=== PATIENT | male | born 1965 | race Caucasian/White ===

== ENCOUNTER 2017-12-23 12:04 | Emergency (ER) | payer MEDICAID, SELFPAY ==
[2017-12-23 12:06] VITALS: BP 135/77; PULSE 87; RESP 22; TEMP 37; O2SAT 94
--- NOTE | 2017-12-23 12:10 | DI.CT_ITS ---
SYMPTOM/DIAGNOSIS: UPPER ABD PAIN, NO BOWEL MOVEMENT FOR [address]: Routine examination was performed. Dependent atelectatic changes are seen in the lung bases. The liver, spleen, pancreas, gallbladder, bile ducts and adrenal glands are unremarkable. There is focal thinning of the renal cortex seen in the mid pole of the left kidney. This may represent focal scarring. The possibility of a small angiomyolipoma could not be excluded. The fat area measures approximately 1 by 1 cm. No nephrolithiasis or hydronephrosis. The urinary bladder is intact. The reproductive organs are unremarkable. The bowel shows no evidence of obstruction or inflammation. No evidence to suggest an acute appendicitis are present. There is a normal amount of stool throughout the colon. The abdominal aorta is of normal caliber. No significant abdominal or pelvic adenopathy, ascites or pneumoperitoneum is seen. Degenerative changes are seen in the spine. IMPRESSION: No evidence of bowel obstruction or significant fecal load. Renal cortical scarring of the left kidney versus small angiomyolipoma.
--- NOTE | 2017-12-23 12:17 | W.ED.GENAD ---
Discharge Plan Disposition Patient Disposition: HOME Discharge Details Chief Complaint: Abd Prob Clinical Impression: Constipation, Abdominal pain Primary Care Provider: Katharina Hernandez V ED Provider: Prosper Ventura Home Meds and New Rx's Prescriptions: Continue citalopram 20 MG tablet 40 mg PO HS RF: 0 losartan 25 MG tablet 50 mg PO DAILY RF: 0 lovastatin 20 MG tablet 1 tab PO DAILY RF: 0 bupropion HCl 150 MG tablet extended release 24 hr 1 tab PO BID RF: 0 aspirin [Aspir-81] 81 MG tablet,delayed release (DR/EC) 81 mg PO DAILY RF: 0 multivitamin 1 EACH capsule 1 tab PO DAILY RF: 0 Discontinued hydrocodone-acetaminophen [Vicodin] 5-300 mg Tablet 1 tab PO PRN PRNRF: 0 Discharge Instructions Instructions: Constipation (ED), Abdominal Pain (ED) Additional Instructions: Please stop taking Vicodin. This medicine is likely causing her constipation Take a stool softener --does according to label. Please contact your primary care physician to arrange follow-up. Be sure to discuss with your doctor the official result from CT imaging. Preliminary CT imaging notes cortical renal scarring in your left kidney versus possible small angiomyolipoma. It is important that you follow up on the official CT interpretation and discuss findings with your doctor as additional outpatient diagnostic testing may be needed. Return to the ER for any worsening or new concerning symptoms. Referrals: Katharina Hernandez MD [Primary Care Provider] - Medical Decision Making 12:20 --58-year-old male with history of recently diagnosed spinal stenosis, started on Vicodin and taking over the past 1 week, here with upper abdominal abdominal pain worsening over the past few days and constipation. I suspect abdominal pain is related to constipation. Consider other etiologies for pain including acute bowel obstruction. Plan to CT abd and pelv. Patient appears clinically dehydrated. Will give IV fluid bolus . 14:30 --labs reviewed and nondiagnostic. Patient does have leukocytosis. 15:30 --CT of the abdomen pelvis was interpreted by radiology: IMPRESSION: 1. No significant fecal loading. No bowel obstruction. 2. Cortical renal scarring midpole left kidney versus small angiomyolipoma. Measures 1 x 1 cm. Patient reassessed and notes he continues to have some upper abdominal discomfort. I will give Pepcid IV as well as some Toradol IV. Patient is still not had a bowel movement. I will give fleets enema. 16:24 --patient reassessed and notes that he had a significant bowel movement after enema and feels much better. Pain can completely resolved. Patient was instructed to stop taking Vicodin and to use stool softener as prescribed. Usual and customary discharge instructions were provided to the patient. Medical Records Medical records reviewed: Yes I reviewed the patient's medical records. I obtained and reviewed discharge summary documentation from [facility]: MRI lumbar spine showed significant spinal stenosis and degenerative disc disease lumbar spine. His pain improved with IV opioids and steroids. Lab Data Lab results reviewed: Yes I reviewed the patient's lab results. Laboratory Tests Range/Units 12/23/17 12/23/17 12:21 12:21 WBC (4.4-10.8) k/cumm 14.66 H RBC (4.50-6.00) m/cumm 4.57 Hgb (13.5-17.5) g/dL 14.0 Hct (40.0-50.0) % 41.9 MCV (80-95) fL 91.7 MCH (27.0-33.0) pg 30.6 MCHC (32.0-36.0) g/dL 33.4 RDW (11.8-14.1) % 13.1 Plt Count (130-400) x1000/uL 206 MPV (8.0-11.0) fL 10.4 Immature Gran % 0.4 Neutrophils % 81.0 Lymphocytes % 5.4 Monocytes % 13.1 Eosinophils % 0.0 Basophils % 0.1 Absolute Neutrophils (1.2-6.7) k/cumm 11.87 H Absolute Lymphocytes (1.2-3.4) k/cumm 0.79 L Absolute Monocytes (0.11-0.7) k/cumm 1.92 H Absolute Eosinophils (0.0-0.7) k/cumm 0.00 Absolute Basophils (0.0-0.2) k/cumm 0.01 Sodium (136-145) mmol/L 133 L Potassium (3.5-5.1) mmol/L 4.2 Chloride (98-107) mmol/L 95 L Carbon Dioxide (21.0-32.0) mmol/L 28.3 Anion Gap (3-11) mmol/L 9.7 BUN (7-18) mg/dL 25 H Creatinine (0.70-1.30) mg/dL 1.06 Estimated GFR/1.73 m2 (mL/min/1.73m2) >= 60.00 Glucose (70-100) mg/dL 111 H Calcium (8.5-10.1) mg/dL 8.5 Total Bilirubin (0.2-1.0) mg/dL 0.7 AST (15-37) U/L 24 ALT (12-78) U/L 37 Alkaline Phosphatase (46-116) U/L 87 Total Protein (6.4-8.2) g/dL 7.1 Albumin (3.4-5.0) g/dL 2.8 L Lipase (73-393) U/L 66 L HPI General Date/Time Provider Initiated Documentation: 12/23/17 12:05. Limitations to Documentation: no limitations. Information obtained by: patient. HPI Narrative: 52-year-old with history of hypertension, back pain and recently diagnosed with spinal stenosis, recently prescribed been taking Vicodin, here with chief complaint of abdominal pain. Patient notes abdominal pain over the past few days has been worsening. Pain is localized to his upper abdomen. Pain feels like constant discomfort. Some associated nausea. No vomiting. He has had no bowel movement in the past 6 days. He typically has a bowel movement every 1-2 days. He has no associated chest pain. No fever. Related Data Home Medications Medication Instructions Recorded Confirmed citalopram 40 mg PO HS 05/15/13 12/23/17 losartan 50 mg PO DAILY 05/15/13 12/23/17 lovastatin 1 tab PO DAILY 05/15/13 12/23/17 aspirin [Aspir-81] 81 mg PO DAILY 01/15/16 12/23/17 bupropion HCl 1 tab PO BID 01/15/16 12/23/17 multivitamin 1 tab PO DAILY 01/15/16 12/23/17 Allergies Allergy/AdvReac Type Severity Reaction Status Date / Time No Known Allergies Allergy Unverified 12/23/17 12:09 General Stated Complaint: Abd Prob ELFEGO: 3 Review of Systems Review of Systems All systems reviewed & are unremarkable except as noted in HPI and below Gastrointestinal Reports abdominal pain and Denies vomiting Genitourinary Denies dysuria Musculoskeletal Reports back pain (mild, improving) PFSH Family History Other Cerebrovascular accident Diabetes Heart disease Myocardial infarction Neoplasm Medical History Depression Essential hypertension GERD (gastroesophageal reflux disease) Hyperlipidemia Obesity (BMI 30-39.9) Social History Smoking/Tobacco Use Status: Current every day Surgical History Colonoscopy - MAC (12/06/16) EGD - MAC (12/06/16) Repair of umbilical hernia (12/20/16) Exam Const General: well developed and not in acute distress HENMT Mouth: moist mucous membranes Eyes Conjunctivae: conjunctivae normal Sclera: sclerae normal Neck Neck: normal visual inspection Resp Effort & Inspection: normal respiratory effort and no respiratory distress Auscultation: no rales, no rhonchi and no wheezes Cardio Jugular venous pressure: no JVD Rate: regular rate Rhythm: regular rhythm Heart Sounds: no gallops, no murmurs and no rubs GI Inspection: distended Palpation: soft and tender in the LUQ and in the RUQ Percussion: tympanic to percussion Auscultation: hypoactive bowel sounds Skin General skin exam: no rashes or lesions noted and other (warm) Neuro General: alert, awake and moves all extremities Extrem General: no edema Psych Appearance: grossly normal Mental Status: mental status grossly normal Speech and Movement: speech and movement normal Course Vital Signs Temperature 37.0 C 12/23/17 12:06 Pulse 87 12/23/17 12:06 Respiratory Rate 22 12/23/17 12:06 Blood Pressure 135/77 12/23/17 12:06 Pulse Oximetry 94 L 12/23/17 12:06 Temperature 37.0 C 12/23/17 12:06 Temperature Source Temporal Artery Scan 12/23/17 12:06 Pulse 87 12/23/17 12:06 Respiratory Rate 22 12/23/17 12:06 Blood Pressure 135/77 12/23/17 12:06 Blood Pressure Position Supine 12/23/17 12:06 Pulse Oximetry 94 L 12/23/17 12:06 Oxygen Delivery Method Room Air 12/23/17 12:06 Oxygen Flow Rate 0 12/23/17 12:06 Pain Level 15 12/23/17 12:06
[2017-12-23] MEDS: Lactated Ringers 1,000 ML 1000 ML IV (12:24)
[2017-12-23 12:28] LABS: Abs Immature Grans 0.06 k/cumm (0.0-0.09); Absolute Basophil Count 0.01 k/cumm (0.0-0.2); Absolute Lymphocyte Count 0.79 k/cumm (1.2-3.4); Absolute Monocyte Count 1.92 k/cumm (0.11-0.7); Basophils % 0.1; HCT 41.9 % (40.0-50.0); Immature Grans % 0.4; Lymphocytes % 5.4; Mean Corp. HGB Concentration 33.4 g/dL (32.0-36.0); Mean Corpuscular Hemoglobin 30.6 pg (27.0-33.0); Mean Corpuscular Volume 91.7 fL (80-95); Mean Platelet Volume 10.4 fL (8.0-11.0); Monocytes % 13.1; Platelet Count 206 x1000/uL (130-400); RBC 4.57 m/cumm (4.50-6.00); RBC Distribution Width 13.1 % (11.8-14.1); White Blood Cell Count 14.66 k/cumm (4.4-10.8)
[2017-12-23 12:29] LABS: Absolute Neutrophil Count 11.87 k/cumm (1.2-6.7)
[2017-12-23 12:40] LABS: ALT 37 U/L (12-78); AST 24 U/L (15-37); Albumin 2.8 g/dL (3.4-5.0); Alkaline Phosphatase 87 U/L (46-116); Anion Gap 9.7 mmol/L (3-11); BUN 25 mg/dL (7-18); Bilirubin, Total 0.7 mg/dL (0.2-1.0); CO2 28.3 mmol/L (21.0-32.0); CREATININE 1.06 mg/dL (0.70-1.30); Calcium 8.5 mg/dL (8.5-10.1); Chloride 95 mmol/L (98-107); Glucose 111 mg/dL (70-100); Lipase 66 U/L (73-393); Potassium 4.2 mmol/L (3.5-5.1); Sodium 133 mmol/L (136-145); Total Protein 7.1 g/dL (6.4-8.2)
[2017-12-23] MEDS: Omnipaque 350 MG/ML 100 ML BTL IV (13:51)
[2017-12-23 13:57] VITALS: BP 144/74; PULSE 88; RESP 16; O2SAT 90
--- NOTE | 2017-12-23 14:39 | DI.VRAD_ITS ---
EXAM: CT Abdomen and Pelvis With Intravenous Contrast EXAM DATE/TIME: 12/23/2017 12:12 PM CLINICAL HISTORY: 52 years old, male; Pain; Abdominal pain; Epigastric; Patient HX: Upper abdominal pain, no bm 6 days TECHNIQUE: Axial computed tomography images of the abdomen and pelvis with intravenous contrast. Coronal and sagittal reformatted images were created and reviewed. COMPARISON: No relevant prior studies available. FINDINGS: Lower thorax: No acute findings. ABDOMEN: Liver: Normal. No mass. Gallbladder and bile ducts: Normal. No calcified stones. No ductal dilation. Pancreas: Normal. No ductal dilation. Spleen: Normal. No splenomegaly. Adrenals: Normal. No mass. Kidneys and ureters: Cortical renal scarring midpole left kidney versus small angiomyolipoma. Measures 1 x 1 cm. Stomach and bowel: No significant fecal loading. No bowel obstruction. Appendix: No evidence of appendicitis. PELVIS: Bladder: Unremarkable as visualized. Reproductive: Unremarkable as visualized. ABDOMEN and PELVIS: Intraperitoneal space: Normal. No free air. No significant fluid collection. Bones/joints: No acute fracture. No dislocation. Soft tissues: Unremarkable. Vasculature: Normal. No abdominal aortic aneurysm. Lymph nodes: Normal. No enlarged lymph nodes. IMPRESSION: 1. No significant fecal loading. No bowel obstruction. 2. Cortical renal scarring midpole left kidney versus small angiomyolipoma. Measures 1 x 1 cm. Dictated and Authenticated by: Maria L Saldaña MD. Ordering:JAVI GUTIERREZ MD
[2017-12-23] MEDS: Ketorolac 15 MG/ML VIAL IVP (15:20)
[2017-12-23] MEDS: FAMOTIDINE 20 MG/50 ML BAG 100 MG IVPB (15:21)
[2017-12-23 16:43] VITALS: BP 145/74; PULSE 79; RESP 16; O2SAT 95
== END 2017-12-23 16:50 | disposition home or self-care (01) ==
PROVIDERS: Emergency Provider Student in an Organized Health Care Education/Training Program; PCP Family Medicine
DX: R10.10 Upper abdominal pain, unspecified (principal); K59.00 Constipation, unspecified; R93.422 Abnormal radiologic findings on diagnostic imaging of left kidney; I10 Essential (primary) hypertension
CPT/HCPCS: 36415; 80053; 83690; 96361; 96365; 96375; 99285; 74177; 85025; 99284; J1885; J3490

== ENCOUNTER 2017-12-24 14:07 | Emergency (ER) | payer MEDICAID, SELFPAY ==
[2017-12-24 14:36] VITALS: BP 144/71; PULSE 73; RESP 18; TEMP 36.6; O2SAT 94
[2017-12-24 14:55] LABS: Bilirubin Negative (Negative); Blood Small (Negative); Clarity Clear; Glucose Negative (Negative); Ketones Trace mg/dL (Negative); Leukocyte Esterase Negative (Negative); Nitrite Negative (Negative); Specific Gravity 1.015 (1.005-1.025)
--- NOTE | 2017-12-24 15:00 | DI.US_ITS ---
SYMPTOM/DIAGNOSIS: RUQ PAIN, ? CHOLECYSTITIS ABDOMEN ULTRASOUND: Routine examination. Comparison CT scan is 12/23/17. The aorta and IVC are unremarkable. The liver is mildly enlarged measuring 18 cm. There is diffuse increased echogenicity of the liver consistent with fatty infiltration. No hepatic mass is seen. The gallbladder is unremarkable. No stones or sludge is seen. No pericholecystic fluid is present. The gallbladder wall is within normal limits at .2 cm. The common duct is within normal limits at .3 cm. There is a negative sonographic Zavala's sign. The visualized portions of the pancreas were unremarkable. The spleen and kidneys have a normal appearance. No free fluid is seen in the abdomen. Note is made of antegrade flow in the portal vein. IMPRESSION: Hepatomegaly and hepatic steatosis.
[2017-12-24 15:02] LABS: Bacteria Rare HPF (Negative); Crystals Negative HPF (Negative); Epithelial Cells Few HPF (Negative); Mucus Moderate (Negative); WBC 0-2 HPF (0-5)
[2017-12-24 15:03] LABS: C & S Indicated? No; Casts 0-2 Coarse Granular LPF (Negative)
[2017-12-24 15:15] LABS: Lactate-non-spesis 1.2 mmol/L (0.6-1.4)
[2017-12-24] MEDS: Dicyclomine 20 MG TAB PO (15:18)
[2017-12-24 15:19] LABS: Abs Immature Grans 0.11 k/cumm (0.0-0.09); Absolute Basophil Count 0.02 k/cumm (0.0-0.2); Absolute Neutrophil Count 16.06 k/cumm (1.2-6.7); Basophils % 0.1; HCT 41.7 % (40.0-50.0); HGB 14.1 g/dL (13.5-17.5); Immature Grans % 0.6; Lymphocytes % 3.9; Mean Corp. HGB Concentration 33.8 g/dL (32.0-36.0); Mean Corpuscular Hemoglobin 30.4 pg (27.0-33.0); Mean Corpuscular Volume 89.9 fL (80-95); Mean Platelet Volume 10.9 fL (8.0-11.0); Monocytes % 9.9; Neutrophils % 85.5; Platelet Count 181 x1000/uL (130-400); RBC 4.64 m/cumm (4.50-6.00); RBC Distribution Width 12.9 % (11.8-14.1); White Blood Cell Count 18.78 k/cumm (4.4-10.8)
[2017-12-24] MEDS: Ondansetron 4 MG/2 ML VIAL IVP (15:19)
[2017-12-24] MEDS: Normal Saline 1,000 ML 1000 ML IV (15:19)
[2017-12-24] MEDS: Pantoprazole 40 MG VIAL IVP (15:21)
--- NOTE | 2017-12-24 15:29 | ED.GENADUL_ITS ---
Discharge Plan Disposition Patient Disposition: HOME Condition: Good Discharge Details Chief Complaint: Abd Prob Clinical Impression: Constipation, Abdominal pain Primary Care Provider: Katharina Hernandez V ED Provider: Vikram Munoz Home Meds and New Rx's Prescriptions: New docusate sodium [Colace] 100 mg capsule 100 mg PO DAILY Qty: 90 RF: 0 pantoprazole [Protonix] 40 mg tablet,delayed release (DR/EC) 40 mg PO BID Qty: 60 RF: 0 ranitidine HCl 150 mg capsule 150 mg PO DAILY Qty: 30 RF: 0 cyclobenzaprine 10 mg tablet 10 mg PO TID Qty: 14 RF: 0 No Action citalopram 20 MG tablet 40 mg PO HS RF: 0 losartan 25 MG tablet 50 mg PO DAILY RF: 0 lovastatin 20 MG tablet 1 tab PO DAILY RF: 0 bupropion HCl 150 MG tablet extended release 24 hr 1 tab PO BID RF: 0 aspirin [Aspir-81] 81 MG tablet,delayed release (DR/EC) 81 mg PO DAILY RF: 0 multivitamin 1 EACH capsule 1 tab PO DAILY RF: 0 Discharge Instructions Instructions: Constipation (ED) Additional Instructions: Please take the mag citrate as directed. Please drink 8-10 cups of water with this. Please drink 10-12 cups of water per day on a regular basis to maintain good hydration. Please take the Colace as directed. If you notice any worsening of your symptoms whatsoever, a return of your symptoms, or any worsening pain in your abdomen please return immediately to the ER. Please follow-up with your primary care provider in the next 24-48 hours. If you notice any worsening of your symptoms, or any new symptoms such as vomiting, diarrhea, fever, chills, shortness of breath, chest pain, numbness, weakness, or fainting , please return immediately to the emergency department for reevaluation. Please follow up with your primary care provider as soon as possible for reassessment and reevaluation. As always, it was a pleasure participating in your medical care today. Referrals: Katharina Hernandez MD [Primary Care Provider] - Discharge Data Discharge Date/Time-TO BE ENTERED AT DEPARTURE: 12/24/17 19:49 Medical Decision Making This is a pleasant 52-year-old male who presents for evaluation of epigastric pain. He was here yesterday was seen and assessed and demonstrated relatively benign laboratory workup, and a negative CT scan for any acute process. He did have an enema, and had complete resolution of his epigastric pain after this. Patient states that after going home he had one more bowel movement and then had a return of his symptoms. It is sharp and achy in nature in the epigastric region. Physical exam demonstrates tenderness in the right upper quadrant more so in the mid and left upper quadrants. He still does have his gallbladder, I am concerned for acute cholecystitis. Differential does include gastric ulcer, gastritis, or other acute abdominal pathology. I feel that perforation is unlikely. We will get an abdominal flat plate series for evaluation of potential perforation and gas evaluation however I feel this unlikely. We will hold off on repeat CT after current imaging and laboratory workup. EKG 15: 30 Rate 75, intervals normal, sinus rhythm, RSR in V1, no significant ST elevations or depressions, no T-wave inversions, no Q waves. Results per virtual radiology constipation in the right colon. No free air under the diaphragm. Ultrasound of the abdomen demonstrated acute there is a diffuse increase in hepatic parenchymal echogenicity, consistent with fatty infiltration. Hepatomegaly of 17.6 cm. Gallbladder wall 2.4 mm. Common bile duct 2.9 mm no other acute process. Patient has had notable improvement of his pain and shows no signs of an acute abdomen whatsoever.. With the evidence of the constipation in the right colon I do not feel that he would benefit from another enema, but rather I feel he would benefit from magnesium citrate and colon cleansing. Laboratory workup is relatively benign, however he does have an elevated white count. He has no bandemia though, no tachycardia, no fever. I feel that this elevated white count is most likely secondary to reactivity from his constipation, pain, and mild dehydration. At a long discussion with the patient regarding potential inpatient admission/observation, versus discharge. Patient is requesting to be discharged as he states that he feels much better. He is asking for a muscle relaxant as he ran out of this prescription at home for his chronic back pain. I do feel that this is reasonable for the time being as a temporary measure. With the patient's notable improvement of his symptoms, a benign ultrasound, and an x-ray showing some mild continued constipation of the right colon with no evidence of perforation, as well as the patient's normal vital signs, I feel that it is reasonable for him to be discharged home per his request. I do long discussion with him regarding red flags for which to return, the importance of notable oral fluid intake, as well as the importance of magnesium citrate. Diagnosis constipation. I have extensively reviewed the treatment plan and discharge instructions with the patient and their family. I have addressed all patient concerns at this time. The patient and family was made aware of what symptoms to monitor for that would warrant a return to the emergency department. Discussed the plan with the patient and family, they demonstrate verbal understanding and agreement with our assessment and plan at this time. HPI General Date/Time Provider Initiated Documentation: 12/24/17 14:50 . HPI Narrative: This is a 52-year-old male with a past medical history of hypertension, and inguinal hernia repair on the right, high cholesterol, who presents today for evaluation of upper epigastric abdominal pain. 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 At that time CT scan was performed and demonstrated no significant acute process, laboratory workup demonstrated mild leukocytosis but no other significant etiologies. The patient was given an enema and had complete resolution of his symptoms after this. He was then discharged home. The patient states that since then his pain has returned and was worse than it was before. The pain is located in the left upper mid upper and right upper abdominal quadrants. Slightly worse in the right upper abdominal quadrant which is a transition from where it was yesterday. It is described as stabbing and achy in nature. It is worsened with movement. It is improved by nothing. Patient had an EGD that was performed last December which per patient demonstrated no acute etiologies. He denies any history of gastric ulcer. Patient denies any vomiting but does admit to nausea. He has had one small bowel movement since yesterday, there was no melena, hematochezia, or acholic stool. He denies any hematemesis, hemoptysis, or coffee-ground emesis. The patient does state that he takes occasional antiacid medications, however this is not on his medication list and he does not know the names of these. I imagine they are [id number]. Patient denies any blood thinner use but does take a daily aspirin. The patient denies any other associated symptoms at this time. Patient denies any pertinent family history. He denies any IV or illicit drug use. Related Data Home Medications Medication Instructions Recorded Confirmed citalopram 40 mg PO HS 05/15/13 12/24/17 losartan 50 mg PO DAILY 05/15/13 12/24/17 lovastatin 1 tab PO DAILY 05/15/13 12/24/17 aspirin [Aspir-81] 81 mg PO DAILY 01/15/16 12/24/17 bupropion HCl 1 tab PO BID 01/15/16 12/24/17 multivitamin 1 tab PO DAILY 01/15/16 12/24/17 cyclobenzaprine 10 mg PO TID #14 tab 12/24/17 docusate sodium [Colace] 100 mg PO DAILY #90 cap 12/24/17 pantoprazole [Protonix] 40 mg PO BID #60 tab 12/24/17 ranitidine HCl 150 mg PO DAILY #30 cap 12/24/17 Previous Rx's Medication Instructions Recorded cyclobenzaprine 10 mg PO TID #14 tab 12/24/17 docusate sodium [Colace] 100 mg PO DAILY #90 cap 12/24/17 pantoprazole [Protonix] 40 mg PO BID #60 tab 12/24/17 ranitidine HCl 150 mg PO DAILY #30 cap 12/24/17 Allergies Allergy/AdvReac Type Severity Reaction Status Date / Time No Known Allergies Allergy Unverified 12/24/17 14:37 General Stated Complaint: Abd Prob ELFEGO: 3 Review of Systems Review of Systems 10 point review of systems was performed, pertinent positives and negatives are noted in the history of present illness. Exam Narrative Exam Narrative: 1.Const: Well-nourished, Well-developed, appearing stated age 2.Eyes: PERRL, no conjunctival injection, and symmetrical lids. 3.ENT: Atraumatic external nose and ears. Moist MM. Neck: Symmetric, trachea midline, No thyromegaly. 4.CVS: +S1/S2, No murmurs or gallops. Peripheral pulses 2+ and equal in all extremities. Brisk capillary refill in all extremities. 5.RESP: Unlabored respiratory effort. Clear to auscultation bilaterally. No wheezes rales or rhonchi 6.GI: Soft, Nondistended, No hepatosplenomegaly. No guarding or rebound.Patient does demonstrate notable tenderness in the left upper right upper and midepigastric regions. Worse with palpation. No guarding. No rebound. Negative obturator and psoas sign. No significant pain in his right lower quadrant. Patient does demonstrate positive Zavala sign. No periumbilical ecchymosis. Negative Rovsing sign. No significant acute flank tenderness. 7.MSK: Normocephalic/Atraumatic, Extremities w/o deformity or ttp No cyanosis or clubbing, Normal movement of all extremities, of her lower extremity movement is slightly limited secondary to chronic back pain. No signs of saddle anesthesia. Normal rectal tone. 8.Skin: Warm, Dry. No rashes or lesions. 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 Sensation grossly intact, no focal neurologic deficits. 10.Psych: (AAO) x3. Appropriate mood and affect Course Vital Signs Temperature 36.6 C 12/24/17 14:36 Pulse 73 12/24/17 14:36 Respiratory Rate 18 12/24/17 14:36 Blood Pressure 144/71 H 12/24/17 14:36 Pulse Oximetry 94 L 12/24/17 14:36 Temperature 36.6 C 12/24/17 14:36 Temperature Source Temporal Artery Scan 12/24/17 14:36 Pulse 73 12/24/17 14:36 Respiratory Rate 18 12/24/17 14:36 Blood Pressure 144/71 H 12/24/17 14:36 Pulse Oximetry 94 L 12/24/17 14:36 Pain Level 10 12/24/17 14:36 Lab/Test Results Lab/Test Results: Laboratory Tests Range/Units 12/24/17 12/24/17 14:50 15:10 Lactate (0.6-1.4) mmol/L 1.2 Urine Color (Yellow) Yellow Urine Clarity Clear Urine pH (5-8) 6.0 Ur Specific Cornell (1.005-1.025) 1.015 Urine Protein (Negative) mg/dL 30 H Urine Ketones (Negative) mg/dL Trace H Urine Blood (Negative) Small H Urine Nitrite (Negative) Negative Urine Bilirubin (Negative) Negative Urine Urobilinogen (Up TO 0.2) EU/dL 2.0 H Ur Leukocyte Esterase (Negative) Negative Urine RBC (0-2) 5-10 H Urine WBC (0-5) HPF 0-2 Ur Epithelial Cells (Negative) HPF Few Urine Crystals (Negative) HPF Negative Urine Bacteria (Negative) HPF Rare Urine Casts (Negative) LPF 0-2 coarse granular Urine Mucus (Negative) Moderate Ur Culture Indicated? No Urine Glucose (Negative) mg/dL Negative
[2017-12-24 15:32] LABS: Absolute Lymphocyte Count 0.73 k/cumm (1.2-3.4); Absolute Monocyte Count 1.86 k/cumm (0.11-0.7)
[2017-12-24 15:35] LABS: ALT 37 U/L (12-78); AST 25 U/L (15-37); Albumin 2.5 g/dL (3.4-5.0); Alkaline Phosphatase 114 U/L (46-116); Anion Gap 9.8 mmol/L (3-11); BUN 19 mg/dL (7-18); Bilirubin, Total 0.8 mg/dL (0.2-1.0); CO2 28.2 mmol/L (21.0-32.0); CREATININE 0.87 mg/dL (0.70-1.30); Calcium 8.3 mg/dL (8.5-10.1); Chloride 96 mmol/L (98-107); Glucose 118 mg/dL (70-100); Lipase 100 U/L (73-393); Potassium 3.9 mmol/L (3.5-5.1); Sodium 134 mmol/L (136-145); Total Protein 6.8 g/dL (6.4-8.2)
[2017-12-24 15:37] LABS: Troponin I < 0.02 ng/mL (0.00-0.06)
[2017-12-24 16:02] LABS: Diff Comment Diff Reviewed
--- NOTE | 2017-12-24 16:04 | DI.RAD_ITS ---
SYMPTOM/DIAGNOSIS: EPIGASTRIC ABD PAIN FLAT AND UPRIGHT ABDOMEN: The visualized lung bases are clear. No organomegaly is identified. There is a moderate amount of retained stool predominantly in the right colon. No bowel obstruction is seen. Degenerative changes are seen in the spine. IMPRESSION: Moderate amount of retained stool, predominantly in the right colon.
--- NOTE | 2017-12-24 17:22 | DI.VRAD_ITS ---
EXAM: US Abdomen Complete EXAM DATE/TIME: 12/24/2017 4:28 PM CLINICAL HISTORY: 52 years old, male; Pain; Other: Ruq pain, R/O cholecystitis; Prior surgery; Surgery date: 6+ months; Surgery type: Umbilical hernia repair TECHNIQUE: Real-time ultrasound of the abdomen with image documentation. COMPARISON: CT ABDOMEN PELVIS W 12/23/2017 1:33 PM FINDINGS: Liver: There is a diffuse increase in hepatic parenchymal echogenicity, consistent with fatty infiltration.. Hepatomegaly 17.6 cm. Gallbladder: Gallbladder wall 2.4 mm Common bile duct: Common bile duct 2.9 mm Pancreas: Normal. No ductal dilation. Right kidney: Right kidney 12.5 cm Left kidney: Left kidney 13.3 cm Spleen: The spleen 11.7 cm Aorta: Proximal aorta 2.4 cm Inferior vena cava: Normal. Portal venous: Antegrade flow in the portal vein IMPRESSION: There is a diffuse increase in hepatic parenchymal echogenicity, consistent with fatty infiltration.. Hepatomegaly 17.6 cm. Dictated and Authenticated by: Carly De Leon MD. Ordering:PARAMJIT JORGE MD
--- NOTE | 2017-12-24 18:23 | DI.VRAD_ITS ---
EXAM: XR Abdomen, 2 Views EXAM DATE/TIME: 12/24/2017 3:05 PM CLINICAL HISTORY: 52 years old, male; Pain; Abdominal pain; Epigastric; Patient HX: Epigastric abdominal pain TECHNIQUE: Frontal view of the abdomen/pelvis with upright view of the abdomen. COMPARISON: CT ABDOMEN PELVIS W 12/23/2017 1:33 PM FINDINGS: Gastrointestinal tract: Air in the colon and stomach No dilated loops of air . Constipation in the right colon Intraperitoneal space: No free air under the diaphragm Bones/joints: Unremarkable for age. IMPRESSION: Constipation in the right colon Dictated and Authenticated by: Carly De Leon MD. Ordering:PARAMJIT JORGE MD
[2017-12-24 19:26] VITALS: BP 147/78; PULSE 79; RESP 20; TEMP 36.6; O2SAT 93
== END 2017-12-24 19:49 | disposition home or self-care (01) ==
PROVIDERS: Emergency Provider Student in an Organized Health Care Education/Training Program; PCP Family Medicine
DX: K59.00 Constipation, unspecified (principal); R10.13 Epigastric pain; I10 Essential (primary) hypertension
CPT/HCPCS: 36415; 80053; 83690; 93005; 96361; 96374; 96375; 99285; 74019; 76700; 81003; 81015; 83605; 84484; 85025; 93010; 99284; J2405

== ENCOUNTER 2017-12-29 09:30 | Observation (INO) | payer MEDICAID, SELFPAY ==
[2017-12-29 09:34] VITALS: BP 165/86; PULSE 89; RESP 20; TEMP 36.4; O2SAT 94
--- NOTE | 2017-12-29 10:23 | ED.GENADUL_ITS ---
Discharge Plan Disposition Patient Disposition: [facility] Condition: Fair Discharge Details Chief Complaint: Abd Prob Clinical Impression: Acute hyponatremia, Acute renal insufficiency Reason For Visit: HYPONATREMIA,ACUTE RENAL INSUFFICIENCY,CHOLECYSTIT Admit Date/Time: 12/29/17 16:12 Admit Provider: Dar Truong Attending Provider: Dar Truong Primary Care Provider: Katharina Hernandez V ED Provider: Kush Chung Discharge Data Discharge Date/Time-TO BE ENTERED AT DEPARTURE: 12/29/17 17:34 Medical Decision Making Patient presenting to the emergency department chief complaint of constipation. Patient states that he has been able to go to the bathroom but that it is been hard and difficulty to have full bowel movement. He also states that he has been having some difficulty with urination as well. When questioning patient about the last bowel movement or urination he had he states that he urinated a little bit this morning and had a small bowel movement this morning as well. Patient states that the problems have been arising from the medication he is taking from his back pain. Patient does have pinpoint pupils and seems slightly somnolent/lethargic and when questioning patient which medication he took he stated he took Vicodin approximately 2 hours before coming. 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 Physical exam is unremarkable beyond some diffuse mild tenderness noted with palpation of the abdomen but bowel sounds are active in all 4 quadrants, soft abdomen, and no other worrisome physical exam findings. I feel that patient is suffering from opiate-induced constipation and upon review of previous medical records patient has been informed that he should stop taking any opiates as this is more likely cause of his constipation. Plan to do flat and up right abdominal films, bladder scan for urinary retention and give Colace to see if this helps with any bowel movement. At this time I doubt perforation or any other abdominal pathology given patient's recent and persistent opiate use which I feel is causing his symptoms. We will continue to reassess Review of x-ray imaging shows some findings that may be consistent with obstruction versus ileus, constipation left colon, mild opacities lower lobes which is stated as atelectasis versus pneumonia(feel more likely is atelectasis ) and minimal blunting right costophrenic angle with radiologist stating minimal pleural effusion possible. Given these findings rectal exam was done with RN printing shop supervisor in the room and no significant findings or impaction was noted and no blood was noted in the stool Spoke with general surgeon on-call Dr. Curiel whom after review of imaging feels that this is more than likely just constipation and not any severe obstruction. She recommended oral bowel prep with mag citrate along with enema. These were ordered along with some labs to evaluate for any significant white count are other concerning findings but I do feel that it is appropriate to proceed with enema and relieving patient's constipation. After review of labs that show acute renal insufficiency, hyponatremia, elevated white count I did pursue CT imaging to rule out any intra-abdominal source. IV fluids were ordered. Pending results of tests pt did have a BM and stated improvement of symptoms. After review of CT imaging which shows resolution of possible obstruction versus ileus but does show some mild opacities in lower lobes that may be consistent with pneumonia versus atelectasis, patient does have some dilation of his gallbladder. I did consult with hospitalist for admission of the patient for renal insufficiency hyponatremia and possible pneumonia. Spoke with Dr. Brown who accepted the patient for admission of renal insufficiency and hyponatremia but did not feel that pursuing antibiotics for pneumonia was necessary at this time. Patient was agreeable to this plan of care and remained stable throughout emergency department stay. Medical Records Medical records reviewed: Yes I reviewed the patient's medical records. Lab Data Lab results reviewed: Yes I reviewed the patient's lab results. HPI General Mode of arrival: ambulatory . Date/Time Provider Initiated Documentation: 12/29/17 09:59 . Limitations to Documentation: no limitations . Information obtained by: patient, RN notes reviewed and old records reviewed . History of Present Illness 52 year old M presents to the emergency department with the chief complaint of Constipation, described as severe, with intensity rated at 10. Quality is described as aching, and is localized to the abdomen. Patient started experiencing this day(s) (1) and it has been constant. No relieving factors improve symptom(s), No exacerbating factors reported . Patient did receive the following treatments prior to arrival, other (Mag citrate) Related Data Home Medications Medication Instructions Recorded Confirmed citalopram 40 mg PO HS 05/15/13 12/29/17 losartan 50 mg PO DAILY 05/15/13 12/29/17 lovastatin 1 tab PO DAILY 05/15/13 12/29/17 aspirin [Aspir-81] 81 mg PO DAILY 01/15/16 12/29/17 bupropion HCl 1 tab PO BID 01/15/16 12/29/17 multivitamin 1 tab PO DAILY 01/15/16 12/29/17 cyclobenzaprine 10 mg PO TID #14 tab 12/24/17 12/29/17 docusate sodium [Colace] 100 mg PO DAILY #90 cap 12/24/17 12/29/17 pantoprazole [Protonix] 40 mg PO BID #60 tab 12/24/17 12/29/17 ranitidine HCl 150 mg PO DAILY #30 cap 12/24/17 12/29/17 Previous Rx's Medication Instructions Recorded cyclobenzaprine 10 mg PO TID #14 tab 12/24/17 docusate sodium [Colace] 100 mg PO DAILY #90 cap 12/24/17 pantoprazole [Protonix] 40 mg PO BID #60 tab 12/24/17 ranitidine HCl 150 mg PO DAILY #30 cap 12/24/17 Allergies Allergy/AdvReac Type Severity Reaction Status Date / Time No Known Allergies Allergy Unverified 12/24/17 14:37 General Stated Complaint: Abd Prob ELFEGO: 3 Review of Systems Constitutional Denies body ache(s), Denies chills and Denies fever(s) Cardiovascular Denies chest pain and Denies dyspnea Respiratory Denies dyspnea Gastrointestinal Reports as per HPI, Reports abdominal pain, Reports constipation, Denies diarrhea, Denies nausea and Denies vomiting Genitourinary Denies hematuria, Reports difficulty urinating and Denies flank pain Musculoskeletal Reports back pain (chronic) Integumentary/Breasts Denies rash Neurologic Denies confusion and Denies sensory deficit Psychiatric Denies confusion PFSH Family History Other Cerebrovascular accident Diabetes Heart disease Myocardial infarction Neoplasm Medical History Umbilical hernia (Acute) Acute kidney injury (Acute) Hyponatremia (Acute) GERD (gastroesophageal reflux disease) (Chronic) Depression (Chronic) HLD (hyperlipidemia) (Chronic) HTN (hypertension) (Chronic) Depression Essential hypertension GERD (gastroesophageal reflux disease) Hyperlipidemia Obesity (BMI 30-39.9) Social History Smoking/Tobacco Use Status: Never alcohol intake: former additional social history: 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 He quit alcohol at age 19. Surgical History Colonoscopy - MAC (12/06/16) EGD - MAC (12/06/16) Repair of umbilical hernia (12/20/16) Exam Const General: cooperative, no acute distress, not ill appearing and lethargic Nutritional Appearance: obese Orientation: alert, awake and oriented x3 HENMT Mouth: moist mucous membranes Eyes Conjunctivae: conjunctivae normal Sclera: sclerae normal Pupils: pinpoint bilaterally EOM: EOM intact bilaterally Resp Effort & Inspection: normal respiratory effort, able to speak in complete sentences and no respiratory distress Auscultation: clear to auscultation bilaterally Cardio Rate: regular rate Rhythm: regular rhythm Heart Sounds: S1 normal and S2 normal GI Inspection: obesity Palpation: soft, no hepatosplenomegaly, not firm, no guarding, no hernias, no masses, not rigid and tender (Mild nonfocal) Auscultation: normoactive bowel sounds Rectal Exam: visual inspection normal, normal sphincter tone, No fecal impaction , No hemorrhoids and prostate abnormal enlarged (mild); no nodules and nontender Back/Spine/Pelvis Back: no CVA tenderness Skin General skin exam: no rashes or lesions noted Neuro General: alert, awake, oriented x3, moves all extremities and no focal motor deficits Sensory Exam: no sensory deficits noted Course 52-year-old male presented with acute abdominal pain, renal failure, acute cholecystitis. He has been sick for greater than a week. He initially presented via 911 call to hospital in [place]. He was diagnosed with spinal stenosis and constipation after a 5-day stay. He was back in our emergency room on 12/23 and 12/24/2017. CT of the abdomen showed a 10 cm enlarged gallbladder. His creatinine bumped to 4.53 his sodium was low at 123 improved to 125. He has had some mental status changes, tachypnea, and paroxysmal colicky spasms. His labs show elevated transaminases and a bilirubin of 4.0. He is transferred to [facility] for tertiary care management. The feeling is he may have to have a cholecystectomy or ERCP done semi-emergently. Vital Signs Temperature 36.4 C L 12/29/17 09:34 Pulse 89 12/29/17 09:34 Respiratory Rate 20 12/29/17 09:34 Blood Pressure 165/86 H 12/29/17 09:34 Pulse Oximetry 94 L 12/29/17 09:34 Temperature 36.4 C L 12/29/17 09:34 Temperature Source Temporal Artery Scan 12/29/17 09:34 Pulse 89 12/29/17 09:34 Respiratory Rate 20 12/29/17 09:34 Respiratory Effort 12/29/17 09:37 Blood Pressure 165/86 H 12/29/17 09:34 Blood Pressure Position Supine 12/29/17 09:34 Pulse Oximetry 94 L 12/29/17 09:34 Oxygen Delivery Method Room Air 12/29/17 09:34 Oxygen Flow Rate 0 12/29/17 09:34
[2017-12-29] MEDS: Bisacodyl 5 MG TABEC PO (10:27)
--- NOTE | 2017-12-29 11:05 | DI.RAD_ITS ---
SYMPTOM/DIAGNOSIS: CONSTIPATION ABDOMEN: 12/29 Three views were obtained. No gross free intraperitoneal air is seen. Bowel gas pattern is grossly unremarkable except for question slight focal dilatation of left mid-abdomen small bowel loops. This is a nonspecific finding. CONCLUSION: No definite abnormality seen. Please see accompanying CT study. PA CHEST: 12/29 PA view of the chest shows streaky and patchy bibasilar intrapulmonary radiodensities. These correlate with small bilateral pleural effusions and areas of patchy opacity identified in the lung bases on abdominal and pelvic CT. CONCLUSION: Findings raising the possibility of basilar pneumonia.
--- NOTE | 2017-12-29 11:24 | DI.VRAD_ITS ---
EXAM: XR Abdomen 2 Views with XR Chest 1 View EXAM DATE/TIME: 12/29/2017 10:23 AM CLINICAL HISTORY: 52 years old, male; Pain; Abdominal pain; Generalized; Patient HX: Abdominal pain x4 days, constipation. TECHNIQUE: XR of the abdomen (2 views) with XR chest (1 view). COMPARISON: CR CHEST 2 VIEWS PA,LAT 01/19/2016 7:10 AM FINDINGS: Lungs: Mild opacities in the lower lobes may represent mild atelectasis or pneumonia. Pleural space: Minimal blunting in the right costophrenic angle may represent minimal pleural effusion. Heart/Mediastinum: Normal. No cardiomegaly. Gastrointestinal tract: A few loops of dilated bowel may represent obstruction or ileus. Findings consistent with constipation in the left colon. Intraperitoneal space: Normal. No free air. Bones/joints: Normal. No acute fracture. Soft tissues: Normal. IMPRESSION: 1. Mild opacities in the lower lobes may represent mild atelectasis or pneumonia. 2. Minimal blunting in the right costophrenic angle may represent minimal pleural effusion. 3. A few loops of dilated bowel may represent obstruction or ileus. 4. Findings consistent with constipation in the left colon. Dictated and Authenticated by: Carly De Leon MD. Ordering:MT DHILLON MD
[2017-12-29] MEDS: Magnesium Citrate 300 ML BTL PO (12:05)
[2017-12-29 12:20] LABS: Lactate-non-spesis 0.7 mmol/L (0.6-1.4)
[2017-12-29 12:21] LABS: Abs Immature Grans 0.49 k/cumm (0.0-0.09); Absolute Basophil Count 0.02 k/cumm (0.0-0.2); Absolute Eosinophil Count 0.05 k/cumm (0.0-0.7); Basophils % 0.1; Eosinophils % 0.2; HCT 35.8 % (40.0-50.0); HGB 12.7 g/dL (13.5-17.5); Immature Grans % 2.1; Mean Corp. HGB Concentration 35.5 g/dL (32.0-36.0); Mean Corpuscular Hemoglobin 30.8 pg (27.0-33.0); Mean Corpuscular Volume 86.7 fL (80-95); Mean Platelet Volume 10.7 fL (8.0-11.0); Neutrophils % 88.6; Platelet Count 175 x1000/uL (130-400); RBC 4.13 m/cumm (4.50-6.00); White Blood Cell Count 23.01 k/cumm (4.4-10.8)
[2017-12-29 12:35] LABS: Absolute Lymphocyte Count 0.92 k/cumm (1.2-3.4); Absolute Monocyte Count 1.15 k/cumm (0.11-0.7); Absolute Neutrophil Count 20.39 k/cumm (1.2-6.7)
[2017-12-29 12:36] LABS: ALT 169 U/L (12-78); AST 170 U/L (15-37); Albumin 1.5 g/dL (3.4-5.0); Alkaline Phosphatase 376 U/L (46-116); Anion Gap 9.1 mmol/L (3-11); BUN 53 mg/dL (7-18); Bilirubin, Total 3.1 mg/dL (0.2-1.0); CO2 24.9 mmol/L (21.0-32.0); CREATININE 3.22 mg/dL (0.70-1.30); Calcium 7.4 mg/dL (8.5-10.1); Chloride 89 mmol/L (98-107); Estimated GFR 20.35 (mL/min/1.73m2); Glucose 96 mg/dL (70-100); Potassium 3.8 mmol/L (3.5-5.1); Total Protein 5.7 g/dL (6.4-8.2)
[2017-12-29 12:40] LABS: Sodium 123 mmol/L (136-145)
[2017-12-29 13:01] LABS: Diff Comment Agrees w/ Instrument; RBC Morphology Normal
[2017-12-29] MEDS: Normal Saline 1,000 ML 1000 ML IV (13:04)
--- NOTE | 2017-12-29 14:11 | DI.CT_ITS ---
SYMPTOM/DIAGNOSIS: ABD PAIN ABDOMINAL AND PELVIC CT: 12/29/17 CT examination of the abdomen and pelvis was performed without contrast administration. There are small bilateral pleural effusions, right greater than left and there are some air space opacities at the lung bases, right greater than left as well. The possibility of pneumonia is raised but CHF or other etiologies are not excluded. Appropriate follow up chest radiographs requested. Liver and spleen are grossly unremarkable by noncontrast criteria. Pancreas appears normal. Gallbladder and bile ducts are CT normal. Abdominal aorta is of normal diameter. No significant abdominal wall hernia is seen. No abdominal or pelvic adenopathy identified. Adrenals and kidneys are unremarkable. No evidence of urinary tract obstruction or calcification. Appendix appears normal. No evidence of diverticulitis or bowel obstruction. CONCLUSION: Findings raising the possibility of pneumonitis. No other focal abnormality identified.
--- NOTE | 2017-12-29 14:20 | DI.VRAD_ITS ---
EXAM: CT Abdomen and Pelvis Without Intravenous Contrast EXAM DATE/TIME: 12/29/2017 1:39 PM CLINICAL HISTORY: 52 years old, male; Pain; Abdominal pain; Localized; Upper; Prior surgery TECHNIQUE: Axial computed tomography images of the abdomen and pelvis without intravenous contrast. Coronal and sagittal reformatted images were created and reviewed. COMPARISON: CT ABDOMEN PELVIS W 12/23/2017 1:33 PM FINDINGS: Lower thorax: Increasing bilateral pleural effusions. Opacities in the right middle lobe and both lower lobes may represent atelectasis or pneumonia. Coronary artery calcifications may indicate coronary artery disease ABDOMEN: Liver: Hepatic steatosis Gallbladder and bile ducts: The gallbladder is distended over 10 cm. Pancreas: Mild inflammatory changes around the head of the pancreas may represent mild diverticulitis in the appropriate clinical setting.. Spleen: Normal. No splenomegaly. Adrenals: Adrenal glands are stable Kidneys and ureters: Stable Contour abnormality in the posterior left kidney. Differential angiomyolipoma . Punctate nonobstructing right renal calculus Stomach and bowel: Normal. No obstruction. No mucosal thickening. Appendix: No evidence of appendicitis. PELVIS: Bladder: Unremarkable as visualized. Reproductive: Unremarkable as visualized. ABDOMEN and PELVIS: Intraperitoneal space: Normal. No free air. No significant fluid collection. Bones/joints: No acute fracture. No dislocation. Soft tissues: Unremarkable. Vasculature: Normal. No abdominal aortic aneurysm. Lymph nodes: Normal. No enlarged lymph nodes. IMPRESSION: 1. Opacities in the right middle lobe and both lower lobes may represent atelectasis or pneumonia. 2. Increasing bilateral pleural effusions. 3. The gallbladder is distended over 10 cm. recommend further evaluation if acute cholecystitis is suspected 4. Mild inflammatory changes around the head of the pancreas may represent mild diverticulitis in the appropriate clinical setting.. Dictated and Authenticated by: Carly De Leon MD. Ordering:MT DHILLON MD
[2017-12-29 16:20] VITALS: BP 148/87; PULSE 85; O2SAT 94
[2017-12-29 16:41] VITALS: BP 148/87; PULSE 86; RESP 20; TEMP 37; O2SAT 94
--- NOTE | 2017-12-29 17:19 | W.PM.HP.N ---
Date of service: 12/29/17 Time of Service: 17:19 Assessment and Plan (1) Acute kidney injury: Current visit: Yes Status: Acute Patient presents with a getting of 3.22. He describes excessive thirst and fluid intake. His urine output does not seem to match this. He feels bloated. We will check a bladder scan and consider catheterization if needed. We will check a renal ultrasound as soon as that is available. At this point will hydrate with the assumption that there is some evidence of dehydration. Some concern about nephrotoxic drugs with a recent hospitalization in which he received muscle relaxants and opiate analgesics. (2) Hyponatremia: Current visit: Yes Status: Acute He describes consuming a large amount of free water. I assume the hyponatremia is dilutional. Will place on a fluid restriction and begin normal saline IV. (3) Constipation due to opioid therapy: Current visit: Yes Status: Acute He received an enema in the emergency room with good results. (4) Pancreatitis due to biliary obstruction: Current visit: Yes Status: Acute The CT scan shows an enlarged gallbladder and inflamed pancreas. Will check a lipase level. History of Present Illness Chief Complaint: Acute kidney injury/hyponatremia Narrative: This is a 52-year-old male that comes in because of mental status change, extreme thirst, constipation, lethargy. 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 He was hospitalized for the next 5 days and treated for back pain with opiates, muscle relaxants. His sons came and got him and drove him back to [place]. He was then seen in the emergency room on 12/23 and 12/24/2017. He was presumed to have opiate-induced constipation. He presented today because of continued lethargy, mental status changes, weakness. He is found to have a sodium of 123 and an increase in his creatinine to 3.22. He is admitted for acute renal failure, hyponatremia. Review of Systems Constitutional Reports as per HPI, Reports fatigue and Reports lethargy ENT Reports disequilibrium Cardiovascular Denies chest pain at rest and Denies dyspnea Respiratory Denies chest congestion and Denies dyspnea Gastrointestinal Reports bloating and Reports constipation Genitourinary Reports urinary frequency Musculoskeletal Reports back pain Integumentary/Breasts Denies changing lesions Neurologic Reports behavioral changes, Reports focal weakness, Reports memory loss and Reports disequilibrium Psychiatric Reports behavioral changes and Reports memory loss Endocrine Reports fatigue PFSH Family History Other Cerebrovascular accident Diabetes Heart disease Myocardial infarction Neoplasm Medical History Depression Essential hypertension GERD (gastroesophageal reflux disease) Hyperlipidemia Obesity (BMI 30-39.9) Social History Smoking/Tobacco Use Status: Current every day Surgical History Colonoscopy - MAC (12/06/16) EGD - MAC (12/06/16) Repair of umbilical hernia (12/20/16) Meds Home Medications Medication Instructions Recorded Confirmed Type citalopram 40 mg PO HS 05/15/13 12/29/17 History losartan 50 mg PO DAILY 05/15/13 12/29/17 History lovastatin 1 tab PO DAILY 05/15/13 12/29/17 History aspirin [Aspir-81] 81 mg PO DAILY 01/15/16 12/29/17 History bupropion HCl 1 tab PO BID 01/15/16 12/29/17 History multivitamin 1 tab PO DAILY 01/15/16 12/29/17 History cyclobenzaprine 10 mg PO TID #14 tab 12/24/17 12/29/17 Rx docusate sodium [Colace] 100 mg PO DAILY #90 cap 12/24/17 12/29/17 Rx pantoprazole [Protonix] 40 mg PO BID #60 tab 12/24/17 12/29/17 Rx ranitidine HCl 150 mg PO DAILY #30 cap 12/24/17 12/29/17 Rx Allergies Allergy/AdvReac Type Severity Reaction Status Date / Time No Known Allergies Allergy Unverified 12/24/17 14:37 Exam Narrative Exam Narrative: He is lying on the stretcher, appears somnolent and requires constant reminders to remain aroused. Const General: cooperative, lethargic and other (He is breathing fairly heavily, oral mucosa is somewhat dry. He is able to drink water without any difficulty, no choking) Neck Neck: normal visual inspection and No JVD Chest Chest: normal inspection of the chest Resp Effort & Inspection: abnormal respiratory pattern (Somewhat rapid shallow breathing) Auscultation: clear to auscultation bilaterally Cardio Rate: regular rate Rhythm: regular rhythm Heart Sounds: S1 normal, S2 normal and no murmurs GI Inspection: distended (Huge abdomen, generally soft and nontender) Palpation: soft and nontender Percussion: normal to percussion General: bladder normal to palpation Skin General skin exam: no rashes or lesions noted Neuro General: alert Extrem General: no clubbing, cyanosis or edema Results Imaging Abdomen CT scan report/results: report reviewed (Question right middle lobe and bilateral lower lobe atelectasis versus infiltrate, bilateral pleural effusions. Gallbladder 10 cm in size pancreas mildly inflamed) Abdominal x-ray: report reviewed (Abnormal gas pattern, FOS) Labs : 12/29/17 12:14 12/29/17 12:14 Laboratory Results - last 24 hr 12/29/17 12/29/17 12/29/17 12:14 12:14 12:14 WBC 23.01 H RBC 4.13 L Hgb 12.7 L Hct 35.8 L MCV 86.7 MCH 30.8 MCHC 35.5 RDW 13.0 Plt Count 175 MPV 10.7 Immature Gran % 2.1 Neutrophils % 88.6 Lymphocytes % 4.0 Monocytes % 5.0 Eosinophils % 0.2 Basophils % 0.1 Absolute Neutrophils 20.39 H Absolute Lymphocytes 0.92 L Absolute Monocytes 1.15 H Absolute Eosinophils 0.05 Absolute Basophils 0.02 Differential Comment Agrees w/ instrument RBC Morphology Normal Sodium 123 L* Potassium 3.8 Chloride 89 L Carbon Dioxide 24.9 Anion Gap 9.1 BUN 53 H Creatinine 3.22 H Estimated GFR/1.73 m2 20.35 Glucose 96 Lactate 0.7 Calcium 7.4 L Total Bilirubin 3.1 H AST 170 H ALT 169 H Alkaline Phosphatase 376 H Total Protein 5.7 L Albumin 1.5 L
[2017-12-29 17:31] VITALS: BP 148/87; PULSE 86; RESP 20; TEMP 37; O2SAT 94
[2017-12-29 17:41] VITALS: BP 138/84; PULSE 85; RESP 40; TEMP 36.9; O2SAT 94
[2017-12-29 18:46] LABS: Lipase 315 U/L (73-393)
[2017-12-29] MEDS: Normal Saline 1,000 ML 150 ML IV (19:07)
[2017-12-29] MEDS: Heparin 5,000 UNITS/ML VIAL 5000 UNITS SC (19:28)
[2017-12-29] MEDS: buPROPion-XL 150 MG TABCR PO (21:31)
[2017-12-29] MEDS: Citalopram 20 MG TAB 40 MG PO (21:31)
[2017-12-29] MEDS: Pantoprazole 40 MG TABCR PO (21:31)
[2017-12-29] MEDS: Acetaminophen 325 MG TAB PO (21:35)
[2017-12-29] MEDS: Normal Saline Flush 10 ML SYR (22:22)
[2017-12-29 23:50] VITALS: BP 150/98; PULSE 92; RESP 18; TEMP 36.8; O2SAT 94
[2017-12-30] VITALS (14 sets, daily range): BP systolic 144–179; BP diastolic 82–100; PULSE 94–106; RESP 24–42; TEMP 36.3–36.7; O2SAT 94–95
[2017-12-30] MEDS: Heparin 5,000 UNITS/ML VIAL 5000 UNITS SC ×2 (01:22→10:38)
[2017-12-30] MEDS: Acetaminophen 325 MG TAB PO ×2 (01:25→08:57)
[2017-12-30] MEDS: Normal Saline 1,000 ML 150 ML IV ×2 (01:26→07:54)
[2017-12-30] MEDS: MORPHine 10 MG/ML VIAL IVP ×2 (04:55→08:56)
--- NOTE | 2017-12-30 05:24 | NUR.NOTE ---
Patient reporting 8/10 pain early this AM despite tylenol and heat pack, moaning in bed, guarding abdomen. Reports sharp pain in RUQ of abdomen that radiates across to left side, states it takes my breath away. Pain increases with mobility and repositioning in bed. acid bath mixer made aware and MD Flores notified. PRN IV morphine ordered and 2mg administered, see eMAR for details. Patient currently asleep in bed. Will continue to closely monitor.
[2017-12-30 06:37] LABS: Abs Immature Grans 0.38 k/cumm (0.0-0.09); HCT 35.7 % (40.0-50.0); HGB 12.4 g/dL (13.5-17.5); Mean Corp. HGB Concentration 34.7 g/dL (32.0-36.0); Mean Corpuscular Hemoglobin 30.2 pg (27.0-33.0); Mean Corpuscular Volume 86.9 fL (80-95); Mean Platelet Volume 10.9 fL (8.0-11.0); Platelet Count 163 x1000/uL (130-400); RBC 4.11 m/cumm (4.50-6.00); RBC Distribution Width 13.3 % (11.8-14.1); White Blood Cell Count 22.39 k/cumm (4.4-10.8)
--- NOTE | 2017-12-30 07:03 | PDOC.CMIN ---
- If Service Date Differs Date of service: 12/30/17 Time of Service: 07:03 Care Management Initial Assess REASON FOR HOSPITALIZATION:: Hyponatremia, acute renal insufficiency. PAST MEDICAL HISTORY/PAST SURGICAL HISTORY:: STARR, depression, hypertension, GERD, hyperlipidemia, hyponatremia, obesity, umbilical hernia. Surgical hx: colonoscopy-MAC, EGD-MAC, umbilical hernia repair. PREVIOUS FUNCTIONAL STATUS/SOCIAL/FAMILY SUPPORTS:: Brendan resides at the [facility] in [facility] with his , Kerry, and their 12 year old granddaughter. 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 On his first day he became ill, called an ambulance and was admitted to a hospital. After a few days he reportedly left [place] and his family picked him up and brought him back to [place]. Up until his recent illness and subsequent hospitalization in the [place], Brendan was independent with his ADLs and transportation. Iliana, Brendan's daughter in law, reports that when she picked him up at the hospital and up until the present, he has been unable to ambulate. CURRENT FUNCTIONAL STATUS:: Brendan was initially on the MS floor when CM visited with him; he has now been transfered to the ICU. When CM visited, Brendan was lying in bed following administration of IV pain medications, and was having a blood draw. His speech was slurred and somewhat delayed. According to family, his mentation has been altered for awhile. Brendan was able to acknowledge this gag writer and said hello. He was agreeable to his family providing history. Brendan's , Kerry, daughter in law, Iliana, and son Gurwinder, along with two small children, are in the room and provide a good history of events leading to this admission. Brendan has a surgical consult this afternoon. His family reports that he has had considerable pain, AMS, and has not been sleeping. ADVANCE DIRECTIVES:: None on file at [facility]. Has patient been provided with information about the portal?: Yes Did the patient sign up for the portal?: No CODE STATUS:: Full Code INSURANCE COVERAGE / FINANCIAL ISSUES:: Medicaid. CURRENT HOME/COMMUNITY SERVICES/EQUIPMENT:: No current home or community services. PRIMARY CARE PHYSICIAN:: Katharina Hernandez. POTENTIAL DISCHARGE NEEDS:: Follow up appointment with PCP. PATIENT/FAMILY EDUCATION NEEDS:: Discharge education, any limitations, and follow up plan of care. Ask Me Three discussion. ANTICIPATED BARRIERS TO DISCHARGE:: No anticipated barriers to discharge. TRANSPORTATION:: Brendan will transport via private vehicle with family. PLAN:: Brendan will discharge when medically ready per MD. Anticipate patient will discharge with no services and follow up with his PCP. CM will continue to offer support regarding ongoing discharge planning and disposition.
[2017-12-30 07:07] LABS: ALT 141 U/L (12-78); AST 122 U/L (15-37); Albumin 1.5 g/dL (3.4-5.0); Alkaline Phosphatase 371 U/L (46-116); Anion Gap 14.3 mmol/L (3-11); BUN 70 mg/dL (7-18); CO2 20.7 mmol/L (21.0-32.0); Calcium 7.1 mg/dL (8.5-10.1); Chloride 90 mmol/L (98-107); Estimated GFR 13.73 (mL/min/1.73m2); Glucose 72 mg/dL (70-100); Lipase 233 U/L (73-393); Sodium 125 mmol/L (136-145); Total Protein 5.8 g/dL (6.4-8.2)
--- NOTE | 2017-12-30 07:07 | INITIAL_ITS ---
- If Service Date Differs Date of service: 12/30/17 Time of Service: 07:03 Care Management Initial Assess REASON FOR HOSPITALIZATION:: Hyponatremia, acute renal insufficiency. PAST MEDICAL HISTORY/PAST SURGICAL HISTORY:: STARR, depression, hypertension, GERD , hyperlipidemia, hyponatremia, obesity, umbilical hernia. Surgical hx: colonoscopy-MAC, EGD-MAC, umbilical hernia repair. PREVIOUS FUNCTIONAL STATUS/SOCIAL/FAMILY SUPPORTS:: Brendan resides at the [facility] in [facility] with his , Kerry, and their 12 year old granddaughter. 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 On his first day he became ill, called an ambulance and was admitted to a hospital. After a few days he reportedly left [place] and his family picked him up and brought him back to [place]. Up until his recent illness and subsequent hospitalization in [place], Brendan was independent with his ADLs and transportation. Iliana, Brendan's daughter in law, reports that when she picked him up at the hospital and up until the present, he has been unable to ambulate. CURRENT FUNCTIONAL STATUS:: Brendan was initially on the MS floor when CM visited with him; he has now been transfered to the ICU. When CM visited, Brendan was lying in bed following administration of IV pain medications, and was having a blood draw. His speech was slurred and somewhat delayed. According to family, his mentation has been altered for awhile. Brendan was able to acknowledge this promotion writer and said hello. He was agreeable to his family providing history. Brendan's , Kerry, daughter in law, Iliana, and son Gurwinder , along with two small children, are in the room and provide a good history of events leading to this admission. Brendan has a surgical consult this afternoon. His family reports that he has had considerable pain, AMS, and has not been sleeping. ADVANCE DIRECTIVES:: None on file at [facility]. Has patient been provided with information about the portal?: Yes Did the patient sign up for the portal?: No CODE STATUS:: Full Code INSURANCE COVERAGE / FINANCIAL ISSUES:: Medicaid. CURRENT HOME/COMMUNITY SERVICES/EQUIPMENT:: No current home or community services. PRIMARY CARE PHYSICIAN:: Katharina Hernandez. POTENTIAL DISCHARGE NEEDS:: Follow up appointment with PCP. PATIENT/FAMILY EDUCATION NEEDS:: Discharge education, any limitations, and follow up plan of care. Ask Me Three discussion. ANTICIPATED BARRIERS TO DISCHARGE:: No anticipated barriers to discharge. TRANSPORTATION:: Brendan will transport via private vehicle with family. PLAN:: Brendan will discharge when medically ready per MD. Anticipate patient will discharge with no services and follow up with his PCP. CM will continue to offer support regarding ongoing discharge planning and disposition.
[2017-12-30 07:15] LABS: Atypical Lymphocytes % 2; Diff Comment Manual Differential; RBC Morphology Normal
[2017-12-30 07:18] LABS: CREATININE 4.53 mg/dL (0.70-1.30)
[2017-12-30] MEDS: Pantoprazole 40 MG TABCR PO (08:56)
[2017-12-30] MEDS: Docusate Sodium 100 MG CAP PO (08:56)
[2017-12-30] MEDS: buPROPion-XL 150 MG TABCR PO (08:56)
[2017-12-30] MEDS: Aspirin E.C. 81 MG TABEC PO (08:57)
[2017-12-30] MEDS: PIPERACILLIN/TAZO 3.375 GM in Normal Saline 50 ML IVPB (10:38)
--- NOTE | 2017-12-30 12:57 | SCONE_ITS ---
Date of service: 12/30/17 Time of Service: 12:52 Assessment and Plan (1) Abnormal gall bladder diagnostic imaging: Current visit: Yes Status: Acute Distended gallbladder on CT with mild peripancreatic inflammation at the head of the pancreas suggestive of pancreatitis. ? biliary obstruction vs. stasis. No gallstones or bile duct dilation seen on imaging this week. Patient is ill-appearing with diaphoresis, rapid shallow breathing, and oliguria. WBC and LFTs are elevated. However, he is afebrile and his BP is stable. Lactate WNL on admission. Consider percutaneous cholecystostomy tube placement to decompress distended gallbladder. Patient is a poor candidate for general anesthesia/ surgical intervention with severe electrolyte abnormalities / acute renal failure. Agree with Zosyn. Recommend transfer to tertiary center. Discussed with patient and at bedside. Discussed with Dr. Truong. (2) Elevated LFTs: Current visit: Yes Status: Acute As above. (3) Pancreatitis due to biliary obstruction: Current visit: Yes Status: Acute As above. (4) Constipation due to opioid therapy: Current visit: Yes Status: Resolved Patient has had bowel movements. No signs of significant constipation or obstruction on CT 12/29/17. (5) GERD (gastroesophageal reflux disease): Current visit: Yes Status: Chronic History of antral gastritis on EGD in 12/2016. Patient is on Protonix and ranitidine at home. Continue PPI. No evidence of free air or fluid on CT to suggest perforation. Lactate WNL. History of Present Illness Chief Complaint: Mental status change, sepsis Narrative: 52 y/o male seen with at the bedside. Patient discussed with Dr. Truong. 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 He was hospitalized and diagnosed with spinal stenosis. He was started on steroids and pain medication. His sons went to get him and brought him home to [place]. He has been seen in the ED several times this week for abdominal pain/constipation. He had a CT abd/pelvis on 12/23/17 which was unremarkable except for a questionable left adrenal angiolipoma vs. renal scarring. Gallbladder was unremarkable on CT as well as on gallbladder ultrasound 12/23/17. No gallstones, wall thickening, pericholecystic fluid, or bile duct dilation noted. AXR 12/29/17 suggested possible SBO vs. constipation. AXR were reviewed and discussed with PA in the ED on 12/29/17. Patient was given Mg citrate and enemas in the ED 12/29/17. He reports having a brown BM. No melena or hematochezia. Labs were not back at that time. Subsequently, he was found to have hyponatremia, acute renal failure, and leukocyotsis. LFTs including transaminases, total bilirubin, and alkaline phosphatase are elevated. Lipase was mildly elevated up to 315. Lactate WNL. Repeat CT abd/pelvis 12/29/17 demonstrated mild inflammation around the head of the pancreas and a distended gallbladder measuring >10cm. No stones or bile duct dilation noted on CT. He was admitted to the medical service. He was noted to become diaphoretic this am with minimal urine output and worsening labs. Patient denies nausea or vomiting. He notes bloating and upper abdominal pain. He has some intermittent lethargy/ poor recall. Per , his mental status has been like this since he came home from [place]. He was not on narcotic pain meds prior. He does have a history of antral gastritis/ ulceration on EGD in 12/2016. Colonoscopy at that time was unremarkable. He also had an umbilical hernia repair with mesh in 12/2016. Labs, imaging studies , and reports reviewed. Consults Consult date: 12/30/17 Requesting physician: Dar Truong Review of Systems Review of Systems Unobtainable due to mental status (intermittently lethargic/ poor recall) PFSH Family History Other Cerebrovascular accident Diabetes Heart disease Myocardial infarction Neoplasm Medical History Umbilical hernia (Acute) Acute kidney injury (Acute) Hyponatremia (Acute) GERD (gastroesophageal reflux disease) (Chronic) Depression (Chronic) HLD (hyperlipidemia) (Chronic) HTN (hypertension) (Chronic) Depression Essential hypertension GERD (gastroesophageal reflux disease) Hyperlipidemia Obesity (BMI 30-39.9) Social History Smoking/Tobacco Use Status: Never alcohol intake: former additional social history: 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 He quit alcohol at age 19. Surgical History Colonoscopy - MAC (12/06/16) EGD - MAC (12/06/16) Repair of umbilical hernia (12/20/16) Exam Const General: cooperative and ill appearing Nutritional Appearance: obese Limitations: altered mental status (intermittently lethargic and arousable) HENMT Head: normocephalic and atraumatic Eyes Sclera: sclerae normal Neck Neck: no JVD Resp Effort & Inspection: abnormal respiratory pattern (rapid, shallow) Cardio Jugular venous pressure: no JVD Rhythm: regular rhythm GI Inspection: distended, obesity and scar (small infraumbilical scar from previous umbilical hernia repair) Palpation: soft, not firm, no guarding and tender (equivocal tenderness in RUQ; sometimes tender and sometimes not on palpation) Auscultation: hypoactive bowel sounds Skin General skin exam: ecchymosis (mild bruising abdominal wall from anticoagulation injections) and no jaundice Results Labs : 12/30/17 05:30 12/30/17 05:30 Laboratory Results - last 24 hr 12/29/17 12/29/17 12/30/17 12:14 12:14 05:30 WBC 23.01 H RBC 4.13 L Hgb 12.7 L Hct 35.8 L MCV 86.7 MCH 30.8 MCHC 35.5 RDW 13.0 Plt Count 175 MPV 10.7 Immature Gran % 2.1 Neutrophils % 88.6 Lymphocytes % 4.0 Monocytes % 5.0 Eosinophils % 0.2 Basophils % 0.1 Absolute Neutrophils 20.39 H Band Neutrophils Absolute Lymphocytes 0.92 L Absolute Monocytes 1.15 H Absolute Eosinophils 0.05 Absolute Basophils 0.02 Differential Comment Agrees w/ instrument Atypical Lymphocytes RBC Morphology Normal Sodium 123 L* 125 L Potassium 3.8 4.0 Chloride 89 L 90 L Carbon Dioxide 24.9 20.7 L Anion Gap 9.1 14.3 H BUN 53 H 70 H D Creatinine 3.22 H 4.53 H* D Estimated GFR/1.73 m2 20.35 13.73 Glucose 96 72 Calcium 7.4 L 7.1 L Total Bilirubin 3.1 H 4.0 H AST 170 H 122 H ALT 169 H 141 H Alkaline Phosphatase 376 H 371 H Total Protein 5.7 L 5.8 L Albumin 1.5 L 1.5 L Lipase 315 233 12/30/17 05:30 WBC 22.39 H RBC 4.11 L Hgb 12.4 L Hct 35.7 L MCV 86.9 MCH 30.2 MCHC 34.7 RDW 13.3 Plt Count 163 MPV 10.9 Immature Gran % 0.0 Neutrophils % 79.0 Lymphocytes % 2.0 Monocytes % 4.0 Eosinophils % 0.0 Basophils % 0.0 Absolute Neutrophils 20.60 H Band Neutrophils 13.0 Absolute Lymphocytes 0.90 L Absolute Monocytes 0.90 H Absolute Eosinophils 0.00 Absolute Basophils 0.00 Differential Comment Manual differential Atypical Lymphocytes 2 RBC Morphology Normal Sodium Potassium Chloride Carbon Dioxide Anion Gap BUN Creatinine Estimated GFR/1.73 m2 Glucose Calcium Total Bilirubin AST ALT Alkaline Phosphatase Total Protein Albumin Lipase Imaging Abdominal x-ray: report reviewed and image reviewed Abdomen CT scan report/results: report reviewed and image reviewed CT scan - pelvis: report reviewed and image reviewed Abdominal ultrasound report/results: report reviewed
--- NOTE | 2017-12-30 14:37 | W.PM.DS.N ---
Date of service: 12/30/17 Time of Service: 14:37 DS: Diagnosis Discharge Diagnosis (1) Abnormal gall bladder diagnostic imaging: Start date: 12/29/17 Status: Acute Asessment and Plan: CT of abdomen and pelvis on 12/23/2017 and 12/29/2017 demonstrated a markedly enlarged gallbladder, no wall thickening, no dilation of the common bile duct. There is no pericolic fluid. His LFTs are elevated consistent with cholestasis. Bilirubin of 4.0. Upon evaluation of the whole picture with the acute renal failure, tachypnea, abnormal LFTs, and severe distortion of the gallbladder it seems like acute cholecystitis. He was empirically started on Zosyn 3.375 g IV every 6 hours, blood cultures are pending. He has been accepted at [facility] for transfer to the [facility], medicine service with nephrology and general surgery consultation. (2) Elevated LFTs: Status: Acute Asessment and Plan: Most likely on the basis of cholestasis and gallbladder disease. He is not a consumer of large amounts of alcohol. No prior history of gallbladder disease. (3) Constipation due to opioid therapy: Status: Resolved Asessment and Plan: Recent 5-day hospitalization for acute lower back pain, spinal stenosis. He was apparently treated with parenteral and p.o. opioids. He has had trouble with constipation since that admission. He did receive a soapsuds enema yesterday with good results. Despite this he has had significant abdominal distention over the last 24 hours. (4) Acute kidney injury: Status: Acute Asessment and Plan: Baseline creatinine is around 1.0. Creatinine bumped to 3.77 on admission and further elevated to 4.53 at the time of transfer. His urine output has been decreased. (750 cc over 24 hours, 350 cc overnight) Discharge Plan Disposition Patient Disposition: [facility] Condition: Fair Discharge Details Reason For Visit: HYPONATREMIA,ACUTE RENAL INSUFFICIENCY,CHOLECYSTIT Admit Date/Time: 12/29/17 16:12 Admit Provider: Dar Truong Attending Provider: Dar Truong Primary Care Provider: Katharina Hernandez V Hospital Course Hospital Course: 52-year-old male presented with acute abdominal pain, renal failure, acute cholecystitis. He has been sick for greater than a week. He initially presented via 911 call to hospital in [place]. He was diagnosed with spinal stenosis and constipation after a 5-day stay. He was back in our emergency room on 12/23 and 12/24/2017. CT of the abdomen showed a 10 cm enlarged gallbladder. His creatinine bumped to 4.53 his sodium was low at 123 improved to 125. He has had some mental status changes, tachypnea, and paroxysmal colicky spasms. His labs show elevated transaminases and a bilirubin of 4.0. He is transferred to [facility] for tertiary care management. The feeling is he may have to have a cholecystectomy or ERCP done semi-emergently. Home Meds and New Rx's Prescriptions: Continue citalopram 20 MG tablet 40 mg PO HS RF: 0 losartan 25 MG tablet 50 mg PO DAILY RF: 0 lovastatin 20 MG tablet 1 tab PO DAILY RF: 0 bupropion HCl 150 MG tablet extended release 24 hr 1 tab PO BID RF: 0 aspirin [Aspir-81] 81 MG tablet,delayed release (DR/EC) 81 mg PO DAILY RF: 0 multivitamin 1 EACH capsule 1 tab PO DAILY RF: 0 docusate sodium [Colace] 100 mg capsule 100 mg PO DAILY Qty: 90 RF: 0 pantoprazole [Protonix] 40 mg tablet,delayed release (DR/EC) 40 mg PO BID Qty: 60 RF: 0 ranitidine HCl 150 mg capsule 150 mg PO DAILY Qty: 30 RF: 0 cyclobenzaprine 10 mg tablet 10 mg PO TID Qty: 14 RF: 0 Discharge Instructions Instructions: Cholecystitis (DC) Activity:: bedrest Equipment/Supplies:: No Equipment Needed Diet:: NPO Discharge Orders Discharge Orders: Discharge Order (Routine); Ordered 12/30/17 Ordered By: Dar Truong Exam Const General: in distress and lethargic Nutritional Appearance: obese Orientation: obtunded Limitations: altered mental status Chest Chest: normal inspection of the chest Resp Effort & Inspection: tachypneic Auscultation: clear to auscultation bilaterally Cardio Rate: tachycardic Rhythm: regular rhythm Heart Sounds: S1 normal, S2 normal and no murmurs GI Inspection: obesity Palpation: soft and tender (Right upper quadrant) Percussion: normal to percussion Auscultation: absent bowel sounds Male General Exam: Yes normal external exam (Cervantes catheter draining concentrated urine) Back/Spine/Pelvis Back: no CVA tenderness Thoracic/Lumbar Spine: thoracic and lumbar spine normal to inspection Skin General skin exam: no rashes or lesions noted Neuro General: moves all extremities, no focal motor deficits and obtunded (Arousable with minimal stimulation but otherwise keeps his head back and eyes closed, grunts and cries out periodically with spasms of pain.) Extrem General: no clubbing, cyanosis or edema DS: Data Vitals/I&O Vitals and I&O: Vital Signs Temperature 36.7 C 12/30/17 13:00 Temperature Source Temporal Artery Scan 12/30/17 13:00 Pulse 100 H 12/30/17 13:46 Pulse Rhythm Regular 12/30/17 09:00 Pulse 101 H 12/30/17 13:46 Respiratory Rate 35 H 12/30/17 13:46 Respiratory Effort 12/30/17 13:00 Respiratory Depth Normal 12/30/17 13:00 Respiratory Pattern Tachypnea 12/30/17 13:00 Blood Pressure 152/87 H 12/30/17 13:46 Blood Pressure Mean 103 12/30/17 13:46 Blood Pressure Position Supine 12/30/17 13:00 Pulse Oximetry 95 12/30/17 13:00 Oxygen Delivery Method Nasal Cannula 12/30/17 13:00 Oxygen Flow Rate 1 12/30/17 13:00 Pain Level 10 12/30/17 08:57 Comment 12/30/17 10:51 Intake & Output 12/29/17 12/30/17 12/30/17 23:59 11:59 23:59 Intake Total 1240 / 1240 2207.5 / 2207.5 Output Total 450 / 450 350 / 350 Balance 790 / 790 1857.5 / 1857.5 Weight 116.12 kg 120.1 kg Intake: IV 1000 / 1000 1967.5 / 1967.5 Oral 240 / 240 240 / 240 Output: Urine 450 / 450 350 / 350 Other: Urine Color Dark Kim Light Kim Urine Appearance Clear Clear Sediment Comment bladder scanned at 2100 for 350cc Cervantes catheter balloon was deflated, the Cervantes catheter was advanced slightly, and the Cervantes catheter balloon was reinflated. Cervantes catheter was then hand irrigated with 180 mL of sterile water with no resistance. Cervantes catheter was then emptied for 250 mL of light kim urine. Pt.'s primary RN notified. Stool Size Moderate Small Stool Characteristics Soft Soft Voiding Methods Indwelling Catheter Indwelling Catheter Pending studies at discharge: Cardiovascular stress test using treadmill (04/06/08) DIGITAL RECTAL EXAM (10/31/96) ELECTROCARDIOGRAM (10/06/96) REMOVAL SUPERFIC FB EYE (05/11/97) WBC 22.39 k/cumm (4.4-10.8) H 12/30/17 05:30 RBC 4.11 m/cumm (4.50-6.00) L 12/30/17 05:30 Hgb 12.4 g/dL (13.5-17.5) L 12/30/17 05:30 Hct 35.7 % (40.0-50.0) L 12/30/17 05:30 MCV 86.9 fL (80-95) 12/30/17 05:30 MCH 30.2 pg (27.0-33.0) 12/30/17 05:30 MCHC 34.7 g/dL (32.0-36.0) 12/30/17 05:30 RDW 13.3 % (11.8-14.1) 12/30/17 05:30 Plt Count 163 x1000/uL (130-400) 12/30/17 05:30 MPV 10.9 fL (8.0-11.0) 12/30/17 05:30 Immature Gran % 0.0 12/30/17 05:30 Neutrophils % 79.0 12/30/17 05:30 Lymphocytes % 2.0 12/30/17 05:30 Monocytes % 4.0 12/30/17 05:30 Eosinophils % 0.0 12/30/17 05:30 Basophils % 0.0 12/30/17 05:30 Absolute Neutrophils 20.60 k/cumm (1.2-6.7) H 12/30/17 05:30 Band Neutrophils 13.0 % 12/30/17 05:30 Absolute Lymphocytes 0.90 k/cumm (1.2-3.4) L 12/30/17 05:30 Absolute Monocytes 0.90 k/cumm (0.11-0.7) H 12/30/17 05:30 Absolute Eosinophils 0.00 k/cumm (0.0-0.7) 12/30/17 05:30 Absolute Basophils 0.00 k/cumm (0.0-0.2) 12/30/17 05:30 Differential Comment Manual differential 12/30/17 05:30 Atypical Lymphocytes 2 12/30/17 05:30 RBC Morphology Normal 12/30/17 05:30 Sodium 125 mmol/L (136-145) L 12/30/17 05:30 Potassium 4.0 mmol/L (3.5-5.1) 12/30/17 05:30 Chloride 90 mmol/L (98-107) L 12/30/17 05:30 Carbon Dioxide 20.7 mmol/L (21.0-32.0) L 12/30/17 05:30 Anion Gap 14.3 mmol/L (3-11) H 12/30/17 05:30 BUN 70 mg/dL (7-18) H D 12/30/17 05:30 Creatinine 4.53 mg/dL (0.70-1.30) H* D 12/30/17 05:30 Estimated GFR/1.73 m2 13.73 (mL/min/1.73m2) 12/30/17 05:30 Glucose 72 mg/dL (70-100) 12/30/17 05:30 Lactate 0.7 mmol/L (0.6-1.4) 12/29/17 12:14 Calcium 7.1 mg/dL (8.5-10.1) L 12/30/17 05:30 Total Bilirubin 4.0 mg/dL (0.2-1.0) H 12/30/17 05:30 AST 122 U/L (15-37) H 12/30/17 05:30 ALT 141 U/L (12-78) H 12/30/17 05:30 Alkaline Phosphatase 371 U/L (46-116) H 12/30/17 05:30 Total Protein 5.8 g/dL (6.4-8.2) L 12/30/17 05:30 Albumin 1.5 g/dL (3.4-5.0) L 12/30/17 05:30 Lipase 233 U/L (73-393) 12/30/17 05:30 12/30/17 09:43 Blood Blood Culture - Pending 12/30/17 09:28 Blood Blood Culture - Pending Labs on day of discharge: Labs from last 24 hours 12/30/17 12/30/17 12/29/17 05:30 05:30 12:14 WBC 22.39 H RBC 4.11 L Hgb 12.4 L Hct 35.7 L MCV 86.9 MCH 30.2 MCHC 34.7 RDW 13.3 Plt Count 163 MPV 10.9 Immature Gran % 0.0 Neutrophils % 79.0 Lymphocytes % 2.0 Monocytes % 4.0 Eosinophils % 0.0 Basophils % 0.0 Absolute Neutrophils 20.60 H Band Neutrophils 13.0 Absolute Lymphocytes 0.90 L Absolute Monocytes 0.90 H Absolute Eosinophils 0.00 Absolute Basophils 0.00 Differential Comment Manual differential Atypical Lymphocytes 2 RBC Morphology Normal Sodium 125 L 123 L* Potassium 4.0 3.8 Chloride 90 L 89 L Carbon Dioxide 20.7 L 24.9 Anion Gap 14.3 H 9.1 BUN 70 H D 53 H Creatinine 4.53 H* D 3.22 H Estimated GFR/1.73 m2 13.73 20.35 Glucose 72 96 Calcium 7.1 L 7.4 L Total Bilirubin 4.0 H 3.1 H AST 122 H 170 H ALT 141 H 169 H Alkaline Phosphatase 371 H 376 H Total Protein 5.8 L 5.7 L Albumin 1.5 L 1.5 L Lipase 233 315 Preliminary micro results at discharge 12/30/17 09:43 Blood Culture - Pending Blood 12/30/17 09:28 Blood Culture - Pending Blood Imaging CT scan - abdomen: Attestation: I personally reviewed and interpreted this imaging study as follows: (Patient Name: BETHANIE MALONE #: [id number]: ER Ordering Provider: : REG ER Primary Care Provider: Katharina Hernandez M.D.Date of Exam: 12/29/17ex: M : 1965Age: 52 Exam(s) EXAM: CT Abdomen and Pelvis Without Int)
--- NOTE | 2017-12-30 14:39 | PDOC.CMDIS ---
- If Service Date Differs Date of service: 12/30/17 Time of Service: 14:39 LACE Index Scoring Tool - Questions: Length of Stay (in days): 2 (2) Acuity (Admit via E.D.?): Yes E.D. Visits: 3 - Answers: Total Score: 8 Risk of Readmission: Low Risk Care Management Discharge Reason for Hospitalization: Hyponatremia, acute renal insufficiency. Discharge Plan: Brendan will transfer to [facility] per MD. Patient/Family Education Needs: Discharge education, any limitations and follow up plan of care. Ask Me Three discussion.
--- NOTE | 2017-12-30 14:47 | DSE_ITS ---
Date of service: 12/30/17 Time of Service: 14:37 DS: Diagnosis Discharge Diagnosis (1) Abnormal gall bladder diagnostic imaging: Start date: 12/29/17 Status: Acute Asessment and Plan: CT of abdomen and pelvis on 12/23/2017 and 12/29/2017 demonstrated a markedly enlarged gallbladder, no wall thickening, no dilation of the common bile duct. There is no pericolic fluid. His LFTs are elevated consistent with cholestasis. Bilirubin of 4.0. Upon evaluation of the whole picture with the acute renal failure, tachypnea, abnormal LFTs, and severe distortion of the gallbladder it seems like acute cholecystitis. He was empirically started on Zosyn 3.375 g IV every 6 hours, blood cultures are pending. He has been accepted at [facility] for [facility] to the [facility], medicine service with nephrology and general surgery consultation. (2) Elevated LFTs: Status: Acute Asessment and Plan: Most likely on the basis of cholestasis and gallbladder disease. He is not a consumer of large amounts of alcohol. No prior history of gallbladder disease. (3) Constipation due to opioid therapy: Status: Resolved Asessment and Plan: Recent 5-day hospitalization for acute lower back pain , spinal stenosis. He was apparently treated with parenteral and p.o. opioids. He has had trouble with constipation since that admission. He did receive a soapsuds enema yesterday with good results. Despite this he has had significant abdominal distention over the last 24 hours. (4) Acute kidney injury: Status: Acute Asessment and Plan: Baseline creatinine is around 1.0. Creatinine bumped to 3.77 on admission and further elevated to 4.53 at the time of transfer. His urine output has been decreased. (750 cc over 24 hours, 350 cc overnight) Discharge Plan Disposition Patient Disposition: [facility] Condition: Fair Discharge Details Reason For Visit: HYPONATREMIA,ACUTE RENAL INSUFFICIENCY,CHOLECYSTIT Admit Date/Time: 12/29/17 16:12 Admit Provider: Dar Truong Attending Provider: Dar Truong Primary Care Provider: Katharina Hernandez V Hospital Course Hospital Course: 52-year-old male presented with acute abdominal pain, renal failure, acute cholecystitis. He has been sick for greater than a week. He initially presented via 911 call to hospital in [place]. He was diagnosed with spinal stenosis and constipation after a 5-day stay. He was back in our emergency room on 12/23 and 12/24/2017. CT of the abdomen showed a 10 cm enlarged gallbladder. His creatinine bumped to 4.53 his sodium was low at 123 improved to 125. He has had some mental status changes, tachypnea, and paroxysmal colicky spasms. His labs show elevated transaminases and a bilirubin of 4.0. He is transferred to [facility] for tertiary care management. The feeling is he may have to have a cholecystectomy or ERCP done semi-emergently. Home Meds and New Rx's Prescriptions: Continue citalopram 20 MG tablet 40 mg PO HS RF: 0 losartan 25 MG tablet 50 mg PO DAILY RF: 0 lovastatin 20 MG tablet 1 tab PO DAILY RF: 0 bupropion HCl 150 MG tablet extended release 24 hr 1 tab PO BID RF: 0 aspirin [Aspir-81] 81 MG tablet,delayed release (DR/EC) 81 mg PO DAILY RF: 0 multivitamin 1 EACH capsule 1 tab PO DAILY RF: 0 docusate sodium [Colace] 100 mg capsule 100 mg PO DAILY Qty: 90 RF: 0 pantoprazole [Protonix] 40 mg tablet,delayed release (DR/EC) 40 mg PO BID Qty: 60 RF: 0 ranitidine HCl 150 mg capsule 150 mg PO DAILY Qty: 30 RF: 0 cyclobenzaprine 10 mg tablet 10 mg PO TID Qty: 14 RF: 0 Discharge Instructions Instructions: Cholecystitis (DC) Activity:: bedrest Equipment/Supplies:: No Equipment Needed Diet:: NPO Discharge Orders Discharge Orders: Discharge Order (Routine); Ordered 12/30/17 Ordered By: Dar Truong Exam Const General: in distress and lethargic Nutritional Appearance: obese Orientation: obtunded Limitations: altered mental status Chest Chest: normal inspection of the chest Resp Effort & Inspection: tachypneic Auscultation: clear to auscultation bilaterally Cardio Rate: tachycardic Rhythm: regular rhythm Heart Sounds: S1 normal, S2 normal and no murmurs GI Inspection: obesity Palpation: soft and tender (Right upper quadrant) Percussion: normal to percussion Auscultation: absent bowel sounds Male General Exam: Yes normal external exam (Cervantes catheter draining concentrated urine) Back/Spine/Pelvis Back: no CVA tenderness Thoracic/Lumbar Spine: thoracic and lumbar spine normal to inspection Skin General skin exam: no rashes or lesions noted Neuro General: moves all extremities, no focal motor deficits and obtunded (Arousable with minimal stimulation but otherwise keeps his head back and eyes closed, grunts and cries out periodically with spasms of pain.) Extrem General: no clubbing, cyanosis or edema DS: Data Vitals/I&O Vitals and I&O: Vital Signs Temperature 36.7 C 12/30/17 13:00 Temperature Source Temporal Artery Scan 12/30/17 13:00 Pulse 100 H 12/30/17 13:46 Pulse Rhythm Regular 12/30/17 09:00 Pulse 101 H 12/30/17 13:46 Respiratory Rate 35 H 12/30/17 13:46 Respiratory Effort 12/30/17 13:00 Respiratory Depth Normal 12/30/17 13:00 Respiratory Pattern Tachypnea 12/30/17 13:00 Blood Pressure 152/87 H 12/30/17 13:46 Blood Pressure Mean 103 12/30/17 13:46 Blood Pressure Position Supine 12/30/17 13:00 Pulse Oximetry 95 12/30/17 13:00 Oxygen Delivery Method Nasal Cannula 12/30/17 13:00 Oxygen Flow Rate 1 12/30/17 13:00 Pain Level 10 12/30/17 08:57 Comment 12/30/17 10:51 Intake & Output 12/29/17 12/30/17 12/30/17 23:59 11:59 23:59 Intake Total 1240 / 1240 2207.5 / 2207.5 Output Total 450 / 450 350 / 350 Balance 790 / 790 1857.5 / 1857.5 Weight 116.12 kg 120.1 kg Intake: IV 1000 / 1000 1967.5 / 1967.5 Oral 240 / 240 240 / 240 Output: Urine 450 / 450 350 / 350 Other: Urine Color Dark Kim Light Kim Urine Appearance Clear Clear Sediment Comment bladder scanned at 2100 for 350cc Cervantes catheter balloon was deflated , the Cervantes catheter was advanced slightly, and the Cervantes catheter balloon was reinflated. Cervantes catheter was then hand irrigated with 180 mL of sterile water with no resistance. Cervantes catheter was then emptied for 250 mL of light kim urine. Pt.'s primary RN notified. Stool Size Moderate Small Stool Characteristics Soft Soft Voiding Methods Indwelling Catheter Indwelling Catheter Pending studies at discharge: Cardiovascular stress test using treadmill (04/06/08) DIGITAL RECTAL EXAM (10/31/96) ELECTROCARDIOGRAM (10/06/96) REMOVAL SUPERFIC FB EYE (05/11/97) WBC 22.39 k/cumm (4.4-10.8) H 12/30/17 05:30 RBC 4.11 m/cumm (4.50-6.00) L 12/30/17 05:30 Hgb 12.4 g/dL (13.5-17.5) L 12/30/17 05:30 Hct 35.7 % (40.0-50.0) L 12/30/17 05:30 MCV 86.9 fL (80-95) 12/30/17 05:30 MCH 30.2 pg (27.0-33.0) 12/30/17 05:30 MCHC 34.7 g/dL (32.0-36.0) 12/30/17 05:30 RDW 13.3 % (11.8-14.1) 12/30/17 05:30 Plt Count 163 x1000/uL (130-400) 12/30/17 05:30 MPV 10.9 fL (8.0-11.0) 12/30/17 05:30 Immature Gran % 0.0 12/30/17 05:30 Neutrophils % 79.0 12/30/17 05:30 Lymphocytes % 2.0 12/30/17 05:30 Monocytes % 4.0 12/30/17 05:30 Eosinophils % 0.0 12/30/17 05:30 Basophils % 0.0 12/30/17 05:30 Absolute Neutrophils 20.60 k/cumm (1.2-6.7) H 12/30/17 05:30 Band Neutrophils 13.0 % 12/30/17 05:30 Absolute Lymphocytes 0.90 k/cumm (1.2-3.4) L 12/30/17 05:30 Absolute Monocytes 0.90 k/cumm (0.11-0.7) H 12/30/17 05:30 Absolute Eosinophils 0.00 k/cumm (0.0-0.7) 12/30/17 05:30 Absolute Basophils 0.00 k/cumm (0.0-0.2) 12/30/17 05:30 Differential Comment Manual differential 12/30/17 05:30 Atypical Lymphocytes 2 12/30/17 05:30 RBC Morphology Normal 12/30/17 05:30 Sodium 125 mmol/L (136-145) L 12/30/17 05:30 Potassium 4.0 mmol/L (3.5-5.1) 12/30/17 05:30 Chloride 90 mmol/L (98-107) L 12/30/17 05:30 Carbon Dioxide 20.7 mmol/L (21.0-32.0) L 12/30/17 05:30 Anion Gap 14.3 mmol/L (3-11) H 12/30/17 05:30 BUN 70 mg/dL (7-18) H D 12/30/17 05:30 Creatinine 4.53 mg/dL (0.70-1.30) H* D 12/30/17 05:30 Estimated GFR/1.73 m2 13.73 (mL/min/1.73m2) 12/30/17 05:30 Glucose 72 mg/dL (70-100) 12/30/17 05:30 Lactate 0.7 mmol/L (0.6-1.4) 12/29/17 12:14 Calcium 7.1 mg/dL (8.5-10.1) L 12/30/17 05:30 Total Bilirubin 4.0 mg/dL (0.2-1.0) H 12/30/17 05:30 AST 122 U/L (15-37) H 12/30/17 05:30 ALT 141 U/L (12-78) H 12/30/17 05:30 Alkaline Phosphatase 371 U/L (46-116) H 12/30/17 05:30 Total Protein 5.8 g/dL (6.4-8.2) L 12/30/17 05:30 Albumin 1.5 g/dL (3.4-5.0) L 12/30/17 05:30 Lipase 233 U/L (73-393) 12/30/17 05:30 12/30/17 09:43 Blood Blood Culture - Pending 12/30/17 09:28 Blood Blood Culture - Pending Labs on day of discharge: Labs from last 24 hours 12/30/17 12/30/17 12/29/17 05:30 05:30 12:14 WBC 22.39 H RBC 4.11 L Hgb 12.4 L Hct 35.7 L MCV 86.9 MCH 30.2 MCHC 34.7 RDW 13.3 Plt Count 163 MPV 10.9 Immature Gran % 0.0 Neutrophils % 79.0 Lymphocytes % 2.0 Monocytes % 4.0 Eosinophils % 0.0 Basophils % 0.0 Absolute Neutrophils 20.60 H Band Neutrophils 13.0 Absolute Lymphocytes 0.90 L Absolute Monocytes 0.90 H Absolute Eosinophils 0.00 Absolute Basophils 0.00 Differential Comment Manual differential Atypical Lymphocytes 2 RBC Morphology Normal Sodium 125 L 123 L* Potassium 4.0 3.8 Chloride 90 L 89 L Carbon Dioxide 20.7 L 24.9 Anion Gap 14.3 H 9.1 BUN 70 H D 53 H Creatinine 4.53 H* D 3.22 H Estimated GFR/1.73 m2 13.73 20.35 Glucose 72 96 Calcium 7.1 L 7.4 L Total Bilirubin 4.0 H 3.1 H AST 122 H 170 H ALT 141 H 169 H Alkaline Phosphatase 371 H 376 H Total Protein 5.8 L 5.7 L Albumin 1.5 L 1.5 L Lipase 233 315 Preliminary micro results at discharge 12/30/17 09:43 Blood Culture - Pending Blood 12/30/17 09:28 Blood Culture - Pending Blood Imaging CT scan - abdomen: Attestation: I personally reviewed and interpreted this imaging study as follows: (Patient Name: BETHANIE MALONE #: [id number]: ER Ordering Provider: : REG ER Primary Care Provider: Katharina Hernandez M.D.Date of Exam: 12/29/17ex: M : [birth year]Age: 52 Exam(s) EXAM: CT Abdomen and Pelvis Without Int)
== END 2017-12-30 15:55 | disposition short-term general hospital (02) ==
LOC: ER 15:42 → MS 17:33 → ICU 12-30 12:48
PROVIDERS: Admitting Provider Family Medicine; Emergency Provider Nurse Practitioner Family; PCP Family Medicine; Visit Provider Family Medicine
DX: K59.03 Drug induced constipation; T40.2X5A Adverse effect of other opioids, initial encounter; N17.9 Acute kidney failure, unspecified; E87.1 Hypo-osmolality and hyponatremia; R06.82 Tachypnea, not elsewhere classified; E86.0 Dehydration; F17.210 Nicotine dependence, cigarettes, uncomplicated; R93.3 Abnormal findings on diagnostic imaging of other parts of digestive tract; R94.5 Abnormal results of liver function studies; K21.9 Gastro-esophageal reflux disease without esophagitis
CPT/HCPCS: 36415; 80053; 83690; 87040; 87077; 96360; 96361; 99223; 99239; 99253; 99285; 74022; 74176; 83605; 85025; 87186; 99217; 99220; 99284; G0378; J1644; J2270; J2543

== ENCOUNTER 2018-01-17 17:05 | Emergency (ER) | payer MEDICAID, SELFPAY ==
[2018-01-17 17:07] VITALS: BP 158/101; PULSE 90; RESP 18; TEMP 38; O2SAT 93
--- NOTE | 2018-01-17 17:25 | W.ED.GENAD ---
Discharge Plan Disposition Patient Disposition: HOME Discharge Details Chief Complaint: Nk/Back Pain Clinical Impression: Muscle spasm Reason For Visit: PAULO Primary Care Provider: Katharina Hernandez V ED Provider: Prosper Ventura Home Meds and New Rx's Prescriptions: New lidocaine [Lidoderm] 5 % adhesive patch,medicated 1 patch TP DAILY Qty: 15 RF: 0 No Action citalopram 20 MG tablet 40 mg PO HS RF: 0 losartan 25 MG tablet 50 mg PO DAILY RF: 0 lovastatin 20 MG tablet 1 tab PO DAILY RF: 0 bupropion HCl 150 MG tablet extended release 24 hr 1 tab PO BID RF: 0 aspirin [Aspir-81] 81 MG tablet,delayed release (DR/EC) 81 mg PO DAILY RF: 0 multivitamin 1 EACH capsule 1 tab PO DAILY RF: 0 docusate sodium [Colace] 100 mg capsule 100 mg PO DAILY Qty: 90 RF: 0 pantoprazole [Protonix] 40 mg tablet,delayed release (DR/EC) 40 mg PO BID Qty: 60 RF: 0 ranitidine HCl 150 mg capsule 150 mg PO DAILY Qty: 30 RF: 0 cyclobenzaprine 10 mg tablet 10 mg PO TID Qty: 14 RF: 0 Discharge Instructions Additional Instructions: Please drink plenty of fluid to stay hydrated. Take tylenol 650mg every 6 hours as needed for pain. Use lidoderm patch as precribed. Please follow-up with your primary care doctor tomorrow. Pulmonary opacities with seen on chest xray and should be followed up in the next few days. Call your doctor tomorrow. Return to the ER for any worsening or new concerning symptoms. Referrals: Katharina Hernnadez MD [Primary Care Provider] - Medical Decision Making 17:35 --52-year-old male with past medical history significant for hypertension, hyperlipidemia, GERD, obesity, depression, discharged from [facility] today after prolonged hospitalization and treat for MRSA bacteremia, T8/T9 and L4-L5 discitis osteomyelitis with epidural abscess, acute renal failure, and hemoptysis with right-sided pleural effusion requiring thoracentesis, here now 3 hours after discharge from [facility] with intermittent anterior bandlike chest spasms that have been present for the past 3-4 weeks. Will check cxr to assess for pneumothorax. Pain may be secondary to nerve root irritation at T8. I obtained and reviewed discharge summary from [facility] 01/17/2018: There is no notation of this anterior chest pain in the discharge summary. Will contact [facility] discharge team to discuss pain. I oftered tylenol to patient and he refused. -- I spoke with hospitalist Dr. Tolentino who was part of patient's treatment team at [facility], she knows the pateint well. I reviewed ED presentation with her. She recommended checking electrolytes that would predispose to muscle spasms. She noted that significant workup regarding pain revealed duodenitis. She also recommended administering prescribed ceftaroline. -- Patient administered ceftaroline as prescribed. Labs reviewed and CKD noted. No abnormalities as noted. cxr advised by radiology as bilateral pulmonary opacities, most consistent with pneumonia. Of note, opacities were seen on prior CT imaging here 12/29. At [facility] he had hemoptysis and underwent bronchoscopy that revealed clot. He has pleural effusions that required thoracentesis. Further testing was not recommended. He does not have cough at this time. Suspect residual process from prior. 21:00 -- Patient reassessed and feeling better. Much more comfortable. Will prescribe lidoderm patch. Continue home health and PICC antibitiotic as prescribed. Patient to follow-up with pcp tomorrow - timely follow-up in the next few days is certainly warranted. HPI General Mode of arrival: ambulatory. Date/Time Provider Initiated Documentation: 01/17/18 17:10. Limitations to Documentation: no limitations. Information obtained by: patient. HPI Narrative: 52-year-old male with multiple medical problems including anxiety, depression, GERD, hypertension, hypercholesterolemia, obesity, recently discharged (3 hours ago) from [facility] after prolonged hospitalization treatment for staph infection lumbar back, with chief complaint of chest pain. Patient notes pain that is sharp, spasms localized to anterior bilateral lower chest, intermittent since onset 3-4 weeks ago, and comes in waves that last seconds to minutes. Patient notes that he has been experiencing the exact same pain at [facility] and compained to treatment team about the pain. Patient is unsure as to etiology of pain. Related Data Home Medications Medication Instructions Recorded Confirmed lovastatin 1 tab PO DAILY 05/15/13 12/29/17 aspirin [Aspir-81] 81 mg PO DAILY 01/15/16 12/29/17 bupropion HCl 1 tab PO BID 01/15/16 12/29/17 multivitamin 1 tab PO DAILY 01/15/16 12/29/17 docusate sodium [Colace] 100 mg PO DAILY #90 cap 12/24/17 12/29/17 pantoprazole [Protonix] 40 mg PO BID #60 tab 12/24/17 12/29/17 amlodipine 10 mg PO DAILY 01/17/18 01/17/18 carvedilol 12.5 mg PO BID 01/17/18 01/17/18 ceftaroline fosamil 600 mg IV Q12H 01/17/18 01/17/18 lidocaine [Lidoderm] 1 patch TP DAILY #15 each 01/17/18 Previous Rx's Medication Instructions Recorded docusate sodium [Colace] 100 mg PO DAILY #90 cap 12/24/17 pantoprazole [Protonix] 40 mg PO BID #60 tab 12/24/17 lidocaine [Lidoderm] 1 patch TP DAILY #15 each 01/17/18 Allergies Allergy/AdvReac Type Severity Reaction Status Date / Time No Known Allergies Allergy Unverified 12/24/17 14:37 General Stated Complaint: Nk/Back Pain ELFEGO: 3 Review of Systems Cardiovascular Denies dyspnea Respiratory Denies dyspnea Musculoskeletal Reports as per HPI Exam Const General: cooperative and no acute distress HENUT Head: normocephalic Mouth: moist mucous membranes Eyes Conjunctivae: normal conjunctivae Sclera: normal sclerae Neck Neck: trachea midline Other: wound from iv catheter dressed with no erythema Resp Auscultation: clear to auscultation bilaterally, no rales, no rhonchi and no wheezes Cardio Jugular venous pressure: no JVD Rate: regular rate and not tachycardic Rhythm: regular rhythm GI Palpation: soft, not firm, no guarding, no masses, not rigid and nontender Skin General skin exam: no rashes or lesions noted Neuro General: alert, awake, oriented x3 and tone normal Motor: strength 5/5 throughout Sensory Exam: no sensory deficits noted Extrem General: no edema Psych Appearance: grossly normal Mental Status: mental status grossly normal Speech and Movement: speech and movement normal Course Vital Signs Temperature 38.0 C H 01/17/18 17:07 Pulse 90 01/17/18 17:07 Respiratory Rate 18 01/17/18 17:07 Blood Pressure 158/101 H 01/17/18 17:07 Pulse Oximetry 93 L 01/17/18 17:07 Temperature 38.0 C H 10/18/18 17:07 Temperature Source Skin 01/17/18 17:07 Pulse 90 01/17/18 17:07 Respiratory Rate 18 01/17/18 17:07 Blood Pressure 158/101 H 01/17/18 17:07 Blood Pressure Position Supine 01/17/18 17:07 Pulse Oximetry 93 L 01/17/18 17:07 Oxygen Delivery Method Room Air 01/17/18 17:07 Oxygen Flow Rate 0 01/17/18 17:07 Pain Level 10 01/17/18 17:07
--- NOTE | 2018-01-17 17:41 | ED.GENADUL_ITS ---
Discharge Plan Disposition Patient Disposition: HOME Discharge Details Chief Complaint: Nk/Back Pain Clinical Impression: Muscle spasm Reason For Visit: PAULO Primary Care Provider: Katharina Hernandez V ED Provider: Prosper Ventura Home Meds and New Rx's Prescriptions: New lidocaine [Lidoderm] 5 % adhesive patch,medicated 1 patch TP DAILY Qty: 15 RF: 0 No Action citalopram 20 MG tablet 40 mg PO HS RF: 0 losartan 25 MG tablet 50 mg PO DAILY RF: 0 lovastatin 20 MG tablet 1 tab PO DAILY RF: 0 bupropion HCl 150 MG tablet extended release 24 hr 1 tab PO BID RF: 0 aspirin [Aspir-81] 81 MG tablet,delayed release (DR/EC) 81 mg PO DAILY RF: 0 multivitamin 1 EACH capsule 1 tab PO DAILY RF: 0 docusate sodium [Colace] 100 mg capsule 100 mg PO DAILY Qty: 90 RF: 0 pantoprazole [Protonix] 40 mg tablet,delayed release (DR/EC) 40 mg PO BID Qty: 60 RF: 0 ranitidine HCl 150 mg capsule 150 mg PO DAILY Qty: 30 RF: 0 cyclobenzaprine 10 mg tablet 10 mg PO TID Qty: 14 RF: 0 Discharge Instructions Additional Instructions: Please drink plenty of fluid to stay hydrated. Take tylenol 650mg every 6 hours as needed for pain. Use lidoderm patch as precribed. Please follow-up with your primary care doctor tomorrow. Pulmonary opacities with seen on chest xray and should be followed up in the next few days. Call your doctor tomorrow. Return to the ER for any worsening or new concerning symptoms. Referrals: Katharina Hernandez MD [Primary Care Provider] - Medical Decision Making 17:35 --52-year-old male with past medical history significant for hypertension , hyperlipidemia, GERD, obesity, depression, discharged from [facility] today after prolonged hospitalization and treat for MRSA bacteremia, T8/T9 and L4-L5 discitis osteomyelitis with epidural abscess, acute renal failure, and hemoptysis with right-sided pleural effusion requiring thoracentesis, here now 3 hours after discharge [place] [facility] with intermittent anterior bandlike chest spasms that have been present for the past 3-4 weeks. Will check cxr to assess for pneumothorax. Pain may be secondary to nerve root irritation at T8. I obtained and reviewed discharge summary from [facility] 01/[place]/2018: There is no notation of this anterior chest pain in the discharge summary. Will contact [facility] [place] team to discuss pain. I oftered tylenol to patient and he refused. -- I spoke with hospitalist Dr. Tolentino who was part of patient's treatment team at [facility], she knows the pateint well. I reviewed ED presentation with her. She recommended checking electrolytes that would predispose to muscle spasms. She noted that significant workup regarding pain revealed duodenitis. She also recommended administering prescribed ceftaroline. -- Patient administered ceftaroline as prescribed. Labs reviewed and CKD noted. No abnormalities as noted. cxr advised by radiology as bilateral pulmonary opacities, most consistent with pneumonia. Of note, opacities were seen on prior CT imaging here 12/29. [place] [facility] he had hemoptysis and underwent bronchoscopy that revealed clot. He has pleural effusions that required thoracentesis. Further testing was not recommended. He does not have cough at this time. Suspect residual process from prior. 21:00 -- Patient reassessed and feeling better. Much more comfortable. Will prescribe lidoderm patch. Continue home health and PICC antibitiotic as prescribed. Patient to follow-up with pcp tomorrow - timely follow-up in the next few days is certainly warranted. HPI General Mode of arrival: ambulatory . Date/Time Provider Initiated Documentation: 01/17/18 17:10 . Limitations to Documentation: no limitations . Information obtained by: patient . HPI Narrative: 52-year-old male with multiple medical problems including anxiety , depression, GERD, hypertension, hypercholesterolemia, obesity, recently discharged (3 hours ago) [place] [facility] [place] prolonged hospitalization treatment for staph infection lumbar back, with chief complaint of chest pain. Patient notes pain that is sharp, spasms localized to anterior bilateral lower chest, intermittent since onset 3-4 weeks ago, and comes in waves that last seconds to minutes. Patient notes that he has been experiencing the exact same pain at [facility] and compained to treatment team about the pain. Patient is unsure as to etiology of pain. Related Data Home Medications Medication Instructions Recorded Confirmed lovastatin 1 tab PO DAILY 05/15/13 12/29/17 aspirin [Aspir-81] 81 mg PO DAILY 01/15/16 12/29/17 bupropion HCl 1 tab PO BID 01/15/16 12/29/17 multivitamin 1 tab PO DAILY 01/15/16 12/29/17 docusate sodium [Colace] 100 mg PO DAILY #90 cap 12/24/17 12/29/17 pantoprazole [Protonix] 40 mg PO BID #60 tab 12/24/17 12/29/17 amlodipine 10 mg PO DAILY 01/17/18 01/17/18 carvedilol 12.5 mg PO BID 01/17/18 01/17/18 ceftaroline fosamil 600 mg IV Q12H 01/17/18 01/17/18 lidocaine [Lidoderm] 1 patch TP DAILY #15 each 01/17/18 Previous Rx's Medication Instructions Recorded docusate sodium [Colace] 100 mg PO DAILY #90 cap 12/24/17 pantoprazole [Protonix] 40 mg PO BID #60 tab 12/24/17 lidocaine [Lidoderm] 1 patch TP DAILY #15 each 01/17/18 Allergies Allergy/AdvReac Type Severity Reaction Status Date / Time No Known Allergies Allergy Unverified 12/24/17 14:37 General Stated Complaint: Nk/Back Pain ELFEGO: 3 Review of Systems Cardiovascular Denies dyspnea Respiratory Denies dyspnea Musculoskeletal Reports as per HPI Exam Const General: cooperative and no acute distress HENKY Head: normocephalic Mouth: moist mucous membranes Eyes Conjunctivae: normal conjunctivae Sclera: normal sclerae Neck Neck: trachea midline Other: wound from iv catheter dressed with no erythema Resp Auscultation: clear to auscultation bilaterally, no rales, no rhonchi and no wheezes Cardio Jugular venous pressure: no JVD Rate: regular rate and not tachycardic Rhythm: regular rhythm GI Palpation: soft, not firm, no guarding, no masses, not rigid and nontender Skin General skin exam: no rashes or lesions noted Neuro General: alert, awake, oriented x3 and tone normal Motor: strength 5/5 throughout Sensory Exam: no sensory deficits noted Extrem General: no edema Psych Appearance: grossly normal Mental Status: mental status grossly normal Speech and Movement: speech and movement normal Course Vital Signs Temperature 38.0 C H 01/17/18 17:07 Pulse 90 01/17/18 17:07 Respiratory Rate 18 01/17/18 17:07 Blood Pressure 158/101 H 01/17/18 17:07 Pulse Oximetry 93 L 01/17/18 17:07 Temperature 38.0 C H 10/18/18 17:07 Temperature Source Skin 01/17/18 17:07 Pulse 90 01/17/18 17:07 Respiratory Rate 18 01/17/18 17:07 Blood Pressure 158/101 H 01/17/18 17:07 Blood Pressure Position Supine 01/17/18 17:07 Pulse Oximetry 93 L 01/17/18 17:07 Oxygen Delivery Method Room Air 01/17/18 17:07 Oxygen Flow Rate 0 01/17/18 17:07 Pain Level 10 01/17/18 17:07
[2018-01-17] MEDS: Lidocaine 5% Patch 1 PATCH TP (18:13)
--- NOTE | 2018-01-17 18:36 | DI.RAD_ITS ---
SYMPTOM/DIAGNOSIS: CHEST PAIN AP AND LATERAL CHEST: Abdominal CT of 12/29/17 showed bilateral pleural effusions and areas of apparent consolidation at the right lung base. Today's chest film again shows probable bilateral pleural effusion and right basilar consolidation. Patchy areas of increased radiodensity may be present in the upper lung cary as well. CONCLUSION: Findings suggestive of persistent or recurrent pneumonia but CHF or underlying neoplastic disease is not excluded. Chest CT requested for further evaluation. There is a right subclavian catheter, probably a PICC line, which appears to terminate at the junction of superior vena cava and right atrium.
--- NOTE | 2018-01-17 19:06 | DI.VRAD_ITS ---
EXAM: XR Chest, 2 Views EXAM DATE/TIME: 01/17/2018 5:43 PM CLINICAL HISTORY: 52 years old, male; Pain; Chest pain; Type not specified; Patient HX: PT sts severe back and chest pain, after recent infection. ; Additional info: Best images obtained due to patient condition, patient unable to sit upright or move, x table images obtained to best due to patient. Also patient took as big of inspiration as possible. TECHNIQUE: XR of the chest, 2 views. COMPARISON: CR XR ABD FLAT UPRIGHT PA CHEST 12/29/2017 10:50 AM FINDINGS: Lungs: Mild amount of bilateral pulmonary opacities most consistent with pneumonia. Pleural space: Unremarkable. No pleural effusion. No pneumothorax. Heart/Mediastinum: Unremarkable. No cardiomegaly. Bones/joints: Unremarkable for patient's age. Other findings: There is right discoid atelectasis and/or scarring. IMPRESSION: Mild amount of bilateral pulmonary opacities most consistent with pneumonia. Dictated and Authenticated by: Dar Antonio MD. Ordering:JAVI GUTIERREZ MD
[2018-01-17 19:10] LABS: Anion Gap 10.2 mmol/L (3-11); BUN 32 mg/dL (7-18); CO2 25.8 mmol/L (21.0-32.0); CREATININE 2.46 mg/dL (0.70-1.30); Calcium 8.3 mg/dL (8.5-10.1); Chloride 107 mmol/L (98-107); Estimated GFR 27.77 (mL/min/1.73m2); Glucose 104 mg/dL (70-100); Potassium 3.7 mmol/L (3.5-5.1); Sodium 143 mmol/L (136-145)
[2018-01-17] MEDS: Acetaminophen 325 MG TAB 650 MG PO (19:57)
[2018-01-17 21:30] VITALS: BP 142/86; PULSE 94; RESP 16; TEMP 37.5; O2SAT 96
== END 2018-01-17 21:34 | disposition home or self-care (01) ==
PROVIDERS: Emergency Provider Student in an Organized Health Care Education/Training Program; PCP Family Medicine
DX: M62.838 Other muscle spasm (principal); I10 Essential (primary) hypertension
CPT/HCPCS: 36415; 80048; 99284; 71046

== ENCOUNTER 2018-01-20 10:23 | Outpatient (REF) | payer MEDICAID, SELFPAY ==
[2018-01-20 11:04] LABS: Abs Immature Grans 0.09 k/cumm (0.0-0.09); Absolute Basophil Count 0.05 k/cumm (0.0-0.2); Absolute Lymphocyte Count 1.44 k/cumm (1.2-3.4); Absolute Neutrophil Count 9.57 k/cumm (1.2-6.7); Basophils % 0.4; HCT 23.5 % (40.0-50.0); HGB 7.6 g/dL (13.5-17.5); Immature Grans % 0.7; Lymphocytes % 11.7; Mean Corp. HGB Concentration 32.3 g/dL (32.0-36.0); Mean Corpuscular Hemoglobin 29.6 pg (27.0-33.0); Mean Corpuscular Volume 91.4 fL (80-95); Mean Platelet Volume 9.8 fL (8.0-11.0); Monocytes % 7.3; Neutrophils % 77.9; RBC 2.57 m/cumm (4.50-6.00); RBC Distribution Width 14.2 % (11.8-14.1); White Blood Cell Count 12.29 k/cumm (4.4-10.8)
[2018-01-20 11:14] LABS: Absolute Eosinophil Count 0.25 k/cumm (0.0-0.7)
[2018-01-20 11:23] LABS: ALT 90 U/L (12-78); AST 58 U/L (15-37); Albumin 1.9 g/dL (3.4-5.0); Alkaline Phosphatase 154 U/L (46-116); Anion Gap 9.5 mmol/L (3-11); BUN 21 mg/dL (7-18); Bilirubin, Total 0.4 mg/dL (0.2-1.0); C-Reactive Protein 5.35 mg/dL (0.0-0.3); CO2 25.5 mmol/L (21.0-32.0); CREATININE 1.78 mg/dL (0.70-1.30); Calcium 7.7 mg/dL (8.5-10.1); Chloride 104 mmol/L (98-107); Estimated GFR 40.34 (mL/min/1.73m2); Glucose 95 mg/dL (70-100); Potassium 3.3 mmol/L (3.5-5.1); Sodium 139 mmol/L (136-145); Total Protein 6.4 g/dL (6.4-8.2)
[2018-01-20 11:24] LABS: Diff Comment RBC Morph Reviewed; RBC Morphology Normal
[2018-01-20 11:25] LABS: Platelet Count 312 x1000/uL (130-400)
== END 2018-01-20 10:43 ==
LOC: LBN 10:23
PROVIDERS: PCP Family Medicine; Visit Provider Student in an Organized Health Care Education/Training Program
DX: R78.81 Bacteremia (principal); Z79.2 Long term (current) use of antibiotics
CPT/HCPCS: 80053; 85025; 86140

== ENCOUNTER 2018-01-28 11:29 | Outpatient (REF) | payer MEDICAID, SELFPAY ==
[2018-01-28 12:36] LABS: Abs Immature Grans 0.04 k/cumm (0.0-0.09); Absolute Basophil Count 0.03 k/cumm (0.0-0.2); Absolute Eosinophil Count 0.24 k/cumm (0.0-0.7); Absolute Lymphocyte Count 1.27 k/cumm (1.2-3.4); Absolute Monocyte Count 0.77 k/cumm (0.11-0.7); Absolute Neutrophil Count 8.42 k/cumm (1.2-6.7); Basophils % 0.3; Eosinophils % 2.2; Immature Grans % 0.4; Lymphocytes % 11.8; Mean Corp. HGB Concentration 30.9 g/dL (32.0-36.0); Mean Corpuscular Hemoglobin 28.6 pg (27.0-33.0); Mean Corpuscular Volume 92.4 fL (80-95); Mean Platelet Volume 10.7 fL (8.0-11.0); Monocytes % 7.1; Neutrophils % 78.2; Platelet Count 345 x1000/uL (130-400); RBC 2.38 m/cumm (4.50-6.00); RBC Distribution Width 14.1 % (11.8-14.1); White Blood Cell Count 10.77 k/cumm (4.4-10.8)
[2018-01-28 12:53] LABS: ALT 92 U/L (12-78); AST 44 U/L (15-37); Alkaline Phosphatase 196 U/L (46-116); Anion Gap 9.1 mmol/L (3-11); BUN 16 mg/dL (7-18); Bilirubin, Total 0.3 mg/dL (0.2-1.0); C-Reactive Protein 5.46 mg/dL (0.0-0.3); CO2 25.9 mmol/L (21.0-32.0); CREATININE 1.17 mg/dL (0.70-1.30); Calcium 8.2 mg/dL (8.5-10.1); Chloride 99 mmol/L (98-107); Glucose 96 mg/dL (70-100); Potassium 3.4 mmol/L (3.5-5.1); Sodium 134 mmol/L (136-145); Total Protein 6.6 g/dL (6.4-8.2)
[2018-01-28 13:53] LABS: HGB 6.8 g/dL (13.5-17.5)
[2018-01-28 13:54] LABS: Diff Comment RBC Morph Reviewed; Hypochromasia 1+; Polychromasia Present
== END 2018-01-28 11:49 ==
LOC: LBN 11:29
PROVIDERS: PCP Family Medicine; Visit Provider Internal Medicine
DX: R78.81 Bacteremia (principal)
CPT/HCPCS: 80053; 85025; 86140

== ENCOUNTER 2018-01-28 15:04 | Inpatient (IN) | payer MEDICAID, SELFPAY ==
[2018-01-28] VITALS (34 sets, daily range): BP systolic 121–141; BP diastolic 73–87; PULSE 85–97; RESP 17–38; TEMP 37.2–38.4; O2SAT 91–95
--- NOTE | 2018-01-28 15:14 | DI.RAD_ITS ---
SYMPTOMS/DIAGNOSIS: ANEMIA, ? ACUTE DISEASE CHEST X-RAY, SINGLE AP VIEW: Comparison is 01/17/18. The heart size and pulmonary vasculature are stable and within normal limits. The patient has a PICC line, the tip is seen in good position in the superior vena cava. The left lung is clear. There is blunting of the right costophrenic angle, suggesting a small right pleural effusion. There is a right basilar infiltrate, which may represent atelectasis or pneumonia. IMPRESSION: Right basilar infiltrate, which may represent atelectasis or pneumonia. Small right pleural effusion.
[2018-01-28 16:02] LABS: Abs Immature Grans 0.04 k/cumm (0.0-0.09); Absolute Basophil Count 0.02 k/cumm (0.0-0.2); Absolute Eosinophil Count 0.24 k/cumm (0.0-0.7); Absolute Lymphocyte Count 1.24 k/cumm (1.2-3.4); Absolute Monocyte Count 0.78 k/cumm (0.11-0.7); Absolute Neutrophil Count 8.23 k/cumm (1.2-6.7); Basophils % 0.2; Eosinophils % 2.3; Immature Grans % 0.4; Lymphocytes % 11.8; Mean Corp. HGB Concentration 32.2 g/dL (32.0-36.0); Mean Corpuscular Hemoglobin 29.5 pg (27.0-33.0); Mean Corpuscular Volume 91.6 fL (80-95); Mean Platelet Volume 9.2 fL (8.0-11.0); Monocytes % 7.4; Neutrophils % 77.9; Platelet Count 332 x1000/uL (130-400); RBC 2.27 m/cumm (4.50-6.00); RBC Distribution Width 14.1 % (11.8-14.1); White Blood Cell Count 10.55 k/cumm (4.4-10.8)
[2018-01-28 16:05] LABS: HCT 20.8 % (40.0-50.0); HGB 6.7 g/dL (13.5-17.5)
[2018-01-28 16:14] LABS: ALT 91 U/L (12-78); AST 49 U/L (15-37); Alkaline Phosphatase 196 U/L (46-116); Anion Gap 7.3 mmol/L (3-11); BUN 15 mg/dL (7-18); Bilirubin, Direct 0.18 mg/dL (0.00-0.20); Bilirubin, Total 0.4 mg/dL (0.2-1.0); CO2 27.7 mmol/L (21.0-32.0); CREATININE 1.21 mg/dL (0.70-1.30); Calcium 8.3 mg/dL (8.5-10.1); Chloride 100 mmol/L (98-107); Glucose 86 mg/dL (70-100); Magnesium 1.6 mg/dL (1.8-2.4); Potassium 3.2 mmol/L (3.5-5.1); Sodium 135 mmol/L (136-145); Troponin I 0.02 ng/mL (0.00-0.06)
--- NOTE | 2018-01-28 16:45 | W.ED.GENAD ---
Discharge Plan Disposition Patient Disposition: [facility] INPATIENT Condition: Stable Discharge Details Chief Complaint: GenMedical Clinical Impression: Anemia, Fever, MRSA bacteremia, Receiving intravenous antibiotic treatment as outpatient, Fatigue, Weakness Reason For Visit: MAYURIEX Primary Care Provider: Katharina Hernandez V ED Provider: Lorelei Omer Home Meds and New Rx's Prescriptions: No Action lovastatin 20 MG tablet 1 tab PO DAILY RF: 0 bupropion HCl 150 MG tablet extended release 24 hr 1 tab PO BID RF: 0 aspirin [Aspir-81] 81 MG tablet,delayed release (DR/EC) 81 mg PO DAILY RF: 0 multivitamin 1 EACH capsule 1 tab PO DAILY RF: 0 docusate sodium [Colace] 100 mg capsule 100 mg PO DAILY Qty: 90 RF: 0 pantoprazole [Protonix] 40 mg tablet,delayed release (DR/EC) 40 mg PO BID Qty: 60 RF: 0 lidocaine [Lidoderm] 5 % adhesive patch,medicated 1 patch TP DAILY Qty: 15 RF: 0 carvedilol 12.5 mg Tablet 12.5 mg PO BID RF: 0 amlodipine 10 mg Tablet 10 mg PO DAILY RF: 0 ceftaroline fosamil 400 mg Recon Soln 600 mg IV Q12H RF: 0 Medical Decision Making 52-year-old male with a history of recent prolonged hospitalization at [facility] for 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 Sent by [facility] to ED for further evaluation. Patient admits to increasing weakness and feeling tired. Intermittent fevers, last of 100.2 at home 2 days ago. He denies any complaints of epistaxis, hemoptysis, hematuria, rectal bleeding Vitals within normal limits on arrival. Patient appears pale, fatigued but otherwise nontoxic. Hemoccult negative. Lungs clear to auscultation. Abdomen soft nontender. Will place an IV, labs, EKG, chest x-ray, urinalysis. 1650 -- Labs reviewed and note a hemoglobin of 6.7, hematocrit 20.8. White blood cell count 10.55. Platelet count 332. Potassium 3.2. Magnesium 1.6. Chest x-ray read as negative. EKG notes a rate of 86, sinus, no acute ST elevation or depression. QRS 96. QTc 433. Will order 1 unit PRBCs. Will admit for increasing weakness, anemia, for recheck of hemoglobin in the a.m., PT and OT eval, and to assess for any possible source. [facility] records from his recent hospitalization note that there was a recommended EGD for duodenitis noted on the CT. [facility] notes stated that patient did have a drop in his hemoglobin to 6.8. Patient states he did receive a blood transfusion last month while there. Patient had undergone a diagnostic thoracentesis and had a bronchoscopy which noted a right-sided clot. Further workup of his hemoptysis including ANCA, anti-GBM antibody, myoglobins which were negative. 1715 -- patient now febrile 38.4. Will give a dose of Tylenol, order lactate and blood cultures. Patient has been having intermittent fevers at home since discharge from [facility] on 01/17. His fever today likely due to his current infection for which he is receiving IV antibiotics. Unsure of his source of anemia at this time, but may be due to his current underlying illness, recent kidney injury. 1730 -- D/w hospitalist - accepts pt for admission. Would like to add vancomycin. UA not yet obtained. will bring in Ceftaroline from home. HPI General Mode of arrival: EMS. Date/Time Provider Initiated Documentation: 01/28/18 15:11. Limitations to Documentation: no limitations. Information obtained by: patient. HPI Narrative: Patient is a 52-year-old male who had a recent prolonged hospitalization at [facility] 1 month ago for T8-T9 and L4-L5 discitis and osteomyelitis with epidural abscess, complicated by MRSA bacteremia, right pleural effusion and hemoptysis with thoracentesis, and acute renal failure, with PICC line receiving IV antibiotics Ceftaroline who presents today for anemia noted upon home health routine CBC check. Hemoglobin today was 6.8. [facility] called patient at home and advised him to come to ER. Patient states he has been feeling weak and tired but otherwise has been eating and drinking normally, denies vomiting or diarrhea, hemoptysis, epistaxis, rectal bleeding, hematuria, chest pain, shortness of breath, abdominal pain, urinary symptoms. He does admit to intermittent fever, last of 100.22 days ago but none today. Past medical history: Hypertension, hyperlipidemia, GERD, obesity, depression Surgical history: Tonsillectomy, ganglion cyst Social history: She is tobacco, rare beer and rare marijuana use Medications: See list Allergies: None PCP: Dr. Katharina Hernandez Related Data Home Medications Medication Instructions Recorded Confirmed lovastatin 1 tab PO DAILY 05/15/13 01/28/18 aspirin [Aspir-81] 81 mg PO DAILY 01/15/16 01/28/18 bupropion HCl 1 tab PO BID 01/15/16 01/28/18 multivitamin 1 tab PO DAILY 01/15/16 01/28/18 docusate sodium [Colace] 100 mg PO DAILY #90 cap 12/24/17 01/28/18 pantoprazole [Protonix] 40 mg PO BID #60 tab 12/24/17 01/28/18 amlodipine 10 mg PO DAILY 01/17/18 01/28/18 carvedilol 12.5 mg PO BID 01/17/18 01/28/18 ceftaroline fosamil 600 mg IV Q12H 01/17/18 01/28/18 lidocaine [Lidoderm] 1 patch TP DAILY #15 each 01/17/18 01/28/18 Previous Rx's Medication Instructions Recorded docusate sodium [Colace] 100 mg PO DAILY #90 cap 12/24/17 pantoprazole [Protonix] 40 mg PO BID #60 tab 12/24/17 lidocaine [Lidoderm] 1 patch TP DAILY #15 each 01/17/18 Allergies Allergy/AdvReac Type Severity Reaction Status Date / Time No Known Allergies Allergy Unverified 01/28/18 15:16 General Stated Complaint: GenMedical ELFEGO: 3 Review of Systems Review of Systems All systems reviewed & are unremarkable except as noted in HPI and below Constitutional Denies chills, Denies excessive sweating, Reports fatigue, Denies fever(s), Reports weakness and Denies weight loss Eyes Reports system reviewed and no additional complaints, except as docu and Denies blurry vision ENT Denies vertigo, Denies dizziness, Denies otalgia, Denies nasal congestion, Denies sore throat and Denies throat swelling Cardiovascular Denies chest pain, Denies syncope, Denies rapid heart rate and Denies dyspnea Respiratory Denies dyspnea Gastrointestinal Denies abdominal pain, Denies diarrhea and Denies vomiting Genitourinary Denies hematuria, Denies dysuria and Denies flank pain Musculoskeletal Denies back pain and Denies joint swelling Integumentary/Breasts Denies lesions and Denies rash Neurologic Denies behavioral changes, Denies confusion, Denies vertigo, Denies dizziness, Denies syncope and Reports weakness Psychiatric Denies behavioral changes, Denies confusion and Denies depression Endocrine Denies excessive sweating and Reports fatigue Hematologic/Lymphatic Denies easy bruising and Denies lymphadenopathy Allergic/Immunologic Denies throat swelling PFSH Family History Other Cerebrovascular accident Diabetes Heart disease Myocardial infarction Neoplasm Medical History Umbilical hernia (Acute) Acute kidney injury (Acute) Hyponatremia (Acute) GERD (gastroesophageal reflux disease) (Chronic) Depression (Chronic) HLD (hyperlipidemia) (Chronic) HTN (hypertension) (Chronic) Depression Essential hypertension GERD (gastroesophageal reflux disease) Hyperlipidemia Obesity (BMI 30-39.9) Social History Smoking/Tobacco Use Status: Never alcohol intake: former additional social history: 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 He quit alcohol at age 19. Surgical History Colonoscopy - MAC (12/06/16) EGD - MAC (12/06/16) Repair of umbilical hernia (12/20/16) Exam Const General: cooperative and no acute distress Orientation: alert, awake and oriented x3 HENMT Head: normal to inspection Ears: hearing grossly normal bilaterally, external ears normal and TM's normal bilaterally General nose exam: external nose normal Face and sinus: normal facial exam Mouth: oral mucosae normal Teeth and gingiva: dentition normal Throat: posterior oropharynx normal Eyes General: appearance normal, both eyes and all related structures Eyelids: eyelids normal Conjunctivae: other (pale) Pupils: PERRL EOM: EOM intact bilaterally Neck Neck: normal visual inspection Lymphatic: no lymphadenopathy noted Chest Chest: normal inspection of the chest Resp Effort & Inspection: normal respiratory effort and able to speak in complete sentences Auscultation: clear to auscultation bilaterally Cardio Rate: regular rate Rhythm: regular rhythm GI Inspection: normal to inspection Palpation: soft, not firm, no guarding, no hepatosplenomegaly, no masses and nontender Auscultation: normal bowel sounds Rectal Exam: visual inspection normal, normal sphincter tone and heme negative stool (brown colored stool ) Back/Spine/Pelvis Back: no CVA tenderness Skin General skin exam: no rashes or lesions noted and pallor Neuro General: alert and awake Cognition: normal cognition Speech: speech normal Gait: normal gait Motor: muscle tone normal throughout and strength 5/5 throughout Sensory Exam: no sensory deficits noted Extrem General: normal to inspection, full ROM, normal capillary refill and no edema Right upper extremity: shoulder/upper arm (PICC line noted to right upper medial arm, in place, no signs of infection, bleeding or drainage) Psych Appearance: grossly normal Mental Status: mental status grossly normal Speech and Movement: speech and movement normal Affect: normal affect Thought Process: normal Course Vital Signs Temperature 99.0 F 01/28/18 15:13 Pulse 87 01/28/18 15:13 Respiratory Rate 25 H 01/28/18 15:13 Blood Pressure 131/76 01/28/18 15:13 Pulse Oximetry 95 01/28/18 15:13 Temperature 99.0 F 01/28/18 15:13 Temperature Source Skin 01/28/18 15:13 Pulse 87 01/28/18 15:13 Respiratory Rate 25 H 01/28/18 15:13 Respiratory Effort Non-Labored 01/28/18 15:13 Blood Pressure 131/76 01/28/18 15:13 Blood Pressure Position Supine 01/28/18 15:13 Pulse Oximetry 95 01/28/18 15:13 Oxygen Delivery Method Room Air 01/28/18 15:13 Oxygen Flow Rate 0 01/28/18 15:13 Pain Level 4 01/28/18 15:13 Lab/Test Results Lab/Test Results: Laboratory Tests Range/Units 01/28/18 01/28/18 15:50 15:50 WBC (4.4-10.8) k/cumm 10.55 RBC (4.50-6.00) m/cumm 2.27 L Hgb (13.5-17.5) g/dL 6.7 L* Hct (40.0-50.0) % 20.8 L* MCV (80-95) fL 91.6 MCH (27.0-33.0) pg 29.5 MCHC (32.0-36.0) g/dL 32.2 RDW (11.8-14.1) % 14.1 Plt Count (130-400) x1000/uL 332 MPV (8.0-11.0) fL 9.2 Immature Gran % 0.4 Neutrophils % 77.9 Lymphocytes % 11.8 Monocytes % 7.4 Eosinophils % 2.3 Basophils % 0.2 Absolute Neutrophils (1.2-6.7) k/cumm 8.23 H Absolute Lymphocytes (1.2-3.4) k/cumm 1.24 Absolute Monocytes (0.11-0.7) k/cumm 0.78 H Absolute Eosinophils (0.0-0.7) k/cumm 0.24 Absolute Basophils (0.0-0.2) k/cumm 0.02 Sodium (136-145) mmol/L 135 L Potassium (3.5-5.1) mmol/L 3.2 L Chloride (98-107) mmol/L 100 Carbon Dioxide (21.0-32.0) mmol/L 27.7 Anion Gap (3-11) mmol/L 7.3 BUN (7-18) mg/dL 15 Creatinine (0.70-1.30) mg/dL 1.21 Estimated GFR/1.73 m2 (mL/min/1.73m2) >= 60.00 Glucose (70-100) mg/dL 86 Calcium (8.5-10.1) mg/dL 8.3 L Magnesium (1.8-2.4) mg/dL 1.6 L Total Bilirubin (0.2-1.0) mg/dL 0.4 Conjugated Bilirubin (0.00-0.20) mg/dL 0.18 AST (15-37) U/L 49 H ALT (12-78) U/L 91 H Alkaline Phosphatase (46-116) U/L 196 H Troponin I (0.00-0.06) ng/mL 0.02 Total Protein (6.4-8.2) g/dL 7.0 Albumin (3.4-5.0) g/dL 2.0 L
--- NOTE | 2018-01-28 17:06 | ED.GENADUL_ITS ---
Discharge Plan Disposition Patient Disposition: [facility] INPATIENT Condition: Stable Discharge Details Chief Complaint: GenMedical Clinical Impression: Anemia, Fever, MRSA bacteremia, Receiving intravenous antibiotic treatment as outpatient, Fatigue, Weakness Reason For Visit: MAYURIEX Primary Care Provider: Katharina Hernandez V ED Provider: Loreeli Omer Home Meds and New Rx's Prescriptions: No Action lovastatin 20 MG tablet 1 tab PO DAILY RF: 0 bupropion HCl 150 MG tablet extended release 24 hr 1 tab PO BID RF: 0 aspirin [Aspir-81] 81 MG tablet,delayed release (DR/EC) 81 mg PO DAILY RF: 0 multivitamin 1 EACH capsule 1 tab PO DAILY RF: 0 docusate sodium [Colace] 100 mg capsule 100 mg PO DAILY Qty: 90 RF: 0 pantoprazole [Protonix] 40 mg tablet,delayed release (DR/EC) 40 mg PO BID Qty: 60 RF: 0 lidocaine [Lidoderm] 5 % adhesive patch,medicated 1 patch TP DAILY Qty: 15 RF: 0 carvedilol 12.5 mg Tablet 12.5 mg PO BID RF: 0 amlodipine 10 mg Tablet 10 mg PO DAILY RF: 0 ceftaroline fosamil 400 mg Recon Soln 600 mg IV Q12H RF: 0 Medical Decision Making 52-year-old male with a history of recent prolonged hospitalization at [facility] for 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 Sent by [facility] to ED for further evaluation. Patient admits to increasing weakness and feeling tired. Intermittent fevers, last of 100.2 at home 2 days ago. He denies any complaints of epistaxis, hemoptysis, hematuria, rectal bleeding Vitals within normal limits on arrival. Patient appears pale, fatigued but otherwise nontoxic. Hemoccult negative. Lungs clear to auscultation. Abdomen soft nontender. Will place an IV, labs, EKG, chest x-ray, urinalysis. 1650 -- Labs reviewed and note a hemoglobin of 6.7, hematocrit 20.8. White blood cell count 10.55. Platelet count 332. Potassium 3.2. Magnesium 1.6. Chest x-ray read as negative. EKG notes a rate of 86, sinus, no acute ST elevation or depression. QRS 96. QTc 433. Will order 1 unit PRBCs. Will admit for increasing weakness, anemia, for recheck of hemoglobin in the a.m., PT and OT eval, and to assess for any possible source. [facility] records from his recent hospitalization note that there was a recommended EGD for duodenitis noted on the CT. [facility] notes stated that patient did have a drop in his hemoglobin to 6.8. Patient states he did receive a blood transfusion last month while there. Patient had undergone a diagnostic thoracentesis and had a bronchoscopy which noted a right- sided clot. Further workup of his hemoptysis including ANCA, anti-GBM antibody , myoglobins which were negative. 1715 -- patient now febrile 38.4. Will give a dose of Tylenol, order lactate and blood cultures. Patient has been having intermittent fevers at home since discharge from [facility] on 01/17. His fever today likely due to his current infection for which he is receiving IV antibiotics. Unsure of his source of anemia at this time, but may be due to his current underlying illness, recent kidney injury. 1730 -- D/w hospitalist - accepts pt for admission. Would like to add vancomycin. UA not yet obtained. will bring in Ceftaroline from home. HPI General Mode of arrival: EMS . Date/Time Provider Initiated Documentation: 01/28/18 15:11 . Limitations to Documentation: no limitations . Information obtained by: patient . HPI Narrative: Patient is a 52-year-old male who had a recent prolonged hospitalization at [facility] 1 month ago for T8-T9 and L4-L5 discitis and osteomyelitis with epidural abscess, complicated by MRSA bacteremia, right pleural effusion and hemoptysis with thoracentesis, and acute renal failure, with PICC line receiving IV antibiotics Ceftaroline who presents today for anemia noted upon home health routine CBC check. Hemoglobin today was 6.8. [employer] called patient at home and advised him to come to ER. Patient states he has been feeling weak and tired but otherwise has been eating and drinking normally, denies vomiting or diarrhea, hemoptysis, epistaxis, rectal bleeding, hematuria, chest pain, shortness of breath, abdominal pain, urinary symptoms. He does admit to intermittent fever, last of 100.22 days ago but none today. Past medical history: Hypertension, hyperlipidemia, GERD, obesity, depression Surgical history: Tonsillectomy, ganglion cyst Social history: She is tobacco, rare beer and rare marijuana use Medications: See list Allergies: None PCP: Dr. Katharina Hernandez Related Data Home Medications Medication Instructions Recorded Confirmed lovastatin 1 tab PO DAILY 05/15/13 01/28/18 aspirin [Aspir-81] 81 mg PO DAILY 01/15/16 01/28/18 bupropion HCl 1 tab PO BID 01/15/16 01/28/18 multivitamin 1 tab PO DAILY 01/15/16 01/28/18 docusate sodium [Colace] 100 mg PO DAILY #90 cap 12/24/17 01/28/18 pantoprazole [Protonix] 40 mg PO BID #60 tab 12/24/17 01/28/18 amlodipine 10 mg PO DAILY 01/17/18 01/28/18 carvedilol 12.5 mg PO BID 01/17/18 01/28/18 ceftaroline fosamil 600 mg IV Q12H 01/17/18 01/28/18 lidocaine [Lidoderm] 1 patch TP DAILY #15 each 01/17/18 01/28/18 Previous Rx's Medication Instructions Recorded docusate sodium [Colace] 100 mg PO DAILY #90 cap 12/24/17 pantoprazole [Protonix] 40 mg PO BID #60 tab 12/24/17 lidocaine [Lidoderm] 1 patch TP DAILY #15 each 01/17/18 Allergies Allergy/AdvReac Type Severity Reaction Status Date / Time No Known Allergies Allergy Unverified 01/28/18 15:16 General Stated Complaint: GenMedical ELFEGO: 3 Review of Systems Review of Systems All systems reviewed & are unremarkable except as noted in HPI and below Constitutional Denies chills, Denies excessive sweating, Reports fatigue, Denies fever(s), Reports weakness and Denies weight loss Eyes Reports system reviewed and no additional complaints, except as docu and Denies blurry vision ENT Denies vertigo, Denies dizziness, Denies otalgia, Denies nasal congestion, Denies sore throat and Denies throat swelling Cardiovascular Denies chest pain, Denies syncope, Denies rapid heart rate and Denies dyspnea Respiratory Denies dyspnea Gastrointestinal Denies abdominal pain, Denies diarrhea and Denies vomiting Genitourinary Denies hematuria, Denies dysuria and Denies flank pain Musculoskeletal Denies back pain and Denies joint swelling Integumentary/Breasts Denies lesions and Denies rash Neurologic Denies behavioral changes, Denies confusion, Denies vertigo, Denies dizziness, Denies syncope and Reports weakness Psychiatric Denies behavioral changes, Denies confusion and Denies depression Endocrine Denies excessive sweating and Reports fatigue Hematologic/Lymphatic Denies easy bruising and Denies lymphadenopathy Allergic/Immunologic Denies throat swelling PFSH Family History Other Cerebrovascular accident Diabetes Heart disease Myocardial infarction Neoplasm Medical History Umbilical hernia (Acute) Acute kidney injury (Acute) Hyponatremia (Acute) GERD (gastroesophageal reflux disease) (Chronic) Depression (Chronic) HLD (hyperlipidemia) (Chronic) HTN (hypertension) (Chronic) Depression Essential hypertension GERD (gastroesophageal reflux disease) Hyperlipidemia Obesity (BMI 30-39.9) Social History Smoking/Tobacco Use Status: Never alcohol intake: former additional social history: 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 He quit alcohol at age 19. Surgical History Colonoscopy - MAC (12/06/16) EGD - MAC (12/06/16) Repair of umbilical hernia (12/20/16) Exam Const General: cooperative and no acute distress Orientation: alert, awake and oriented x3 HENMT Head: normal to inspection Ears: hearing grossly normal bilaterally, external ears normal and TM's normal bilaterally General nose exam: external nose normal Face and sinus: normal facial exam Mouth: oral mucosae normal Teeth and gingiva: dentition normal Throat: posterior oropharynx normal Eyes General: appearance normal, both eyes and all related structures Eyelids: eyelids normal Conjunctivae: other (pale) Pupils: PERRL EOM: EOM intact bilaterally Neck Neck: normal visual inspection Lymphatic: no lymphadenopathy noted Chest Chest: normal inspection of the chest Resp Effort & Inspection: normal respiratory effort and able to speak in complete sentences Auscultation: clear to auscultation bilaterally Cardio Rate: regular rate Rhythm: regular rhythm GI Inspection: normal to inspection Palpation: soft, not firm, no guarding, no hepatosplenomegaly, no masses and nontender Auscultation: normal bowel sounds Rectal Exam: visual inspection normal, normal sphincter tone and heme negative stool (brown colored stool ) Back/Spine/Pelvis Back: no CVA tenderness Skin General skin exam: no rashes or lesions noted and pallor Neuro General: alert and awake Cognition: normal cognition Speech: speech normal Gait: normal gait Motor: muscle tone normal throughout and strength 5/5 throughout Sensory Exam: no sensory deficits noted Extrem General: normal to inspection, full ROM, normal capillary refill and no edema Right upper extremity: shoulder/upper arm (PICC line noted to right upper medial arm, in place, no signs of infection, bleeding or drainage) Psych Appearance: grossly normal Mental Status: mental status grossly normal Speech and Movement: speech and movement normal Affect: normal affect Thought Process: normal Course Vital Signs Temperature 99.0 F 01/28/18 15:13 Pulse 87 01/28/18 15:13 Respiratory Rate 25 H 01/28/18 15:13 Blood Pressure 131/76 01/28/18 15:13 Pulse Oximetry 95 01/28/18 15:13 Temperature 99.0 F 01/28/18 15:13 Temperature Source Skin 01/28/18 15:13 Pulse 87 01/28/18 15:13 Respiratory Rate 25 H 01/28/18 15:13 Respiratory Effort Non-Labored 01/28/18 15:13 Blood Pressure 131/76 01/28/18 15:13 Blood Pressure Position Supine 01/28/18 15:13 Pulse Oximetry 95 01/28/18 15:13 Oxygen Delivery Method Room Air 01/28/18 15:13 Oxygen Flow Rate 0 01/28/18 15:13 Pain Level 4 01/28/18 15:13 Lab/Test Results Lab/Test Results: Laboratory Tests Range/Units 01/28/18 01/28/18 15:50 15:50 WBC (4.4-10.8) k/cumm 10.55 RBC (4.50-6.00) m/cumm 2.27 L Hgb (13.5-17.5) g/dL 6.7 L* Hct (40.0-50.0) % 20.8 L* MCV (80-95) fL 91.6 MCH (27.0-33.0) pg 29.5 MCHC (32.0-36.0) g/dL 32.2 RDW (11.8-14.1) % 14.1 Plt Count (130-400) x1000/uL 332 MPV (8.0-11.0) fL 9.2 Immature Gran % 0.4 Neutrophils % 77.9 Lymphocytes % 11.8 Monocytes % 7.4 Eosinophils % 2.3 Basophils % 0.2 Absolute Neutrophils (1.2-6.7) k/cumm 8.23 H Absolute Lymphocytes (1.2-3.4) k/cumm 1.24 Absolute Monocytes (0.11-0.7) k/cumm 0.78 H Absolute Eosinophils (0.0-0.7) k/cumm 0.24 Absolute Basophils (0.0-0.2) k/cumm 0.02 Sodium (136-145) mmol/L 135 L Potassium (3.5-5.1) mmol/L 3.2 L Chloride (98-107) mmol/L 100 Carbon Dioxide (21.0-32.0) mmol/L 27.7 Anion Gap (3-11) mmol/L 7.3 BUN (7-18) mg/dL 15 Creatinine (0.70-1.30) mg/dL 1.21 Estimated GFR/1.73 m2 (mL/min/1.73m2) >= 60.00 Glucose (70-100) mg/dL 86 Calcium (8.5-10.1) mg/dL 8.3 L Magnesium (1.8-2.4) mg/dL 1.6 L Total Bilirubin (0.2-1.0) mg/dL 0.4 Conjugated Bilirubin (0.00-0.20) mg/dL 0.18 AST (15-37) U/L 49 H ALT (12-78) U/L 91 H Alkaline Phosphatase (46-116) U/L 196 H Troponin I (0.00-0.06) ng/mL 0.02 Total Protein (6.4-8.2) g/dL 7.0 Albumin (3.4-5.0) g/dL 2.0 L
[2018-01-28] MEDS: Acetaminophen 325 MG TAB 650 MG PO (17:20)
[2018-01-28 17:37] LABS: Lactate-non-spesis 0.4 mmol/L (0.6-1.4)
[2018-01-28 19:26] LABS: Bilirubin Negative (Negative); Blood Large (Negative); Clarity Clear; Glucose Negative (Negative); Ketones Negative (Negative); Leukocyte Esterase Negative (Negative); Nitrite Negative (Negative); Specific Gravity <= 1.005 (1.005-1.025); Urobilinogen 0.2 EU/dL (Up TO 0.2); pH 6.5 (5-8)
[2018-01-28 19:49] LABS: WBC 0-2 HPF (0-5)
[2018-01-28 19:50] LABS: Bacteria Rare HPF (Negative); C & S Indicated? No; Casts Negative LPF (Negative); Crystals Negative HPF (Negative); Epithelial Cells Negative HPF (Negative); Mucus Negative (Negative); Other Cells Negative (Negative); RBC 20-50 (0-2)
--- NOTE | 2018-01-28 21:10 | HPE_ITS ---
Date of service: 01/28/18 Time of Service: 21:10 Assessment and Plan (1) Anemia: Current visit: Yes Status: Acute Patient has a known history of antral gastritis diagnosed by EGD in December [address] of his abdomen suggest duodenal ulcer and complains of epigastric abdominal pain. He denies any hematemesis or melena or hematochezia. He has been on twice a day PPI since discharge from [facility]. At the time of his discharge from [facility] on January 16, 2018 his hemoglobin 7.9 g and his hematocrit was 24%. It appears that he was anemic on admission to [facility] on December 29, 2017 when his hemoglobin was 12.7 g. That was an acute change from a previous CBC performed on December 24, 2017 when he was not anemic with a hemoglobin of 14.1 g. Patient was transfused 1 unit of packed red cells in the emergency room. He will get another unit of packed red cells overnight. I will consult with general surgery to evaluate him in the morning for possible EGD. I will keep the patient n.p.o. overnight. I will put him on IV Protonix. (2) Discitis of multiple sites of spine: Current visit: Yes Status: Acute [facility] recommended a follow-up MRI of his thoracolumbar spine in 4 weeks or sooner if he has worsening back pain or new neurologic symptoms. Patient's had no new neurologic symptoms however he has had daily fevers since discharge from the hospital. He did not undergo any neurosurgical intervention of his discitis or epidural abscess. I think it would be worth reimaging his thoracolumbar spine. (3) Hypokalemia: Current visit: Yes Status: Acute The etiology of his hypokalemia and hypomagnesemia is unclear as he is not on any diuretics.I will give him parenteral replacement of his potassium and magnesium and recheck his levels in the morning. (4) Hypomagnesemia: Current visit: Yes Status: Acute As above (5) Febrile illness, acute: Current visit: Yes Status: Acute It is unclear as to whether his daily fevers are part of his ongoing discitis/osteomyelitis or whether he has some other nidus of infection. He has no symptoms of sputum production and no dysuria although his urinalysis shows microscopic hematuria. His chest x-ray appears to be abnormal and that he has right lower lobe infiltrates and/or atelectasis along with effusion. This was evaluated with thoracentesis and bronchoscopy during his hospitalization recently at [facility]. I have expanded his antibiotic coverage to include vancomycin in addition to his ceftaroline because of his MRSA bacteremia. We will obtain urine culture and check the results of his repeat blood cultures. I will obtain a CT scan of his chest in the morning. (6) HTN (hypertension): Current visit: No Status: Chronic Continue his current dose of carvedilol and Norvasc. He previously been on losartan but that was discontinued during his acute kidney injury. It was recommended by [facility] that his losartan be resumed upon return of his renal function. I will defer this until he is more stable from an anemia standpoint and we can see where his BUN and creatinine settle out. (7) HLD (hyperlipidemia): Current visit: No Status: Chronic In light of his ongoing mild transaminase elevation I will withhold his lovastatin. (8) Depression: Current visit: No Status: Chronic Continue his current antidepressant regimen of bupropion History of Present Illness Chief Complaint: fatigue, anemia Narrative: 52-year-old male sent to the emergency room upon the advice of his primary care provider after routine surveillance labs were obtained by visiting nurse demonstrated severe anemia with hemoglobin of 6.8 g. This was performed as part of his postoperative monitoring while receiving ceftaroline IV antibiotics for treatment of MRSA bacteremia and thoracolumbar discitis/osteomyelitis. Patient has had a recent complicated hospitalization course in which she was initially admitted to [facility] from December 29, 2017 until his transfer to [facility] on December 30, 2017 and then hospitalized at [facility] until January 16, 2018. His hospitalization was complicated by MRSA bacteremia and was found to have T8/T9 and L4/L5 discitis/osteomyelitis with epidural abscess. His hospital stay was complicated by acute kidney injury from acute tubular necrosis necessitating temporary hemodialysis and he also suffered from hemoptysis that resulted in bronchoscopy as well as bloody pleural effusions that necessitated thoracentesis. 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 He was temporarily hospitalized while he was in [place] and required steroids and narcotic analgesics and muscle relaxers and his family had to come to [place] to bring him home. It is not clear as to whether or not he had any epidural injections while hospitalized in [place]. During his hospitalization at [facility] he was found to have acute renal failure with a rise of his creatinine up to 4.53 at the time of discharge associated with oliguria. He was found to have an enlarged gallbladder with no evidence of cholecystitis as demonstrated by CT scan of his abdomen and pelvis and ultrasound of his abdomen. He had no dilatation of his common bile duct and no gallbladder wall thickening and no pericholecystic fluid. Nevertheless because of his encephalopathy and acute renal failure associated with tachycardia tachypnea and leukocytosis it was assumed that he was septic and blood cultures were obtained and he was treated with IV Zosyn and transferred to [facility]. Ultimately his blood cultures came back positive for methicillin-resistant staph aureus. He was transferred to [facility] on December 30, 2017 and was hospitalized through January 16, 2018. See his discharge summary from [facility] for details. Ultimately workup demonstrated T8-T9 and L4-L5 discitis/osteomyelitis with an epidural abscess found on MRI scan of his spine. Vancomycin was added to his regimen along with Zosyn but after the blood cultures grew MRSA the Zosyn was discontinued. His renal failure progressed to the point that he required hemodialysis which was finally discontinued after his sixth session on January 12, 2018. His creatinine stabilized to a level of 2.39 upon discharge with a BUN of 33 as of January 16, 2018. He had MRSA bacteremia was worked up including a repeat ultrasound was abdomen which showed no signs of organ ischemia and although he had a dilated gallbladder he had no evidence for acute cholecystitis. Transthoracic echocardiogram on December 31, 2017 showed no valvular disease and no vegetations. Because of the ongoing bacteremia a AVI was performed which again showed no vegetations. Follow up blood cultures January 04, 2018 showed clearance of his bacteremia. Because of his renal failure his vancomycin was switched to ceftaroline 40 mg IV every 12 hours. It was recommended that he continue ceftaroline from January 04, 2018 through February 14, 2018 to complete a 6-week course. Post discharge his sertraline was increased to 600 mg IV every 12 hours as of January 21, 2018 because of improvement in his renal function. Further complications during his hospitalization he developed acute hemoptysis associated with hypoxemia and a drop in his hemoglobin from 10 g to 8.5 g he was treated with nebulized tranexamic acid and CT of his chest demonstrated free-flowing right-sided pleural effusion for which he underwent a diagnostic thoracentesis with removal of 1.5 L of bloody fluid. Thoracic surgical consultation was obtained however because of his stable respiratory status pigtail catheter was not placed. Later bronchoscopy was performed January 07, 2018 and demonstrated right side clot with possible spillover into his left-sided bronchus. Hemoglobin remained stable with no further episodes of hemoptysis. Further workup for his hemoptysis and acute renal failure include antineutrophilic cytoplasmic antibody level, anti-GBM antibody, and cryoglobulins all of which were negative. During his hospitalization he had acute abdominal pain with nausea and vomiting and abdominal distention on his KUB which required NG placement for decompression. He had mild elevation of his lipase and in light of the new fevers he had a CT scan of his abdomen which showed signs of duodenitis with some gastric outlet obstruction. He was placed on PPI twice a day and eventually his abdominal complaints improved and he was started on clear diet that was advanced after a few days. An EGD was not performed during this hospitalization but was recommended as an outpatient procedure. Of note the patient's had a history of antral gastritis/ulceration diagnosed on EGD in December 2016 and he had a colonoscopy performed same time that was unremarkable. Patient now presents emergency room with complaints of generalized fatigue and weakness and decreased mobility. Although it was recommended he go to rehab upon discharge from [facility] he insisted upon returning home. He has not started any outpatient PT or OT therapy. He continues to have daily fevers ever since she was discharged from the hospital. Upon evaluation in the emergency room this evening was found to have a temperature 38.4 and blood cultures were obtained and vancomycin was initiated. Patient was typed and screened and 1 unit of packed red cells was transfused while he was in the emergency room. Patient is now admitted for blood transfusions as well as workup of his anemia and possible peptic ulcer disease. Furthermore repeat blood cultures are obtained to ensure clearance of his MRSA bacteremia. Review of Systems Constitutional Reports chills, Reports fatigue, Reports fever(s), Denies headache(s), Reports lethargy and Reports weakness Eyes Reports system reviewed and no additional complaints, except as docu ENT Reports system reviewed and no additional complaints, except as docu and Denies headache(s) Cardiovascular Reports system reviewed and no additional complaints, except as docu Respiratory Denies chest congestion, Denies cough, Denies hemoptysis, Denies excessive phlegm production and Denies pain on inspiration Gastrointestinal Reports abdominal pain (epigastric and under left and right costal margins), Denies melena, Denies hematochezia, Denies coffee ground emesis, Denies diarrhea , Denies nausea and Denies vomiting Genitourinary Reports system reviewed and no additional complaints, except as docu, Denies hematuria, Denies dysuria and Denies flank pain Musculoskeletal Reports back pain, Denies muscle weakness and Denies numbness Integumentary/Breasts Reports system reviewed and no additional complaints, except as docu Neurologic Denies headache(s), Denies numbness and Reports weakness Psychiatric Reports system reviewed and no additional complaints, except as docu Endocrine Reports system reviewed and no additional complaints, except as docu and Reports fatigue Hematologic/Lymphatic Reports system reviewed and no additional complaints, except as docu Allergic/Immunologic Reports system reviewed and no additional complaints, except as docu PFSH Family History Other Cerebrovascular accident Diabetes Heart disease Myocardial infarction Neoplasm Medical History Antral gastritis (Chronic ~12/2016) Discitis of multiple sites of spine (Acute ~12/31/17) Umbilical hernia (Chronic) GERD (gastroesophageal reflux disease) (Chronic) Depression (Chronic) HLD (hyperlipidemia) (Chronic) HTN (hypertension) (Chronic) Bacteremia due to methicillin resistant Staphylococcus aureus (Acute ~12/29/17) Spinal stenosis of lumbar region with radiculopathy (Chronic ~12/2017) Acute kidney injury (Resolved ~12/29/17) Hyponatremia (Resolved) Depression Essential hypertension GERD (gastroesophageal reflux disease) Hyperlipidemia Obesity (BMI 30-39.9) Social History Smoking/Tobacco Use Status: Never alcohol intake: former additional social history: 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 He quit alcohol at age 19. Surgical History Colonoscopy - MAC (12/06/16) EGD - MAC (12/06/16) Repair of umbilical hernia (12/20/16) Meds Home Medications Medication Instructions Recorded Confirmed Type lovastatin 1 tab PO DAILY 05/15/13 01/28/18 History aspirin [Aspir-81] 81 mg PO DAILY 01/15/16 01/28/18 History bupropion HCl 1 tab PO BID 01/15/16 01/28/18 History multivitamin 1 tab PO DAILY 01/15/16 01/28/18 History docusate sodium [Colace] 100 mg PO DAILY #90 cap 12/24/17 01/28/18 Rx pantoprazole [Protonix] 40 mg PO BID #60 tab 12/24/17 01/28/18 Rx amlodipine 10 mg PO DAILY 01/17/18 01/28/18 History carvedilol 12.5 mg PO BID 01/17/18 01/28/18 History ceftaroline fosamil 600 mg IV Q12H 01/17/18 01/28/18 History lidocaine [Lidoderm] 1 patch TP DAILY #15 each 01/17/18 01/28/18 Rx Allergies Allergy/AdvReac Type Severity Reaction Status Date / Time No Known Allergies Allergy Unverified 01/28/18 15:16 Exam Const General: cooperative, no acute distress and well developed Nutritional Appearance: overweight Orientation: alert, awake and oriented x3 HENMT Head: normal to inspection, normocephalic and atraumatic Ears: hearing grossly normal bilaterally and external ears normal General nose exam: external nose normal Face and sinus: normal facial exam Mouth: oral mucosae normal Teeth and gingiva: edentulous Throat: posterior oropharynx normal Eyes General: appearance normal, both eyes and all related structures Alignment and Position: alignment normal Periorbital: periorbital findings normal Eyelids: eyelids normal Conjunctivae: conjunctival abnormality bilaterally pallor Sclera: sclerae normal Cornea: corneas normal Pupils: PERRL EOM: EOM intact bilaterally Neck Neck: normal visual inspection, full ROM and no lymphadenopathy Thyroid: thyroid normal Carotids: normal carotid upstroke Lymphatic: no lymphadenopathy noted Chest Chest: normal inspection of the chest Resp Effort & Inspection: normal respiratory effort and able to speak in complete sentences Auscultation: rales bilaterally at the base and other (bibasilar) Cardio Jugular venous pressure: no JVD Palpation: normal PMI Rate: regular rate Rhythm: regular rhythm Heart Sounds: S1 normal, S2 normal, normal, physiologic split S2 and murmur systolic early, II/ and at the right sternal border Bruits: no abdominal aortic bruits, no carotid bruits and no renal bruits Pulses: brachial pulses present, radial pulses present and normal peripheral pulses GI Inspection: normal to inspection Palpation: soft, no hepatosplenomegaly and nontender Percussion: normal to percussion Auscultation: normal bowel sounds Back/Spine/Pelvis Back: no CVA tenderness Thoracic/Lumbar Spine: thoracic and lumbar spine normal to inspection Skin General skin exam: no rashes or lesions noted Lesions: no lesions Trauma: no lacerations or abrasions Neuro General: alert, awake, oriented x3, moves all extremities and no focal motor deficits Motor: muscle tone normal throughout, strength 5/5 throughout and no movement abnormalities noted Sensory Exam: no sensory deficits noted Extrem General: normal to inspection, full ROM, normal capillary refill, no joint enlargement, no clubbing, cyanosis or edema, no pedal edema and no calf tenderness Psych Appearance: grossly normal Mental Status: mental status grossly normal Speech and Movement: speech and movement normal Mood: congruent mood Affect: normal affect Attitude: cooperative Thought Process: normal Thought Content: normal Insight: insight good Judgment: judgment good Other: poor historian as to details of his hospitalizations Results Imaging Chest x-ray: image reviewed (right sided pleural effusion and atelectasis and/ or RLL infiltrates) Labs : 01/28/18 22:30 01/28/18 15:50 Laboratory Results - last 24 hr 01/28/18 01/28/18 01/28/18 15:50 15:50 15:50 WBC 10.55 RBC 2.27 L Hgb 6.7 L* Hct 20.8 L* MCV 91.6 MCH 29.5 MCHC 32.2 RDW 14.1 Plt Count 332 MPV 9.2 Immature Gran % 0.4 Neutrophils % 77.9 Lymphocytes % 11.8 Monocytes % 7.4 Eosinophils % 2.3 Basophils % 0.2 Absolute Neutrophils 8.23 H Absolute Lymphocytes 1.24 Absolute Monocytes 0.78 H Absolute Eosinophils 0.24 Absolute Basophils 0.02 Sodium 135 L Potassium 3.2 L Chloride 100 Carbon Dioxide 27.7 Anion Gap 7.3 BUN 15 Creatinine 1.21 Estimated GFR/1.73 m2 >= 60.00 Glucose 86 Lactate Calcium 8.3 L Magnesium 1.6 L Total Bilirubin 0.4 Conjugated Bilirubin 0.18 AST 49 H ALT 91 H Alkaline Phosphatase 196 H Troponin I 0.02 Total Protein 7.0 Albumin 2.0 L Urine Color Urine Clarity Urine pH Ur Specific Fork Urine Protein Urine Ketones Urine Blood Urine Nitrite Urine Bilirubin Urine Urobilinogen Ur Leukocyte Esterase Urine RBC Urine WBC Ur Epithelial Cells Urine Crystals Urine Bacteria Urine Casts Urine Mucus Urine Other Ur Culture Indicated? Urine Glucose Patient ABO/Rh B Positive Antibody Screen Negative Crossmatch See Detail 01/28/18 01/28/18 17:18 18:55 WBC RBC Hgb Hct MCV MCH MCHC RDW Plt Count MPV Immature Gran % Neutrophils % Lymphocytes % Monocytes % Eosinophils % Basophils % Absolute Neutrophils Absolute Lymphocytes Absolute Monocytes Absolute Eosinophils Absolute Basophils Sodium Potassium Chloride Carbon Dioxide Anion Gap BUN Creatinine Estimated GFR/1.73 m2 Glucose Lactate 0.4 L Calcium Magnesium Total Bilirubin Conjugated Bilirubin AST ALT Alkaline Phosphatase Troponin I Total Protein Albumin Urine Color Yellow Urine Clarity Clear Urine pH 6.5 Ur Specific Fork <= 1.005 Urine Protein Negative Urine Ketones Negative Urine Blood Large H Urine Nitrite Negative Urine Bilirubin Negative Urine Urobilinogen 0.2 Ur Leukocyte Esterase Negative Urine RBC 20-50 H Urine WBC 0-2 Ur Epithelial Cells Negative Urine Crystals Negative Urine Bacteria Rare Urine Casts Negative Urine Mucus Negative Urine Other Negative Ur Culture Indicated? No Urine Glucose Negative Patient ABO/Rh Antibody Screen Crossmatch Last Vital Signs Temp 37.5 C 01/28/18 19:48 Pulse 91 H 01/28/18 19:48 Resp 18 01/28/18 19:48 BP 138/86 01/28/18 19:48 Pulse Ox 95 01/28/18 19:48
[2018-01-28] MEDS: Normal Saline 1,000 ML 30 ML IV (21:18)
[2018-01-28] MEDS: buPROPion-XL 150 MG TABCR PO (21:18)
[2018-01-28] MEDS: Sucralfate 1 GM TAB PO (21:18)
[2018-01-28] MEDS: Pantoprazole 40 MG TABCR PO (21:18)
[2018-01-28] MEDS: Carvedilol 6.25 MG TAB 12.5 MG PO (21:19)
[2018-01-28 22:37] LABS: HCT 23.1 % (40.0-50.0); HGB 7.3 g/dL (13.5-17.5)
[2018-01-28] MEDS: VANCOMYCIN 1,250 MG in Normal Saline 250 ML 250 MG IV (22:48)
[2018-01-29] VITALS (23 sets, daily range): BP systolic 114–152; BP diastolic 62–90; PULSE 80–97; RESP 16–26; TEMP 37.1–37.8; O2SAT 91–96
[2018-01-29] MEDS: Acetaminophen 325 MG TAB 650 MG PO (00:20)
[2018-01-29] MEDS: diphenhydrAMINE 25 MG CAP 50 MG PO (00:21)
[2018-01-29] MEDS: MAGNESIUM SULFATE 1 GM/100 ML BAG IVPB ×2 (02:18→05:36)
[2018-01-29] MEDS: POTASSIUM CHLORIDE 10 MEQ/100 ML BAG 100 MEQ IVPB ×2 (04:28→15:02)
[2018-01-29 07:41] LABS: Abs Immature Grans 0.04 k/cumm (0.0-0.09); Absolute Basophil Count 0.03 k/cumm (0.0-0.2); Absolute Eosinophil Count 0.26 k/cumm (0.0-0.7); Absolute Lymphocyte Count 0.98 k/cumm (1.2-3.4); Absolute Monocyte Count 0.65 k/cumm (0.11-0.7); Absolute Neutrophil Count 6.67 k/cumm (1.2-6.7); Basophils % 0.3; HCT 26.5 % (40.0-50.0); HGB 8.3 g/dL (13.5-17.5); Immature Grans % 0.5; Lymphocytes % 11.4; Mean Corp. HGB Concentration 31.3 g/dL (32.0-36.0); Mean Corpuscular Hemoglobin 28.5 pg (27.0-33.0); Mean Corpuscular Volume 91.1 fL (80-95); Mean Platelet Volume 9.9 fL (8.0-11.0); Monocytes % 7.5; Neutrophils % 77.3; Platelet Count 329 x1000/uL (130-400); RBC 2.91 m/cumm (4.50-6.00); White Blood Cell Count 8.63 k/cumm (4.4-10.8)
[2018-01-29 07:52] LABS: Anion Gap 8.3 mmol/L (3-11); BUN 14 mg/dL (7-18); CO2 26.7 mmol/L (21.0-32.0); CREATININE 1.19 mg/dL (0.70-1.30); Calcium 8.8 mg/dL (8.5-10.1); Chloride 105 mmol/L (98-107); Glucose 100 mg/dL (70-100); Lipase 255 U/L (73-393); Magnesium 2.1 mg/dL (1.8-2.4); Potassium 3.3 mmol/L (3.5-5.1); Sodium 140 mmol/L (136-145)
[2018-01-29 07:56] LABS: ALT 82 U/L (12-78); AST 41 U/L (15-37); Alkaline Phosphatase 189 U/L (46-116); Bilirubin, Total 0.4 mg/dL (0.2-1.0); Total Protein 6.9 g/dL (6.4-8.2)
--- NOTE | 2018-01-29 08:00 | DI.CT_ITS ---
SYMPTOM/DIAGNOSIS: RT PLEURAL EFFUSION, ATELECTASIS VS PNEUMONIA, H/O HEMOPTYSIS CHEST CT: A noncontrast CT scan of the chest was performed. Comparison examination is . Lack of contrast does limit evaluation. Findings: There is mild atherosclerosis of the thoracic aorta. The thoracic aorta is normal in caliber. Heart size is within normal limits. No significant pericardial effusion is seen. Coronary artery calcifications are present. There are mildly enlarged lymph nodes seen in the subcarinal region and right hilum. The largest measures 1.4 cm. No significant axillary adenopathy is present. In the left hemithorax, there are linear opacities seen in the left upper lobe and dependent infiltrate seen in the left lower lobe. No left pleural effusion is seen. No pneumothorax is identified on the left. On the right, areas of consolidation are seen in the right upper lobe, right middle and right lower lobe. There is a small to moderate sized right pleural effusion present. No pneumothorax is identified. Upper abdominal images show no acute abnormality. Degenerative changes are seen in the spine. The sternoclavicular joints appear somewhat irregular with a question of erosive changes of the cortices seen particularly at left sternoclavicular joint. Dystrophic calcifications and soft tissue thickening is seen adjacent to the left sternoclavicular joint. IMPRESSION: 1. Small to moderate sized right pleural effusion. 2. Bilateral pulmonary infiltrates, right greater than left. Pneumonia is suspected. 3. Abnormal appearance to the sternoclavicular joints, left greater than right. While this may represent degenerative change, infection or inflammation cannot be excluded. Please correlate clinically.
[2018-01-29 08:43] LABS: Iron 29 ug/dL (50-175); Total Iron Binding Capacity 185 ug/dL (250-450); Transferrin Sat 16 % (20-55)
[2018-01-29] MEDS: VANCOMYCIN 1,250 MG in Normal Saline 250 ML 250 MG IV (09:08)
[2018-01-29 09:09] LABS: Ferritin 608 ng/mL (8-388); Vitamin B12 673 pg/mL (193-986)
[2018-01-29] MEDS: Normal Saline Flush 10 ML SYR IVP ×4 (09:10→20:14)
[2018-01-29] MEDS: Carvedilol 6.25 MG TAB 12.5 MG PO ×2 (10:20→20:13)
[2018-01-29] MEDS: buPROPion-XL 150 MG TABCR PO ×2 (10:20→20:13)
[2018-01-29] MEDS: Sucralfate 1 GM TAB PO ×3 (10:21→17:21)
[2018-01-29] MEDS: Docusate Sodium 100 MG CAP PO (10:21)
[2018-01-29] MEDS: amLODIPine 10 MG TAB PO (10:21)
[2018-01-29] MEDS: Multivitamin TAB 1 TAB PO (10:21)
[2018-01-29] MEDS: Pantoprazole 40 MG VIAL IVP ×2 (10:22→20:11)
--- NOTE | 2018-01-29 10:27 | PDOC.CMIN ---
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 Surgical hx: colonoscopy-MAC, EGD-MAC, umbilical hernia repair. PREVIOUS FUNCTIONAL STATUS/SOCIAL/FAMILY SUPPORTS:: Brendan resides at the [facility] in [facility] with his , Kerry, and their 12 year old granddaughter. 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 Brendan was independent with his ADLs and transportation prior to most recent admissions at [facility] and [facility]. CURRENT FUNCTIONAL STATUS:: Brendan was down to the OR for EGD today, and CT. CM will follow up with patient in the morning to review discharge planning and disposition. ADVANCE DIRECTIVES:: None on file at [facility] Has patient been provided with information about the portal?: Yes Did the patient sign up for the portal?: No CODE STATUS:: Full Code INSURANCE COVERAGE / FINANCIAL ISSUES:: Medicaid CURRENT HOME/COMMUNITY SERVICES/EQUIPMENT:: [facility] home IV antibiotics, [facility], nursing. PRIMARY CARE PHYSICIAN:: Dr. Hernandez POTENTIAL DISCHARGE NEEDS:: New orders faxed to [facility] resumption of home IV antibiotics if needed, resume services through home health for nursing, follow-up appointment with primary care provider. PATIENT/FAMILY EDUCATION NEEDS:: Discharge education, limitations, follow-up plan of care, ask me 3 discussion and self-management. ANTICIPATED BARRIERS TO DISCHARGE:: No barriers identified at this time TRANSPORTATION:: Pending discharge disposition PLAN:: Brendan is being treated for healthcare acquired pneumonia, and discitis and osteomyelitis, with IV antibiotics. Brendan is receiving IV hydration. Anticipate he will be discharged home when medically ready, resumption of home health services nursing and IV antibiotics vs SNF placement. CM to continue to provide support to patient, family, care team ongoing discharge planning and disposition.
--- NOTE | 2018-01-29 10:46 | INITIAL_ITS ---
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 Surgical hx: colonoscopy-MAC, EGD-MAC, umbilical hernia repair. PREVIOUS FUNCTIONAL STATUS/SOCIAL/FAMILY SUPPORTS:: Brendan resides at the [facility] in [facility] with his , Kerry, and their 12 year old granddaughter. 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 Brendan was independent with his ADLs and transportation prior to most recent admissions at [facility] and [facility] CURRENT FUNCTIONAL STATUS:: Brendan was down to the OR for EGD today, and CT. CM will follow up with patient in the morning to review discharge planning and disposition. ADVANCE DIRECTIVES:: None on file at [facility] Has patient been provided with information about the portal?: Yes Did the patient sign up for the portal?: No CODE STATUS:: Full Code INSURANCE COVERAGE / FINANCIAL ISSUES:: Medicaid CURRENT HOME/COMMUNITY SERVICES/EQUIPMENT:: [facility] home IV antibiotics, [place] [facility], nursing. PRIMARY CARE PHYSICIAN:: Dr. Hernandez POTENTIAL DISCHARGE NEEDS:: New orders faxed to [facility] resumption of home IV antibiotics if needed, resume services through home health for nursing, follow-up appointment with primary care provider. PATIENT/FAMILY EDUCATION NEEDS:: Discharge education, limitations, follow-up plan of care, ask me 3 discussion and self-management. ANTICIPATED BARRIERS TO DISCHARGE:: No barriers identified at this time TRANSPORTATION:: Pending discharge disposition PLAN:: Brendan is being treated for healthcare acquired pneumonia, and discitis and osteomyelitis, with IV antibiotics. Brendan is receiving IV hydration. Anticipate he will be discharged home when medically ready, resumption of home health services nursing and IV antibiotics vs SNF placement. CM to continue to provide support to patient, family, care team ongoing discharge planning and disposition.
--- NOTE | 2018-01-29 11:02 | W.SURGCON ---
Documented by User: JOSE Valles 01/29/18 11:20 Date of service: 01/29/18 Time of Service: 11:03 Assessment and Plan (1) Anemia: Current visit: Yes Status: Acute A// Patient presents with severe anemia, with no identifiable cause at this time. He denies melena, hematochezia, hematemesis. He has a history of gastritis and GERD. CT scan at [facility] in 2 weeks ago suggested possible duodenitis. Patient has been NPO overnight. -Discussed with patient, the procedure of having an Upper endoscopy for further evaluation for possible site of bleeding.Discussed possible risks associated with the procedure to include sedation/medications, bleeding, esophageal perforation. All question's were answered to patient satisfaction. No guarantees were made or implied. -Informed consent was obtained. P// Upper Endoscopy for further evaluation for possible upper GI bleed. Patient consent was obtained. Continue NPO while awaiting procedure. History of Present Illness Chief Complaint: Anemia Narrative: 52 y/o male presents for further evaluation of severe anemia with Hgb of 6.7g/dL. He reports complaints of fatigue and decreased activity tolerance. Denies symptoms of bleeding to include easy bruising, melena, hematochezia, or hematemesis. He reports a history of gastritis which was evident on EGD performed in 12/2016. He reports abdominal pain located in his LUQ which is intermittent and he relates this to his gastritis. He is not able to confirm if these symptoms are altered with consuming food. He was recently at [facility] for treatment of discitis of multiple sites of the spine, at which time he was also found to be anemic. At that time he was given a unit of blood and was recommended to follow up for EGD with question of duodenitis found on CT scan. Review of Systems Constitutional Denies chills, Denies excessive sweating, Reports fatigue and Reports fever(s) Cardiovascular Denies chest pain, Denies chest pain at rest, Denies chest pain with activity and Denies diaphoresis Respiratory Denies cough, Denies hemoptysis and Denies wheezing Gastrointestinal Reports abdominal pain (LUQ), Denies melena, Denies hematochezia, Reports dyspepsia and Denies diarrhea Endocrine Denies excessive sweating and Reports fatigue Hematologic/Lymphatic Denies easy bleeding and Denies easy bruising Allergic/Immunologic Denies wheezing [facility] Family History Other Cerebrovascular accident Diabetes Heart disease Myocardial infarction Neoplasm Medical History Antral gastritis (Chronic ~12/2016) Discitis of multiple sites of spine (Acute ~12/31/17) Umbilical hernia (Chronic) GERD (gastroesophageal reflux disease) (Chronic) Depression (Chronic) HLD (hyperlipidemia) (Chronic) HTN (hypertension) (Chronic) Bacteremia due to methicillin resistant Staphylococcus aureus (Acute ~12/29/17) Spinal stenosis of lumbar region with radiculopathy (Chronic ~12/2017) Acute kidney injury (Resolved ~12/29/17) Hyponatremia (Resolved) Depression Essential hypertension GERD (gastroesophageal reflux disease) Hyperlipidemia Obesity (BMI 30-39.9) Social History Smoking/Tobacco Use Status: Never alcohol intake: former additional social history: 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 He quit alcohol at age 19. Surgical History Colonoscopy - MAC (12/06/16) EGD - MAC (12/06/16) Repair of umbilical hernia (12/20/16) Exam Const General: cooperative and comfortable Orientation: alert and oriented x3 Resp Effort & Inspection: normal respiratory effort, no audible wheezes and no cough Cardio Jugular venous pressure: no JVD GI Palpation: soft, no guarding and tender in the LUQ; with no rebound tenderness Auscultation: normal bowel sounds Results Last Vital Signs Temp 37.2 C 01/29/18 07:20 Pulse 83 01/29/18 07:20 Resp 18 01/29/18 07:20 BP 143/87 H 01/29/18 07:20 Pulse Ox 95 01/29/18 07:20 Labs : 01/29/18 06:53 01/29/18 06:53 Laboratory Results - last 24 hr 01/28/18 01/28/18 01/28/18 15:50 15:50 15:50 WBC 10.55 RBC 2.27 L Hgb 6.7 L* Hct 20.8 L* MCV 91.6 MCH 29.5 MCHC 32.2 RDW 14.1 Plt Count 332 MPV 9.2 Immature Gran % 0.4 Neutrophils % 77.9 Lymphocytes % 11.8 Monocytes % 7.4 Eosinophils % 2.3 Basophils % 0.2 Absolute Neutrophils 8.23 H Absolute Lymphocytes 1.24 Absolute Monocytes 0.78 H Absolute Eosinophils 0.24 Absolute Basophils 0.02 Sodium 135 L Potassium 3.2 L Chloride 100 Carbon Dioxide 27.7 Anion Gap 7.3 BUN 15 Creatinine 1.21 Estimated GFR/1.73 m2 >= 60.00 Glucose 86 Lactate Calcium 8.3 L Magnesium 1.6 L Iron TIBC Transferrin % Sat Ferritin Total Bilirubin 0.4 Conjugated Bilirubin 0.18 AST 49 H ALT 91 H Alkaline Phosphatase 196 H Troponin I 0.02 Total Protein 7.0 Albumin 2.0 L Lipase Vitamin B12 Folate Urine Color Urine Clarity Urine pH Ur Specific [place] Urine Protein Urine Ketones Urine Blood Urine Nitrite Urine Bilirubin Urine Urobilinogen Ur Leukocyte Esterase Urine RBC Urine WBC Ur Epithelial Cells Urine Crystals Urine Bacteria Urine Casts Urine Mucus Urine Other Ur Culture Indicated? Urine Glucose Patient ABO/Rh B Positive Antibody Screen Negative Crossmatch See Detail 01/28/18 01/28/18 01/28/18 17:18 18:55 22:30 WBC RBC Hgb 7.3 L Hct 23.1 L MCV MCH MCHC RDW Plt Count MPV Immature Gran % Neutrophils % Lymphocytes % Monocytes % Eosinophils % Basophils % Absolute Neutrophils Absolute Lymphocytes Absolute Monocytes Absolute Eosinophils Absolute Basophils Sodium Potassium Chloride Carbon Dioxide Anion Gap BUN Creatinine Estimated GFR/1.73 m2 Glucose Lactate 0.4 L Calcium Magnesium Iron TIBC Transferrin % Sat Ferritin Total Bilirubin Conjugated Bilirubin AST ALT Alkaline Phosphatase Troponin I Total Protein Albumin Lipase Vitamin B12 Folate Urine Color Yellow Urine Clarity Clear Urine pH 6.5 Ur Specific [place] <= 1.005 Urine Protein Negative Urine Ketones Negative Urine Blood Large H Urine Nitrite Negative Urine Bilirubin Negative Urine Urobilinogen 0.2 Ur Leukocyte Esterase Negative Urine RBC 20-50 H Urine WBC 0-2 Ur Epithelial Cells Negative Urine Crystals Negative Urine Bacteria Rare Urine Casts Negative Urine Mucus Negative Urine Other Negative Ur Culture Indicated? No Urine Glucose Negative Patient ABO/Rh Antibody Screen Crossmatch 01/29/18 01/29/18 01/29/18 06:53 06:53 06:53 WBC 8.63 RBC 2.91 L Hgb 8.3 L Hct 26.5 L MCV 91.1 MCH 28.5 MCHC 31.3 L RDW 14.0 Plt Count 329 MPV 9.9 Immature Gran % 0.5 Neutrophils % 77.3 Lymphocytes % 11.4 Monocytes % 7.5 Eosinophils % 3.0 Basophils % 0.3 Absolute Neutrophils 6.67 Absolute Lymphocytes 0.98 L Absolute Monocytes 0.65 Absolute Eosinophils 0.26 Absolute Basophils 0.03 Sodium 140 Potassium 3.3 L Chloride 105 Carbon Dioxide 26.7 Anion Gap 8.3 BUN 14 Creatinine 1.19 Estimated GFR/1.73 m2 >= 60.00 Glucose 100 Lactate Calcium 8.8 Magnesium 2.1 Iron TIBC Transferrin % Sat Ferritin Total Bilirubin 0.4 Conjugated Bilirubin 0.20 AST 41 H ALT 82 H Alkaline Phosphatase 189 H Troponin I Total Protein 6.9 Albumin 2.0 L Lipase 255 Vitamin B12 Folate Urine Color Urine Clarity Urine pH Ur Specific [place] Urine Protein Urine Ketones Urine Blood Urine Nitrite Urine Bilirubin Urine Urobilinogen Ur Leukocyte Esterase Urine RBC Urine WBC Ur Epithelial Cells Urine Crystals Urine Bacteria Urine Casts Urine Mucus Urine Other Ur Culture Indicated? Urine Glucose Patient ABO/Rh Antibody Screen Crossmatch 01/29/18 01/29/18 06:53 06:53 WBC RBC Hgb Hct MCV MCH MCHC RDW Plt Count MPV Immature Gran % Neutrophils % Lymphocytes % Monocytes % Eosinophils % Basophils % Absolute Neutrophils Absolute Lymphocytes Absolute Monocytes Absolute Eosinophils Absolute Basophils Sodium Potassium Chloride Carbon Dioxide Anion Gap BUN Creatinine Estimated GFR/1.73 m2 Glucose Lactate Calcium Magnesium Iron 29 L TIBC 185 L Transferrin % Sat 16 L Ferritin 608 H Total Bilirubin Conjugated Bilirubin AST ALT Alkaline Phosphatase Troponin I Total Protein Albumin Lipase Vitamin B12 673 Folate 17.0 Urine Color Urine Clarity Urine pH Ur Specific [place] Urine Protein Urine Ketones Urine Blood Urine Nitrite Urine Bilirubin Urine Urobilinogen Ur Leukocyte Esterase Urine RBC Urine WBC Ur Epithelial Cells Urine Crystals Urine Bacteria Urine Casts Urine Mucus Urine Other Ur Culture Indicated? Urine Glucose Patient ABO/Rh Antibody Screen Crossmatch
[2018-01-29] MEDS: Lidocaine 5% Patch 1 PATCH TP (11:13)
[2018-01-29] MEDS: Lactated Ringers 1,000 ML 80 ML IV (12:03)
--- NOTE | 2018-01-29 12:46 | PHARADMIT ---
Addendum entered by Harshil Ann III 01/31/18 16:34: Pharmacy Note Subjective Patient has been actively treated at home for Thoracolumbar Osteomyelitis & Discitis by [facility] ( which continues) and treated here for HCAP Objective VS-OK K+4.1, SCr-1.25 H&H-8.6/27.1 Plts-361 WBC-8.87 Wgt- 98.7 kg lAST bm 01/29 Assessment Continues PatOwn Ceftaroline for MRSA coverage, Cefepime changed to IV Levaquin. Continue Hepari SC for DVT proph. Plan MD considering discharge home once H&H has improved. (Anemia) Original Note: Addendum entered by Kasia Dugan 01/30/18 17:09: Pharmacy Note Subjective Objective VS ok, Temp 37.6 (Tmax 38 ~ 1am), K+ 4.0, H/H 8.2/26.1 Assessment K+ recovered w/replacement Pt's own Ceftaroline brought in 2 more doses (01/30 pm dose and 01/31 am dose) Levaquin and Cefepime were to treat HCAP, Cefepime dc'd this evening, Levaquin IV continues for bilateral infiltrates seen on CT MRI today for Osteo of lumbar/spine Lovastatin/Protonix oral on hold, getting IV Protonix Anemia is chronic, Endoscopy 01/29 showed no signs of bleeding Heparin SC for DVT prophylaxis Plan Pt would like to go home Original Note: Admission Pharmacy Clinical Review ANEMIA, FEVER,MRSA BACTEREMIA (Osteomyelitis) Code Status Full Code Current Weight Wgt-98.9 kg Renally Cleared and Narrow Therapeutic Index Meds CrCl~72 mL/min Meds-OK QTc Value / Action Taken QTc-433 (Benadryl, Protonix, BP Control, Fever BP- 120/63 Tmax- 37.5C Electrolytes reviewed Na-140 K+3.3 Mag-2.1 DVT Prophylaxis none Opiate Usage / Scheduled Bowel Regimen Ordered No Yes Plt/SCr for Heparin / Enoxaparin Plts-329 SCr-1.19 INR for Warfarin na H/H stable, WBC/Bands H&H- 8.3/26.5 WBC- 8.63 Antibiotic appropriateness Vancomycin & Ceftaroline (PatOwn) Cultures and Sensitivities Blood-pending Surgical ABX d/c within 24 hr na DM control / Insulin Dosing BG-100 Heart Failure (Check EF%) (OLENA's, B-Block, Diuretics) Norvasc,Coreg, IV to PO Switch No Home Meds Reviewed Yes Home Meds Not Ordered ASA, Comments Has PatOwn Ceftaroline 600mg from home infusion BID)
[2018-01-29] MEDS: Potassium Chloride 20 MEQ TABCR 40 MEQ PO (14:07)
--- NOTE | 2018-01-29 14:14 | W.PM.OP ---
Date of service: 01/29/18 Time of Service: 12:00 Operative Note DATE OF PROCEDURE: 01/29/18 PRE-OP DIAGNOSIS: Anemia POST-OP DIAGNOSIS: same PROCEDURE: Esophagogastroduodenoscopy SURGEON: Claude Peguero ANESTHESIA: KUMARA (Brian Mann CRNA; ASA 3 Mallampati class III) ESTIMATED BLOOD LOSS: 0 PATHOLOGY: none sent COMPLICATIONS: None Patient was transported to: PACU Patient's condition: stable Indications: 52 y/o male presents for further evaluation of severe anemia with Hgb of 6.7g/dL. He reports complaints of fatigue and decreased activity tolerance. Denies symptoms of bleeding to include easy bruising, melena, hematochezia, or hematemesis. He reports a history of gastritis which was evident on EGD performed in 12/2016. He reports abdominal pain located in his LUQ which is intermittent and he relates this to his gastritis. He is not able to confirm if these symptoms are altered with consuming food. An esophagogastroduodenoscopy (EGD). was recommended to rule out upper GI source of blood loss given his history and recent symptoms. The procedure was reviewed with him, and the risks of the procedure were discussed with him. All his questions were answered to his satisfaction. Consent was obtained to proceed with EGD. Findings: In examining the upper gastrointestinal tract from the oropharynx to the third portion of the duodenum, no abnormalities were found I would suggest an upper gastrointestinal bleeding source. Procedure Description: The patient was brought to the procedure room. Monitoring for telemetry, end-tidal CO2, O2 saturation, blood pressure were applied. An appropriate timeout was taken reviewing the patient's identification, allergies, medications,and procedure. Sedation was titrated for effect by the [employer] SUPERVISOR. An Olympus variable stiffness endoscope was advanced from the oropharynx to the third portion of the duodenum without difficulty. The scope was then withdrawn in circumferential manner from the duodenum back to the oropharynx. In performing withdrawal of the scope, the duodenum appeared grossly normal. The scope was withdrawn into the gastric antrum and retroflexed to examine the entire stomach, and no abnormalities of the gastric antrum, anterior, posterior surfaces of the stomach, lesser curvature, greater curvature, and fundus were noted. The scope was then withdrawn to the GE junction which appeared normal and the Z line was regular. I withdrew the scope through the remainder of the esophagus all which appear grossly normal. Scope was then withdrawn terminating the upper endoscopy. Plan: No evidence of upper gastrointestinal hemorrhaging was identified in examining the upper GI tract from the oropharynx to the third portion of the duodenum.
[2018-01-29] MEDS: Acetaminophen 325 MG TAB PO (15:53)
--- NOTE | 2018-01-29 18:01 | W.PM.PROGNOT ---
Assessment and Plan (1) Anemia: Current visit: Yes Status: Acute Admission Hgb very close to discharge values from outside institution approximately 2 weeks ago, going from 7.9 to 6.8. Iron studies notable for low iron but also with a low TIBC and markedly elevated Ferritin, likely represents Anemia of Chronic Disease in patient with current Osteo. B12 and FA also checked and normal. Patient underwent EGD without any source of bleeding. S/p transfusion with appropriate response. Will monitor. (2) Pneumonia: Current visit: Yes Status: Acute Fever in patient being actively treated with antibiotic therapy for MRSA bacteremia and evidence of discitis/osteomyelitis. CT imaging was obtained and showed evidence of likely infiltrate, R>L, along with a small to moderate sized pleural effusion on the right (previously noted to be large at outside hospital). Given recent hospitalization and instrumentation recommend coverage for HCAP. Continue Ceftaroline for MRSA coverage and treatment of Osteo, and initiate Cefepime and Levofloxacin. Monitor blood cultures. (3) Osteomyelitis: Current visit: Yes Status: Acute Thoracolumbar Osteomyelitis and Discitis, with questionable abscess formation close to infection site. Patient remains on IV Ceftaroline for coverage of MRSA bacteremia that prompted work-up. Also, please note appearance of abnormal sternoclavicular joints bilaterally (L>R) as per CT read, which may also represent infection or inflammation. This will need to be followed up on. (4) HTN (hypertension): Current visit: No Status: Chronic Continue BB and CCB with hold parameters. (5) HLD (hyperlipidemia): Current visit: No Status: Chronic Currently on statin therapy. (6) DVT prophylaxis: Current visit: Yes Status: Acute Initiate SC Heparin as GI Bleed at this time appears unlikely. Continue SCDs. On PPI for GI Prophylaxis as well. Subjective Interval history since last seen: 52-year-old man admitted on 01/29/2018 from [facility] Emergency Department with evidence of anemia and fever. Mr. Boss has a somewhat complicated recent medical history. He was initially admitted to [facility] from December 29 of this year until his transfer to [facility] the next day, at which time he had an extended and complicated hospital course until January 16. He was eventually found to have evidence of T8/T9 & L4/L5 discitis/osteomyelitis with potential abscesses and phlegmon at T6-7 & L3-L4. He was bacteremic with MRSA, but cleared his infection by repeat blood cultures on 01/04 while being treated with IV Ceftaroline. He also underwent a TTE and a subsequent AVI, both negative for signs of endocarditis. His hospital stay was further complicated by STARR secondary to ATN, requiring temporary hemodialysis. He also suffered from hemoptysis that resulted in bronchoscopy without a clear source of bleeding, as well as bloody pleural effusions that necessitated a thoracentesis. He was also noted to have duodenitis by CT imaging obtained in the setting of an elevated lipase. Of note the patient had a history of antral gastritis/ulceration diagnosed by EGD in December 2016 and he had a colonoscopy performed at that same time that was unremarkable. The patient declined SNF placement and was subsequently discharged home from [facility], where he is receiving home IV antibiotic therapy infusions. The patient was sent to the emergency room on the day of admission upon the advice of his primary care provider after routine surveillance labs were obtained by visiting nurse demonstrated severe anemia with hemoglobin of 6.8 g. This was performed as part of his monitoring while receiving ceftaroline IV antibiotics for treatment of MRSA bacteremia and thoracolumbar discitis/osteomyelitis. Of note, review of his prior discharge summary notes that his hemoglobin was 7.9 at time of discharge. He was noted to be heme negative in the emergency department. He was admitted for further evaluation and consideration for EGD. However, he was also noted to be febrile despite ongoing antibiotic therapy, and repeat blood cultures were taken. Exam Narrative Exam Narrative: General: Patient appears comfortable, AAOX3, NAD Neck: Supple CV: Regular, nontachycardic, S1S2, No rubs, murmurs, or gallops. Pulmonary: Clear to auscultation bilaterally, no crackles, wheezing, or rhonchi Abdomen: + Bowel Sounds, soft, nontender, nondistended Vascular: No lower extremity edema Neurologic: CN II-XII grossly intact. No focal deficits. Psych: Normal mood and affect. Objective Objective Clinical Data: Abnormal lab results 01/28/18 01/28/18 01/28/18 Range/Units 15:50 18:55 22:30 RBC (4.50-6.00) m/cumm Hgb 7.3 L (13.5-17.5) g/dL Hct 23.1 L (40.0-50.0) % MCHC (32.0-36.0) g/dL Absolute Lymphocytes (1.2-3.4) k/cumm Potassium (3.5-5.1) mmol/L Iron (50-175) ug/dL TIBC (250-450) ug/dL Transferrin % Sat (20-55) % Ferritin (8-388) ng/mL AST (15-37) U/L ALT (12-78) U/L Alkaline Phosphatase (46-116) U/L Albumin (3.4-5.0) g/dL Urine Blood Large H (Negative) Urine RBC 20-50 H (0-2) Crossmatch See Detail 01/29/18 01/29/18 01/29/18 Range/Units 06:53 06:53 06:53 RBC 2.91 L (4.50-6.00) m/cumm Hgb 8.3 L (13.5-17.5) g/dL Hct 26.5 L (40.0-50.0) % MCHC 31.3 L (32.0-36.0) g/dL Absolute Lymphocytes 0.98 L (1.2-3.4) k/cumm Potassium 3.3 L (3.5-5.1) mmol/L Iron (50-175) ug/dL TIBC (250-450) ug/dL Transferrin % Sat (20-55) % Ferritin (8-388) ng/mL AST 41 H (15-37) U/L ALT 82 H (12-78) U/L Alkaline Phosphatase 189 H (46-116) U/L Albumin 2.0 L (3.4-5.0) g/dL Urine Blood (Negative) Urine RBC (0-2) Crossmatch 01/29/18 01/29/18 Range/Units 06:53 06:53 RBC (4.50-6.00) m/cumm Hgb (13.5-17.5) g/dL Hct (40.0-50.0) % MCHC (32.0-36.0) g/dL Absolute Lymphocytes (1.2-3.4) k/cumm Potassium (3.5-5.1) mmol/L Iron 29 L (50-175) ug/dL TIBC 185 L (250-450) ug/dL Transferrin % Sat 16 L (20-55) % Ferritin 608 H (8-388) ng/mL AST (15-37) U/L ALT (12-78) U/L Alkaline Phosphatase (46-116) U/L Albumin (3.4-5.0) g/dL Urine Blood (Negative) Urine RBC (0-2) Crossmatch Vital Signs Temperature 37.5 C 01/29/18 15:55 Temperature Source Tympanic 01/29/18 15:55 Pulse 83 01/29/18 15:55 Pulse Rhythm Regular 01/29/18 07:45 Pulse 94 H 01/28/18 19:20 Respiratory Rate 20 01/29/18 14:49 Respiratory Effort Non-Labored 01/29/18 07:45 Respiratory Depth Normal 01/29/18 07:45 Respiratory Pattern Normal 01/29/18 07:45 Blood Pressure 134/83 01/29/18 15:55 Blood Pressure Mean 89 01/28/18 19:16 Blood Pressure Position Supine 01/28/18 15:13 Pulse Oximetry 93 L 01/29/18 15:55 Respiratory End-tidal CO2 35 01/29/18 13:00 Oxygen Delivery Method Room Air 01/29/18 15:55 Oxygen Flow Rate 0 01/29/18 15:55 Pain Level 6 01/29/18 15:53 Intake & Output 01/28/18 01/29/18 01/29/18 23:59 11:59 23:59 Intake Total 303.5 / 303.5 1248 / 1248 490 / 490 Output Total 1750 / 1750 1350 / 1350 550 / 550 Balance -1446.5 / -1446.5 -102 / -102 -60 / -60 Weight 99.1 kg 98.9 kg Intake: IV 3.5 / 3.5 700 / 700 250 / 250 Oral 240 / 240 Blood Product 300 / 300 548 / 548 Rbc Leuko Reduced Unit 300 / 300 [id number] Rbc Leuko Reduced Unit 548 / 548 [id number] Output: Urine 1750 / 1750 1350 / 1350 550 / 550 Other: Urine Color Yellow Yellow Yellow Urine Appearance Clear Clear Clear Urine Odor None Stool Occult Blood Negative Negative Stool Size Moderate Small Stool Characteristics Soft Soft Formed Brown Emesis Description None Voiding Methods Urinal Urinal Urinal Laboratory Results WBC 8.63 k/cumm (4.4-10.8) 01/29/18 06:53 RBC 2.91 m/cumm (4.50-6.00) L 01/29/18 06:53 Hgb 8.3 g/dL (13.5-17.5) L 01/29/18 06:53 Hct 26.5 % (40.0-50.0) L 01/29/18 06:53 MCV 91.1 fL (80-95) 01/29/18 06:53 MCH 28.5 pg (27.0-33.0) 01/29/18 06:53 MCHC 31.3 g/dL (32.0-36.0) L 01/29/18 06:53 RDW 14.0 % (11.8-14.1) 01/29/18 06:53 Plt Count 329 x1000/uL (130-400) 01/29/18 06:53 MPV 9.9 fL (8.0-11.0) 01/29/18 06:53 Immature Gran % 0.5 01/29/18 06:53 Neutrophils % 77.3 01/29/18 06:53 Lymphocytes % 11.4 01/29/18 06:53 Monocytes % 7.5 01/29/18 06:53 Eosinophils % 3.0 01/29/18 06:53 Basophils % 0.3 01/29/18 06:53 Absolute Neutrophils 6.67 k/cumm (1.2-6.7) 01/29/18 06:53 Absolute Lymphocytes 0.98 k/cumm (1.2-3.4) L 01/29/18 06:53 Absolute Monocytes 0.65 k/cumm (0.11-0.7) 01/29/18 06:53 Absolute Eosinophils 0.26 k/cumm (0.0-0.7) 01/29/18 06:53 Absolute Basophils 0.03 k/cumm (0.0-0.2) 01/29/18 06:53 Sodium 140 mmol/L (136-145) 01/29/18 06:53 Potassium 3.3 mmol/L (3.5-5.1) L 01/29/18 06:53 Chloride 105 mmol/L (98-107) 01/29/18 06:53 Carbon Dioxide 26.7 mmol/L (21.0-32.0) 01/29/18 06:53 Anion Gap 8.3 mmol/L (3-11) 01/29/18 06:53 BUN 14 mg/dL (7-18) 01/29/18 06:53 Creatinine 1.19 mg/dL (0.70-1.30) 01/29/18 06:53 Estimated GFR/1.73 m2 >= 60.00 (mL/min/1.73m2) 01/29/18 06:53 Glucose 100 mg/dL (70-100) 01/29/18 06:53 Lactate 0.4 mmol/L (0.6-1.4) L 01/28/18 17:18 Calcium 8.8 mg/dL (8.5-10.1) 01/29/18 06:53 Magnesium 2.1 mg/dL (1.8-2.4) 01/29/18 06:53 Iron 29 ug/dL (50-175) L 01/29/18 06:53 TIBC 185 ug/dL (250-450) L 01/29/18 06:53 Transferrin % Sat 16 % (20-55) L 01/29/18 06:53 Ferritin 608 ng/mL (8-388) H 01/29/18 06:53 Total Bilirubin 0.4 mg/dL (0.2-1.0) 01/29/18 06:53 Conjugated Bilirubin 0.20 mg/dL (0.00-0.20) 01/29/18 06:53 AST 41 U/L (15-37) H 01/29/18 06:53 ALT 82 U/L (12-78) H 01/29/18 06:53 Alkaline Phosphatase 189 U/L (46-116) H 01/29/18 06:53 Troponin I 0.02 ng/mL (0.00-0.06) 01/28/18 15:50 Total Protein 6.9 g/dL (6.4-8.2) 01/29/18 06:53 Albumin 2.0 g/dL (3.4-5.0) L 01/29/18 06:53 Lipase 255 U/L (73-393) 01/29/18 06:53 Vitamin B12 673 pg/mL (193-986) 01/29/18 06:53 Folate 17.0 ng/mL (8.6-20.0) 01/29/18 06:53 Urine Color Yellow (Yellow) 01/28/18 18:55 Urine Clarity Clear 01/28/18 18:55 Urine pH 6.5 (5-8) 01/28/18 18:55 Ur Specific Singer <= 1.005 (1.005-1.025) 01/28/18 18:55 Urine Protein Negative mg/dL (Negative) 01/28/18 18:55 Urine Ketones Negative mg/dL (Negative) 01/28/18 18:55 Urine Blood Large (Negative) H 01/28/18 18:55 Urine Nitrite Negative (Negative) 01/28/18 18:55 Urine Bilirubin Negative (Negative) 01/28/18 18: Urine Urobilinogen 0.2 EU/dL (Up TO 0.2) 01/28/18 18:55 Ur Leukocyte Esterase Negative (Negative) 01/28/18 18:55 Urine RBC 20-50 (0-2) H 01/28/18 18:55 Urine WBC 0-2 HPF (0-5) 01/28/18 18:55 Ur Epithelial Cells Negative HPF (Negative) 01/28/18 18:55 Urine Crystals Negative HPF (Negative) 01/28/18 18:55 Urine Bacteria Rare HPF (Negative) 01/28/18 18:55 Urine Casts Negative LPF (Negative) 01/28/18 18:55 Urine Mucus Negative (Negative) 01/28/18 18:55 Urine Other Negative (Negative) 01/28/18 18:55 Ur Culture Indicated? No 01/28/18 18:55 Urine Glucose Negative mg/dL (Negative) 01/28/18 18:55 Patient ABO/Rh B Positive 01/28/18 15:50 Antibody Screen Negative 01/28/18 15:50 Crossmatch See Detail 01/28/18 15:50 Objective Narrative Objective Narrative: Additional studies: PROCEDURE: Esophagogastroduodenoscopy SURGEON: Claude Peguero Plan: No evidence of upper gastrointestinal hemorrhaging was identified in examining the upper GI tract from the oropharynx to the third portion of the duodenum. Exam(s) a CT:CT chest wo SYMPTOM/DIAGNOSIS: RT PLEURAL EFFUSION, ATELECTASIS VS PNEUMONIA, H/O HEMOPTYSIS CHEST CT: A noncontrast CT scan of the chest was performed. Comparison examination is 12/23/17. Lack of contrast does limit evaluation. Findings: There is mild atherosclerosis of the thoracic aorta. The thoracic aorta is normal in caliber. Heart size is within normal limits. No significant pericardial effusion is seen. Coronary artery calcifications are present. There are mildly enlarged lymph nodes seen in the subcarinal region and right hilum. The largest measures 1.4 cm. No significant axillary adenopathy is present. In the left hemithorax, there are linear opacities seen in the left upper lobe and dependent infiltrate seen in the left lower lobe. No left pleural effusion is seen. No pneumothorax is identified on the left. On the right, areas of consolidation are seen in the right upper lobe, right middle and right lower lobe. There is a small to moderate sized right pleural effusion present. No pneumothorax is identified. Upper abdominal images show no acute abnormality. Degenerative changes are seen in the spine. The sternoclavicular joints appear somewhat irregular with a question of erosive changes of the cortices seen particularly at left sternoclavicular joint. Dystrophic calcifications and soft tissue thickening is seen adjacent to the left sternoclavicular joint. IMPRESSION: 1. Small to moderate sized right pleural effusion. 2. Bilateral pulmonary infiltrates, right greater than left. Pneumonia is suspected. 3. Abnormal appearance to the sternoclavicular joints, left greater than right. While this may represent degenerative change, infection or inflammation cannot be excluded. Please correlate clinically.
--- NOTE | 2018-01-29 18:12 | PGE_ITS ---
Assessment and Plan (1) Anemia: Current visit: Yes Status: Acute Admission Hgb very close to discharge values from outside institution approximately 2 weeks ago, going from 7.9 to 6.8. Iron studies notable for low iron but also with a low TIBC and markedly elevated Ferritin, likely represents Anemia of Chronic Disease in patient with current Osteo. B12 and FA also checked and normal. Patient underwent EGD without any source of bleeding. S/p transfusion with appropriate response. Will monitor. (2) Pneumonia: Current visit: Yes Status: Acute Fever in patient being actively treated with antibiotic therapy for MRSA bacteremia and evidence of discitis/osteomyelitis. CT imaging was obtained and showed evidence of likely infiltrate, R>L, along with a small to moderate sized pleural effusion on the right (previously noted to be large at outside hospital) . Given recent hospitalization and instrumentation recommend coverage for HCAP. Continue Ceftaroline for MRSA coverage and treatment of Osteo, and initiate Cefepime and Levofloxacin. Monitor blood cultures. (3) Osteomyelitis: Current visit: Yes Status: Acute Thoracolumbar Osteomyelitis and Discitis, with questionable abscess formation close to infection site. Patient remains on IV Ceftaroline for coverage of MRSA bacteremia that prompted work-up. Also, please note appearance of abnormal sternoclavicular joints bilaterally (L>R) as per CT read, which may also represent infection or inflammation. This will need to be followed up on. (4) HTN (hypertension): Current visit: No Status: Chronic Continue BB and CCB with hold parameters. (5) HLD (hyperlipidemia): Current visit: No Status: Chronic Currently on statin therapy. (6) DVT prophylaxis: Current visit: Yes Status: Acute Initiate SC Heparin as GI Bleed at this time appears unlikely. Continue SCDs. On PPI for GI Prophylaxis as well. Subjective Interval history since last seen: 52-year-old man admitted on 01/29/2018 from [facility] Emergency Department with evidence of anemia and fever. Mr. Boss has a somewhat complicated recent medical history. He was initially admitted to [facility] from December 29 of this year until his transfer to [facility] the next day, at which time he had an extended and complicated hospital course until January 16. He was eventually found to have evidence of T8/T9 & L4/L5 discitis/osteomyelitis with potential abscesses and phlegmon at T6-7 & L3-L4. He was bacteremic with MRSA, but cleared his infection by repeat blood cultures on 01/04 while being treated with IV Ceftaroline. He also underwent a TTE and a subsequent AVI, both negative for signs of endocarditis. His hospital stay was further complicated by STARR secondary to ATN, requiring temporary hemodialysis. He also suffered from hemoptysis that resulted in bronchoscopy without a clear source of bleeding, as well as bloody pleural effusions that necessitated a thoracentesis. He was also noted to have duodenitis by CT imaging obtained in the setting of an elevated lipase. Of note the patient had a history of antral gastritis/ulceration diagnosed by EGD in December 2016 and he had a colonoscopy performed at that same time that was unremarkable. The patient declined SNF placement and was subsequently discharged home from [facility], where he is receiving home IV antibiotic therapy infusions. The patient was sent to the emergency room on the day of admission upon the advice of his primary care provider after routine surveillance labs were obtained by visiting nurse demonstrated severe anemia with hemoglobin of 6.8 g. This was performed as part of his monitoring while receiving ceftaroline IV antibiotics for treatment of MRSA bacteremia and thoracolumbar discitis/ osteomyelitis. Of note, review of his prior discharge summary notes that his hemoglobin was 7.9 at time of discharge. He was noted to be heme negative in the emergency department. He was admitted for further evaluation and consideration for EGD. However, he was also noted to be febrile despite ongoing antibiotic therapy, and repeat blood cultures were taken. Exam Narrative Exam Narrative: General: Patient appears comfortable, AAOX3, NAD Neck: Supple CV: Regular, nontachycardic, S1S2, No rubs, murmurs, or gallops. Pulmonary: Clear to auscultation bilaterally, no crackles, wheezing, or rhonchi Abdomen: + Bowel Sounds, soft, nontender, nondistended Vascular: No lower extremity edema Neurologic: CN II-XII grossly intact. No focal deficits. Psych: Normal mood and affect. Objective Objective Clinical Data: Abnormal lab results 01/28/18 01/28/18 01/28/18 Range/Units 15:50 18:55 22:30 RBC (4.50-6.00) m/cumm Hgb 7.3 L (13.5-17.5) g/dL Hct 23.1 L (40.0-50.0) % MCHC (32.0-36.0) g/dL Absolute Lymphocytes (1.2-3.4) k/cumm Potassium (3.5-5.1) mmol/L Iron (50-175) ug/dL TIBC (250-450) ug/dL Transferrin % Sat (20-55) % Ferritin (8-388) ng/mL AST (15-37) U/L ALT (12-78) U/L Alkaline Phosphatase (46-116) U/L Albumin (3.4-5.0) g/dL Urine Blood Large H (Negative) Urine RBC 20-50 H (0-2) Crossmatch See Detail 01/29/18 01/29/18 01/29/18 Range/Units 06:53 06:53 06:53 RBC 2.91 L (4.50-6.00) m/cumm Hgb 8.3 L (13.5-17.5) g/dL Hct 26.5 L (40.0-50.0) % MCHC 31.3 L (32.0-36.0) g/dL Absolute Lymphocytes 0.98 L (1.2-3.4) k/cumm Potassium 3.3 L (3.5-5.1) mmol/L Iron (50-175) ug/dL TIBC (250-450) ug/dL Transferrin % Sat (20-55) % Ferritin (8-388) ng/mL AST 41 H (15-37) U/L ALT 82 H (12-78) U/L Alkaline Phosphatase 189 H (46-116) U/L Albumin 2.0 L (3.4-5.0) g/dL Urine Blood (Negative) Urine RBC (0-2) Crossmatch 01/29/18 01/29/18 Range/Units 06:53 06:53 RBC (4.50-6.00) m/cumm Hgb (13.5-17.5) g/dL Hct (40.0-50.0) % MCHC (32.0-36.0) g/dL Absolute Lymphocytes (1.2-3.4) k/cumm Potassium (3.5-5.1) mmol/L Iron 29 L (50-175) ug/dL TIBC 185 L (250-450) ug/dL Transferrin % Sat 16 L (20-55) % Ferritin 608 H (8-388) ng/mL AST (15-37) U/L ALT (12-78) U/L Alkaline Phosphatase (46-116) U/L Albumin (3.4-5.0) g/dL Urine Blood (Negative) Urine RBC (0-2) Crossmatch Vital Signs Temperature 37.5 C 01/29/18 15:55 Temperature Source Tympanic 01/29/18 15:55 Pulse 83 01/29/18 15:55 Pulse Rhythm Regular 01/29/18 07:45 Pulse 94 H 01/28/18 19:20 Respiratory Rate 20 01/29/18 14:49 Respiratory Effort Non-Labored 01/29/18 07:45 Respiratory Depth Normal 01/29/18 07:45 Respiratory Pattern Normal 01/29/18 07:45 Blood Pressure 134/83 01/29/18 15:55 Blood Pressure Mean 89 01/28/18 19:16 Blood Pressure Position Supine 01/28/18 15:13 Pulse Oximetry 93 L 01/29/18 15:55 Respiratory End-tidal CO2 35 01/29/18 13:00 Oxygen Delivery Method Room Air 01/29/18 15:55 Oxygen Flow Rate 0 01/29/18 15:55 Pain Level 6 01/29/18 15:53 Intake & Output 01/28/18 01/29/18 01/29/18 23:59 11:59 23:59 Intake Total 303.5 / 303.5 1248 / 1248 490 / 490 Output Total 1750 / 1750 1350 / 1350 550 / 550 Balance -1446.5 / -1446.5 -102 / -102 -60 / -60 Weight 99.1 kg 98.9 kg Intake: IV 3.5 / 3.5 700 / 700 250 / 250 Oral 240 / 240 Blood Product 300 / 300 548 / 548 Rbc Leuko Reduced Unit 300 / 300 [id number] Rbc Leuko Reduced Unit 548 / 548 [id number] Output: Urine 1750 / 1750 1350 / 1350 550 / 550 Other: Urine Color Yellow Yellow Yellow Urine Appearance Clear Clear Clear Urine Odor None Stool Occult Blood Negative Negative Stool Size Moderate Small Stool Characteristics Soft Soft Formed Brown Emesis Description None Voiding Methods Urinal Urinal Urinal Laboratory Results WBC 8.63 k/cumm (4.4-10.8) 01/29/18 06:53 RBC 2.91 m/cumm (4.50-6.00) L 01/29/18 06:53 Hgb 8.3 g/dL (13.5-17.5) L 01/29/18 06:53 Hct 26.5 % (40.0-50.0) L 01/29/18 06:53 MCV 91.1 fL (80-95) 01/29/18 06:53 MCH 28.5 pg (27.0-33.0) 01/29/18 06:53 MCHC 31.3 g/dL (32.0-36.0) L 01/29/18 06:53 RDW 14.0 % (11.8-14.1) 01/29/18 06:53 Plt Count 329 x1000/uL (130-400) 01/29/18 06:53 MPV 9.9 fL (8.0-11.0) 01/29/18 06:53 Immature Gran % 0.5 01/29/18 06:53 Neutrophils % 77.3 01/29/18 06:53 Lymphocytes % 11.4 01/29/18 06:53 Monocytes % 7.5 01/29/18 06:53 Eosinophils % 3.0 01/29/18 06:53 Basophils % 0.3 01/29/18 06:53 Absolute Neutrophils 6.67 k/cumm (1.2-6.7) 01/29/18 06:53 Absolute Lymphocytes 0.98 k/cumm (1.2-3.4) L 01/29/18 06:53 Absolute Monocytes 0.65 k/cumm (0.11-0.7) 01/29/18 06:53 Absolute Eosinophils 0.26 k/cumm (0.0-0.7) 01/29/18 06:53 Absolute Basophils 0.03 k/cumm (0.0-0.2) 01/29/18 06:53 Sodium 140 mmol/L (136-145) 01/29/18 06:53 Potassium 3.3 mmol/L (3.5-5.1) L 01/29/18 06:53 Chloride 105 mmol/L (98-107) 01/29/18 06:53 Carbon Dioxide 26.7 mmol/L (21.0-32.0) 01/29/18 06:53 Anion Gap 8.3 mmol/L (3-11) 01/29/18 06:53 BUN 14 mg/dL (7-18) 01/29/18 06:53 Creatinine 1.19 mg/dL (0.70-1.30) 01/29/18 06:53 Estimated GFR/1.73 m2 >= 60.00 (mL/min/1.73m2) 01/29/18 06:53 Glucose 100 mg/dL (70-100) 01/29/18 06:53 Lactate 0.4 mmol/L (0.6-1.4) L 01/28/18 17:18 Calcium 8.8 mg/dL (8.5-10.1) 01/29/18 06:53 Magnesium 2.1 mg/dL (1.8-2.4) 01/29/18 06:53 Iron 29 ug/dL (50-175) L 01/29/18 06:53 TIBC 185 ug/dL (250-450) L 01/29/18 06:53 Transferrin % Sat 16 % (20-55) L 01/29/18 06:53 Ferritin 608 ng/mL (8-388) H 01/29/18 06:53 Total Bilirubin 0.4 mg/dL (0.2-1.0) 01/29/18 06:53 Conjugated Bilirubin 0.20 mg/dL (0.00-0.20) 01/29/18 06:53 AST 41 U/L (15-37) H 01/29/18 06:53 ALT 82 U/L (12-78) H 01/29/18 06:53 Alkaline Phosphatase 189 U/L (46-116) H 01/29/18 06:53 Troponin I 0.02 ng/mL (0.00-0.06) 01/28/18 15:50 Total Protein 6.9 g/dL (6.4-8.2) 01/29/18 06:53 Albumin 2.0 g/dL (3.4-5.0) L 01/29/18 06:53 Lipase 255 U/L (73-393) 01/29/18 06:53 Vitamin B12 673 pg/mL (193-986) 01/29/18 06:53 Folate 17.0 ng/mL (8.6-20.0) 01/29/18 06:53 Urine Color Yellow (Yellow) 01/28/18 18:55 Urine Clarity Clear 01/28/18 18:55 Urine pH 6.5 (5-8) 01/28/18 18:55 Ur Specific [place] <= 1.005 (1.005-1.025) 01/28/18 18:55 Urine Protein Negative mg/dL (Negative) 01/28/18 18:55 Urine Ketones Negative mg/dL (Negative) 01/28/18 18:55 Urine Blood Large (Negative) H 01/28/18 18:55 Urine Nitrite Negative (Negative) 01/28/18 18:55 Urine Bilirubin Negative (Negative) 01/28/18 18: Urine Urobilinogen 0.2 EU/dL (Up TO 0.2) 01/28/18 18:55 Ur Leukocyte Esterase Negative (Negative) 01/28/18 18:55 Urine RBC 20-50 (0-2) H 01/28/18 18:55 Urine WBC 0-2 HPF (0-5) 01/28/18 18:55 Ur Epithelial Cells Negative HPF (Negative) 01/28/18 18:55 Urine Crystals Negative HPF (Negative) 01/28/18 18:55 Urine Bacteria Rare HPF (Negative) 01/28/18 18:55 Urine Casts Negative LPF (Negative) 01/28/18 18:55 Urine Mucus Negative (Negative) 01/28/18 18:55 Urine Other Negative (Negative) 01/28/18 18:55 Ur Culture Indicated? No 01/28/18 18:55 Urine Glucose Negative mg/dL (Negative) 01/28/18 18:55 Patient ABO/Rh B Positive 01/28/18 15:50 Antibody Screen Negative 01/28/18 15:50 Crossmatch See Detail 01/28/18 15:50 Objective Narrative Objective Narrative: Additional studies: PROCEDURE: Esophagogastroduodenoscopy SURGEON: Claude Peguero Plan: No evidence of upper gastrointestinal hemorrhaging was identified in examining the upper GI tract from the oropharynx to the third portion of the duodenum. Exam(s) a CT:CT chest wo SYMPTOM/DIAGNOSIS: RT PLEURAL EFFUSION, ATELECTASIS VS PNEUMONIA, H/O HEMOPTYSIS CHEST CT: A noncontrast CT scan of the chest was performed. Comparison examination is . Lack of contrast does limit evaluation. Findings: There is mild atherosclerosis of the thoracic aorta. The thoracic aorta is normal in caliber. Heart size is within normal limits. No significant pericardial effusion is seen. Coronary artery calcifications are present. There are mildly enlarged lymph nodes seen in the subcarinal region and right hilum. The largest measures 1.4 cm. No significant axillary adenopathy is present. In the left hemithorax, there are linear opacities seen in the left upper lobe and dependent infiltrate seen in the left lower lobe. No left pleural effusion is seen. No pneumothorax is identified on the left. On the right, areas of consolidation are seen in the right upper lobe, right middle and right lower lobe. There is a small to moderate sized right pleural effusion present. No pneumothorax is identified. Upper abdominal images show no acute abnormality. Degenerative changes are seen in the spine. The sternoclavicular joints appear somewhat irregular with a question of erosive changes of the cortices seen particularly at left sternoclavicular joint. Dystrophic calcifications and soft tissue thickening is seen adjacent to the left sternoclavicular joint. IMPRESSION: 1. Small to moderate sized right pleural effusion. 2. Bilateral pulmonary infiltrates, right greater than left. Pneumonia is suspected. 3. Abnormal appearance to the sternoclavicular joints, left greater than right. While this may represent degenerative change, infection or inflammation cannot be excluded. Please correlate clinically.
[2018-01-29] MEDS: LEVOFLOXACIN 750 MG/150 ML BAG 150 MG IVPB (18:19)
[2018-01-29] MEDS: Heparin 5,000 UNITS/ML VIAL 5000 UNITS SC (20:11)
[2018-01-29] MEDS: POTASSIUM CHLORIDE 20 MEQ, POTASSIUM CHLORIDE 10 MEQ 30 MEQ PO (20:12)
[2018-01-29] MEDS: CEFEPIME 2 GM in Normal Saline 100 ML IVPB (20:13)
[2018-01-29] MEDS: Patch Removal 1 EACH TP (22:04)
[2018-01-30] MEDS: Mylanta Suspension 30 ML CUP PO (00:49)
[2018-01-30 01:26] VITALS: BP 128/81; PULSE 85; RESP 20; TEMP 38; O2SAT 92
[2018-01-30] MEDS: CEFEPIME 2 GM in Normal Saline 100 ML IVPB ×2 (04:18→13:22)
[2018-01-30] MEDS: Normal Saline Flush 10 ML SYR IVP ×9 (04:19→22:08)
[2018-01-30] MEDS: Heparin 5,000 UNITS/ML VIAL 5000 UNITS SC ×3 (04:19→20:12)
[2018-01-30 07:18] VITALS: PULSE 91
[2018-01-30 07:23] LABS: Abs Immature Grans 0.03 k/cumm (0.0-0.09); Absolute Basophil Count 0.01 k/cumm (0.0-0.2); Absolute Eosinophil Count 0.23 k/cumm (0.0-0.7); Absolute Lymphocyte Count 1.14 k/cumm (1.2-3.4); Absolute Monocyte Count 0.63 k/cumm (0.11-0.7); Absolute Neutrophil Count 7.07 k/cumm (1.2-6.7); Basophils % 0.1; Eosinophils % 2.5; HCT 26.1 % (40.0-50.0); HGB 8.2 g/dL (13.5-17.5); Immature Grans % 0.3; Lymphocytes % 12.5; Mean Corp. HGB Concentration 31.4 g/dL (32.0-36.0); Mean Corpuscular Hemoglobin 28.9 pg (27.0-33.0); Mean Corpuscular Volume 91.9 fL (80-95); Mean Platelet Volume 9.8 fL (8.0-11.0); Monocytes % 6.9; Neutrophils % 77.7; Platelet Count 337 x1000/uL (130-400); RBC 2.84 m/cumm (4.50-6.00); RBC Distribution Width 14.2 % (11.8-14.1); White Blood Cell Count 9.11 k/cumm (4.4-10.8)
[2018-01-30 07:25] VITALS: BP 141/90; PULSE 90; RESP 17; TEMP 37.8; O2SAT 93
[2018-01-30] MEDS: buPROPion-XL 150 MG TABCR PO ×2 (08:24→20:13)
[2018-01-30] MEDS: Multivitamin TAB 1 TAB PO (08:24)
[2018-01-30] MEDS: Carvedilol 6.25 MG TAB 12.5 MG PO ×2 (08:24→20:13)
[2018-01-30] MEDS: amLODIPine 10 MG TAB PO (08:24)
[2018-01-30] MEDS: Docusate Sodium 100 MG CAP PO (08:25)
[2018-01-30] MEDS: Pantoprazole 40 MG VIAL IVP ×2 (08:25→20:14)
[2018-01-30] MEDS: Lidocaine 5% Patch 1 PATCH TP (08:25)
[2018-01-30 08:27] LABS: ALT 69 U/L (12-78); AST 29 U/L (15-37); Albumin 1.9 g/dL (3.4-5.0); Alkaline Phosphatase 178 U/L (46-116); Anion Gap 9.1 mmol/L (3-11); BUN 15 mg/dL (7-18); Bilirubin, Total 0.4 mg/dL (0.2-1.0); CO2 25.9 mmol/L (21.0-32.0); CREATININE 1.17 mg/dL (0.70-1.30); Calcium 8.7 mg/dL (8.5-10.1); Chloride 104 mmol/L (98-107); Glucose 99 mg/dL (70-100); Sodium 139 mmol/L (136-145)
[2018-01-30] MEDS: LORazepam 2 MG/ML VIAL 1 MG IVP (11:07)
--- NOTE | 2018-01-30 12:15 | DI.MRI_ITS ---
SYMPTOM/DIAGNOSIS: ? OSTEOMYELITIS OF STERNOCLAVICULAR JOINTS CHEST MRI: MRI of the chest was attempted. The patient elected to discontinue the examination. The MRI of the chest is incomplete. Three noncontrast series were obtained. Note is made of increased signal on the T 2 weighted images in the bone marrow of the proximal sternum and the medial aspects of both the right and left clavicles. There is increased signal in the soft tissues adjacent to the sternoclavicular joints bilaterally, left greater than right. There are small fluid collections adjacent to the sternoclavicular joints anteriorly. The largest is on the left and measures 2.7 by 0.9 cm. Note is made of a right pleural effusion and what appears to be a loculated effusion in the right hemithorax posteriorly. It measures 4.8 by 3.5 by 3.4 cm. It is incompletely imaged. IMPRESSION: 1. Incomplete examination. The patient elected to discontinue the exam. 2. Abnormal appearance to the sternoclavicular joints bilaterally. The findings are nonspecific. The findings may reflect arthritis , infection or inflammation. 3. Right pleural effusion. 4. Loculated right effusion incompletely imaged on this examination.
[2018-01-30 12:40] VITALS: BP 139/89; PULSE 87; RESP 18; TEMP 37.6; O2SAT 93
[2018-01-30] MEDS: Acetaminophen 325 MG TAB PO (13:22)
--- NOTE | 2018-01-30 14:16 | W.PM.PROGNOT ---
Assessment and Plan (1) Anemia: Current visit: Yes Status: Acute Admission Hgb very close to discharge values from outside institution approximately 2 weeks ago, going from 7.9 to 6.8. Iron studies notable for low iron but also with a low TIBC and markedly elevated Ferritin, likely represents Anemia of Chronic Disease in patient with current Osteo. B12 and FA also checked and normal. Patient underwent EGD without any source of bleeding. S/p transfusion with appropriate response. Will monitor. (2) Pneumonia: Current visit: Yes Status: Acute Fever in patient being actively treated with antibiotic therapy for MRSA bacteremia and evidence of discitis/osteomyelitis. CT imaging was obtained and showed evidence of likely infiltrate, R>L, along with a small to moderate sized pleural effusion on the right (previously noted to be large at outside hospital). Given recent hospitalization and instrumentation recommend coverage for HCAP. Continue Ceftaroline for MRSA coverage and treatment of Osteo, and initiate Cefepime and Levofloxacin, now day #2. Monitor blood cultures - currently with no growth. (3) Osteomyelitis: Current visit: Yes Status: Acute Thoracolumbar Osteomyelitis and Discitis, with questionable abscess formation close to infection site. Patient remains on IV Ceftaroline for coverage of MRSA bacteremia that prompted work-up. Also, please note appearance of abnormal sternoclavicular joints bilaterally (L>R) as per CT read, which may represent DJD, infection, or inflammation. MRI ordered, but not tolerated by patient - will check results. (4) HTN (hypertension): Current visit: No Status: Chronic Continue BB and CCB with hold parameters. (5) HLD (hyperlipidemia): Current visit: No Status: Chronic Currently on statin therapy. (6) DVT prophylaxis: Current visit: Yes Status: Acute Initiated SC Heparin as GI Bleed at this time appears unlikely. Continue SCDs. On PPI for GI Prophylaxis as well. Subjective Interval history since last seen: 52-year-old man admitted on 01/29/2018 from [facility] Emergency Department with evidence of anemia and fever. Mr. Boss has a somewhat complicated recent medical history. He was initially admitted to [facility] from December 29 of this year until his transfer to [facility] the next day, at which time he had an extended and complicated hospital course until January 16. He was eventually found to have evidence of T8/T9 & L4/L5 discitis/osteomyelitis with potential abscesses and phlegmon at T6-7 & L3-L4. He was bacteremic with MRSA, but cleared his infection by repeat blood cultures on 01/04 while being treated with IV Ceftaroline. He also underwent a TTE and a subsequent AVI, both negative for signs of endocarditis. His hospital stay was further complicated by STARR secondary to ATN, requiring temporary hemodialysis. He also suffered from hemoptysis that resulted in bronchoscopy without a clear source of bleeding, as well as pleural effusions that necessitated a thoracentesis. He was also noted to have duodenitis by CT imaging obtained in the setting of an elevated lipase and abdominal pain. Of note the patient had a history of antral gastritis/ulceration diagnosed by EGD in December 2016 and he had a colonoscopy performed at that same time that was unremarkable. The patient declined SNF placement and was subsequently discharged home from [facility], where he is receiving home IV antibiotic therapy infusions. The patient was sent to the emergency room on the day of admission based on advice of his primary care provider after routine surveillance labs were obtained by visiting nurse demonstrated severe anemia with hemoglobin of 6.8 g. This was performed as part of his monitoring while receiving ceftaroline IV antibiotics for treatment of MRSA bacteremia and thoracolumbar discitis/osteomyelitis. Of note, review of his prior discharge summary notes that his hemoglobin was 7.9 at time of discharge. He was noted to be heme negative in the emergency department. He was admitted for further evaluation and consideration for EGD. However, he was also noted to be febrile despite ongoing antibiotic therapy, and repeat blood cultures were taken. The patient underwent an EGD on 01/29/2018 without any significant abnormality seen, and no signs of bleeding. Iron studies indicated a likely Anemia of Chronic Disease in the setting of Osteomyelitis currently under treatment. He also underwent a CT of the chest that showed bilateral pulmonary infiltrates consistent with pneumonia. Note was also made of abnormal appearance of the sternoclavicular joints, on the basis of either degenerative changes, inflammation or infection. No other events reported. He had a fever of 38 overnight. Exam Narrative Exam Narrative: General: Patient appears comfortable, AAOX3, NAD Neck: Supple CV: Regular, nontachycardic, S1S2, No rubs, murmurs, or gallops. Pulmonary: Clear to auscultation bilaterally, no crackles, wheezing, or rhonchi Abdomen: + Bowel Sounds, soft, nontender, nondistended Vascular: No lower extremity edema. Psych: Normal mood and affect. Objective Objective Clinical Data: Abnormal lab results 01/30/18 01/30/18 Range/Units 06:33 06:33 RBC 2.84 L (4.50-6.00) m/cumm Hgb 8.2 L (13.5-17.5) g/dL Hct 26.1 L (40.0-50.0) % MCHC 31.4 L (32.0-36.0) g/dL RDW 14.2 H (11.8-14.1) % Absolute Neutrophils 7.07 H (1.2-6.7) k/cumm Absolute Lymphocytes 1.14 L (1.2-3.4) k/cumm Alkaline Phosphatase 178 H (46-116) U/L Albumin 1.9 L (3.4-5.0) g/dL Vital Signs Temperature 37.6 C H 01/30/18 12:40 Temperature Source Tympanic 01/30/18 12:40 Pulse 87 01/30/18 12:40 Pulse Rhythm Regular 01/30/18 01:05 Pulse 94 H 01/28/18 19:20 Respiratory Rate 18 01/30/18 12:40 Respiratory Effort Non-Labored 01/30/18 01:05 Respiratory Depth Normal 01/30/18 01:05 Respiratory Pattern Normal 01/30/18 01:05 Blood Pressure 139/89 01/30/18 12:40 Blood Pressure Mean 89 01/28/18 19:16 Blood Pressure Position Supine 01/28/18 15:13 Pulse Oximetry 93 L 01/30/18 12:40 Respiratory End-tidal CO2 35 01/29/18 13:00 Oxygen Delivery Method Room Air 01/30/18 12:40 Oxygen Flow Rate 0 01/30/18 12:40 Pain Level 4 01/30/18 13:22 Intake & Output 01/29/18 01/30/18 01/30/18 23:59 11:59 23:59 Intake Total 1396.750 / 1396.750 660 / 660 Output Total 1000 / 1000 2300 / 2300 Balance 396.750 / 396.750 -1640 / -1640 Weight 99.8 kg Intake: IV 1156.750 / 1156.750 180 / 180 Oral 240 / 240 480 / 480 Output: Urine 1000 / 1000 2300 / 2300 Other: Urine Color Light [place] Yellow Urine Appearance Clear Clear Urine Odor None None Comment Void x1 in the urinal. Stool Occult Blood Negative Stool Size Small Stool Characteristics Soft Emesis Description None Voiding Methods Urinal Urinal Laboratory Results WBC 9.11 k/cumm (4.4-10.8) 01/30/18 06:33 RBC 2.84 m/cumm (4.50-6.00) L 01/30/18 06:33 Hgb 8.2 g/dL (13.5-17.5) L 01/30/18 06:33 Hct 26.1 % (40.0-50.0) L 01/30/18 06:33 MCV 91.9 fL (80-95) 01/30/18 06:33 MCH 28.9 pg (27.0-33.0) 01/30/18 06:33 MCHC 31.4 g/dL (32.0-36.0) L 01/30/18 06:33 RDW 14.2 % (11.8-14.1) H 01/30/18 06:33 Plt Count 337 x1000/uL (130-400) 01/30/18 06:33 MPV 9.8 fL (8.0-11.0) 01/30/18 06:33 Immature Gran % 0.3 01/30/18 06:33 Neutrophils % 77.7 01/30/18 06:33 Lymphocytes % 12.5 01/30/18 06:33 Monocytes % 6.9 01/30/18 06:33 Eosinophils % 2.5 01/30/18 06:33 Basophils % 0.1 01/30/18 06:33 Absolute Neutrophils 7.07 k/cumm (1.2-6.7) H 01/30/18 06:33 Absolute Lymphocytes 1.14 k/cumm (1.2-3.4) L 01/30/18 06:33 Absolute Monocytes 0.63 k/cumm (0.11-0.7) 01/30/18 06:33 Absolute Eosinophils 0.23 k/cumm (0.0-0.7) 01/30/18 06:33 Absolute Basophils 0.01 k/cumm (0.0-0.2) 01/30/18 06:33 Sodium 139 mmol/L (136-145) 01/30/18 06:33 Potassium 4.0 mmol/L (3.5-5.1) D 01/30/18 06:33 Chloride 104 mmol/L (98-107) 01/30/18 06:33 Carbon Dioxide 25.9 mmol/L (21.0-32.0) 01/30/18 06:33 Anion Gap 9.1 mmol/L (3-11) 01/30/18 06:33 BUN 15 mg/dL (7-18) 01/30/18 06:33 Creatinine 1.17 mg/dL (0.70-1.30) 01/30/18 06:33 Estimated GFR/1.73 m2 >= 60.00 (mL/min/1.73m2) 01/30/18 06:33 Glucose 99 mg/dL (70-100) 01/30/18 06:33 Lactate 0.4 mmol/L (0.6-1.4) L 01/28/18 17:18 Calcium 8.7 mg/dL (8.5-10.1) 01/30/18 06:33 Magnesium 2.1 mg/dL (1.8-2.4) 01/29/18 06:53 Iron 29 ug/dL (50-175) L 01/29/18 06:53 TIBC 185 ug/dL (250-450) L 01/29/18 06:53 Transferrin % Sat 16 % (20-55) L 01/29/18 06:53 Ferritin 608 ng/mL (8-388) H 01/29/18 06:53 Total Bilirubin 0.4 mg/dL (0.2-1.0) 01/30/18 06:33 Conjugated Bilirubin 0.20 mg/dL (0.00-0.20) 01/29/18 06:53 AST 29 U/L (15-37) 01/30/18 06:33 ALT 69 U/L (12-78) 01/30/18 06:33 Alkaline Phosphatase 178 U/L (46-116) H 01/30/18 06:33 Troponin I 0.02 ng/mL (0.00-0.06) 01/28/18 15:50 Total Protein 7.0 g/dL (6.4-8.2) 01/30/18 06:33 Albumin 1.9 g/dL (3.4-5.0) L 01/30/18 06:33 Lipase 255 U/L (73-393) 01/29/18 06:53 Vitamin B12 673 pg/mL (193-986) 01/29/18 06:53 Folate 17.0 ng/mL (8.6-20.0) 01/29/18 06:53 Urine Color Yellow (Yellow) 01/28/18 18:55 Urine Clarity Clear 01/28/18 18:55 Urine pH 6.5 (5-8) 01/28/18 18:55 Ur Specific [place] <= 1.005 (1.005-1.025) 01/28/18 18:55 Urine Protein Negative mg/dL (Negative) 01/28/18 18:55 Urine Ketones Negative mg/dL (Negative) 01/28/18 18:55 Urine Blood Large (Negative) H 01/28/18 18:55 Urine Nitrite Negative (Negative) 01/28/18 18:55 Urine Bilirubin Negative (Negative) 01/28/18 18:55 Urine Urobilinogen 0.2 EU/dL (Up TO 0.2) 01/28/18 18:55 Ur Leukocyte Esterase Negative (Negative) 01/28/18 18:55 Urine RBC 20-50 (0-2) H 01/28/18 18:55 Urine WBC 0-2 HPF (0-5) 01/28/18 18:55 Ur Epithelial Cells Negative HPF (Negative) 01/28/18 18:55 Urine Crystals Negative HPF (Negative) 01/28/18 18:55 Urine Bacteria Rare HPF (Negative) 01/28/18 18:55 Urine Casts Negative LPF (Negative) 01/28/18 18:55 Urine Mucus Negative (Negative) 01/28/18 18:55 Urine Other Negative (Negative) 01/28/18 18:55 Ur Culture Indicated? No 01/28/18 18:55 Urine Glucose Negative mg/dL (Negative) 01/28/18 18:55 Patient ABO/Rh B Positive 01/28/18 15:50 Antibody Screen Negative 01/28/18 15:50 Crossmatch See Detail 01/28/18 15:50
--- NOTE | 2018-01-30 14:20 | PGE_ITS ---
Assessment and Plan (1) Anemia: Current visit: Yes Status: Acute Admission Hgb very close to discharge values from outside institution approximately 2 weeks ago, going from 7.9 to 6.8. Iron studies notable for low iron but also with a low TIBC and markedly elevated Ferritin, likely represents Anemia of Chronic Disease in patient with current Osteo. B12 and FA also checked and normal. Patient underwent EGD without any source of bleeding. S/p transfusion with appropriate response. Will monitor. (2) Pneumonia: Current visit: Yes Status: Acute Fever in patient being actively treated with antibiotic therapy for MRSA bacteremia and evidence of discitis/osteomyelitis. CT imaging was obtained and showed evidence of likely infiltrate, R>L, along with a small to moderate sized pleural effusion on the right (previously noted to be large at outside hospital) . Given recent hospitalization and instrumentation recommend coverage for HCAP. Continue Ceftaroline for MRSA coverage and treatment of Osteo, and initiate Cefepime and Levofloxacin, now day #2. Monitor blood cultures - currently with no growth. (3) Osteomyelitis: Current visit: Yes Status: Acute Thoracolumbar Osteomyelitis and Discitis, with questionable abscess formation close to infection site. Patient remains on IV Ceftaroline for coverage of MRSA bacteremia that prompted work-up. Also, please note appearance of abnormal sternoclavicular joints bilaterally (L>R) as per CT read, which may represent DJD, infection, or inflammation. MRI ordered, but not tolerated by patient - will check results. (4) HTN (hypertension): Current visit: No Status: Chronic Continue BB and CCB with hold parameters. (5) HLD (hyperlipidemia): Current visit: No Status: Chronic Currently on statin therapy. (6) DVT prophylaxis: Current visit: Yes Status: Acute Initiated SC Heparin as GI Bleed at this time appears unlikely. Continue SCDs. On PPI for GI Prophylaxis as well. Subjective Interval history since last seen: 52-year-old man admitted on 01/29/2018 from [facility] Emergency Department with evidence of anemia and fever. Mr. Boss has a somewhat complicated recent medical history. He was initially admitted to [facility] from December 29 of this year until his transfer to [facility] the next day, at which time he had an extended and complicated hospital course until January 16. He was eventually found to have evidence of T8/T9 & L4/L5 discitis/osteomyelitis with potential abscesses and phlegmon at T6-7 & L3-L4. He was bacteremic with MRSA, but cleared his infection by repeat blood cultures on 01/04 while being treated with IV Ceftaroline. He also underwent a TTE and a subsequent AVI, both negative for signs of endocarditis. His hospital stay was further complicated by STARR secondary to ATN, requiring temporary hemodialysis. He also suffered from hemoptysis that resulted in bronchoscopy without a clear source of bleeding, as well as pleural effusions that necessitated a thoracentesis. He was also noted to have duodenitis by CT imaging obtained in the setting of an elevated lipase and abdominal pain. Of note the patient had a history of antral gastritis/ulceration diagnosed by EGD in December 2016 and he had a colonoscopy performed at that same time that was unremarkable. The patient declined SNF placement and was subsequently discharged home from [facility], where he is receiving home IV antibiotic therapy infusions. The patient was sent to the emergency room on the day of admission based on advice of his primary care provider after routine surveillance labs were obtained by visiting nurse demonstrated severe anemia with hemoglobin of 6.8 g. This was performed as part of his monitoring while receiving ceftaroline IV antibiotics for treatment of MRSA bacteremia and thoracolumbar discitis/ osteomyelitis. Of note, review of his prior discharge summary notes that his hemoglobin was 7.9 at time of discharge. He was noted to be heme negative in the emergency department. He was admitted for further evaluation and consideration for EGD. However, he was also noted to be febrile despite ongoing antibiotic therapy, and repeat blood cultures were taken. The patient underwent an EGD on 01/29/2018 without any significant abnormality seen, and no signs of bleeding. Iron studies indicated a likely Anemia of Chronic Disease in the setting of Osteomyelitis currently under treatment. He also underwent a CT of the chest that showed bilateral pulmonary infiltrates consistent with pneumonia. Note was also made of abnormal appearance of the sternoclavicular joints, on the basis of either degenerative changes, inflammation or infection. No other events reported. He had a fever of 38 overnight. Exam Narrative Exam Narrative: General: Patient appears comfortable, AAOX3, NAD Neck: Supple CV: Regular, nontachycardic, S1S2, No rubs, murmurs, or gallops. Pulmonary: Clear to auscultation bilaterally, no crackles, wheezing, or rhonchi Abdomen: + Bowel Sounds, soft, nontender, nondistended Vascular: No lower extremity edema. Psych: Normal mood and affect. Objective Objective Clinical Data: Abnormal lab results 01/30/18 01/30/18 Range/Units 06:33 06:33 RBC 2.84 L (4.50-6.00) m/cumm Hgb 8.2 L (13.5-17.5) g/dL Hct 26.1 L (40.0-50.0) % MCHC 31.4 L (32.0-36.0) g/dL RDW 14.2 H (11.8-14.1) % Absolute Neutrophils 7.07 H (1.2-6.7) k/cumm Absolute Lymphocytes 1.14 L (1.2-3.4) k/cumm Alkaline Phosphatase 178 H (46-116) U/L Albumin 1.9 L (3.4-5.0) g/dL Vital Signs Temperature 37.6 C H 01/30/18 12:40 Temperature Source Tympanic 01/30/18 12:40 Pulse 87 01/30/18 12:40 Pulse Rhythm Regular 01/30/18 01:05 Pulse 94 H 01/28/18 19:20 Respiratory Rate 18 01/30/18 12:40 Respiratory Effort Non-Labored 01/30/18 01:05 Respiratory Depth Normal 01/30/18 01:05 Respiratory Pattern Normal 01/30/18 01:05 Blood Pressure 139/89 01/30/18 12:40 Blood Pressure Mean 89 01/28/18 19:16 Blood Pressure Position Supine 01/28/18 15:13 Pulse Oximetry 93 L 01/30/18 12:40 Respiratory End-tidal CO2 35 01/29/18 13:00 Oxygen Delivery Method Room Air 01/30/18 12:40 Oxygen Flow Rate 0 01/30/18 12:40 Pain Level 4 01/30/18 13:22 Intake & Output 01/29/18 01/30/18 01/30/18 23:59 11:59 23:59 Intake Total 1396.750 / 1396.750 660 / 660 Output Total 1000 / 1000 2300 / 2300 Balance 396.750 / 396.750 -1640 / -1640 Weight 99.8 kg Intake: IV 1156.750 / 1156.750 180 / 180 Oral 240 / 240 480 / 480 Output: Urine 1000 / 1000 2300 / 2300 Other: Urine Color Light [place]ushka Yellow Urine Appearance Clear Clear Urine Odor None None Comment Void x1 in the urinal. Stool Occult Blood Negative Stool Size Small Stool Characteristics Soft Emesis Description None Voiding Methods Urinal Urinal Laboratory Results WBC 9.11 k/cumm (4.4-10.8) 01/30/18 06:33 RBC 2.84 m/cumm (4.50-6.00) L 01/30/18 06:33 Hgb 8.2 g/dL (13.5-17.5) L 01/30/18 06:33 Hct 26.1 % (40.0-50.0) L 01/30/18 06:33 MCV 91.9 fL (80-95) 01/30/18 06:33 MCH 28.9 pg (27.0-33.0) 01/30/18 06:33 MCHC 31.4 g/dL (32.0-36.0) L 01/30/18 06:33 RDW 14.2 % (11.8-14.1) H 01/30/18 06:33 Plt Count 337 x1000/uL (130-400) 01/30/18 06:33 MPV 9.8 fL (8.0-11.0) 01/30/18 06:33 Immature Gran % 0.3 01/30/18 06:33 Neutrophils % 77.7 01/30/18 06:33 Lymphocytes % 12.5 01/30/18 06:33 Monocytes % 6.9 01/30/18 06:33 Eosinophils % 2.5 01/30/18 06:33 Basophils % 0.1 01/30/18 06:33 Absolute Neutrophils 7.07 k/cumm (1.2-6.7) H 01/30/18 06:33 Absolute Lymphocytes 1.14 k/cumm (1.2-3.4) L 01/30/18 06:33 Absolute Monocytes 0.63 k/cumm (0.11-0.7) 01/30/18 06:33 Absolute Eosinophils 0.23 k/cumm (0.0-0.7) 01/30/18 06:33 Absolute Basophils 0.01 k/cumm (0.0-0.2) 01/30/18 06:33 Sodium 139 mmol/L (136-145) 01/30/18 06:33 Potassium 4.0 mmol/L (3.5-5.1) D 01/30/18 06:33 Chloride 104 mmol/L (98-107) 01/30/18 06:33 Carbon Dioxide 25.9 mmol/L (21.0-32.0) 01/30/18 06:33 Anion Gap 9.1 mmol/L (3-11) 01/30/18 06:33 BUN 15 mg/dL (7-18) 01/30/18 06:33 Creatinine 1.17 mg/dL (0.70-1.30) 01/30/18 06:33 Estimated GFR/1.73 m2 >= 60.00 (mL/min/1.73m2) 01/30/18 06:33 Glucose 99 mg/dL (70-100) 01/30/18 06:33 Lactate 0.4 mmol/L (0.6-1.4) L 01/28/18 17:18 Calcium 8.7 mg/dL (8.5-10.1) 01/30/18 06:33 Magnesium 2.1 mg/dL (1.8-2.4) 01/29/18 06:53 Iron 29 ug/dL (50-175) L 01/29/18 06:53 TIBC 185 ug/dL (250-450) L 01/29/18 06:53 Transferrin % Sat 16 % (20-55) L 01/29/18 06:53 Ferritin 608 ng/mL (8-388) H 01/29/18 06:53 Total Bilirubin 0.4 mg/dL (0.2-1.0) 01/30/18 06:33 Conjugated Bilirubin 0.20 mg/dL (0.00-0.20) 01/29/18 06:53 AST 29 U/L (15-37) 01/30/18 06:33 ALT 69 U/L (12-78) 01/30/18 06:33 Alkaline Phosphatase 178 U/L (46-116) H 01/30/18 06:33 Troponin I 0.02 ng/mL (0.00-0.06) 01/28/18 15:50 Total Protein 7.0 g/dL (6.4-8.2) 01/30/18 06:33 Albumin 1.9 g/dL (3.4-5.0) L 01/30/18 06:33 Lipase 255 U/L (73-393) 01/29/18 06:53 Vitamin B12 673 pg/mL (193-986) 01/29/18 06:53 Folate 17.0 ng/mL (8.6-20.0) 01/29/18 06:53 Urine Color Yellow (Yellow) 01/28/18 18:55 Urine Clarity Clear 01/28/18 18:55 Urine pH 6.5 (5-8) 01/28/18 18:55 Ur Specific [place] <= 1.005 (1.005-1.025) 01/28/18 18:55 Urine Protein Negative mg/dL (Negative) 01/28/18 18:55 Urine Ketones Negative mg/dL (Negative) 01/28/18 18:55 Urine Blood Large (Negative) H 01/28/18 18:55 Urine Nitrite Negative (Negative) 01/28/18 18:55 Urine Bilirubin Negative (Negative) 01/28/18 18:55 Urine Urobilinogen 0.2 EU/dL (Up TO 0.2) 01/28/18 18:55 Ur Leukocyte Esterase Negative (Negative) 01/28/18 18:55 Urine RBC 20-50 (0-2) H 01/28/18 18:55 Urine WBC 0-2 HPF (0-5) 01/28/18 18:55 Ur Epithelial Cells Negative HPF (Negative) 01/28/18 18:55 Urine Crystals Negative HPF (Negative) 01/28/18 18:55 Urine Bacteria Rare HPF (Negative) 01/28/18 18:55 Urine Casts Negative LPF (Negative) 01/28/18 18:55 Urine Mucus Negative (Negative) 01/28/18 18:55 Urine Other Negative (Negative) 01/28/18 18:55 Ur Culture Indicated? No 01/28/18 18:55 Urine Glucose Negative mg/dL (Negative) 01/28/18 18:55 Patient ABO/Rh B Positive 01/28/18 15:50 Antibody Screen Negative 01/28/18 15:50 Crossmatch See Detail 01/28/18 15:50
[2018-01-30 15:44] VITALS: PULSE 91
--- NOTE | 2018-01-30 16:40 | PDOC.CMPRO ---
- If Service Date Differs Date of service: 01/30/18 Time of Service: 16:40 Care Management Progress Note S/O: CM met with patient and his spouse at the bedside her name is Kerry. Brendan would prefer to return home when he is ready for discharge and complete his antibiotics there. He is currently receiving home health services once a week and his antibiotics through [facility]. Brendan also has a FWW at home. His spouse has been able to administer Brendan's IV antibiotics daily. Brendan and his spouse are caring for their granddaughter at home and he would like to be there. Brendan continues on IV antibiotics and precautions. Brendan has a follow up appointment with infections disease and neurology spine on 02/13/18 at [facility] CM to continue to provide support to patient discharge planning and disposition. A: Brendan is a 52 year old male with multiple hospitalizations and recent infections. Admitted to [facility] with anemia and HAP P:Brendan is being treated for healthcare acquired pneumonia, and discitis and osteomyelitis, with IV antibiotics. Brendan is receiving IV hydration. Anticipate he will be discharged home when medically ready, resumption of home health services nursing and IV antibiotics through [facility]. CM to continue to provide support to patient, family, care team ongoing discharge planning and disposition.
--- NOTE | 2018-01-30 17:20 | CMPROGNOTE_ITS ---
- If Service Date Differs Date of service: 01/30/18 Time of Service: 16:40 Care Management Progress Note S/O: CM met with patient and his spouse at the bedside her name is Kerry. Brendan would prefer to return home when he is ready for discharge and complete his antibiotics there. He is currently receiving home health services once a week and his antibiotics through [facility]. Brendan also has a FWW at home. His spouse has been able to administer Brendan's IV antibiotics daily. Brendan and his spouse are caring for their granddaughter at home and he would like to be there. Brendan continues on IV antibiotics and precautions. Brendan has a follow up appointment with infections disease and neurology spine on 02/13/18 at [facility]. CM to continue to provide support to patient discharge planning and disposition. A: Brendan is a 52 year old male with multiple hospitalizations and recent infections. Admitted to [facility] with anemia and HAP P:Brendan is being treated for healthcare acquired pneumonia, and discitis and osteomyelitis, with IV antibiotics. Brendan is receiving IV hydration. Anticipate he will be discharged home when medically ready, resumption of home health services nursing and IV antibiotics through [facility]. CM to continue to provide support to patient, family, care team ongoing discharge planning and disposition.
[2018-01-30] MEDS: LEVOFLOXACIN 750 MG/150 ML BAG 150 MG IVPB (17:44)
[2018-01-30 19:45] VITALS: BP 128/85; PULSE 92; RESP 17; TEMP 37.6; O2SAT 93
[2018-01-30] MEDS: Patch Removal 1 EACH TP (22:07)
[2018-01-31] MEDS: Heparin 5,000 UNITS/ML VIAL 5000 UNITS SC ×3 (03:54→20:27)
[2018-01-31 07:34] VITALS: BP 145/94; PULSE 83; RESP 17; TEMP 37.3; O2SAT 95
[2018-01-31 07:39] LABS: Abs Immature Grans 0.04 k/cumm (0.0-0.09); Absolute Basophil Count 0.02 k/cumm (0.0-0.2); Absolute Eosinophil Count 0.32 k/cumm (0.0-0.7); Absolute Lymphocyte Count 1.21 k/cumm (1.2-3.4); Absolute Monocyte Count 0.56 k/cumm (0.11-0.7); Absolute Neutrophil Count 6.72 k/cumm (1.2-6.7); Basophils % 0.2; Eosinophils % 3.6; HCT 27.1 % (40.0-50.0); HGB 8.6 g/dL (13.5-17.5); Immature Grans % 0.5; Lymphocytes % 13.6; Mean Corp. HGB Concentration 31.7 g/dL (32.0-36.0); Mean Corpuscular Volume 91.2 fL (80-95); Mean Platelet Volume 9.8 fL (8.0-11.0); Monocytes % 6.3; Neutrophils % 75.8; Platelet Count 361 x1000/uL (130-400); RBC 2.97 m/cumm (4.50-6.00); RBC Distribution Width 13.9 % (11.8-14.1); White Blood Cell Count 8.87 k/cumm (4.4-10.8)
[2018-01-31 08:02] LABS: ALT 66 U/L (12-78); AST 33 U/L (15-37); Alkaline Phosphatase 183 U/L (46-116); Anion Gap 9.7 mmol/L (3-11); BUN 15 mg/dL (7-18); Bilirubin, Total 0.4 mg/dL (0.2-1.0); CO2 26.3 mmol/L (21.0-32.0); CREATININE 1.25 mg/dL (0.70-1.30); Calcium 9.1 mg/dL (8.5-10.1); Chloride 101 mmol/L (98-107); Glucose 103 mg/dL (70-100); Potassium 4.1 mmol/L (3.5-5.1); Sodium 137 mmol/L (136-145); Total Protein 7.1 g/dL (6.4-8.2)
[2018-01-31] MEDS: Docusate Sodium 100 MG CAP PO (09:27)
[2018-01-31] MEDS: buPROPion-XL 150 MG TABCR PO ×2 (09:27→20:26)
[2018-01-31] MEDS: Normal Saline Flush 10 ML SYR IVP ×5 (09:27→21:48)
[2018-01-31] MEDS: Multivitamin TAB 1 TAB PO (09:27)
[2018-01-31] MEDS: amLODIPine 10 MG TAB PO (09:27)
[2018-01-31] MEDS: Carvedilol 6.25 MG TAB 12.5 MG PO ×2 (09:27→20:27)
[2018-01-31] MEDS: Pantoprazole 40 MG VIAL IVP ×2 (09:27→20:26)
[2018-01-31] MEDS: Patch Removal 1 EACH TP ×2 (09:28→21:52)
[2018-01-31] MEDS: Lidocaine 5% Patch 1 PATCH TP (09:28)
[2018-01-31 11:25] VITALS: BP 141/88; PULSE 80; RESP 18; TEMP 37; O2SAT 95
[2018-01-31 13:34] VITALS: TEMP 37.3
--- NOTE | 2018-01-31 14:00 | PDOC.CMPRO ---
- If Service Date Differs Date of service: 01/31/18 Time of Service: 10:00 Care Management Progress Note S/O: CM met with patient and spoke with his spouse. Brendan will not be discharged home today he will possibly be transferred [place] [facility] [place] results of his MRI. has contacted [facility] and is awaiting for review and pt acceptance. A: Brendan is a 52 year old male with multiple hospitalizations and recent infections. Admitted to [facility] with anemia and HAP P:Brendan is being treated for healthcare acquired pneumonia, and discitis and osteomyelitis, with IV antibiotics. Brendan is receiving IV hydration. Anticipate he will be transferred via ambulance once bed is available at [facility]CM cot[facility]acted [facility] and provided update. CM to continue to provide support to patient, family, care team ongoing discharge planning and disposition.
--- NOTE | 2018-01-31 16:08 | W.PM.PROGNOT ---
Assessment and Plan (1) Anemia: Current visit: No Status: Acute Admission Hgb very close to discharge values from outside institution approximately 2 weeks ago, going from 7.9 to 6.8. Iron studies notable for low iron but also with a low TIBC and markedly elevated Ferritin, likely represents Anemia of Chronic Disease in patient with current Osteo. B12 and FA also checked and normal. Patient underwent EGD without any source of bleeding. S/p transfusion with appropriate response. Current hgb stable. Continue to monitor. (2) Pneumonia: Current visit: No Status: Acute Fever in patient being actively treated with antibiotic therapy for MRSA bacteremia and evidence of discitis/osteomyelitis. CT imaging was obtained and showed evidence of likely infiltrate, R>L, along with a small to moderate sized pleural effusion on the right (previously noted to be large at outside hospital). Patient underwent instrumentation at outside institution with a reported thoracentesis without chest tube placement. Following discussion with ID Cefepime was discontinued, and patient was maintained on Ceftaroline and Levofloxacin, now day #3. However, current imaging shows possible abscess in the right lung. Images were sent to [facility] for review, and pending results will determine whether patient needs transfer and treatment via CT surgery. Monitor blood cultures - currently with no growth. (3) Osteomyelitis: Current visit: No Status: Acute Thoracolumbar Osteomyelitis and Discitis, with questionable abscess formation close to infection site. Patient remains on IV Ceftaroline for coverage of MRSA bacteremia that prompted work-up. Also, please note appearance of abnormal sternoclavicular joints bilaterally (L>R) as per CT read, which may represent DJD, infection, or inflammation. MRI ordered, but unfortunately not tolerated by patient for T/L Spine. (4) HTN (hypertension): Current visit: No Status: Chronic Continue BB and CCB with hold parameters. (5) HLD (hyperlipidemia): Current visit: No Status: Chronic Currently on statin therapy. (6) DVT prophylaxis: Current visit: No Status: Acute Continue SC Heparin, SCDs. On PPI for GI Prophylaxis as well. Subjective Interval history since last seen: 52-year-old man admitted on 01/29/2018 from [facility] Emergency Department with evidence of anemia and fever. Mr. Boss has a somewhat complicated recent medical history. He was initially admitted to [facility] from December 29 of this year until his transfer to [facility] the next day, at which time he had an extended and complicated hospital course until January 16. He was eventually found to have evidence of T8/T9 & L4/L5 discitis/osteomyelitis with potential abscesses and phlegmon at T6-7 & L3-L4. He was bacteremic with MRSA, but cleared his infection by repeat blood cultures on 01/04 while being treated with IV Ceftaroline. He also underwent a TTE and a subsequent AVI, both negative for signs of endocarditis. His hospital stay was further complicated by STARR secondary to ATN, requiring temporary hemodialysis. He also suffered from hemoptysis that resulted in bronchoscopy without a clear source of bleeding, as well as pleural effusions that necessitated a thoracentesis. He was also noted to have duodenitis by CT imaging obtained in the setting of an elevated lipase and abdominal pain. Of note the patient had a history of antral gastritis/ulceration diagnosed by EGD in December 2016 and he had a colonoscopy performed at that same time that was unremarkable. The patient declined SNF placement and was subsequently discharged home from [facility], where he is receiving home IV antibiotic therapy infusions. The patient was sent to the emergency room on the day of admission based on advice of his primary care provider after routine surveillance labs were obtained by visiting nurse demonstrated severe anemia with hemoglobin of 6.8 g. This was performed as part of his monitoring while receiving ceftaroline IV antibiotics for treatment of MRSA bacteremia and thoracolumbar discitis/osteomyelitis. Of note, review of his prior discharge summary notes that his hemoglobin was 7.9 at time of discharge. He was noted to be heme negative in the emergency department. He was admitted for further evaluation and consideration for EGD. However, he was also noted to be febrile despite ongoing antibiotic therapy, and repeat blood cultures were taken. The patient underwent an EGD on 01/29/2018 without any significant abnormality seen, and no signs of bleeding. Iron studies indicated a likely Anemia of Chronic Disease in the setting of Osteomyelitis currently under treatment. He also underwent a CT of the chest that showed bilateral pulmonary infiltrates consistent with pneumonia. Note was also made of abnormal appearance of the sternoclavicular joints, on the basis of either degenerative changes, inflammation or infection. For this reason he underwent further imaging with MRI, which showed likely DJD as cause of the abnormality in the sternoclavicular joints. However, he was also noted to have a potential abscess formation in his right lung. No other events reported. He has been afebrile since a temperature of 38 at 1 am on 01/30. Exam Narrative Exam Narrative: General: Patient appears comfortable, AAOX3, NAD Neck: Supple CV: Regular, nontachycardic, S1S2, No rubs, murmurs, or gallops. Pulmonary: Clear to auscultation bilaterally with decreased bibasilar breathsounds R>L. No wheezing, or rhonchi Abdomen: + Bowel Sounds, soft, nontender, nondistended Vascular: No lower extremity edema. Psych: Normal mood and affect. Objective Objective Clinical Data: Abnormal lab results 01/31/18 01/31/18 Range/Units 07:10 07:10 RBC 2.97 L (4.50-6.00) m/cumm Hgb 8.6 L (13.5-17.5) g/dL Hct 27.1 L (40.0-50.0) % MCHC 31.7 L (32.0-36.0) g/dL Absolute Neutrophils 6.72 H (1.2-6.7) k/cumm Glucose 103 H (70-100) mg/dL Alkaline Phosphatase 183 H (46-116) U/L Albumin 2.0 L (3.4-5.0) g/dL Vital Signs Temperature 37.3 C 01/31/18 13:34 Temperature Source Tympanic 01/31/18 13:34 Pulse 80 01/31/18 11:25 Pulse Rhythm Regular 01/30/18 22:32 Pulse 94 H 01/28/18 19:20 Respiratory Rate 18 01/31/18 11:25 Respiratory Effort 01/30/18 22:32 Respiratory Depth Normal 01/30/18 22:32 Respiratory Pattern Normal 01/30/18 22:32 Blood Pressure 141/88 H 01/31/18 11:25 Blood Pressure Mean 89 01/28/18 19:16 Blood Pressure Position Supine 01/28/18 15:13 Pulse Oximetry 95 01/31/18 11:25 Respiratory End-tidal CO2 35 01/29/18 13:00 Oxygen Delivery Method Room Air 01/31/18 11:25 Oxygen Flow Rate 0 01/31/18 11:25 Pain Level 0 01/31/18 11:25 Intake & Output 01/30/18 01/31/18 01/31/18 23:59 11:59 23:59 Intake Total 760 / 760 1930 / 1930 240 / 240 Output Total 1700 / 1700 3025 / 3025 250 / 250 Balance -940 / -940 -1095 / -1095 -10 / -10 Weight 98.7 kg Intake: IV 280 / 280 20 / 20 Oral 480 / 480 1910 / 1910 240 / 240 Output: Urine 1700 / 1700 3025 / 3025 250 / 250 Other: Urine Color Yellow Yellow Yellow Urine Appearance Clear Clear Clear Urine Odor Strong None None Comment voided x 2 in urinal. Void x1 in the urinal. Void x1 in the urinal. Voiding Methods Urinal Urinal Urinal Laboratory Results WBC 8.87 k/cumm (4.4-10.8) 01/31/18 07:10 RBC 2.97 m/cumm (4.50-6.00) L 01/31/18 07:10 Hgb 8.6 g/dL (13.5-17.5) L 01/31/18 07:10 Hct 27.1 % (40.0-50.0) L 01/31/18 07:10 MCV 91.2 fL (80-95) 01/31/18 07:10 MCH 29.0 pg (27.0-33.0) 01/31/18 07:10 MCHC 31.7 g/dL (32.0-36.0) L 01/31/18 07:10 RDW 13.9 % (11.8-14.1) 01/31/18 07:10 Plt Count 361 x1000/uL (130-400) 01/31/18 07:10 MPV 9.8 fL (8.0-11.0) 01/31/18 07:10 Immature Gran % 0.5 01/31/18 07:10 Neutrophils % 75.8 01/31/18 07:10 Lymphocytes % 13.6 01/31/18 07:10 Monocytes % 6.3 01/31/18 07:10 Eosinophils % 3.6 01/31/18 07:10 Basophils % 0.2 01/31/18 07:10 Absolute Neutrophils 6.72 k/cumm (1.2-6.7) H 01/31/18 07:10 Absolute Lymphocytes 1.21 k/cumm (1.2-3.4) 01/31/18 07:10 Absolute Monocytes 0.56 k/cumm (0.11-0.7) 01/31/18 07:10 Absolute Eosinophils 0.32 k/cumm (0.0-0.7) 01/31/18 07:10 Absolute Basophils 0.02 k/cumm (0.0-0.2) 01/31/18 07:10 Sodium 137 mmol/L (136-145) 01/31/18 07:10 Potassium 4.1 mmol/L (3.5-5.1) 01/31/18 07:10 Chloride 101 mmol/L (98-107) 01/31/18 07:10 Carbon Dioxide 26.3 mmol/L (21.0-32.0) 01/31/18 07:10 Anion Gap 9.7 mmol/L (3-11) 01/31/18 07:10 BUN 15 mg/dL (7-18) 01/31/18 07:10 Creatinine 1.25 mg/dL (0.70-1.30) 01/31/18 07:10 Estimated GFR/1.73 m2 >= 60.00 (mL/min/1.73m2) 01/31/18 07:10 Glucose 103 mg/dL (70-100) H 01/31/18 07:10 Lactate 0.4 mmol/L (0.6-1.4) L 01/28/18 17:18 Calcium 9.1 mg/dL (8.5-10.1) 01/31/18 07:10 Magnesium 2.1 mg/dL (1.8-2.4) 01/29/18 06:53 Iron 29 ug/dL (50-175) L 01/29/18 06:53 TIBC 185 ug/dL (250-450) L 01/29/18 06:53 Transferrin % Sat 16 % (20-55) L 01/29/18 06:53 Ferritin 608 ng/mL (8-388) H 01/29/18 06:53 Total Bilirubin 0.4 mg/dL (0.2-1.0) 01/31/18 07:10 Conjugated Bilirubin 0.20 mg/dL (0.00-0.20) 01/29/18 06:53 AST 33 U/L (15-37) 01/31/18 07:10 ALT 66 U/L (12-78) 01/31/18 07:10 Alkaline Phosphatase 183 U/L (46-116) H 01/31/18 07:10 Troponin I 0.02 ng/mL (0.00-0.06) 01/28/18 15:50 Total Protein 7.1 g/dL (6.4-8.2) 01/31/18 07:10 Albumin 2.0 g/dL (3.4-5.0) L 01/31/18 07:10 Lipase 255 U/L (73-393) 01/29/18 06:53 Vitamin B12 673 pg/mL (193-986) 01/29/18 06:53 Folate 17.0 ng/mL (8.6-20.0) 01/29/18 06:53 Urine Color Yellow (Yellow) 01/28/18 18:55 Urine Clarity Clear 01/28/18 18:55 Urine pH 6.5 (5-8) 01/28/18 18:55 Ur Specific [place] <= 1.005 (1.005-1.025) 01/28/18 18:55 Urine Protein Negative mg/dL (Negative) 01/28/18 18:55 Urine Ketones Negative mg/dL (Negative) 01/28/18 18:55 Urine Blood Large (Negative) H 01/28/18 18:55 Urine Nitrite Negative (Negative) 01/28/18 18:55 Urine Bilirubin Negative (Negative) 01/28/18 18:55 Urine Urobilinogen 0.2 EU/dL (Up TO 0.2) 01/28/18 18:55 Ur Leukocyte Esterase Negative (Negative) 01/28/18 18:55 Urine RBC 20-50 (0-2) H 01/28/18 18:55 Urine WBC 0-2 HPF (0-5) 01/28/18 18:55 Ur Epithelial Cells Negative HPF (Negative) 01/28/18 18:55 Urine Crystals Negative HPF (Negative) 01/28/18 18:55 Urine Bacteria Rare HPF (Negative) 01/28/18 18:55 Urine Casts Negative LPF (Negative) 01/28/18 18:55 Urine Mucus Negative (Negative) 01/28/18 18:55 Urine Other Negative (Negative) 01/28/18 18:55 Ur Culture Indicated? No 01/28/18 18:55 Urine Glucose Negative mg/dL (Negative) 01/28/18 18:55 Patient ABO/Rh B Positive 01/28/18 15:50 Antibody Screen Negative 01/28/18 15:50 Crossmatch See Detail 01/28/18 15:50
[2018-01-31 16:30] VITALS: BP 125/88; PULSE 79; RESP 18; TEMP 37.2; O2SAT 93
[2018-01-31] MEDS: LEVOFLOXACIN 750 MG/150 ML BAG 150 MG IVPB (17:51)
[2018-01-31 19:42] VITALS: BP 138/89; PULSE 85; RESP 18; TEMP 37.1; O2SAT 95
[2018-01-31] MEDS: Polyethylene Glycol 3350 17 GM PACKET PO (21:48)
[2018-02-01] MEDS: Heparin 5,000 UNITS/ML VIAL 5000 UNITS SC (03:12)
[2018-02-01 07:12] LABS: Abs Immature Grans 0.03 k/cumm (0.0-0.09); Absolute Basophil Count 0.02 k/cumm (0.0-0.2); Absolute Eosinophil Count 0.28 k/cumm (0.0-0.7); Absolute Lymphocyte Count 1.12 k/cumm (1.2-3.4); Absolute Monocyte Count 0.53 k/cumm (0.11-0.7); Absolute Neutrophil Count 6.32 k/cumm (1.2-6.7); Basophils % 0.2; Eosinophils % 3.4; HCT 28.7 % (40.0-50.0); HGB 9.4 g/dL (13.5-17.5); Immature Grans % 0.4; Lymphocytes % 13.5; Mean Corp. HGB Concentration 32.8 g/dL (32.0-36.0); Mean Corpuscular Hemoglobin 29.6 pg (27.0-33.0); Mean Corpuscular Volume 90.3 fL (80-95); Mean Platelet Volume 9.2 fL (8.0-11.0); Monocytes % 6.4; Neutrophils % 76.1; Platelet Count 378 x1000/uL (130-400); RBC 3.18 m/cumm (4.50-6.00); RBC Distribution Width 13.8 % (11.8-14.1)
[2018-02-01 07:30] VITALS: BP 138/95; PULSE 78; RESP 18; TEMP 37.2; O2SAT 94
[2018-02-01 07:31] LABS: ALT 64 U/L (12-78); AST 31 U/L (15-37); Albumin 2.2 g/dL (3.4-5.0); Alkaline Phosphatase 189 U/L (46-116); Anion Gap 10.6 mmol/L (3-11); BUN 19 mg/dL (7-18); Bilirubin, Total 0.5 mg/dL (0.2-1.0); CO2 26.4 mmol/L (21.0-32.0); CREATININE 1.16 mg/dL (0.70-1.30); Calcium 9.4 mg/dL (8.5-10.1); Chloride 98 mmol/L (98-107); Glucose 98 mg/dL (70-100); Potassium 4.3 mmol/L (3.5-5.1); Sodium 135 mmol/L (136-145); Total Protein 7.5 g/dL (6.4-8.2)
[2018-02-01] MEDS: Lidocaine 5% Patch 1 PATCH TP (07:54)
[2018-02-01] MEDS: Multivitamin TAB 1 TAB PO (07:54)
[2018-02-01] MEDS: amLODIPine 10 MG TAB PO (07:54)
[2018-02-01] MEDS: Carvedilol 6.25 MG TAB 12.5 MG PO (07:55)
[2018-02-01] MEDS: Docusate Sodium 100 MG CAP PO (07:55)
[2018-02-01] MEDS: buPROPion-XL 150 MG TABCR PO (07:55)
[2018-02-01] MEDS: Normal Saline Flush 10 ML SYR IVP ×2 (07:55→11:06)
[2018-02-01] MEDS: Pantoprazole 40 MG VIAL IVP (07:55)
--- NOTE | 2018-02-01 10:48 | CMPROGNOTE_ITS ---
- If Service Date Differs Date of service: 01/31/18 Time of Service: 10:00 Care Management Progress Note S/O: CM met with patient and spoke with his spouse. Brendan will not be discharged home today he will possibly be transferred to [facility] r/t results of his MRI. has contacted [facility] and is awaiting for review and pt acceptance. A: Brendan is a 52 year old male with multiple hospitalizations and recent infections. Admitted to [facility] with anemia and HAP P:Brendan is being treated for healthcare acquired pneumonia, and discitis and osteomyelitis, with IV antibiotics. Brendan is receiving IV hydration. Anticipate he will be transferred via ambulance once bed is available at [facility].CM cotnacted [facility] and provided update. CM to continue to provide support to patient, family, care team ongoing discharge planning and disposition.
--- NOTE | 2018-02-01 13:06 | W.PM.DS.N ---
Date of service: 02/01/18 Time of Service: 13:06 DS: Diagnosis Discharge Diagnosis (1) Anemia: Status: Acute (2) Pneumonia: Status: Acute (3) Osteomyelitis: Status: Acute Discharge Plan Disposition Patient Disposition: HOME W/HOME HEALTH SERVICE Condition: Stable Discharge Details Reason For Visit: ANEMIA, FEVER,MRSA BACTEREMIA RCVING IV ANTIBIOTIC Admit Date/Time: 01/28/18 18:04 Admit Provider: Marco Harris Attending Provider: Marco Harris Primary Care Provider: Katharina Hernandez V Hospital Course Hospital Course: CC: Fever, Anemia HPI: 52-year-old man admitted on 01/29/[address] [facility] Emergency Department with evidence of anemia and fever. Mr. Boss has a somewhat complicated recent medical history. He was initially admitted to [facility] from December 29 of this year until his transfer to [facility] the next day, at which time he had an extended and complicated hospital course until discharge on January 16. He was found to have evidence of T8/T9 & L4/L5 discitis/osteomyelitis with potential abscesses and phlegmon at T6-7 & L3-L4. He was bacteremic with MRSA, but cleared his infection by repeat blood cultures on 01/04 while being treated with IV Ceftaroline. He also underwent a TTE and a subsequent AVI, both negative for endocarditis. His hospital stay was further complicated by STARR secondary to ATN, requiring temporary hemodialysis. He also suffered from hemoptysis that resulted in bronchoscopy without a clear source of bleeding, as well as pleural effusions that necessitated a thoracentesis. He was also noted to have duodenitis by CT imaging obtained in the setting of an elevated lipase and abdominal pain - recommendation for outpatient EGD were made at that time. Of note the patient had a history of antral gastritis/ulceration diagnosed by EGD in December 2016 and he had a colonoscopy performed at that same time that was unremarkable. The patient declined SNF placement and was subsequently discharged home from [facility], where he is receiving home IV antibiotic therapy infusions. The patient was sent to the emergency room on the day of admission based on advice of his primary care provider after routine surveillance labs were obtained by visiting nurse demonstrated severe anemia with hemoglobin of 6.8 g. This was performed as part of his monitoring while receiving ceftaroline IV antibiotics for treatment of MRSA bacteremia and thoracolumbar discitis/osteomyelitis. Of note, review of his prior discharge summary notes that his hemoglobin was 7.9 at time of discharge. He was noted to be heme negative in the emergency department. He was admitted for further evaluation and consideration for EGD. However, he was also noted to be febrile despite ongoing antibiotic therapy, and repeat blood cultures were taken. The patient underwent an EGD on 01/29/2018 without any significant abnormality seen, and no signs of bleeding. Iron studies indicated a likely Anemia of Chronic Disease in the setting of Osteomyelitis currently under treatment. He also underwent a CT of the chest that showed bilateral pulmonary infiltrates consistent with pneumonia. Note was also made of abnormal appearance of the sternoclavicular joints, on the basis of either degenerative changes, inflammation or infection. For this reason he underwent further imaging with MRI, which showed likely DJD as cause of the abnormality in the sternoclavicular joints, along with potential osteochondroma. However, he was also noted to have a potential abscess formation in his right lung. No other events reported. He has been afebrile since a temperature of 38 at 1 am on 01/30, now over 48 hours ago. Hospital Course: (1) Anemia: Admission Hgb very close to discharge values from outside institution approximately 2 weeks ago, going from 7.9 to 6.8. Iron studies notable for low iron but also with a low TIBC and markedly elevated Ferritin, likely represents Anemia of Chronic Disease in patient with current Osteo. B12 and FA also checked and normal. Patient underwent EGD without any source of bleeding.S/p transfusion with appropriate response. Current hgb stable. Continue to monitor. (2) Pneumonia: Fever in patient being actively treated with antibiotic therapy for MRSA bacteremia and evidence of discitis/osteomyelitis. CT imaging was obtained and showed evidence of likely infiltrate, R>L, along with a small to moderate sized pleural effusion on the right (previously noted to be large at outside hospital). Patient underwent instrumentation at outside institution with a reported thoracentesis without chest tube placement. Following discussion with ID Cefepime was discontinued, and patient was maintained on Ceftaroline and Levofloxacin, now day #4. He will be discharged with 3 additional days of this. However, current imaging with MRI shows possible abscess in the right lung. Images were sent to [facility] for review, and pending results will determine whether patient needs further intervention with drainage vs. more invasive procedure. He currently has negative blood cultures X72 hours, has remained afebrile for approximately 60 hours, and is hemodynamically stable. Per discussion with Dr. Daphne Waite from [facility] ID, patient will be discharged home, MRI imaging will be reviewed at [facility], and pending outcome patient will be called at home with plans to proceed forward electively. Mr. Boss's phone number on file was confirmed with ID and with the patient himself. This was discussed with patient - recommendation for return to ED if worsening symptoms following discharge, and to call ID offices at [facility] if he did not hear from them over the next 3-5 days. (3) Osteomyelitis: Thoracolumbar Osteomyelitis and Discitis, with questionable abscess formation close to infection site. Patient remains on IV Ceftaroline for coverage of MRSA bacteremia that prompted work-up. Also, please note appearance of abnormal sternoclavicular joints bilaterally (L>R) as per CT read, which may represent DJD, infection, or inflammation. MRI appears to show changes on the basis of Degenerative changes - also noted to have an Osteochondroma. (4) HTN (hypertension): Continue BB and CCB upon discharge. (5) HLD (hyperlipidemia): Currently on statin therapy. Home Meds and New Rx's Prescriptions: New acidophilus-pectin, citrus 25 million cell -100 mg Tablet 1 cap PO TID Qty: 90 RF: 0 levofloxacin 750 mg tablet 750 mg PO DAILY Qty: 4 RF: 0 Continue lovastatin 20 MG tablet 1 tab PO DAILY RF: 0 bupropion HCl 150 MG tablet extended release 24 hr 1 tab PO BID RF: 0 aspirin [Aspir-81] 81 MG tablet,delayed release (DR/EC) 81 mg PO DAILY RF: 0 multivitamin 1 EACH capsule 1 tab PO DAILY RF: 0 docusate sodium [Colace] 100 mg capsule 100 mg PO DAILY Qty: 90 RF: 0 pantoprazole [Protonix] 40 mg tablet,delayed release (DR/EC) 40 mg PO BID Qty: 60 RF: 0 lidocaine [Lidoderm] 5 % adhesive patch,medicated 1 patch TP DAILY Qty: 15 RF: 0 carvedilol 12.5 mg Tablet 12.5 mg PO BID RF: 0 amlodipine 10 mg Tablet 10 mg PO DAILY RF: 0 ceftaroline fosamil 400 mg Recon Soln 600 mg IV Q12H RF: 0 Discharge Instructions Additional Instructions: Infectious Disease Department should be calling you with information on the possible abscess/abnormal finding in your lung. If you have not heard from them in 3-5 days please call their office. Stand Alone Forms: Nursing Discharge Form Referrals: Katharina Hernandez MD [Primary Care Provider] - 02/07/18 12:45 pm Activity:: No Strenuous Activity Equipment/Supplies:: No Equipment Needed Diet:: Heart Healthy Discharge Orders Discharge Orders: Discharge Order (Routine); Ordered 02/01/18 Ordered By: Stu Du DS: Data Vitals/I&O Vitals and I&O: Vital Signs Temperature 37.2 C 02/01/18 07:30 Temperature Source Tympanic 02/01/18 07:30 Pulse 78 02/01/18 07:30 Pulse Rhythm Regular 02/01/18 07:30 Pulse 94 H 01/28/18 19:20 Respiratory Rate 18 02/01/18 07:30 Respiratory Effort Non-Labored 02/01/18 07:30 Respiratory Depth Normal 02/01/18 07:30 Respiratory Pattern Normal 02/01/18 07:30 Blood Pressure 138/95 H 02/01/18 07:30 Blood Pressure Mean 89 01/28/18 19:16 Blood Pressure Position Supine 01/28/18 15:13 Pulse Oximetry 94 L 02/01/18 07:30 Respiratory End-tidal CO2 35 01/29/18 13:00 Oxygen Delivery Method Room Air 02/01/18 07:30 Oxygen Flow Rate 0 02/01/18 07:30 Pain Level 0 02/01/18 07:55 Intake & Output 01/31/18 02/01/18 02/01/18 23:59 11:59 23:59 Intake Total 1190 / 1190 860 / 860 Output Total 1150 / 1150 2150 / 2150 Balance 40 / 40 -1290 / -1290 Weight 92.8 kg Intake: IV 160 / 160 Oral 1030 / 1030 860 / 860 Output: Urine 1150 / 1150 2150 / 2150 Other: Urine Color Pale Yellow Yellow Urine Appearance Clear Clear Urine Odor Normal Normal Comment Void x1 in the urinal. Voiding Methods Urinal Urinal Completed studies during hospitalization [Text1]: Exam(s) a RAD:XR portable chest AP SYMPTOMS/DIAGNOSIS: ANEMIA, ? ACUTE DISEASE CHEST X-RAY, SINGLE AP VIEW: Comparison is 01/17/18. The heart size and pulmonary vasculature are stable and within normal limits. The patient has a PICC line, the tip is seen in good position in the superior vena cava. The left lung is clear. There is blunting of the right costophrenic angle, suggesting a small right pleural effusion. There is a right basilar infiltrate, which may represent atelectasis or pneumonia. IMPRESSION: Right basilar infiltrate, which may represent atelectasis or pneumonia. Small right pleural effusion. Exam(s) a CT:CT chest wo SYMPTOM/DIAGNOSIS: RT PLEURAL EFFUSION, ATELECTASIS VS PNEUMONIA, H/O HEMOPTYSIS CHEST CT: A noncontrast CT scan of the chest was performed. Comparison examination is 12/23/17. Lack of contrast does limit evaluation. Findings: There is mild atherosclerosis of the thoracic aorta. The thoracic aorta is normal in caliber. Heart size is within normal limits. No significant pericardial effusion is seen. Coronary artery calcifications are present. There are mildly enlarged lymph nodes seen in the subcarinal region and right hilum. The largest measures 1.4 cm. No significant axillary adenopathy is present. In the left hemithorax, there are linear opacities seen in the left upper lobe and dependent infiltrate seen in the left lower lobe. No left pleural effusion is seen. No pneumothorax is identified on the left. On the right, areas of consolidation are seen in the right upper lobe, right middle and right lower lobe. There is a small to moderate sized right pleural effusion present. No pneumothorax is identified. Upper abdominal images show no acute abnormality. Degenerative changes are seen in the spine. The sternoclavicular joints appear somewhat irregular with a question of erosive changes of the cortices seen particularly at left sternoclavicular joint. Dystrophic calcifications and soft tissue thickening is seen adjacent to the left sternoclavicular joint. IMPRESSION: 1. Small to moderate sized right pleural effusion. 2. Bilateral pulmonary infiltrates, right greater than left. Pneumonia is suspected. 3. Abnormal appearance to the sternoclavicular joints, left greater than right. While this may represent degenerative change, infection or inflammation cannot be excluded. Please correlate clinically. Labs on day of discharge: Labs from last 24 hours 02/01/18 02/01/18 07:00 07:00 WBC 8.30 RBC 3.18 L Hgb 9.4 L Hct 28.7 L MCV 90.3 MCH 29.6 MCHC 32.8 RDW 13.8 Plt Count 378 MPV 9.2 Immature Gran % 0.4 Neutrophils % 76.1 Lymphocytes % 13.5 Monocytes % 6.4 Eosinophils % 3.4 Basophils % 0.2 Absolute Neutrophils 6.32 Absolute Lymphocytes 1.12 L Absolute Monocytes 0.53 Absolute Eosinophils 0.28 Absolute Basophils 0.02 Sodium 135 L Potassium 4.3 Chloride 98 Carbon Dioxide 26.4 Anion Gap 10.6 BUN 19 H Creatinine 1.16 Estimated GFR/1.73 m2 >= 60.00 Glucose 98 Calcium 9.4 Total Bilirubin 0.5 AST 31 ALT 64 Alkaline Phosphatase 189 H Total Protein 7.5 Albumin 2.2 L Preliminary micro results at discharge 01/28/18 18:00 Blood Culture - Preliminary Blood NO GROWTH 72 HOURS 01/28/18 17:35 Blood Culture - Preliminary Blood NO GROWTH 72 HOURS
--- NOTE | 2018-02-01 13:15 | DSE_ITS ---
Date of service: 02/01/18 Time of Service: 13:06 DS: Diagnosis Discharge Diagnosis (1) Anemia: Status: Acute (2) Pneumonia: Status: Acute (3) Osteomyelitis: Status: Acute Discharge Plan Disposition Patient Disposition: HOME W/HOME HEALTH SERVICE Condition: Stable Discharge Details Reason For Visit: ANEMIA, FEVER,MRSA BACTEREMIA RCVING IV ANTIBIOTIC Admit Date/Time: 01/28/18 18:04 Admit Provider: Marco Harris Attending Provider: Marco Harris Primary Care Provider: Katharina Hernandez V Hospital Course Hospital Course: CC: Fever, Anemia HPI: 52-year-old man admitted on 01/29/2018 from [facility] Emergency Department with evidence of anemia and fever. Mr. Boss has a somewhat complicated recent medical history. He was initially admitted to [facility] from December 29 of this year until his transfer to [facility] the next day, at which time he had an extended and complicated hospital course until discharge on January 16. He was found to have evidence of T8/T9 & L4/L5 discitis/osteomyelitis with potential abscesses and phlegmon at T6-7 & L3-L4. He was bacteremic with MRSA, but cleared his infection by repeat blood cultures on 01/04 while being treated with IV Ceftaroline. He also underwent a TTE and a subsequent AVI, both negative for endocarditis. His hospital stay was further complicated by STARR secondary to ATN, requiring temporary hemodialysis. He also suffered from hemoptysis that resulted in bronchoscopy without a clear source of bleeding, as well as pleural effusions that necessitated a thoracentesis. He was also noted to have duodenitis by CT imaging obtained in the setting of an elevated lipase and abdominal pain - recommendation for outpatient EGD were made at that time. Of note the patient had a history of antral gastritis/ ulceration diagnosed by EGD in December 2016 and he had a colonoscopy performed at that same time that was unremarkable. The patient declined SNF placement and was subsequently discharged home from [facility], where he is receiving home IV antibiotic therapy infusions. The patient was sent to the emergency room on the day of admission based on advice of his primary care provider after routine surveillance labs were obtained by visiting nurse demonstrated severe anemia with hemoglobin of 6.8 g. This was performed as part of his monitoring while receiving ceftaroline IV antibiotics for treatment of MRSA bacteremia and thoracolumbar discitis/ osteomyelitis. Of note, review of his prior discharge summary notes that his hemoglobin was 7.9 at time of discharge. He was noted to be heme negative in the emergency department. He was admitted for further evaluation and consideration for EGD. However, he was also noted to be febrile despite ongoing antibiotic therapy, and repeat blood cultures were taken. The patient underwent an EGD on 01/29/2018 without any significant abnormality seen, and no signs of bleeding. Iron studies indicated a likely Anemia of Chronic Disease in the setting of Osteomyelitis currently under treatment. He also underwent a CT of the chest that showed bilateral pulmonary infiltrates consistent with pneumonia. Note was also made of abnormal appearance of the sternoclavicular joints, on the basis of either degenerative changes, inflammation or infection. For this reason he underwent further imaging with MRI , which showed likely DJD as cause of the abnormality in the sternoclavicular joints, along with potential osteochondroma. However, he was also noted to have a potential abscess formation in his right lung. No other events reported. He has been afebrile since a temperature of 38 at 1 am on 01/30, now over 48 hours ago. Hospital Course: (1) Anemia: Admission Hgb very close to discharge values from outside institution approximately 2 weeks ago, going from 7.9 to 6.8. Iron studies notable for low iron but also with a low TIBC and markedly elevated Ferritin, likely represents Anemia of Chronic Disease in patient with current Osteo. B12 and FA also checked and normal. Patient underwent EGD without any source of bleeding.S/p transfusion with appropriate response. Current hgb stable. Continue to monitor. (2) Pneumonia: Fever in patient being actively treated with antibiotic therapy for MRSA bacteremia and evidence of discitis/osteomyelitis. CT imaging was obtained and showed evidence of likely infiltrate, R>L, along with a small to moderate sized pleural effusion on the right (previously noted to be large at outside hospital) . Patient underwent instrumentation at outside institution with a reported thoracentesis without chest tube placement. Following discussion with ID Cefepime was discontinued, and patient was maintained on Ceftaroline and Levofloxacin, now day #4. He will be discharged with 3 additional days of this. However, current imaging with MRI shows possible abscess in the right lung. Images were sent to [facility] for review, and pending results will determine whether patient needs further intervention with drainage vs. more invasive procedure. He currently has negative blood cultures X72 hours, has remained afebrile for approximately 60 hours, and is hemodynamically stable. Per discussion with Dr. Daphne Waite from [facility] ID, patient will be discharged home, MRI imaging will be reviewed at [facility], and pending outcome patient will be called at home with plans to proceed forward electively. Mr. Boss's phone number on file was confirmed with ID and with the patient himself. This was discussed with patient - recommendation for return to ED if worsening symptoms following discharge, and to call ID offices at [facility] if he did not hear from them over the next 3-5 days. (3) Osteomyelitis: Thoracolumbar Osteomyelitis and Discitis, with questionable abscess formation close to infection site. Patient remains on IV Ceftaroline for coverage of MRSA bacteremia that prompted work-up. Also, please note appearance of abnormal sternoclavicular joints bilaterally (L>R) as per CT read, which may represent DJD, infection, or inflammation. MRI appears to show changes on the basis of Degenerative changes - also noted to have an Osteochondroma. (4) HTN (hypertension): Continue BB and CCB upon discharge. (5) HLD (hyperlipidemia): Currently on statin therapy. Home Meds and New Rx's Prescriptions: New acidophilus-pectin, citrus 25 million cell -100 mg Tablet 1 cap PO TID Qty: 90 RF: 0 levofloxacin 750 mg tablet 750 mg PO DAILY Qty: 4 RF: 0 Continue lovastatin 20 MG tablet 1 tab PO DAILY RF: 0 bupropion HCl 150 MG tablet extended release 24 hr 1 tab PO BID RF: 0 aspirin [Aspir-81] 81 MG tablet,delayed release (DR/EC) 81 mg PO DAILY RF: 0 multivitamin 1 EACH capsule 1 tab PO DAILY RF: 0 docusate sodium [Colace] 100 mg capsule 100 mg PO DAILY Qty: 90 RF: 0 pantoprazole [Protonix] 40 mg tablet,delayed release (DR/EC) 40 mg PO BID Qty: 60 RF: 0 lidocaine [Lidoderm] 5 % adhesive patch,medicated 1 patch TP DAILY Qty: 15 RF: 0 carvedilol 12.5 mg Tablet 12.5 mg PO BID RF: 0 amlodipine 10 mg Tablet 10 mg PO DAILY RF: 0 ceftaroline fosamil 400 mg Recon Soln 600 mg IV Q12H RF: 0 Discharge Instructions Additional Instructions: Infectious Disease Department should be calling you with information on the possible abscess/abnormal finding in your lung. If you have not heard from them in 3-5 days please call their office. Stand Alone Forms: Nursing Discharge Form Referrals: Katharina Hernandez MD [Primary Care Provider] - 02/07/18 12:45 pm Activity:: No Strenuous Activity Equipment/Supplies:: No Equipment Needed Diet:: Heart Healthy Discharge Orders Discharge Orders: Discharge Order (Routine); Ordered 02/01/18 Ordered By: Stu Du DS: Data Vitals/I&O Vitals and I&O: Vital Signs Temperature 37.2 C 02/01/18 07:30 Temperature Source Tympanic 02/01/18 07:30 Pulse 78 02/01/18 07:30 Pulse Rhythm Regular 02/01/18 07:30 Pulse 94 H 01/28/18 19:20 Respiratory Rate 18 02/01/18 07:30 Respiratory Effort Non-Labored 02/01/18 07:30 Respiratory Depth Normal 02/01/18 07:30 Respiratory Pattern Normal 02/01/18 07:30 Blood Pressure 138/95 H 02/01/18 07:30 Blood Pressure Mean 89 01/28/18 19:16 Blood Pressure Position Supine 01/28/18 15:13 Pulse Oximetry 94 L 02/01/18 07:30 Respiratory End-tidal CO2 35 01/29/18 13:00 Oxygen Delivery Method Room Air 02/01/18 07:30 Oxygen Flow Rate 0 02/01/18 07:30 Pain Level 0 02/01/18 07:55 Intake & Output 01/31/18 02/01/18 02/01/18 23:59 11:59 23:59 Intake Total 1190 / 1190 860 / 860 Output Total 1150 / 1150 2150 / 2150 Balance 40 / 40 -1290 / -1290 Weight 92.8 kg Intake: IV 160 / 160 Oral 1030 / 1030 860 / 860 Output: Urine 1150 / 1150 2150 / 2150 Other: Urine Color Pale Yellow Yellow Urine Appearance Clear Clear Urine Odor Normal Normal Comment Void x1 in the urinal. Voiding Methods Urinal Urinal Completed studies during hospitalization [Text1]: Exam(s) a RAD:XR portable chest AP SYMPTOMS/DIAGNOSIS: ANEMIA, ? ACUTE DISEASE CHEST X-RAY, SINGLE AP VIEW: Comparison is 01/17/18. The heart size and pulmonary vasculature are stable and within normal limits. The patient has a PICC line, the tip is seen in good position in the superior vena cava. The left lung is clear. There is blunting of the right costophrenic angle, suggesting a small right pleural effusion. There is a right basilar infiltrate, which may represent atelectasis or pneumonia. IMPRESSION: Right basilar infiltrate, which may represent atelectasis or pneumonia. Small right pleural effusion. Exam(s) a CT:CT chest wo SYMPTOM/DIAGNOSIS: RT PLEURAL EFFUSION, ATELECTASIS VS PNEUMONIA, H/O HEMOPTYSIS CHEST CT: A noncontrast CT scan of the chest was performed. Comparison examination is . Lack of contrast does limit evaluation. Findings: There is mild atherosclerosis of the thoracic aorta. The thoracic aorta is normal in caliber. Heart size is within normal limits. No significant pericardial effusion is seen. Coronary artery calcifications are present. There are mildly enlarged lymph nodes seen in the subcarinal region and right hilum. The largest measures 1.4 cm. No significant axillary adenopathy is present. In the left hemithorax, there are linear opacities seen in the left upper lobe and dependent infiltrate seen in the left lower lobe. No left pleural effusion is seen. No pneumothorax is identified on the left. On the right, areas of consolidation are seen in the right upper lobe, right middle and right lower lobe. There is a small to moderate sized right pleural effusion present. No pneumothorax is identified. Upper abdominal images show no acute abnormality. Degenerative changes are seen in the spine. The sternoclavicular joints appear somewhat irregular with a question of erosive changes of the cortices seen particularly at left sternoclavicular joint. Dystrophic calcifications and soft tissue thickening is seen adjacent to the left sternoclavicular joint. IMPRESSION: 1. Small to moderate sized right pleural effusion. 2. Bilateral pulmonary infiltrates, right greater than left. Pneumonia is suspected. 3. Abnormal appearance to the sternoclavicular joints, left greater than right. While this may represent degenerative change, infection or inflammation cannot be excluded. Please correlate clinically. Labs on day of discharge: Labs from last 24 hours 02/01/18 02/01/18 07:00 07:00 WBC 8.30 RBC 3.18 L Hgb 9.4 L Hct 28.7 L MCV 90.3 MCH 29.6 MCHC 32.8 RDW 13.8 Plt Count 378 MPV 9.2 Immature Gran % 0.4 Neutrophils % 76.1 Lymphocytes % 13.5 Monocytes % 6.4 Eosinophils % 3.4 Basophils % 0.2 Absolute Neutrophils 6.32 Absolute Lymphocytes 1.12 L Absolute Monocytes 0.53 Absolute Eosinophils 0.28 Absolute Basophils 0.02 Sodium 135 L Potassium 4.3 Chloride 98 Carbon Dioxide 26.4 Anion Gap 10.6 BUN 19 H Creatinine 1.16 Estimated GFR/1.73 m2 >= 60.00 Glucose 98 Calcium 9.4 Total Bilirubin 0.5 AST 31 ALT 64 Alkaline Phosphatase 189 H Total Protein 7.5 Albumin 2.2 L Preliminary micro results at discharge 01/28/18 18:00 Blood Culture - Preliminary Blood NO GROWTH 72 HOURS 01/28/18 17:35 Blood Culture - Preliminary Blood NO GROWTH 72 HOURS
--- NOTE | 2018-02-01 14:54 | PDOC.CMDIS ---
- If Service Date Differs Date of service: 02/01/18 Time of Service: 14:54 LACE Index Scoring Tool - Questions: Length of Stay (in days): 4 - 6 Acuity (Admit via E.D.?): Yes E.D. Visits: 5 - Answers: Total Score: 11 Risk of Readmission: High Risk Care Management Discharge Reason for Hospitalization: Anemia, fever, MRSA bacteriemia Discharge Plan: Brendan will be discharged home today with his spouse. He will resume services through home health, nursing, PT and OT CM contacted [facility] to notify of discharge. CM contacted home health and [facility]ed [facility] and home health. Brendan will follow up with pcp on 02/07/18, and [facility] 02/13/18. Patient/Family Education Needs: Discharge education, limitations and follow up plan of care. Services Needed at Discharge: DME Agency, Home Health Care Services, Infusion Therapy
--- NOTE | 2018-02-01 15:18 | CMDISCH_ITS ---
- If Service Date Differs Date of service: 02/01/18 Time of Service: 14:54 LACE Index Scoring Tool - Questions: Length of Stay (in days): 4 - 6 Acuity (Admit via E.D.?): Yes E.D. Visits: 5 - Answers: Total Score: 11 Risk of Readmission: High Risk Care Management Discharge Reason for Hospitalization: Anemia, fever, MRSA bacteriemia Discharge Plan: Brendan will be discharged home today with his spouse. He will resume services through home health, nursing, PT and OT CM contacted [facility] to notify of discharge. CM contacted home health and faxed orders to both [facility] and home health. Brendan will follow up with pcp on 02/07/18, and [facility] 02/13[place]18. Patient/Family Education Needs: Discharge education, limitations and follow up plan of care. Services Needed at Discharge: DME Agency, Home Health Care Services, Infusion Therapy
== END 2018-02-01 14:50 | disposition home health service (06) | DRG 177 ==
LOC: ER 18:26 → MS 01-29 10:19
PROVIDERS: Surgery; Admitting Provider Internal Medicine; Emergency Provider Physician Assistant; PCP Family Medicine; Visit Provider Internal Medicine
PROC: 0DJ68ZZ Inspection of Stomach, Via Natural or Artificial Opening Endoscopic (ICD-10-PCS; CPT 43235; principal; 2018-01-29 13:45)
DX: J85.1 Abscess of lung with pneumonia (principal); G06.1 Intraspinal abscess and granuloma; M46.25 Osteomyelitis of vertebra, thoracolumbar region; R78.81 Bacteremia; J90 Pleural effusion, not elsewhere classified; R50.9 Fever, unspecified; M46.45 Discitis, unspecified, thoracolumbar region; D63.8 Anemia in other chronic diseases classified elsewhere; B95.62 Methicillin resistant Staphylococcus aureus infection as the cause of diseases classified elsewhere; I10 Essential (primary) hypertension; E78.5 Hyperlipidemia, unspecified; M19.012 Primary osteoarthritis, left shoulder; M19.011 Primary osteoarthritis, right shoulder; K29.50 Unspecified chronic gastritis without bleeding; E87.6 Hypokalemia; E83.42 Hypomagnesemia; R31.21 Asymptomatic microscopic hematuria; K21.9 Gastro-esophageal reflux disease without esophagitis; F32.9 Major depressive disorder, single episode, unspecified; Z79.2 Long term (current) use of antibiotics
CPT/HCPCS: 43235; 36415; 36430; 36592; 71250; 71552; 72141; 72146; 72148; 80048; 80053; 80076; 83690; 86850; 86900; 86901; 86920; 87040; 93005; 99223; 99233; 99239; 99252; 99285; 71045; 71550; 81003; 81015; 82607; 82728; 82746; 83540; 83550; 83605; 83735; 84484; 85014; 85018; 85025; 86140; 93010; G0378; J1644; J1956; J2060; J2405; J3475; J3480; J3490; P9016

== ENCOUNTER 2018-02-04 13:45 | Outpatient (REF) | payer MEDICAID, SELFPAY ==
[2018-02-04 14:43] LABS: Abs Immature Grans 0.04 k/cumm (0.0-0.09); Absolute Basophil Count 0.02 k/cumm (0.0-0.2); Absolute Eosinophil Count 0.67 k/cumm (0.0-0.7); Absolute Lymphocyte Count 1.12 k/cumm (1.2-3.4); Absolute Monocyte Count 0.71 k/cumm (0.11-0.7); Absolute Neutrophil Count 6.51 k/cumm (1.2-6.7); Basophils % 0.2; Eosinophils % 7.4; HCT 29.3 % (40.0-50.0); HGB 9.3 g/dL (13.5-17.5); Immature Grans % 0.4; Lymphocytes % 12.3; Mean Corp. HGB Concentration 31.7 g/dL (32.0-36.0); Mean Corpuscular Hemoglobin 29.2 pg (27.0-33.0); Mean Corpuscular Volume 92.1 fL (80-95); Mean Platelet Volume 9.8 fL (8.0-11.0); Monocytes % 7.8; Neutrophils % 71.9; Platelet Count 354 x1000/uL (130-400); RBC 3.18 m/cumm (4.50-6.00); RBC Distribution Width 13.9 % (11.8-14.1); White Blood Cell Count 9.07 k/cumm (4.4-10.8)
[2018-02-04 14:51] LABS: ALT 78 U/L (12-78); AST 36 U/L (15-37); Albumin 2.6 g/dL (3.4-5.0); Alkaline Phosphatase 188 U/L (46-116); Anion Gap 9.5 mmol/L (3-11); BUN 23 mg/dL (7-18); Bilirubin, Total 0.3 mg/dL (0.2-1.0); C-Reactive Protein 3.16 mg/dL (0.0-0.3); CO2 25.5 mmol/L (21.0-32.0); Calcium 8.7 mg/dL (8.5-10.1); Chloride 99 mmol/L (98-107); Estimated GFR 57.97 (mL/min/1.73m2); Glucose 99 mg/dL (70-100); Potassium 4.2 mmol/L (3.5-5.1); Sodium 134 mmol/L (136-145); Total Protein 7.3 g/dL (6.4-8.2)
== END 2018-02-04 14:05 ==
LOC: NCHCN 13:45
PROVIDERS: PCP Family Medicine; Visit Provider Family Medicine
DX: R50.9 Fever, unspecified (principal); D64.9 Anemia, unspecified; I10 Essential (primary) hypertension; M86.9 Osteomyelitis, unspecified
CPT/HCPCS: 80053; 85025; 86140

== ENCOUNTER 2018-02-11 13:45 | Outpatient (REF) | payer MEDICAID, SELFPAY ==
[2018-02-11 14:24] LABS: Abs Immature Grans 0.05 k/cumm (0.0-0.09); Absolute Basophil Count 0.06 k/cumm (0.0-0.2); Absolute Eosinophil Count 0.84 k/cumm (0.0-0.7); Absolute Lymphocyte Count 1.37 k/cumm (1.2-3.4); Absolute Monocyte Count 0.75 k/cumm (0.11-0.7); Absolute Neutrophil Count 5.58 k/cumm (1.2-6.7); Basophils % 0.7; Eosinophils % 9.7; HCT 27.7 % (40.0-50.0); HGB 8.8 g/dL (13.5-17.5); Immature Grans % 0.6; Lymphocytes % 15.8; Mean Corp. HGB Concentration 31.8 g/dL (32.0-36.0); Mean Corpuscular Hemoglobin 29.3 pg (27.0-33.0); Mean Corpuscular Volume 92.3 fL (80-95); Mean Platelet Volume 9.6 fL (8.0-11.0); Monocytes % 8.7; Neutrophils % 64.5; Platelet Count 377 x1000/uL (130-400); RBC Distribution Width 13.6 % (11.8-14.1); White Blood Cell Count 8.65 k/cumm (4.4-10.8)
[2018-02-11 14:37] LABS: ALT 45 U/L (12-78); AST 19 U/L (15-37); Albumin 2.6 g/dL (3.4-5.0); Alkaline Phosphatase 148 U/L (46-116); Anion Gap 8.1 mmol/L (3-11); BUN 15 mg/dL (7-18); Bilirubin, Total 0.2 mg/dL (0.2-1.0); C-Reactive Protein 2.55 mg/dL (0.0-0.3); CO2 28.9 mmol/L (21.0-32.0); CREATININE 0.99 mg/dL (0.70-1.30); Chloride 99 mmol/L (98-107); Glucose 96 mg/dL (70-100); Potassium 4.2 mmol/L (3.5-5.1); Sodium 136 mmol/L (136-145); Total Protein 6.7 g/dL (6.4-8.2)
[2018-02-11 15:09] LABS: Basophilic Stippling Present; Polychromasia Present
== END 2018-02-11 14:05 ==
LOC: NCHCN 13:45
PROVIDERS: PCP Family Medicine; Visit Provider Family Medicine
DX: R78.81 Bacteremia (principal); N17.9 Acute kidney failure, unspecified
CPT/HCPCS: 80053; 85025; 86140

== ENCOUNTER 2018-02-18 15:11 | Outpatient (REF) | payer MEDICAID, SELFPAY ==
[2018-02-18 16:09] LABS: Abs Immature Grans 0.02 k/cumm (0.0-0.09); Absolute Basophil Count 0.02 k/cumm (0.0-0.2); Absolute Eosinophil Count 0.98 k/cumm (0.0-0.7); Absolute Lymphocyte Count 1.29 k/cumm (1.2-3.4); Absolute Monocyte Count 0.97 k/cumm (0.11-0.7); Absolute Neutrophil Count 4.55 k/cumm (1.2-6.7); Basophils % 0.3; Eosinophils % 12.5; HCT 28.3 % (40.0-50.0); HGB 8.9 g/dL (13.5-17.5); Immature Grans % 0.3; Lymphocytes % 16.5; Mean Corp. HGB Concentration 31.4 g/dL (32.0-36.0); Mean Corpuscular Volume 92.2 fL (80-95); Mean Platelet Volume 9.8 fL (8.0-11.0); Monocytes % 12.4; Platelet Count 340 x1000/uL (130-400); RBC 3.07 m/cumm (4.50-6.00); RBC Distribution Width 13.7 % (11.8-14.1); White Blood Cell Count 7.83 k/cumm (4.4-10.8)
[2018-02-18 17:18] LABS: ALT 31 U/L (12-78); AST 17 U/L (15-37); Albumin 2.9 g/dL (3.4-5.0); Alkaline Phosphatase 128 U/L (46-116); Anion Gap 7.9 mmol/L (3-11); BUN 15 mg/dL (7-18); Bilirubin, Total 0.2 mg/dL (0.2-1.0); CO2 29.1 mmol/L (21.0-32.0); Calcium 9.2 mg/dL (8.5-10.1); Chloride 101 mmol/L (98-107); Glucose 92 mg/dL (70-100); Potassium 4.4 mmol/L (3.5-5.1); Sodium 138 mmol/L (136-145); Total Protein 6.9 g/dL (6.4-8.2)
== END 2018-02-18 15:31 ==
LOC: NCHCN 15:11
PROVIDERS: PCP Family Medicine; Visit Provider Family Medicine
DX: M46.25 Osteomyelitis of vertebra, thoracolumbar region (principal); R78.81 Bacteremia
CPT/HCPCS: 80053; 85025; 86140

== ENCOUNTER 2018-02-25 17:12 | Outpatient (REF) | payer MEDICAID, SELFPAY ==
[2018-02-25 17:25] LABS: Abs Immature Grans 0.02 k/cumm (0.0-0.09); Absolute Basophil Count 0.04 k/cumm (0.0-0.2); Basophils % 0.6; HCT 29.3 % (40.0-50.0); HGB 9.2 g/dL (13.5-17.5); Immature Grans % 0.3; Mean Corp. HGB Concentration 31.4 g/dL (32.0-36.0); Mean Corpuscular Hemoglobin 28.7 pg (27.0-33.0); Mean Corpuscular Volume 91.3 fL (80-95); Mean Platelet Volume 9.9 fL (8.0-11.0); Platelet Count 397 x1000/uL (130-400); RBC 3.21 m/cumm (4.50-6.00); RBC Distribution Width 13.8 % (11.8-14.1); White Blood Cell Count 6.82 k/cumm (4.4-10.8)
[2018-02-25 18:13] LABS: ALT 33 U/L (12-78); AST 18 U/L (15-37); Alkaline Phosphatase 116 U/L (46-116); Anion Gap 9.9 mmol/L (3-11); BUN 12 mg/dL (7-18); Bilirubin, Total 0.2 mg/dL (0.2-1.0); C-Reactive Protein 1.66 mg/dL (0.0-0.3); CO2 27.1 mmol/L (21.0-32.0); CREATININE 1.03 mg/dL (0.70-1.30); Chloride 101 mmol/L (98-107); Glucose 120 mg/dL (70-100); Sodium 138 mmol/L (136-145)
[2018-02-25 18:52] LABS: ESR 49 MM/HR (1-20)
[2018-02-25 19:04] LABS: Absolute Neutrophil Count 3.41 k/cumm (1.2-6.7)
[2018-02-25 19:05] LABS: Absolute Eosinophil Count 1.43 k/cumm (0.0-0.7); Absolute Lymphocyte Count 1.43 k/cumm (1.2-3.4); Absolute Monocyte Count 0.55 k/cumm (0.11-0.7); Atypical Lymphocytes % 0; Diff Comment Manual Differential
[2018-02-25 19:06] LABS: Basophilic Stippling Present
== END 2018-02-25 17:32 ==
LOC: NCHCN 17:12
PROVIDERS: PCP Family Medicine; Visit Provider Family Medicine
DX: G06.2 Extradural and subdural abscess, unspecified (principal); J18.9 Pneumonia, unspecified organism
CPT/HCPCS: 80053; 85652; 85025; 86140

== ENCOUNTER 2018-03-04 12:21 | Outpatient (CLI) | payer MEDICAID, SELFPAY ==
[2018-03-04 13:05] LABS: Abs Immature Grans 0.05 k/cumm (0.0-0.09); Absolute Basophil Count 0.03 k/cumm (0.0-0.2); Absolute Eosinophil Count 2.63 k/cumm (0.0-0.7); Absolute Lymphocyte Count 1.39 k/cumm (1.2-3.4); Absolute Monocyte Count 0.99 k/cumm (0.11-0.7); Absolute Neutrophil Count 2.92 k/cumm (1.2-6.7); Basophils % 0.4; Eosinophils % 32.8; HGB 9.9 g/dL (13.5-17.5); Immature Grans % 0.6; Lymphocytes % 17.4; Mean Corp. HGB Concentration 31.9 g/dL (32.0-36.0); Mean Corpuscular Hemoglobin 29.3 pg (27.0-33.0); Mean Corpuscular Volume 91.7 fL (80-95); Mean Platelet Volume 9.7 fL (8.0-11.0); Monocytes % 12.4; Neutrophils % 36.4; Platelet Count 338 x1000/uL (130-400); RBC 3.38 m/cumm (4.50-6.00); RBC Distribution Width 14.3 % (11.8-14.1); White Blood Cell Count 8.01 k/cumm (4.4-10.8)
[2018-03-04 13:51] LABS: ALT 25 U/L (12-78); AST 17 U/L (15-37); Albumin 3.2 g/dL (3.4-5.0); Alkaline Phosphatase 106 U/L (46-116); Anion Gap 11.6 mmol/L (3-11); BUN 13 mg/dL (7-18); Bilirubin, Total 0.3 mg/dL (0.2-1.0); C-Reactive Protein 0.81 mg/dL (0.0-0.3); CO2 27.4 mmol/L (21.0-32.0); CREATININE 0.98 mg/dL (0.70-1.30); Calcium 9.1 mg/dL (8.5-10.1); Chloride 103 mmol/L (98-107); Glucose 110 mg/dL (70-100); Potassium 4.1 mmol/L (3.5-5.1); Sodium 142 mmol/L (136-145); Total Protein 6.8 g/dL (6.4-8.2)
== END 2018-03-04 12:41 ==
PROVIDERS: PCP Family Medicine; Visit Provider Family Medicine
DX: G06.2 Extradural and subdural abscess, unspecified (principal); J18.9 Pneumonia, unspecified organism; B95.61 Methicillin susceptible Staphylococcus aureus infection as the cause of diseases classified elsewhere; Z45.2 Encounter for adjustment and management of vascular access device
CPT/HCPCS: 36415; 80053; 85025; 86140

== ENCOUNTER 2018-03-23 22:53 | Emergency (ER) | payer MEDICAID, SELFPAY ==
[2018-03-23 23:00] VITALS: BP 140/84; PULSE 79; RESP 20; TEMP 37.3; O2SAT 96
[2018-03-23 23:02] VITALS: PULSE 80; RESP 17; O2SAT 98
--- NOTE | 2018-03-23 23:03 | DI.CT_ITS ---
SYMPTOMS/DIAGNOSIS: PAIN AND SWELLING AT LEFT STERNOCLAVICULAR JOINT CHEST CT: CT examination of the chest was performed without contrast administration. The patient reportedly has pain and swelling at the left sternoclavicular joint. There is markedly increased prominence of the soft tissues adjacent to the left sternoclavicular joint. There is significant deformity of the adjacent bones at the SC joint with cortical loss at multiple sites. Right sternoclavicular joint also shows significant cortical loss of the bones. Recent MRI of 01/30/18 showed bilateral fluid collections adjacent to the SC joints with abnormal signal in bone marrow of both clavicles medially. Findings on today's examination are consistent with infectious or other inflammatory process involving the sternoclavicular joint on the left and perhaps also on the right. Fat edema in this area supports the diagnosis of infectious process. Please correlate clinically. The results of this examination were discussed with Dr. Prosper Ventura of the Emergency Department on 03/25/18.
[2018-03-23 23:11] LABS: HCT 32.9 % (40.0-50.0); HGB 10.8 g/dL (13.5-17.5); Mean Corp. HGB Concentration 32.8 g/dL (32.0-36.0); Mean Corpuscular Hemoglobin 29.8 pg (27.0-33.0); Mean Corpuscular Volume 90.6 fL (80-95); Platelet Count 255 x1000/uL (130-400); RBC 3.63 m/cumm (4.50-6.00); RBC Distribution Width 14.1 % (11.8-14.1)
--- NOTE | 2018-03-23 23:12 | W.ED.GENAD ---
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, History of sepsis Primary Care Provider: Katharina Hernandez V ED Provider: Dar Person Home Meds and New Rx's Prescriptions: No Action lovastatin 20 MG tablet 1 tab PO DAILY RF: 0 bupropion HCl 150 MG tablet extended release 24 hr 1 tab PO BID RF: 0 aspirin [Aspir-81] 81 MG tablet,delayed release (DR/EC) 81 mg PO DAILY RF: 0 multivitamin 1 EACH capsule 1 tab PO DAILY RF: 0 docusate sodium [Colace] 100 mg capsule 100 mg PO DAILY Qty: 90 RF: 0 pantoprazole [Protonix] 40 mg tablet,delayed release (DR/EC) 40 mg PO BID Qty: 60 RF: 0 lidocaine [Lidoderm] 5 % adhesive patch,medicated 1 patch TP DAILY Qty: 15 RF: 0 carvedilol 12.5 mg Tablet 12.5 mg PO BID RF: 0 amlodipine 10 mg Tablet 10 mg PO DAILY RF: 0 ceftaroline fosamil 400 mg Recon Soln 600 mg IV Q12H RF: 0 acidophilus-pectin, citrus 25 million cell -100 mg Tablet 1 cap PO TID Qty: 90 RF: 0 levofloxacin 750 mg tablet 750 mg PO DAILY Qty: 4 RF: 0 Discharge Instructions Additional Instructions: Your cat scan did not show any changes to your clavicle joint compared to the old cat scan and you had no pneumonia or other concerning findigns on this CT tonight IF you develop fevers or severe worsening of pain return to the emergency department Follow up with your primary care provider within 1-2 weeks Medical Decision Making PT comes in with chief complaint of swelling at his SC joint on the left. He has had recent complicated past few months summarized in recent h and p's, but earlier this year had MRSA bacteremia. thoracolumbar discitis and abscess, Echo requiring temporary dialsysis, and sc joint infection requring 2 months of ceftaroline and was cleared by ID per their office note on 03/12 comes in with cc of swelling at the left sc joint with no known injury. He denies fevers or pain or other systemic symptoms. HE has chronic weakness in the left arm that is unchanged. HE does have some mild swelling without warmth or fluctuance. Will order imaging to eval for possible dislocation vs infection and obtain screening labs including cbc/crp pt's labs are unremarkable, crp is elevated but was [address] [facility] earlier this month. CT shows no acute findings, has chronic djd of the left SC joint withuot evidence of acute changes comapred to ct in December. Do not feel he requires abx at this time and he is in agreement, I did recommend observation admission but he declined this at this time given lack of fevers. HE has capacity to make his own decisions and understands risks including becoming disabled and developing sepsis. HE understands to return immediately if he develops severe pain or fevers. I will draw a set of blood cultures prior to d/c in case this is his initial presentation or having another infection Differential Diagnosis sprain, strain, infection, abscess Medical Records Medical records reviewed: Yes I reviewed the patient's medical records. Imaging Data Radiologic Study: Attestation: I personally reviewed and interpreted this imaging study as follows: Imaging: CT Scan Radiologist's impression: no acute findings Lab Data Lab results reviewed: Yes I reviewed the patient's lab results. HPI General Mode of arrival: ambulatory. Date/Time Provider Initiated Documentation: 03/23/18 22:53. Limitations to Documentation: no limitations. Information obtained by: patient. History of Present Illness 52 year old M presents to the emergency department with the chief complaint of left sternoclavicular joint swelling, described as mild, with intensity rated at 3. and is localized to the chest. Patient reports no radiation. Patient started experiencing this day(s) (3) and it has been constant. No relieving factors improve symptom(s), No exacerbating factors reported . Patient notes no other symptoms.. Related Data Home Medications Medication Instructions Recorded Confirmed lovastatin 1 tab PO DAILY 05/15/13 01/28/18 aspirin [Aspir-81] 81 mg PO DAILY 01/15/16 01/28/18 bupropion HCl 1 tab PO BID 01/15/16 01/28/18 multivitamin 1 tab PO DAILY 01/15/16 01/28/18 docusate sodium [Colace] 100 mg PO DAILY #90 cap 12/24/17 01/28/18 pantoprazole [Protonix] 40 mg PO BID #60 tab 12/24/17 01/28/18 amlodipine 10 mg PO DAILY 01/17/18 01/28/18 carvedilol 12.5 mg PO BID 01/17/18 01/28/18 ceftaroline fosamil 600 mg IV Q12H 01/17/18 01/28/18 lidocaine [Lidoderm] 1 patch TP DAILY #15 each 01/17/18 01/28/18 acidophilus-pectin, citrus 1 cap PO TID #90 tab 02/01/18 levofloxacin 750 mg PO DAILY #4 tab 02/01/18 Previous Rx's Medication Instructions Recorded docusate sodium [Colace] 100 mg PO DAILY #90 cap 12/24/17 pantoprazole [Protonix] 40 mg PO BID #60 tab 12/24/17 lidocaine [Lidoderm] 1 patch TP DAILY #15 each 01/17/18 acidophilus-pectin, citrus 1 cap PO TID #90 tab 02/01/18 levofloxacin 750 mg PO DAILY #4 tab 02/01/18 Allergies Allergy/AdvReac Type Severity Reaction Status Date / Time No Known Allergies Allergy Unverified 01/28/18 15:16 General Stated Complaint: GenMedical ELFEGO: 2 Review of Systems Review of Systems All systems reviewed & are unremarkable except as noted in HPI and below Constitutional Denies chills, Denies fever(s) and Denies weakness ENT Denies change in voice Cardiovascular Denies chest pain and Denies dyspnea Respiratory Denies dyspnea Gastrointestinal Denies abdominal pain, Denies nausea and Denies vomiting Musculoskeletal Denies joint swelling Neurologic Denies weakness Psychiatric Denies depression Endocrine Denies heat intolerance Allergic/Immunologic Denies urticaria [facility] Medical History Antral gastritis (Chronic ~12/2016) Discitis of multiple sites of spine (Acute ~12/31/17) Umbilical hernia (Chronic) GERD (gastroesophageal reflux disease) (Chronic) Depression (Chronic) HLD (hyperlipidemia) (Chronic) HTN (hypertension) (Chronic) Bacteremia due to methicillin resistant Staphylococcus aureus (Acute ~12/29/17) Spinal stenosis of lumbar region with radiculopathy (Chronic ~12/2017) Acute kidney injury (Resolved ~12/29/17) Hyponatremia (Resolved) Depression Essential hypertension GERD (gastroesophageal reflux disease) Hyperlipidemia Obesity (BMI 30-39.9) Surgical History History of esophagogastroduodenoscopy (EGD) (Acute 01/29/18) Colonoscopy - MAC (12/06/16) EGD - MAC (12/06/16) Repair of umbilical hernia (12/20/16) Family History Other Diabetes Heart disease Myocardial infarction Neoplasm Stroke Social History Smoking/Tobacco Use Status: Never alcohol intake: former additional social history: 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 He quit alcohol at age 19. Exam Const General: no acute distress Orientation: alert HENMT Head: normal to inspection Ears: external ears normal General nose exam: external nose normal Mouth: moist mucous membranes Eyes General: appearance normal, both eyes and all related structures Neck Neck: normal visual inspection Resp Effort & Inspection: normal respiratory effort and able to speak in complete sentences Cardio Rate: regular rate Skin General skin exam: no rashes or lesions noted Neuro General: alert and oriented x3 Extrem General: normal capillary refill Psych Mental Status: mental status grossly normal Course Vital Signs Temperature 37.3 C 03/23/18 23:00 Pulse 79 03/23/18 23:00 Respiratory Rate 20 03/23/18 23:00 Blood Pressure 140/84 03/23/18 23:00 Pulse Oximetry 96 03/23/18 23:00 Temperature 37.3 C 03/23/18 23:00 Temperature Source Temporal Artery Scan 03/23/18 23:00 Pulse 79 03/23/18 23:00 Respiratory Rate 20 03/23/18 23:00 Respiratory Effort Non-Labored 03/23/18 23:03 Blood Pressure 140/84 03/23/18 23:00 Blood Pressure Position Supine 03/23/18 23:00 Pulse Oximetry 96 03/23/18 23:00 Oxygen Delivery Method Room Air 03/23/18 23:00 Oxygen Flow Rate 0 03/23/18 23:00 Pain Level 4 03/23/18 23:00 Lab/Test Results Lab/Test Results: Laboratory Tests Range/Units 03/23/18 23:00 WBC (4.4-10.8) k/cumm 8.80 RBC (4.50-6.00) m/cumm 3.63 L Hgb (13.5-17.5) g/dL 10.8 L Hct (40.0-50.0) % 32.9 L MCV (80-95) fL 90.6 MCH (27.0-33.0) pg 29.8 MCHC (32.0-36.0) g/dL 32.8 RDW (11.8-14.1) % 14.1 Plt Count (130-400) x1000/uL 255 MPV (8.0-11.0) fL 10.0
--- NOTE | 2018-03-23 23:15 | ED.GENADUL_ITS ---
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, History of sepsis Primary Care Provider: Katharina Hernandez V ED Provider: Dar Person Home Meds and New Rx's Prescriptions: No Action lovastatin 20 MG tablet 1 tab PO DAILY RF: 0 bupropion HCl 150 MG tablet extended release 24 hr 1 tab PO BID RF: 0 aspirin [Aspir-81] 81 MG tablet,delayed release (DR/EC) 81 mg PO DAILY RF: 0 multivitamin 1 EACH capsule 1 tab PO DAILY RF: 0 docusate sodium [Colace] 100 mg capsule 100 mg PO DAILY Qty: 90 RF: 0 pantoprazole [Protonix] 40 mg tablet,delayed release (DR/EC) 40 mg PO BID Qty: 60 RF: 0 lidocaine [Lidoderm] 5 % adhesive patch,medicated 1 patch TP DAILY Qty: 15 RF: 0 carvedilol 12.5 mg Tablet 12.5 mg PO BID RF: 0 amlodipine 10 mg Tablet 10 mg PO DAILY RF: 0 ceftaroline fosamil 400 mg Recon Soln 600 mg IV Q12H RF: 0 acidophilus-pectin, citrus 25 million cell -100 mg Tablet 1 cap PO TID Qty: 90 RF: 0 levofloxacin 750 mg tablet 750 mg PO DAILY Qty: 4 RF: 0 Discharge Instructions Additional Instructions: Your cat scan did not show any changes to your clavicle joint compared to the old cat scan and you had no pneumonia or other concerning findigns on this CT tonight IF you develop fevers or severe worsening of pain return to the emergency department Follow up with your primary care provider within 1-2 weeks Medical Decision Making PT comes in with chief complaint of swelling at his SC joint on the left. He has had recent complicated past few months summarized in recent h and p's, but earlier this year had MRSA bacteremia. thoracolumbar discitis and abscess, Echo requiring temporary dialsysis, and sc joint infection requring 2 months of ceftaroline and was cleared by ID per their office note on 03/12 comes in with c c of swelling at the left sc joint with no known injury. He denies fevers or pain or other systemic symptoms. HE has chronic weakness in the left arm that is unchanged. HE does have some mild swelling without warmth or fluctuance. Will order imaging to eval for possible dislocation vs infection and obtain screening labs including cbc/crp pt's labs are unremarkable, crp is elevated but was 8 [place] [facility] [place] shows no acute findings, has chronic djd of the left SC joint withuot evidence of acute changes comapred to ct in December. Do not feel he requires abx at this time and he is in agreement, I did recommend observation admission but he declined this at this time given lack of fevers. HE has capacity to make his own decisions and understands risks including becoming disabled and developing sepsis. HE understands to return immediately if he develops severe pain or fevers. I will draw a set of blood cultures prior to d/c in case this is his initial presentation or having another infection Differential Diagnosis sprain, strain, infection, abscess Medical Records Medical records reviewed: Yes I reviewed the patient's medical records. Imaging Data Radiologic Study: Attestation: I personally reviewed and interpreted this imaging study as follows: Imaging: CT Scan Radiologist's impression: no acute findings Lab Data Lab results reviewed: Yes I reviewed the patient's lab results. HPI General Mode of arrival: ambulatory . Date/Time Provider Initiated Documentation: 03/23/18 22:53 . Limitations to Documentation: no limitations . Information obtained by: patient . History of Present Illness 52 year old M presents to the emergency department with the chief complaint of left sternoclavicular joint swelling, described as mild, with intensity rated at 3. and is localized to the chest. Patient reports no radiation. Patient started experiencing this day(s) (3) and it has been constant. No relieving factors improve symptom(s), No exacerbating factors reported . Patient notes no other symptoms.. Related Data Home Medications Medication Instructions Recorded Confirmed lovastatin 1 tab PO DAILY 05/15/13 01/28/18 aspirin [Aspir-81] 81 mg PO DAILY 01/15/16 01/28/18 bupropion HCl 1 tab PO BID 01/15/16 01/28/18 multivitamin 1 tab PO DAILY 01/15/16 01/28/18 docusate sodium [Colace] 100 mg PO DAILY #90 cap 12/24/17 01/28/18 pantoprazole [Protonix] 40 mg PO BID #60 tab 12/24/17 01/28/18 amlodipine 10 mg PO DAILY 01/17/18 01/28/18 carvedilol 12.5 mg PO BID 01/17/18 01/28/18 ceftaroline fosamil 600 mg IV Q12H 01/17/18 01/28/18 lidocaine [Lidoderm] 1 patch TP DAILY #15 each 01/17/18 01/28/18 acidophilus-pectin, citrus 1 cap PO TID #90 tab 02/01/18 levofloxacin 750 mg PO DAILY #4 tab 02/01/18 Previous Rx's Medication Instructions Recorded docusate sodium [Colace] 100 mg PO DAILY #90 cap 12/24/17 pantoprazole [Protonix] 40 mg PO BID #60 tab 12/24/17 lidocaine [Lidoderm] 1 patch TP DAILY #15 each 01/17/18 acidophilus-pectin, citrus 1 cap PO TID #90 tab 02/01/18 levofloxacin 750 mg PO DAILY #4 tab 02/01/18 Allergies Allergy/AdvReac Type Severity Reaction Status Date / Time No Known Allergies Allergy Unverified 01/28/18 15:16 General Stated Complaint: GenMedical ELFEGO: 2 Review of Systems Review of Systems All systems reviewed & are unremarkable except as noted in HPI and below Constitutional Denies chills, Denies fever(s) and Denies weakness ENT Denies change in voice Cardiovascular Denies chest pain and Denies dyspnea Respiratory Denies dyspnea Gastrointestinal Denies abdominal pain, Denies nausea and Denies vomiting Musculoskeletal Denies joint swelling Neurologic Denies weakness Psychiatric Denies depression Endocrine Denies heat intolerance Allergic/Immunologic Denies urticaria [facility] Medical History Antral gastritis (Chronic ~12/2016) Discitis of multiple sites of spine (Acute ~12/31/17) Umbilical hernia (Chronic) GERD (gastroesophageal reflux disease) (Chronic) Depression (Chronic) HLD (hyperlipidemia) (Chronic) HTN (hypertension) (Chronic) Bacteremia due to methicillin resistant Staphylococcus aureus (Acute ~12/29/17) Spinal stenosis of lumbar region with radiculopathy (Chronic ~12/2017) Acute kidney injury (Resolved ~12/29/17) Hyponatremia (Resolved) Depression Essential hypertension GERD (gastroesophageal reflux disease) Hyperlipidemia Obesity (BMI 30-39.9) Surgical History History of esophagogastroduodenoscopy (EGD) (Acute 01/29/18) Colonoscopy - MAC (12/06/16) EGD - MAC (12/06/16) Repair of umbilical hernia (12/20/16) Family History Other Diabetes Heart disease Myocardial infarction Neoplasm Stroke Social History Smoking/Tobacco Use Status: Never alcohol intake: former additional social history: 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 He quit alcohol at age 19. Exam Const General: no acute distress Orientation: alert HENAL Head: normal to inspection Ears: external ears normal General nose exam: external nose normal Mouth: moist mucous membranes Eyes General: appearance normal, both eyes and all related structures Neck Neck: normal visual inspection Resp Effort & Inspection: normal respiratory effort and able to speak in complete sentences Cardio Rate: regular rate Skin General skin exam: no rashes or lesions noted Neuro General: alert and oriented x3 Extrem General: normal capillary refill Psych Mental Status: mental status grossly normal Course Vital Signs Temperature 37.3 C 03/23/18 23:00 Pulse 79 03/23/18 23:00 Respiratory Rate 20 03/23/18 23:00 Blood Pressure 140/84 03/23/18 23:00 Pulse Oximetry 96 03/23/18 23:00 Temperature 37.3 C 03/23/18 23:00 Temperature Source Temporal Artery Scan 03/23/18 23:00 Pulse 79 03/23/18 23:00 Respiratory Rate 20 03/23/18 23:00 Respiratory Effort Non-Labored 03/23/18 23:03 Blood Pressure 140/84 03/23/18 23:00 Blood Pressure Position Supine 03/23/18 23:00 Pulse Oximetry 96 03/23/18 23:00 Oxygen Delivery Method Room Air 03/23/18 23:00 Oxygen Flow Rate 0 03/23/18 23:00 Pain Level 4 03/23/18 23:00 Lab/Test Results Lab/Test Results: Laboratory Tests Range/Units 03/23/18 23:00 WBC (4.4-10.8) k/cumm 8.80 RBC (4.50-6.00) m/cumm 3.63 L Hgb (13.5-17.5) g/dL 10.8 L Hct (40.0-50.0) % 32.9 L MCV (80-95) fL 90.6 MCH (27.0-33.0) pg 29.8 MCHC (32.0-36.0) g/dL 32.8 RDW (11.8-14.1) % 14.1 Plt Count (130-400) x1000/uL 255 MPV (8.0-11.0) fL 10.0
[2018-03-23 23:20] LABS: C-Reactive Protein 7.15 mg/dL (0.0-0.3)
[2018-03-23 23:27] LABS: ALT 45 U/L (12-78); AST 23 U/L (15-37); Albumin 3.3 g/dL (3.4-5.0); Alkaline Phosphatase 93 U/L (46-116); Anion Gap 10.9 mmol/L (3-11); BUN 10 mg/dL (7-18); Bilirubin, Total 0.2 mg/dL (0.2-1.0); CO2 27.1 mmol/L (21.0-32.0); CREATININE 0.89 mg/dL (0.70-1.30); Calcium 9.2 mg/dL (8.5-10.1); Chloride 101 mmol/L (98-107); Glucose 111 mg/dL (70-100); Potassium 3.5 mmol/L (3.5-5.1); Sodium 139 mmol/L (136-145); Total Protein 7.6 g/dL (6.4-8.2)
--- NOTE | 2018-03-23 23:51 | DI.VRAD_ITS ---
EXAM: CT Chest Without Contrast EXAM DATE/TIME: 03/23/2018 11:05 PM CLINICAL HISTORY: 52 years old, male; Signs and symptoms; Other: Pain and swelling at left sternoclavicular joint TECHNIQUE: Axial computed tomography images of the chest without intravenous contrast. All CT scans at this facility use at least one of these dose optimization techniques: automated exposure control; mA and/or kV adjustment per patient size (includes targeted exams where dose is matched to clinical indication); or iterative reconstruction. Coronal and sagittal reformatted images were created and reviewed. COMPARISON: CT CHEST WO 01/29/2018 3:23 PM FINDINGS: Lungs: Normal. No consolidation. No masses. Pleural space: No pneumothorax. No significant pleural effusion. Heart: Normal. No cardiomegaly. No pericardial effusion. Aorta: Normal. No aortic aneurysm. Lymph nodes: Unremarkable. No enlarged lymph nodes. Bones/joints: Degenerative change of the spine. Soft tissues: Unremarkable. IMPRESSION: No acute finding. Dictated and Authenticated by: Dar Wise MD. Ordering:DARIN Dodge MD
[2018-03-23 23:54] VITALS: RESP 17
[2018-03-24 00:30] VITALS: BP 132/76; PULSE 80; RESP 16; TEMP 37; O2SAT 98
== END 2018-03-24 00:34 | disposition home or self-care (01) ==
PROVIDERS: Emergency Provider Emergency Medicine; PCP Family Medicine
DX: M19.90 Unspecified osteoarthritis, unspecified site (principal); Z86.14 Personal history of Methicillin resistant Staphylococcus aureus infection; Z53.29 Procedure and treatment not carried out because of patient's decision for other reasons; I10 Essential (primary) hypertension
CPT/HCPCS: 36410; 36415; 71250; 80053; 85027; 87040; 99284; 86140; 99285

== ENCOUNTER 2018-08-02 13:18 | Outpatient (REF) | payer MEDICAID, SELFPAY ==
[2018-08-02 20:44] LABS: Iron 70 ug/dL (50-175)
[2018-08-02 21:02] LABS: BUN 17 mg/dL (7-18); C-Reactive Protein 0.66 mg/dL (0.0-0.3); CREATININE 0.86 mg/dL (0.70-1.30); Calcium 9.3 mg/dL (8.5-10.1); Chloride 101 mmol/L (98-107); Glucose 105 mg/dL (70-100); Potassium 4.3 mmol/L (3.5-5.1); Sodium 138 mmol/L (136-145); TSH (W/Ref FT4) 2.85 uIU/mL (0.358-3.74)
[2018-08-02 21:59] LABS: ESR 41 MM/HR (1-20)
== END 2018-08-02 13:38 ==
LOC: NCHCN 13:18
PROVIDERS: PCP Family Medicine; Visit Provider Family Medicine
DX: N17.9 Acute kidney failure, unspecified (principal); R20.2 Paresthesia of skin; D64.9 Anemia, unspecified
CPT/HCPCS: 80048; 85652; 83540; 84443; 86140

== ENCOUNTER 2018-12-17 19:22 | Emergency (ER) | payer MEDICAID, SELFPAY ==
[2018-12-17 19:24] VITALS: BP 154/76; PULSE 88; RESP 16; TEMP 37.1; O2SAT 97
--- NOTE | 2018-12-17 19:38 | DI.RAD_ITS ---
EXAM: XR ABD FLAT UPRIGHT PA CHEST INDICATION: change in bowel habits. COMPARISON: XR PORTABLE CHEST AP from 01/28/2018 TECHNIQUE: 2D digital imaging was performed. FINDINGS: Small regions of atelectasis are noted involving the left lung base. The lungs are otherwise clear. T here is no evidence of a pleural effusion. There is no evidence of a pneumothorax. The heart is not e nlarged. Abdominal films reveal a nonspecific bowel gas pattern. There is no evidence of a mass or pathologic calcification. No acute bony abnormality is seen. The soft tissues are unremarkable. IMPRESSION: No acute findings are apparent.
--- NOTE | 2018-12-17 19:41 | ED.GENADUL_ITS ---
Discharge Plan Disposition Patient Disposition: HOME Condition: Fair Discharge Details Chief Complaint: Abd Prob Clinical Impression: Diarrhea, Abdominal pain Primary Care Provider: Katharina Hernandez V ED Provider: Anny Fermin Home Meds and New Rx's Prescriptions: Continued lovastatin 20 MG tablet 1 tab PO DAILY RF: 0 bupropion HCl 150 MG tablet extended release 24 hr 1 tab PO BID RF: 0 aspirin [Aspir-81] 81 MG tablet,delayed release (DR/EC) 81 mg PO DAILY RF: 0 multivitamin 1 EACH capsule 1 tab PO DAILY RF: 0 docusate sodium [Colace] 100 mg capsule 100 mg PO DAILY Qty: 90 RF: 0 pantoprazole [Protonix] 40 mg tablet,delayed release (DR/EC) 40 mg PO BID Qty: 60 RF: 0 lidocaine [Lidoderm] 5 % adhesive patch,medicated 1 patch TP DAILY Qty: 15 RF: 0 carvedilol 12.5 mg Tablet 12.5 mg PO BID RF: 0 amlodipine 10 mg Tablet 10 mg PO DAILY RF: 0 ceftaroline fosamil 400 mg Recon Soln 600 mg IV Q12H RF: 0 acidophilus-pectin, citrus 25 million cell -100 mg Tablet 1 cap PO TID Qty: 90 RF: 0 levofloxacin 750 mg tablet 750 mg PO DAILY Qty: 4 RF: 0 Discharge Instructions Instructions: Acute Diarrhea (ED), Abdominal Pain (ED) Additional Instructions: Continue to encourage hydration. You may advance diet as tolerated. Please barrier in stool sample when possible for further testing. You had elevated white blood cell count today, small amount of blood in your urine. You will need to follow-up with your primary care later this week for reevaluation. If you develop increased pain, inability stay hydrated, vomiting, blood in your stool, fevers or other new/worsening symptoms please seek care urgently once again. Referrals: Katharina Hernandez MD [Primary Care Provider] - Discharge Data Discharge Date/Time-TO BE ENTERED AT DEPARTURE: 12/17/18 21:04 Medical Decision Making Patient is a 53-year-old male with history of osteomyelitis, gastritis, anemia, hypomagnesemia, hypokalemia, elevated LFTs, GERD, depression, hyperlipidemia, hypertension. He is presenting today with chief complaint of abdominal discomfort and diarrhea that began yesterday. States that yesterday he had 6 episodes of loose bowel movements and today he has had a few episodes of watery stools. Denies any fevers or chills. States that he has been feeling sweaty particularly when he is straining for bowel movement. Surgical history is pertinent for hernia repair. Denies any recent travel. No recent antibiotics. No other sick contacts. States that he has had some mild nausea but no vomiting. No change in his appetite. Patient reports the pain is fairly diffuse but his abdomen has to began yesterday. Describes it as cramping. Denies any bloody or black stools. No change in urinary habits. On exam, patient appears to be resting comfortably. He is afebrile, pulse 88. Hypertensive at 154/76 this is not atypical for the patient. He has diffuse abdominal discomfort, worse in the left upper quadrant and right lower quadrant with palpation. No guarding or peritoneal findings noted. Patient does not drink alcohol. Patient appears well-hydrated. He has had normal appetite today. Very low suspicion for acute surgical pathology. However, I am concerned for possible infectious source. Plan for labs to evaluate for any electrolyte abnormalities, no. Abdominal x-ray and stool sample. Patient received IV fluids. He is unable to give a stool sample. Denies recent travel. No recent camping or unusual water sources. No recent abx. At this point, I did not advise any antidiarrheal agents, rather advised that we wait for these results to come back. Labs reviewed. Patient's white count is elevated at 14. Urinalysis concerning for ketones, small amount of blood. Otherwise normal. FINDINGS: Lungs: Minimal platelike atelectasis in the left lung base. Lungs are otherwise clear. Pleural space: Normal. No pneumothorax. Heart/Mediastinum: Normal. No cardiomegaly. Gastrointestinal tract: Nonobstructive bowel gas pattern with distal rectal air present. Mild constipation is suggested. Intraperitoneal space: No abnormal calcification or mass effect. Bones/joints: No acute skeletal abnormality. Soft tissues: Normal. IMPRESSION: No acute findings. Discussed these findings with the patient. Encourage hydration. Advise close follow-up with primary care. He will bring in stool sample as soon as possible. He was given strict return precautions. All his questions and concerns were addressed and he is in agreement this plan. HPI General Mode of arrival: ambulatory . Date/Time Provider Initiated Documentation: 09/17/19 19:24 . Limitations to Documentation: no limitations . Information obtained by: patient, family () and RN notes reviewed . History of Present Illness 53 year old M presents to the emergency department with the chief complaint of diffuse abdominal pain and diarrhea, described as moderate, Quality is described as aching, and is localized to the abdomen. Patient reports no radiation. Patient started experiencing this day(s) (1) and it has been constant. No relieving factors improve symptom(s), No exacerbating factors reported . Patient notes diaphoresis (reports sweating when having diarrhea) and nausea/vomiting (reports nausea, no vomiting); denies chest pain, cough, fever/chills, headaches, loss of appetite, rash, shortness of breath and weakness. Patient did receive the following treatments prior to arrival, none Related Data Home Medications Medication Instructions Recorded Confirmed lovastatin 1 tab PO DAILY 05/15/13 12/17/18 aspirin [Aspir-81] 81 mg PO DAILY 01/15/16 12/17/18 bupropion HCl 1 tab PO BID 01/15/16 12/17/18 multivitamin 1 tab PO DAILY 01/15/16 12/17/18 docusate sodium [Colace] 100 mg PO DAILY #90 cap 12/24/17 12/17/18 pantoprazole [Protonix] 40 mg PO BID #60 tab 12/24/17 12/17/18 amlodipine 10 mg PO DAILY 01/17/18 12/17/18 carvedilol 12.5 mg PO BID 01/17/18 12/17/18 ceftaroline fosamil 600 mg IV Q12H 01/17/18 12/17/18 lidocaine [Lidoderm] 1 patch TP DAILY #15 each 01/17/18 12/17/18 acidophilus-pectin, citrus 1 cap PO TID #90 tab 02/01/18 12/17/18 levofloxacin 750 mg PO DAILY #4 tab 02/01/18 12/17/18 Previous Rx's Medication Instructions Recorded docusate sodium [Colace] 100 mg PO DAILY #90 cap 12/24/17 pantoprazole [Protonix] 40 mg PO BID #60 tab 12/24/17 lidocaine [Lidoderm] 1 patch TP DAILY #15 each 01/17/18 acidophilus-pectin, citrus 1 cap PO TID #90 tab 11/02/18 levofloxacin 750 mg PO DAILY #4 tab 02/01/18 Allergies Allergy/AdvReac Type Severity Reaction Status Date / Time No Known Allergies Allergy Unverified 08/20/18 09:56 General Stated Complaint: Abd Prob ELFEGO: 3 Review of Systems Constitutional Constitutional: Reports as per HPI, Denies chills, Denies fatigue, Denies fever(s) and Denies headache(s) ENT Ears, Nose, Mouth, and Throat: Denies headache(s) Cardiovascular Cardiovascular: Reports as per HPI, Denies chest pain and Denies dyspnea Respiratory Respiratory: Reports as per HPI, Denies cough and Denies dyspnea Gastrointestinal Gastrointestinal: Reports as per HPI Genitourinary Genitourinary: Denies system reviewed and no additional complaints, except as docu (patient denies any change in urinary habits) Musculoskeletal Musculoskeletal: Reports as per HPI and Denies back pain Integumentary/Breasts Skin/Breast: Reports as per HPI and Denies rash Neurologic Neurologic: Reports as per HPI and Denies headache(s) Endocrine Endocrine: Denies fatigue [facility] Medical History Acute kidney injury (Resolved ~12/29/17) ATN secondary to MRSA bacteremia, spinal osteomyelitis; required hemodialysis 01/02-01/12/2018 at [facility] [place] Antral gastritis (Chronic ~12/2016) Bacteremia due to methicillin resistant Staphylococcus aureus (Acute ~12/29/17) Depression Depression (Chronic) Discitis of multiple sites of spine (Acute ~12/31/17) Essential hypertension GERD (gastroesophageal reflux disease) GERD (gastroesophageal reflux disease) (Chronic) HLD (hyperlipidemia) (Chronic) HTN (hypertension) (Chronic) Hyperlipidemia Hyponatremia (Resolved) Obesity (BMI 30-39.9) Spinal stenosis of lumbar region with radiculopathy (Chronic ~12/2017) Umbilical hernia (Chronic) repaired 12/20/16[place]ielena Surgical History Colonoscopy - MAC (12/06/16) EGD - MAC (12/06/16) History of esophagogastroduodenoscopy (EGD) (Acute 01/29/18) Dr Peguero Repair of umbilical hernia (12/20/16) Social History Smoking/Tobacco Use Status: Current every day Tobacco Type: smokeless tobacco Alcohol Intake: former Drug use: Rarely Substance use type: does not use Do you feel safe at home: Yes Do you feel safe in your relationship?: Yes Additional Social history: 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 He quit alcohol at age 19. Exam Const General: cooperative, healthy appearing, comfortable, no acute distress and well developed Nutritional Appearance: well nourished and overweight Orientation: alert and awake [facility] Head: normal to inspection Mouth: moist mucous membranes Resp Effort & Inspection: normal respiratory effort, able to speak in complete sentences and no respiratory distress Auscultation: clear to auscultation bilaterally, no rales, no rhonchi and no wheezes Cardio Rate: regular rate Rhythm: regular rhythm Heart Sounds: S1 normal and S2 normal GI Inspection: obesity and scar (periumbilical scar consistent with hx of hernia repair) Palpation: soft, no hepatosplenomegaly, no aortic enlargement, not firm, no guarding, no hernias, no masses, no pulsatile masses, not rigid and tender (fairly diffuse, worse in LUQ and RLQ) not at McBurney's point, Zavala's sign negative, obturator sign negative, psoas sign negative and with no rebound tenderness Percussion: normal to percussion Auscultation: normal bowel sounds Back/Spine/Pelvis Back: no CVA tenderness Skin General skin exam: no rashes or lesions noted Trauma: no lacerations or abrasions Neuro General: alert and awake Cognition: normal cognition Speech: speech normal Gait: normal gait Extrem General: no pedal edema, no calf tenderness and normal gait Psych Appearance: grossly normal and well kempt Mental Status: mental status grossly normal Speech and Movement: speech and movement normal Course Vital Signs Vital signs: Vital Signs Temperature 37.1 C 12/17/18 19:24 Pulse 88 12/17/18 19:24 Respiratory Rate 16 12/17/18 19:24 Blood Pressure 154/76 H 12/17/18 19:24 Pulse Oximetry 97 12/17/18 19:24 Temperature 37.1 C 12/17/18 19:24 Temperature Source Skin 12/17/18 19:24 Pulse 88 12/17/18 19:24 Respiratory Rate 16 12/17/18 19:24 Blood Pressure 154/76 H 12/17/18 19:24 Blood Pressure Position Sitting 12/17/18 19:24 Pulse Oximetry 97 12/17/18 19:24 Oxygen Delivery Method Room Air 12/17/18 19:24 Oxygen Flow Rate 0 12/17/18 19:24
[2018-12-17 20:01] LABS: Abs Immature Grans 0.03 k/cumm (0.0-0.09); Absolute Eosinophil Count 0.18 k/cumm (0.0-0.7); Basophils % 0.1; Eosinophils % 1.3; HCT 44.6 % (40.0-50.0); HGB 14.8 g/dL (13.5-17.5); Immature Grans % 0.2; Lymphocytes % 13.4; Mean Corp. HGB Concentration 33.2 g/dL (32.0-36.0); Mean Corpuscular Hemoglobin 29.4 pg (27.0-33.0); Mean Corpuscular Volume 88.7 fL (80-95); Mean Platelet Volume 10.6 fL (8.0-11.0); Monocytes % 3.9; Neutrophils % 81.1; Platelet Count 302 x1000/uL (130-400); RBC 5.03 m/cumm (4.50-6.00); RBC Distribution Width 13.3 % (11.8-14.1); White Blood Cell Count 14.18 k/cumm (4.4-10.8)
[2018-12-17 20:06] LABS: Bilirubin Negative (Negative); Blood Small (Negative); Clarity Clear (Clear); Glucose Negative (Negative); Ketones 15 mg/dL (Negative); Leukocyte Esterase Negative (Negative); Nitrite Negative (Negative); Urobilinogen 0.2 EU/dL (Up TO 0.2); pH 5.5 (5-8)
[2018-12-17 20:07] LABS: Absolute Basophil Count 0.01 k/cumm (0.0-0.2); Absolute Monocyte Count 0.55 k/cumm (0.11-0.7)
[2018-12-17 20:09] LABS: Bacteria Negative HPF (Negative); C & S Indicated? No; Casts Negative LPF (Negative); Crystals Negative HPF (Negative); Epithelial Cells Negative HPF (Negative); Mucus Trace (Negative); Other Cells Negative (Negative); WBC 0-2 HPF (0-5)
[2018-12-17 20:19] LABS: ALT 30 U/L (16-63); AST 18 U/L (15-37); Alkaline Phosphatase 112 U/L (46-116); Anion Gap 11.6 mmol/L (3-11); BUN 16 mg/dL (7-18); Bilirubin, Total 0.4 mg/dL (0.2-1.0); CO2 25.4 mmol/L (21.0-32.0); CREATININE 1.13 mg/dL (0.70-1.30); Calcium 9.2 mg/dL (8.5-10.1); Chloride 103 mmol/L (98-107); Glucose 104 mg/dL (70-100); Lipase 110 U/L (73-393); Sodium 140 mmol/L (136-145); Total Protein 7.9 g/dL (6.4-8.2)
--- NOTE | 2018-12-17 20:37 | DI.VRAD_ITS ---
EXAM: XR Complete Acute Abdomen Series EXAM DATE/TIME: 12/17/2018 7:40 PM CLINICAL HISTORY: 53 years old, male; Nausea and other: Diarrhea; Patient HX: Diarrhea and nausea since yesterday TECHNIQUE: Imaging protocol: XR complete acute abdomen series, including 2 or more views of the abdomen and a single view chest. COMPARISON: CR XR PORTABLE CHEST AP 01/28/2018 3:25 PM FINDINGS: Lungs: Minimal platelike atelectasis in the left lung base. Lungs are otherwise clear. Pleural space: Normal. No pneumothorax. Heart/Mediastinum: Normal. No cardiomegaly. Gastrointestinal tract: Nonobstructive bowel gas pattern with distal rectal air present. Mild constipation is suggested. Intraperitoneal space: No abnormal calcification or mass effect. Bones/joints: No acute skeletal abnormality. Soft tissues: Normal. IMPRESSION: No acute findings. Dictated and Authenticated by: Donovan Bhatia MD. Ordering:CHERYL Mccormick MD
[2018-12-17 21:04] VITALS: BP 144/89; PULSE 78; RESP 16; TEMP 37.1; O2SAT 94
== END 2018-12-17 21:04 | disposition home or self-care (01) ==
PROVIDERS: Emergency Provider Physician Assistant; PCP Family Medicine
DX: R19.7 Diarrhea, unspecified (principal); R10.9 Unspecified abdominal pain; R11.0 Nausea; J98.11 Atelectasis; I10 Essential (primary) hypertension
CPT/HCPCS: 36415; 80053; 83690; 99283; 74022; 81003; 81015; 85025

== ENCOUNTER 2021-05-06 11:20 | Outpatient (REF) | payer SELFPAY ==
[2021-05-06 15:34] LABS: HCT 45.7 % (40.0-50.0); HGB 14.7 g/dL (13.5-17.5); MCH 29.2 pg (27.0-33.0); MCHC 32.2 % (32.0-36.0); MCV 90.7 fL (80-95); MPV 11.4 fL (8.0-11.0); Platelet Count 268 10^3/uL (130-400); RBC 5.04 10^6/uL (4.36-5.78); RDW 12.6 % (11.8-14.1); RDW-SD 41.6 fL; WBC 7.76 10^3/uL (4.4-10.8)
[2021-05-06 15:42] LABS: ESR 41 mm/hr (0-20)
[2021-05-06 16:01] LABS: ALT 32 U/L (16-63); AST 18 U/L (15-37); Albumin 3.8 g/dL (3.4-5.0); Alkaline Phosphatase 103 U/L (46-116); Anion Gap 10.5 mmol/L (3-11); BUN 17 mg/dL (7-18); Bilirubin, Total 0.2 mg/dL (0.2-1.0); CO2 26.5 mmol/L (21.0-32.0); Calcium 9.3 mg/dL (8.5-10.1); Calculated LDL 125 mg/dL (<100); Chloride 103 mmol/L (98-107); Cholesterol 184 mg/dL (<200); Glucose 92 mg/dL (74-106); HDL Cholesterol 32 mg/dL (40-60); Potassium 4.5 mmol/L (3.5-5.1); Sodium 140 mmol/L (136-145); TSH (W/Ref FT4) 1.57 uIU/mL (0.36-3.74); Total Protein 7.3 g/dL (6.4-8.2); Triglyceride 138 mg/dL (<150)
[2021-05-06 16:09] LABS: C-Reactive Protein 0.57 mg/dL (0.0-0.3)
[2021-05-09 10:48] LABS: PSA, Screening 0.6 ng/mL (0.0-3.5)
[2021-05-11 10:10] LABS: Lyme Ab w Rflx to Lyme Confirm Negative (Negative)
[2021-05-12 22:52] LABS: Anaplasma phagocytophilum Negative (Negative); B. miyamotoi PCR Negative (Negative); Babesia divergens/MO-1 Negative (Negative); Babesia duncani Negative (Negative); Babesia microti Negative (Negative); Ehrlichia chaffeensis Negative (Negative); Ehrlichia ewingii/canis Negative (Negative); Ehrlichia muris eauclairensis Negative (Negative)
== END 2021-05-06 11:21 | disposition home or self-care (01) ==
LOC: NCHCN 11:20
PROVIDERS: PCP Family Medicine; Visit Provider Family Medicine
DX: M25.50 Pain in unspecified joint (principal); I10 Essential (primary) hypertension; E78.5 Hyperlipidemia, unspecified; R73.03 Prediabetes; Z86.2 Personal history of diseases of the blood and blood-forming organs and certain disorders involving the immune mechanism; R20.2 Paresthesia of skin
CPT/HCPCS: 80053; 80061; 84153; 85027; 85652; 87798; 83036; 84443; 86140; 86618

== ENCOUNTER 2021-06-12 08:58 | Emergency (ER) | payer SELFPAY ==
[2021-06-12] VITALS (20 sets, daily range): BP systolic 117–139; BP diastolic 69–95; PULSE 59–75; RESP 16–24; TEMP 36.4–36.5; O2SAT 87–100
--- NOTE | 2021-06-12 09:00 | RT.EKG_ITS ---
APPROVED REPORT Exam: Resting ECG Reason for Exam: chest pain Patient Location: E HR:66 bpm ECG Measurements Heart Rate 66 AXIS PA 159 P 56 QRSd 101 QRS 57 QT 418 T 72 QTc 440 Conclusion Sinus rhythm...normal P axis, V-rate 60- 99
[2021-06-12 09:19] LABS: Abs Immature Grans 0.03 10^3/uL (0.0-0.06); Absolute Basophil Count 0.04 10^3/uL (0.0-0.2); Absolute Eosinophil Count 0.27 10^3/uL (0.0-0.7); Absolute Lymphocyte Count 2.05 10^3/uL (1.2-3.4); Absolute Neutrophil Count 4.66 10^3/uL (1.2-6.7); Basophils % 0.5; Eosinophils % 3.5; HCT 43.3 % (40.0-50.0); HGB 14.4 g/dL (13.5-17.5); Immature Grans % 0.4; Lymphocytes % 26.8; MCH 29.9 pg (27.0-33.0); MCHC 33.3 % (32.0-36.0); MCV 89.8 fL (80-95); MPV 10.6 fL (8.0-11.0); Monocytes % 7.8; Nucleated RBC 0 %; Platelet Count 247 10^3/uL (130-400); RBC 4.82 10^6/uL (4.36-5.78); RDW 12.9 % (11.8-14.1); RDW-SD 42.4 fL; WBC 7.65 10^3/uL (4.4-10.8)
--- NOTE | 2021-06-12 09:25 | W.ED.GENAD ---
Discharge Plan Disposition Patient Disposition: HOME Condition: Stable Discharge Details Clinical Impression: Pneumonia Primary Care Provider: Katharina Hernandez V ED Provider: Toña Ang Home Meds and New Rx's Prescriptions: New doxycycline hyclate 100 mg tablet 100 mg PO BID Qty: 14 0RF prednisone 20 mg tablet 40 mg PO DAILY Qty: 6 0RF Saccharomyces boulardii [Florastor] 250 mg capsule 250 mg PO BID Qty: 14 0RF Continued lovastatin 20 MG tablet 1 tab PO DAILY 0RF bupropion HCl 150 MG tablet extended release 24 hr 1 tab PO BID 0RF aspirin [Aspir-81] 81 MG tablet,delayed release (DR/EC) 81 mg PO DAILY 0RF multivitamin 1 EACH capsule 1 tab PO DAILY 0RF docusate sodium [Colace] 100 mg capsule 100 mg PO DAILY Qty: 90 0RF pantoprazole [Protonix] 40 mg tablet,delayed release (DR/EC) 40 mg PO BID Qty: 60 0RF lidocaine [Lidoderm] 5 % adhesive patch,medicated 1 patch TP DAILY Qty: 15 0RF Rx Instructions: leave on most painful area for 12 hrs carvedilol 12.5 mg Tablet 12.5 mg PO BID 0RF amlodipine 10 mg Tablet 10 mg PO DAILY 0RF ceftaroline fosamil 400 mg Recon Soln 600 mg IV Q12H 0RF sucralfate 1 gram tablet 1 g PO QID 0RF Label Comments: TAKE ONE TABLET BY MOUTH FOUR TIMES A DAY BEFORE MEALS citalopram 20 mg tablet 20 mg PO DAILY 0RF Label Comments: TAKE ONE TABLET BY MOUTH EVERY DAY ferrous gluconate 324 mg (37.5 mg iron) Tablet 324 mg PO DAILY 0RF acidophilus-pectin, citrus 25 million cell -100 mg Tablet 1 cap PO TID Qty: 90 0RF Discontinued levofloxacin 750 mg tablet 750 mg PO DAILY Qty: 4 0RF Rx Instructions: To start this evening. Discharge Instructions Instructions: Pneumonia (ED) Additional Instructions: Take the Florastor while on your antibiotic Antibiotic doxycycline for the next 10 days, will make you sun sensitive, use caution outside Take the prednisone that I prescribed Use your inhaler, 2 puffs every 4-6 hours while awake Reassessment with your primary care physician in 48 to 72 hours return earlier should you have new or worsening complaints Referrals: Katharina Hernandez MD [Primary Care Provider] - [address] Making CT shows evidence of viral pneumonitis per radiology interpretation Diagnostic labs not show acute abnormality, ambulatory oxygen saturation 99% on room air, symptom-free after a DuoNeb Specifically negative BNP, troponin, EKG Clinically low suspicion for cardiac etiology of patient's complaints given his physical exam and HPI Reports marked improvement after a single DuoNeb, lungs remain clear to auscultation, no hypoxia Given steroids, doxycycline, albuterol Return precautions discussed and patient expressed understanding Medical Records Medical records reviewed: Yes I reviewed the patient's medical records. Lab Data Lab results reviewed: Yes I reviewed the patient's lab results. HPI General Date/Time Provider Initiated Documentation: 06/12/21 09:00. HPI Narrative: This 56-year-old gentleman with history discitis with epidural abscess and MRSA bacteremia in 2018, hyperlipidemia, hypertension presents with report of Covid diagnosis 4 days prior to arrival today. He is vaccinated. He does not have a spacer. He states that he presents today secondary to a stent shortness of breath and pressure largely when coughing or taking deep inspiration. Denies tobacco abuse. Denies personal history of coronary artery disease. Denies any current pain. Denies prior history of PE or DVT. 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 Denies any calf pain or swelling. Denies any recent surgery or flights engaged in long drives daily. Denies any fever or chills. Denies any rashes or lesions. Denies any new medications Related Data Home Medications Medication Instructions Recorded Confirmed lovastatin 20 mg tablet 1 tab PO DAILY 05/15/13 06/12/21 aspirin 81 mg tablet,delayed 81 mg PO DAILY 01/15/16 06/12/21 release (Aspir-) bupropion HCl 150 mg 24 hr tablet, 1 tab PO BID 01/15/16 06/12/21 extended release multivitamin 1 tab PO DAILY 01/15/16 06/12/21 docusate sodium 100 mg capsule 100 mg PO DAILY #90 cap 12/24/17 06/12/21 (Colace) pantoprazole 40 mg tablet,delayed 40 mg PO BID #60 tab 12/24/17 06/12/21 release (Protonix) amlodipine 10 mg tablet 10 mg PO DAILY 01/17/18 06/12/21 carvedilol 12.5 mg tablet 12.5 mg PO BID 01/17/18 06/12/21 ceftaroline fosamil 400 mg 600 mg IV Q12H 01/17/18 12/17/18 intravenous solution lidocaine 5 % topical patch 1 patch TP DAILY #15 each 01/17/18 12/17/18 (Lidoderm) acidophilus 25 million 1 cap PO TID #90 tab 02/01/18 12/17/18 cell-pectin, citrus 100 mg tablet Saccharomyces boulardii 250 mg 250 mg PO BID #14 cap 06/12/21 capsule (Florastor) citalopram 20 mg tablet 20 mg PO DAILY 06/12/21 06/12/21 doxycycline hyclate 100 mg tablet 100 mg PO BID #14 tab 06/12/21 ferrous gluconate 324 mg (37.5 mg 324 mg PO DAILY 06/12/21 06/12/21 iron) tablet prednisone 20 mg tablet 40 mg PO DAILY #6 tab 06/12/21 sucralfate 1 gram tablet 1 g PO QID 06/12/21 06/12/21 Previous Rx's Medication Instructions Recorded docusate sodium 100 mg capsule 100 mg PO DAILY #90 cap 12/24/17 (Colace) pantoprazole 40 mg tablet,delayed 40 mg PO BID #60 tab 12/24/17 release (Protonix) lidocaine 5 % topical patch 1 patch TP DAILY #15 each 01/17/18 (Lidoderm) acidophilus 25 million 1 cap PO TID #90 tab 02/01/18 cell-pectin, citrus 100 mg tablet Saccharomyces boulardii 250 mg 250 mg PO BID #14 cap 06/12/21 capsule (Florastor) doxycycline hyclate 100 mg tablet 100 mg PO BID #14 tab 06/12/21 prednisone 20 mg tablet 40 mg PO DAILY #6 tab 06/12/21 Allergies Allergy/AdvReac Type Severity Reaction Status Date / Time No Known Allergies Allergy Unverified 06/12/21 09:19 General Stated Complaint: Chest Pain ELFEGO: 3 Review of Systems All systems reviewed & are unremarkable except as noted in HPI and below PFSH All Active Problems (Updated 06/12/21 @ 10:57 by JOSE Severino) DVT prophylaxis (Acute) Osteomyelitis (Acute) Pneumonia (Acute) Febrile illness, acute (Acute) Antral gastritis (Chronic ~12/2016) Discitis of multiple sites of spine (Acute ~12/31/17) Anemia (Acute) Hypomagnesemia (Acute) Hypokalemia (Acute) Elevated LFTs (Acute) Abnormal gall bladder diagnostic imaging (Acute) Umbilical hernia (Chronic) repaired 12/20/16, Marielena GERD (gastroesophageal reflux disease) (Chronic) Depression (Chronic) HLD (hyperlipidemia) (Chronic) HTN (hypertension) (Chronic) Medical History (Updated 06/12/21 @ 10:57 by JOSE Severino) Acute kidney injury (~12/29/17) ATN secondary to MRSA bacteremia, spinal osteomyelitis; required hemodialysis 01/02-01/12/2018 at [facility] [place] Bacteremia due to methicillin resistant Staphylococcus aureus (~12/29/17) Depression Essential hypertension GERD (gastroesophageal reflux disease) Hyperlipidemia Hyponatremia Obesity (BMI 30-39.9) Spinal stenosis of lumbar region with radiculopathy (~12/2017) Surgical History Colonoscopy - MAC (12/06/16) EGD - MAC (12/06/16) History of esophagogastroduodenoscopy (EGD) (01/29/18) Dr Peguero Repair of umbilical hernia (12/20/16) Family History Other Diabetes Heart disease Myocardial infarction Neoplasm Stroke Social History Smoking/Tobacco Use Status: Former Tobacco Use Smoking risk assessment performed?: Yes Alcohol Intake: former Drug use: Never Substance use type: does not use Do you feel safe at home: Yes Do you feel safe in your relationship?: Yes Additional Social history: 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 He quit alcohol at age 19. Exam Const General: cooperative, comfortable and no acute distress Eyes Pupils: PERRL Chest Chest: normal inspection of the chest Resp Effort & Inspection: normal respiratory effort Auscultation: clear to auscultation bilaterally Cardio Rate: regular rate Rhythm: regular rhythm GI Inspection: normal to inspection Auscultation: normal bowel sounds Skin General skin exam: no rashes or lesions noted Neuro General: patient alert and patient oriented x3 Extrem Other: No calf swelling or tenderness, distal pulses intact Course Vital Signs Vital signs: Vital Signs Temperature 36.4 C L 06/12/21 09:04 Pulse 68 06/12/21 09:04 Blood Pressure 139/78 06/12/21 09:04 Pulse Oximetry 97 06/12/21 09:04 Temperature 36.4 C L 06/12/21 09:04 Temperature Source Temporal Artery Scan 06/12/21 09:04 Pulse 68 06/12/21 09:04 Respiratory Rate 18 06/12/21 09:15 Respiratory Effort Non-Labored 06/12/21 09:18 Respiratory Depth Normal 06/12/21 09:15 Respiratory Pattern Normal 06/12/21 09:15 Blood Pressure 139/78 06/12/21 09:04 Pulse Oximetry 97 06/12/21 09:04 Oxygen Delivery Method Room Air 06/12/21 09:04 Oxygen Flow Rate 0 06/12/21 09:04
[2021-06-12] MEDS: Albuterol/Ipratropium 3 ML UPD VIAL UPD (09:32)
[2021-06-12 09:41] LABS: ALT 30 U/L (16-63); AST 21 U/L (15-37); Albumin 3.7 g/dL (3.4-5.0); Alkaline Phosphatase 97 U/L (46-116); Anion Gap 10.2 mmol/L (3-11); BUN 17 mg/dL (7-18); Bilirubin, Total 0.3 mg/dL (0.2-1.0); CO2 28.8 mmol/L (21.0-32.0); CREATININE 1.1 mg/dL (0.70-1.30); Calcium 8.6 mg/dL (8.5-10.1); Chloride 102 mmol/L (98-107); Glucose 102 mg/dL (74-106); NT-proBNP 20 pg/mL (<300); Potassium 4.1 mmol/L (3.5-5.1); Sodium 141 mmol/L (136-145); Total Protein 7.5 g/dL (6.4-8.2); Troponin I < 50 ng/L (<or=60)
[2021-06-12] MEDS: Omnipaque 350 MG/ML 100 ML BTL IJ (10:26)
--- NOTE | 2021-06-12 10:30 | DI.CT_ITS ---
Exam(s) CT CHEST PE CTA EXAM: CT CHEST PE CTA CLINICAL HISTORY: chest pain post covid. TECHNIQUE: Imaging Protocol: CT angiography of the chest was performed using pulmonary embolus clarisa col. Multi planar reconstructions were performed. CONTRAST MATERIAL: Intravenous: Omnipaque 350 Contrast volume: 100 cc COMPARISON: CT CT CHEST WO from 03/23/2018 FINDINGS: CHEST: PULMONARY ARTERIES: There are no intraluminal filling defects to suggest acute pulmonary emboli. LUNGS: Mild bilateral hazy prominence in the lung cary. No air bronchograms.. No significant foca l findings in the trachea and mainstem bronchi. There are no pleural effusions. MEDIASTINUM: There is no hilar nor mediastinal adenopathy. Visualized thyroid unremarkable. CARDIAC: Heart size is upper normal. There is no pericardial effusion.Caliber of the thoracic aorta is within normal limits. There is no significant shift of the interventricular septum. PARTIALLY VISUALIZED UPPERMOST ABDOMEN: Right adrenal unremarkable. Left adrenal gland is only parti ally included but appears to contain a 1.1 x 1.1 cm nodule at the genu, possibly an adenoma. OSSEOUS: No significant osseous lesions.No fractures.. IMPRESSION: 1. No evidence of acute pulmonary emboli. No evidence of pulmonary infarction.No pleural effusions. 2. There is symmetric bilateral patchy haziness of the lung cary. Possibly related to air trapping versus inflammatory change. There are no distinct confluent infiltrates. There are no pleural effu sions. 3. No evidence of aortic dissection. No pericardial effusion RADIATION DOSE DELIVERED: 591.12mGy.cm Total DLP DATA REPOSITORY: All CT scans at this facility are submitted to the National Radiology Data Registry (NRDR) Dose Index Registry (DIR) with the [employer] (A[employer]). RADIATION OPTIMIZATION: All CT scans at this facility use at least one of these dose optimization te chniques: automated exposure control; mA and/or kV adjustment per patient size (includes targeted exa ms where dose is matched to clinical indication); or iterative reconstruction.
[2021-06-12] MEDS: Normal Saline Flush 10 ML SYR IVP (10:36)
--- NOTE | 2021-06-12 10:39 | DI.VRAD_ITS ---
PROCEDURE INFORMATION: Exam: CTA Chest With Contrast Exam date and time: 06/12/2021 9:12 AM Age: 56 years old Clinical indication: Cough and shortness of breath; Patient HX: Chest pain post covid TECHNIQUE: Imaging protocol: Computed tomographic angiography of the chest with contrast. 3D rendering (Not supervised by radiologist): MIP and/or 3D reconstructed images were created by the technologist. Radiation optimization: All CT scans at this facility use at least one of these dose optimization techniques: automated exposure control; mA and/or kV adjustment per patient size (includes targeted exams where dose is matched to clinical indication); or iterative reconstruction. Contrast material: [id number]; Contrast volume: 100 ml; Contrast route: INTRAVENOUS (IV); COMPARISON: CT CHEST WO 03/23/2018 11:18 PM FINDINGS: Pulmonary arteries: Normal. No pulmonary emboli. Aorta: Unremarkable. No aortic aneurysm. No aortic dissection. Lungs: There is mild bilateral patchy prominence of the pulmonary interstitium. There is no focal airspace consolidation. Pleural spaces: Unremarkable. No pneumothorax. No pleural effusion. Heart: The heart is not enlarged. There is mild coronary artery calcification. Lymph nodes: Unremarkable. No enlarged lymph nodes. Bones/joints: Chronic degenerative changes are present in the spine with scattered sclerosis and osteophytes. Soft tissues: Unremarkable. IMPRESSION: 1. No evidence of pulmonary embolus or aortic aneurysm/dissection. 2. There is mild bilateral patchy hazy prominence of the pulmonary interstitium. The possibility of an interstitial viral pneumonia should be considered. Dictated and Authenticated by: Joaquin Camargo MD. Ordering:DAWNA Ding MD
[2021-06-12] MEDS: Albuterol HFA 8 GM 60 PUFF INH IH (11:02)
[2021-06-12] MEDS: Inhaler, Assist Device 1 EACH MC (11:02)
== END 2021-06-12 11:14 | disposition home or self-care (01) ==
PROVIDERS: Emergency Provider Physician Assistant; PCP Family Medicine
DX: J18.9 Pneumonia, unspecified organism (principal); Z86.16 Personal history of COVID-19; R07.9 Chest pain, unspecified; R06.02 Shortness of breath
CPT/HCPCS: 36415; 71275; 80053; 93005; 94640; 99285; 83880; 84484; 85025; 93010; 99284; J3490; J7620

== ENCOUNTER 2022-06-22 09:20 | Outpatient (CLI) | payer SELFPAY ==
--- NOTE | 2022-06-22 09:15 | RT.EKG_ITS ---
APPROVED REPORT Exam: Resting ECG Reason for Exam: ND Patient Location: O HR:76 bpm ECG Measurements Heart Rate 76 AXIS NH 143 P 26 QRSd 93 QRS 16 QT 377 T 69 QTc 424 Conclusion Sinus rhythm...normal P axis, V-rate 50- 99 Normal Electrocardiogram
== END 2022-06-22 09:21 | disposition home or self-care (01) ==
LOC: DI.CARD 09:20
PROVIDERS: PCP Family Medicine; Visit Provider Internal Medicine Cardiovascular Disease
DX: I21.4 Non-ST elevation (NSTEMI) myocardial infarction (principal); Z86.79 Personal history of other diseases of the circulatory system
CPT/HCPCS: 93010

== ENCOUNTER 2022-09-15 13:27 | Emergency (ER) | payer SELFPAY ==
--- NOTE | 2022-09-15 13:15 | RT.EKG_ITS ---
APPROVED REPORT Exam: Resting ECG Reason for Exam: Dyspnea Patient Location: E HR:68 bpm ECG Measurements Heart Rate 68 AXIS VT 149 P 48 QRSd 95 QRS 53 QT 414 T 76 QTc 440 Conclusion Sinus rhythm...normal P axis, V-rate 60- 99
[2022-09-15 13:29] VITALS: BP 120/67; PULSE 73; RESP 20; TEMP 36.9; O2SAT 98
--- NOTE | 2022-09-15 13:45 | DI.CT_ITS ---
Exam(s) CT CHEST PE CTA EXAM: CT CHEST PE CTA CLINICAL HISTORY: pleuritic chest pain, recent stent placement,. TECHNIQUE: Imaging Protocol: CT angiography of the chest was performed using pulmonary embolus clarisa col. Multi planar reconstructions were performed. CONTRAST MATERIAL: Intravenous: Omnipaque 350 Contrast volume: 100 cc COMPARISON: CT CT CHEST PE CTA from 06/12/2021 FINDINGS: CHEST: PULMONARY ARTERIES: There are no obvious intraluminal filling defects to suggest acute pulmonary embo li. LUNGS: No confluent infiltrates nor pleural effusions. No ominous pulmonary nodules. Slightly incre ased markings in the lung cary probably reflects element of hypoaeration. MEDIASTINUM: There is no hilar nor mediastinal adenopathy. Visualized thyroid unremarkable. CARDIAC: Heart size is upper normal. There is no pericardial effusion.Caliber of the thoracic aorta is within normal limits. There is no evidence of dissection. There is no significant shift of the in terventricular septum. PARTIALLY VISUALIZED UPPERMOST ABDOMEN: No obvious findings OSSEOUS: No significant osseous lesions.. IMPRESSION: 1. No evidence of acute pulmonary emboli. No evidence of pulmonary infarction.No pleural effusions. 2. No confluent infiltrates evident. No significant intrathoracic adenopathy. Called by myself to ER provider. RADIATION DOSE DELIVERED: 712.95mGy.cm Total DLP DATA REPOSITORY: All CT scans at this facility are submitted to the National Radiology Data Registry (NRDR) Dose Index Registry (DIR) with the [employer] (ACR). RADIATION OPTIMIZATION: All CT scans at this facility use at least one of these dose optimization te chniques: automated exposure control; mA and/or kV adjustment per patient size (includes targeted exa ms where dose is matched to clinical indication); or iterative reconstruction.
[2022-09-15 13:47] VITALS: RESP 18
--- NOTE | 2022-09-15 14:20 | ED.GENADUL_ITS ---
Discharge Plan Disposition Patient Disposition: Home Discharge Details Clinical Impression: Pleuritic chest pain Primary Care Provider: Katharina Hernandez V ED Provider: Jocelyn Wesley Home Meds and New Rx's Prescriptions: New albuterol sulfate [ProAir HFA] 90 mcg/actuation HFA aerosol inhaler 2 puff inhalation Q6H PRNQty: 6.7 0RF prednisone 20 mg tablet 40 mg PO DAILY Qty: 10 0RF Continued losartan 25 mg tablet 25 mg PO DAILY clopidogrel 75 mg tablet 75 mg PO DAILY nitroglycerin 0.4 mg tablet, sublingual 0.4 mg sublingual Q5-15M PRN Rx Instructions: do not exceed 3 doses per episode famotidine 20 mg tablet 20 mg PO DAILY PRN rosuvastatin 40 mg tablet 40 mg PO DAILY bupropion HCl 150 mg tablet extended release 24 hr 150 mg PO BID Patient Comments: 06/22/22 Pt states he takes 300 mg Qam and 150 mg PM. RH aspirin [Aspir-81] 81 MG tablet,delayed release (DR/EC) 81 mg PO DAILY multivitamin 1 EACH capsule 1 tab PO DAILY Patient Comments: pt states does not take carvedilol 12.5 mg Tablet 12.5 mg PO BID Patient Comments: pt states does not take citalopram 20 mg tablet 20 mg PO DAILY Patient Comments: TAKE ONE TABLET BY MOUTH EVERY DAY ferrous gluconate 324 mg (37.5 mg iron) Tablet 324 mg PO DAILY Patient Comments: pt states does not take Saccharomyces boulardii [Florastor] 250 mg capsule 250 mg PO BID Qty: 14 0RF Patient Comments: pt states does not take acidophilus-pectin, citrus 25 million cell -100 mg Tablet 1 cap PO TID Qty: 90 0RF Patient Comments: pt states does not take sucralfate 1 gram Tablet 1 g PO BID Centrum Men 50 Plus Minis [id number] mcg Tablet 1 tab PO DAILY Discharge Instructions Instructions: Chest Pain (ED) Additional Instructions: Cardiac work-up is within normal limits today. CT shows no evidence of blood clot in your lung, pneumonia or acute abnormality. Please take the prednisone as prescribed. Use the albuterol inhaler 1 or 2 puffs every 2-4 hours as needed for shortness of breath. Follow up with primary care provider in 3-5 days. Return to ED sooner if any worsening or concerns. Increase oral fluids. Please take Tylenol with food every 4-6 hours as needed for pain and swelling. Referrals: Katharina Hernandez MD [Primary Care Provider] - 3 days Discharge Data Discharge Date/Time-TO BE ENTERED AT DEPARTURE: 09/15/22 17:54 Medical Decision Making <JOSE Severino - Last Filed: 09/17/22 18:16> This 57-year-old male presents with cough, shortness of breath, and chest pain a week ago Mild pectoral tenderness, no rashes or lesions, lungs clear to auscultation, no tenderness, distal pulses intact bilaterally, no calf tenderness bilaterally, otherwise neurovascularly intact, no abdominal tenderness or flank tenderness No acute distress, no hypoxia Otherwise appears well [employer] with recent stent placement will order CTA to evaluate for pulmonary embolism with moderate risk We will order diagnostic blood work including troponin and EKG Troponin and EKG do not show evidence of acute abnormality Pending CTA at this time for further assessment I will sign out pending repeat troponin and CTA would likely discharge home treatment for bronchitis <Jocelyn Wesley NP - Last Filed: 09/15/22 20:47> Medical Records Medical records narrative: 1601: SJ: Care assumed from provider (JOSE Severino) Please see their initial HPI, PE, and documentation. Discussed patient details and case and pending workup and disposition. Patient is hemodynamically stable, and alert and oriented. At the time of signout awaiting repeat troponin. CT chest negative for PE, pneumothorax or pulmonary abnormality. 1727: Repeat Troponin WNL, patient to be discharged home with family. This text was generated using [employer]RBAN[employer]ation system, please disregard any oddities of phrase or misspellings. HPI <JOSE Severino - Last Filed: 09/17/22 18:16> General Date/Time Provider Initiated Documentation: 09/15/22 13:48 . HPI Narrative: This 57-year-old male presents with cough, shortness of breath, chest pain. Patient states he has a history of recent LAD stent placement in May 2022 and is taking clopidogrel for this He states that this pain and discomfort is similar to his acute [place] symptoms. He states that this pain has been for approximately a week and is exacerbated with breathing and coughing. He states he has had a cough for approximately the past month. Denies any fever or chills. Denies any calf pain or swelling. 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 Denies any hemoptysis. Taking clopidogrel as prescribed. Denies history of DVT or pulmonary embolism. Denies any abdominal discomfort. Related Data Home Medications Medication Instructions Recorded Confirmed aspirin 81 mg tablet,delayed 81 mg PO DAILY 01/15/16 09/15/22 release (Aspir-) multivitamin 1 tab PO DAILY 01/15/16 06/22/22 carvedilol 12.5 mg tablet 12.5 mg PO BID 01/17/18 06/22/22 acidophilus 25 million 1 cap PO TID #90 tabs 02/01/18 06/22/22 cell-pectin, citrus 100 mg tablet Saccharomyces boulardii 250 mg 250 mg PO BID #14 caps 06/12/21 06/22/22 capsule (Florastor) citalopram 20 mg tablet 20 mg PO DAILY 06/12/21 09/15/22 ferrous gluconate 324 mg (37.5 mg 324 mg PO DAILY 06/12/21 06/22/22 iron) tablet famotidine 20 mg tablet 20 mg PO DAILY PRN 06/09/22 09/15/22 nitroglycerin 0.4 mg sublingual 0.4 mg sublingual Q5-15M PRN 06/09/22 09/15/22 tablet rosuvastatin 40 mg tablet 40 mg PO DAILY 06/09/22 09/15/22 bupropion HCl 150 mg 24 hr tablet, 150 mg PO BID 06/22/22 09/15/22 extended release clopidogrel 75 mg tablet 75 mg PO DAILY 06/22/22 09/15/22 losartan 25 mg tablet 25 mg PO DAILY 06/22/22 09/15/22 albuterol sulfate 90 mcg/actuation 2 puff inhalation Q6H PRN #6.7 09/15/22 aerosol inhaler (ProAir HFA) grams [id number] 150 mcg-vit K1 1 tab PO DAILY 09/15/22 09/15/22 30 mcg-lycop 300 mcg-lutein tablet (Centrum Men 50 Plus Minis) prednisone 20 mg tablet 40 mg PO DAILY #10 tabs 09/15/22 sucralfate 1 gram tablet 1 g PO BID 09/15/22 09/15/22 Previous Rx's Medication Instructions Recorded acidophilus 25 million 1 cap PO TID #90 tabs 02/01/18 cell-pectin, citrus 100 mg tablet Saccharomyces boulardii 250 mg 250 mg PO BID #14 caps 06/12/21 capsule (Florastor) albuterol sulfate 90 mcg/actuation 2 puff inhalation Q6H PRN #6.7 09/15/22 aerosol inhaler (ProAir HFA) grams prednisone 20 mg tablet 40 mg PO DAILY #10 tabs 09/15/22 Allergies Allergy/AdvReac Type Severity Reaction Status Date / Time lisinopril AdvReac Mild Verified 09/15/22 13:33 General Stated Complaint: SOB ELFEGO: 3 PFSH <JOSE Severino - Last Filed: 09/17/22 18:16> All Active Problems (Updated 09/15/22 @ 17:29 by Jocelyn Wesley NP) Pleuritic chest pain (Acute) Coronary artery disease (Chronic) History of atrial fibrillation (Acute) 06/09/22 per PCP problem list RH Prediabetes (Acute) Dilated aortic root (Acute) 06/09/[address] once stable HTN, 4 cm per [facility] CT RH Family history of early CAD (Acute) NSTEMI (non-ST elevated myocardial infarction) (Acute) 05/22/22 was managed [facility] in [place] had stent to mid LAD w REBECA RH DVT prophylaxis (Acute) Osteomyelitis (Acute) Pneumonia (Acute) Febrile illness, acute (Acute) Antral gastritis (Chronic ~12/2016) Discitis of multiple sites of spine (Acute ~12/31/17) Anemia (Acute) Hypomagnesemia (Acute) Hypokalemia (Acute) Elevated LFTs (Acute) Abnormal gall bladder diagnostic imaging (Acute) Umbilical hernia (Chronic) repaired 12/20/16, Marielena GERD (gastroesophageal reflux disease) (Chronic) Depression (Chronic) HLD (hyperlipidemia) (Chronic) HTN (hypertension) (Chronic) Medical History (Updated 09/15/22 @ 17:29 by Jocelyn Wesley NP) Acute kidney injury (~12/29/17) ATN secondary to MRSA bacteremia, spinal osteomyelitis; required hemodialysis 01/02-01/12/2018 at [facility] Bacteremia due to methicillin resistant Staphylococcus aureus (~12/29/17) Depression Essential hypertension GERD (gastroesophageal reflux disease) Hyperlipidemia Hyponatremia Obesity (BMI 30-39.9) Spinal stenosis of lumbar region with radiculopathy (~12/2017) Surgical History Colonoscopy - MAC (12/06/16) EGD - MAC (12/06/16) History of esophagogastroduodenoscopy (EGD) (01/29/18) Dr Peguero Repair of umbilical hernia (12/20/16) Family History Other Diabetes Heart disease Myocardial infarction Neoplasm Stroke Social History Smoking/Tobacco Use Status: Former Tobacco Use Smoking risk assessment performed?: Yes Alcohol Intake: former Drug use: Never Substance use type: does not use Do you feel safe at home: Yes Do you feel safe in your relationship?: Yes Additional Social history: 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 He quit alcohol at age 19. Course <JOSE Severino - Last Filed: 09/17/22 18:16> Vital Signs Vital signs: Vital Signs Temperature 36.9 C 09/15/22 13:29 Pulse 73 09/15/22 13:29 Respiratory Rate 20 09/15/22 13:29 Blood Pressure 120/67 09/15/22 13:29 Pulse Oximetry 98 09/15/22 13:29 Temperature 36.9 C 09/15/22 13:29 Temperature Source Skin 09/15/22 13:29 Pulse 73 09/15/22 13:29 Respiratory Rate 18 09/15/22 13:47 Respiratory Effort Normal, Non-Labored 09/15/22 13:47 Respiratory Depth Normal 09/15/22 13:47 Respiratory Pattern Normal 09/15/22 13:47 Blood Pressure 120/67 09/15/22 13:29 Blood Pressure Position Sitting 09/15/22 13:29 Pulse Oximetry 98 09/15/22 13:29 Oxygen Delivery Method Room Air 09/15/22 13:29 Oxygen Flow Rate 0 09/15/22 13:29 Pain Level 7 09/15/22 13:29 Sign Out <JOSE Severino - Last Filed: 09/17/22 18:16> Sign Out Data: Sign Out Comment: pending cta and repeat troponin Last updated by Toña Ang PA at 09/15/22 15:48
[2022-09-15 14:31] LABS: Abs Immature Grans 0.02 10^3/uL (0.0-0.06); Absolute Basophil Count 0.05 10^3/uL (0.0-0.2); Absolute Eosinophil Count 0.24 10^3/uL (0.0-0.7); Absolute Lymphocyte Count 2.05 10^3/uL (1.2-3.4); Absolute Monocyte Count 0.61 10^3/uL (0.1-0.8); Absolute Neutrophil Count 5.04 10^3/uL (1.2-6.7); Basophils % 0.6; HCT 41.2 % (40.0-50.0); HGB 13.9 g/dL (13.5-17.5); Immature Grans % 0.2; Lymphocytes % 25.6; MCH 30.5 pg (27.0-33.0); MCHC 33.7 % (32.0-36.0); MCV 91 fL (80-95); Monocytes % 7.6; Platelet Count 192 10^3/uL (130-400); RBC 4.55 10^6/uL (4.36-5.78); RDW 12.5 % (11.8-14.1); RDW-SD 41.6 fL; WBC 8.01 10^3/uL (4.4-10.8)
[2022-09-15 15:23] LABS: ALT 36 U/L (16-63); AST 21 U/L (15-37); Albumin 3.7 g/dL (3.4-5.0); Alkaline Phosphatase 88 U/L (46-116); Anion Gap 9.8 mmol/L (3-11); BUN 14 mg/dL (7-18); Bilirubin, Total 0.3 mg/dL (0.2-1.0); CO2 26.2 mmol/L (21.0-32.0); CREATININE 1.1 mg/dL (0.70-1.30); Chloride 106 mmol/L (98-107); Glucose 113 mg/dL (74-106); NT-proBNP 26 pg/mL (<300); Potassium 3.9 mmol/L (3.5-5.1); Sodium 142 mmol/L (136-145); Total Protein 7.3 g/dL (6.4-8.2); Troponin I < 50 ng/L (<or=60)
[2022-09-15] MEDS: Omnipaque 350 MG/ML 100 ML BTL IJ (15:30)
[2022-09-15] MEDS: Normal Saline - Diluent 50 ML VIAL IJ (15:30)
[2022-09-15] MEDS: Normal Saline Flush 10 ML SYR IVP (15:32)
[2022-09-15 16:54] VITALS: BP 117/58; PULSE 71; RESP 18; O2SAT 99
[2022-09-15 17:16] LABS: Troponin I < 50 ng/L (<or=60)
== END 2022-09-15 17:54 | disposition home or self-care (01) ==
PROVIDERS: Physician Assistant; Emergency Provider Registered Nurse Emergency; PCP Family Medicine
DX: R05.9 Cough, unspecified (principal); R06.02 Shortness of breath; R07.81 Pleurodynia
CPT/HCPCS: 36415; 71275; 80053; 87426; 93005; 99285; 83880; 84484; 85025; 93010; 99284; J3490

== ENCOUNTER 2022-10-09 16:29 | Emergency (ER) | payer SELFPAY ==
[2022-10-09 16:33] VITALS: BP 88/67; PULSE 62; RESP 18; TEMP 36.9; O2SAT 97
[2022-10-09 17:00] VITALS: BP 138/82; PULSE 67; O2SAT 95
[2022-10-09 17:15] VITALS: BP 137/79; PULSE 66; O2SAT 96
--- NOTE | 2022-10-09 17:15 | DI.RAD_ITS ---
Exam(s) XR PELVIS AP EXAM: XR PELVIS AP CLINICAL HISTORY: fall injury. TECHNIQUE: 2D digital imaging was performed. COMPARISON: No exams were available for comparison FINDINGS: Single AP view. No evidence of fracture the pelvis and hips. No joint space narrowing in the hips. SI joints unrema rkable. Chronic degenerative disc disease in lower LS spine noted. IMPRESSION: No acute fractures evident on this single view. DATA REPOSITORY: RADIATION DOSE DELIVERED:
--- NOTE | 2022-10-09 17:15 | DI.RAD_ITS ---
Exam(s) XR ANKLE RT COMPLETE EXAM: XR ANKLE RT COMPLETE CLINICAL HISTORY: fall, pain. TECHNIQUE: 2D digital imaging was performed. COMPARISON: No exams were available for comparison FINDINGS: 3 views No evidence of acute fracture or widening of the ankle mortise. Talar dome unremarkable. No degener ative changes. IMPRESSION: No fractures evident. DATA REPOSITORY: RADIATION DOSE DELIVERED:
--- NOTE | 2022-10-09 17:15 | DI.CT_ITS ---
Exam(s) CT HEAD WO EXAM: CT HEAD WO CLINICAL HISTORY: HI, on plavix and asa. TECHNIQUE: Imaging Protocol: Axial computed tomography images with coronal and sagittal reformatted images were created and reviewed COMPARISON: CT HEAD WITHOUT CONTRAST from 01/19/2016 FINDINGS: There are no skull fractures. There is no fluid in the visualized paranasal sinuses. There is no evidence of intracranial hemorrhage, mass effect, or shift of midline structures. There are no extra-axial fluid collections. The ventricles are not enlarged or shifted and there is no blo od within the ventricular system nor within the basal cisterns. IMPRESSION: No acute intracranial findings on this noninfused CT scan of the brain. RADIATION DOSE DELIVERED: 882.51mGy.cm Total DLP DATA REPOSITORY: All CT scans at this facility are submitted to the National Radiology Data Registry (NRDR) Dose Index Registry (DIR) with the [employer] (ACR). RADIATION OPTIMIZATION: All CT scans at this facility use at least one of these dose optimization te chniques: automated exposure control; mA and/or kV adjustment per patient size (includes targeted exa ms where dose is matched to clinical indication); or iterative reconstruction.
--- NOTE | 2022-10-09 17:15 | DI.RAD_ITS ---
Exam(s) XR FOOT RT COMPLETE EXAM: XR FOOT RT COMPLETE CLINICAL HISTORY: fall, foot injury. TECHNIQUE: 2D digital imaging was performed. COMPARISON: No exams were available for comparison FINDINGS: 3 views No evidence of fracture or diastasis of the Lisfranc joint. Bone density normal. No radiopaque foreign body. No osseous lesions. No degenerative changes. IMPRESSION: No fractures evident. No significant osseous findings. DATA REPOSITORY: RADIATION DOSE DELIVERED:
--- NOTE | 2022-10-09 17:15 | DI.RAD_ITS ---
Exam(s) XR CHEST 2V PA LATERAL EXAM: XR CHEST 2V PA LATERAL CLINICAL HISTORY: fall out of truck bed. TECHNIQUE: 2D digital imaging was performed. COMPARISON: CR,XR XR ABD FLAT UPRIGHT PA CHEST from 12/17/2018 FINDINGS: 2 views: Heart size is normal. The mediastinum is not widened. Lungs are clear. No infiltrates nor pleural effusions. No fractures evident. IMPRESSION: No acute pulmonary findings. DATA REPOSITORY: RADIATION DOSE DELIVERED:
--- NOTE | 2022-10-09 17:52 | DI.VRAD_ITS ---
PROCEDURE INFORMATION: Exam: CT Head Without Contrast Exam date and time: 10/09/2022 5:38 PM Age: 57 years old Clinical indication: Injury or trauma; Fall; Blunt trauma (contusions or hematomas); Patient HX: Hi, on plavix and asa TECHNIQUE: Imaging protocol: Computed tomography of the head without contrast. COMPARISON: CT HEAD WITHOUT CONTRAST 01/19/2016 7:01 AM FINDINGS: Brain: Cerebral sulci show bilateral symmetry with no supratentorial mass or mass effect detected. Brainstem and cerebellum are unremarkable. There is no evidence of acute transcortical infarction or recent intracranial hemorrhage. Cerebral ventricles: Ventricular and cisternal spaces are normal in size and configuration and there is no midline shift or hydrocephalus seen. Paranasal sinuses: Mucosal density is seen along the superior margin of the left maxillary sinus with other paranasal sinuses grossly clear throughout. Mastoid air cells: Grossly clear bilaterally. Bones/joints: Bony calvarium and skull base are intact and no acute fractures are detected. Soft tissues: Unremarkable. IMPRESSION: No evidence of acute transcortical infarction, recent hemorrhage or hydrocephalus. No acute intracranial process is detected. Dictated and Authenticated by: You Pepe MD. Ordering:DAWNA Ding MD
--- NOTE | 2022-10-09 18:15 | DI.VRAD_ITS ---
PROCEDURE INFORMATION: Exam: XR Chest Exam date and time: 10/09/2022 5:45 PM Age: 57 years old Clinical indication: Injury or trauma; Other: Fall out of truck bed TECHNIQUE: Imaging protocol: Radiologic exam of the chest. Views: 2 views. COMPARISON: CT CHEST PE CTA 09/15/2022 3:27 PM FINDINGS: Lungs: Lungs are clear throughout with no mass or consolidation detected. Pleural spaces: No pneumothorax or pleural effusion detected. Heart/Mediastinum: Heart size is normal and vessel margins are sharply defined. Bones/joints: No acute osseous lesions are detected. IMPRESSION: No acute findings. Dictated and Authenticated by: You Pepe MD. Ordering:DAWNA Ding MD
--- NOTE | 2022-10-09 18:17 | DI.VRAD_ITS ---
PROCEDURE INFORMATION: Exam: XR Right Ankle Exam date and time: 10/09/2022 5:53 PM Age: 57 years old Clinical indication: Pain; Ankle; Right TECHNIQUE: Imaging protocol: Radiologic exam of the right ankle. Views: 3 or more views. COMPARISON: No relevant prior studies available. FINDINGS: Bones/joints: Normal trabecular architecture is seen throughout with no acute fractures detected. Soft tissues: Unremarkable. IMPRESSION: No acute findings. Dictated and Authenticated by: You Pepe MD. Ordering:DAWNA Ding MD
--- NOTE | 2022-10-09 18:17 | DI.VRAD_ITS ---
PROCEDURE INFORMATION: Exam: XR Pelvis Exam date and time: 10/09/2022 5:51 PM Age: 57 years old Clinical indication: Pain and injury or trauma; Other: Fall out of truck bed; Pelvic pain TECHNIQUE: Imaging protocol: Radiologic exam of the pelvis. Views: 1 or 2 view. COMPARISON: CT Private^ROUTINE ABDOMEN PELVIS WITH CONTRAST (Adult) 12/23/2017 1:33 PM FINDINGS: Bones/joints: No acute hip or pelvic fractures are detected on this single frontal projection. Degenerative disc and facet changes are seen at lower lumbar levels and the lumbosacral junction. Soft tissues: Unremarkable. IMPRESSION: No acute hip or pelvic fracture identified on the current single view. Note: A single view is inadequate for the exclusion of fracture, and if clinical suspicion persists regarding possible hip or pelvic fracture, additional views are warranted. Dictated and Authenticated by: You Pepe MD. Ordering:DAWNA Ding MD
--- NOTE | 2022-10-09 18:18 | DI.VRAD_ITS ---
PROCEDURE INFORMATION: Exam: XR Right Foot Exam date and time: 10/09/2022 5:56 PM Age: 57 years old Clinical indication: Pain; Foot; Right TECHNIQUE: Imaging protocol: Radiologic exam of the right foot. Views: 3 or more views. COMPARISON: CR XR ANKLE RT COMPLETE 10/09/2022 5:53 PM FINDINGS: Bones/joints: No acute fracture is seen. Soft tissues: Unremarkable. IMPRESSION: No acute findings. Dictated and Authenticated by: You Pepe MD. Ordering:DAWNA Ding MD
--- NOTE | 2022-10-09 19:45 | NUR.NOTE ---
Nursing Note: Pt fitted to ortho boot and crutches for d/c. Pt in no signs of distress at d/c. Pt ambulated to waiting room without difficulty.
--- NOTE | 2022-10-10 11:52 | W.ED.GENAD ---
Discharge Plan Disposition Patient Disposition: Home Discharge Details Clinical Impression: Ankle strain, Fall, Head injury Primary Care Provider: Katharina Hernandez V ED Provider: Toña Ang Home Meds and New Rx's Prescriptions: Continued losartan 25 mg tablet 25 mg PO DAILY clopidogrel 75 mg tablet 75 mg PO DAILY nitroglycerin 0.4 mg tablet, sublingual 0.4 mg sublingual Q5-15M PRN Rx Instructions: do not exceed 3 doses per episode famotidine 20 mg tablet 20 mg PO DAILY PRN rosuvastatin 40 mg tablet 40 mg PO DAILY bupropion HCl 150 mg tablet extended release 24 hr 150 mg PO DIRECTED Patient Comments: 10/09/22 Pt states he takes 300 mg Qam and 150 mg PM aspirin [Aspir-81] 81 MG tablet,delayed release (DR/EC) 81 mg PO DAILY carvedilol 12.5 mg Tablet 12.5 mg PO DAILY Patient Comments: pt states does not take citalopram 20 mg tablet 20 mg PO DAILY Patient Comments: TAKE ONE TABLET BY MOUTH EVERY DAY ferrous gluconate 324 mg (37.5 mg iron) Tablet 324 mg PO DAILY Patient Comments: pt states does not take acidophilus-pectin, citrus 25 million cell -100 mg Tablet 1 cap PO TID Qty: 90 0RF Patient Comments: pt states does not take sucralfate 1 gram Tablet 1 g PO BID Centrum Men 50 Plus Minis [id number] mcg Tablet 1 tab PO DAILY albuterol sulfate [ProAir HFA] 90 mcg/actuation HFA aerosol inhaler 2 puff inhalation Q6H PRNQty: 6.7 0RF Discharge Instructions Instructions: Head Injury (ED), Fall Prevention (ED) Additional Instructions: Take Tylenol 650 mg as needed for pain Wear your boot for comfort Please follow-up with your primary care physician and repeat x-ray in 1 week with persistent pain Your CT and remainder of your test do not show evidence of acute abnormality Referrals: Katharina Hernandez MD [Primary Care Provider] - Discharge Data Discharge Date/Time-TO BE ENTERED AT DEPARTURE: 10/09/22 19:47 Medical Decision Making 57-year-old male presents after a 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, x-rays were ordered for further evaluation, initial blood pressure was low, this was rechecked immediately and he is actually normotensive Secondary to him being on Plavix and aspirin, CT head was ordered CT head does not show evidence of acute abnormality, no midline neck tenderness, cervical spine was not ordered Chest x-ray and pelvis x-ray do not show evidence of fracture, no evidence of additional trauma, x-rays of foot were within normal limits, crutches and boot were supplied for comfort Repeat assessment in 1 week recommended Return precautions reviewed and patient expressed understanding HPI General Date/Time Provider Initiated Documentation: 10/09/22 16:44. HPI Narrative: This 57-year-old gentleman presents after reaching up in the back of a truck and accidentally falling 4 feet onto his right foot, he has right foot and ankle pain. He did hit his head and is on Plavix and aspirin but denies any loss of consciousness or current headache. He denies any fever or chills. He denies any chest pain or shortness of breath. States that he has no abdominal pain, chest pain, shortness of breath. Denies any dizziness or weakness prior to fall. Has been ambulatory with antalgic gait since the event occurred. Related Data Home Medications Medication Instructions Recorded Confirmed aspirin 81 mg tablet,delayed 81 mg PO DAILY 01/15/16 10/09/22 release (Aspir-) carvedilol 12.5 mg tablet 12.5 mg PO DAILY 01/17/18 10/09/22 acidophilus 25 million 1 cap PO TID #90 tabs 02/01/18 10/09/22 cell-pectin, citrus 100 mg tablet citalopram 20 mg tablet 20 mg PO DAILY 06/12/21 10/09/22 ferrous gluconate 324 mg (37.5 mg 324 mg PO DAILY 06/12/21 10/09/22 iron) tablet famotidine 20 mg tablet 20 mg PO DAILY PRN 06/09/22 10/09/22 nitroglycerin 0.4 mg sublingual 0.4 mg sublingual Q5-15M PRN 06/09/22 10/09/22 tablet rosuvastatin 40 mg tablet 40 mg PO DAILY 06/09/22 10/09/22 bupropion HCl 150 mg 24 hr tablet, 150 mg PO DIRECTED 06/22/22 10/09/22 extended release clopidogrel 75 mg tablet 75 mg PO DAILY 06/22/22 10/09/22 losartan 25 mg tablet 25 mg PO DAILY 06/22/22 10/09/22 albuterol sulfate 90 mcg/actuation 2 puff inhalation Q6H PRN #6.7 09/15/22 10/09/22 aerosol inhaler (ProAir HFA) grams [id number] 150 mcg-vit K1 1 tab PO DAILY 09/15/22 10/09/22 30 mcg-lycop 300 mcg-lutein tablet (Centrum Men 50 Plus Minis) sucralfate 1 gram tablet 1 g PO BID 09/15/22 10/09/22 Previous Rx's Medication Instructions Recorded acidophilus 25 million 1 cap PO TID #90 tabs 02/01/18 cell-pectin, citrus 100 mg tablet albuterol sulfate 90 mcg/actuation 2 puff inhalation Q6H PRN #6.7 09/15/22 aerosol inhaler (ProAir HFA) grams Allergies Allergy/AdvReac Type Severity Reaction Status Date / Time lisinopril AdvReac Mild Verified 09/15/22 13:33 General Stated Complaint: Fall/Non TraumaCriteria ELFEGO: 3 PFSH All Active Problems (Updated 10/09/22 @ 18:50 by JOSE Severino) Pleuritic chest pain (Acute) Ankle strain (Acute) Fall (Acute) Head injury (Acute) Coronary artery disease (Chronic) History of atrial fibrillation (Acute) 06/09/22 per PCP problem list RH Prediabetes (Acute) Dilated aortic root (Acute) 06/09/[address] once stable HTN, 4 cm per [facility] CT RH Family history of early CAD (Acute) NSTEMI (non-ST elevated myocardial infarction) (Acute) 05/22/22 was managed hospital in [place] had stent to mid LAD w REBECA RH DVT prophylaxis (Acute) Osteomyelitis (Acute) Pneumonia (Acute) Febrile illness, acute (Acute) Antral gastritis (Chronic ~12/2016) Discitis of multiple sites of spine (Acute ~12/31/17) Anemia (Acute) Hypomagnesemia (Acute) Hypokalemia (Acute) Elevated LFTs (Acute) Abnormal gall bladder diagnostic imaging (Acute) Umbilical hernia (Chronic) repaired 12/20/16Marielena GERD (gastroesophageal reflux disease) (Chronic) Depression (Chronic) HLD (hyperlipidemia) (Chronic) HTN (hypertension) (Chronic) Medical History (Updated 10/09/22 @ 18:50 by JOSE Severino) Acute kidney injury (~12/29/17) ATN secondary to MRSA bacteremia, spinal osteomyelitis; required hemodialysis 01/02-01/12/2018 at [facility] [place] Bacteremia due to methicillin resistant Staphylococcus aureus (~12/29/17) Depression Essential hypertension GERD (gastroesophageal reflux disease) Hyperlipidemia Hyponatremia Obesity (BMI 30-39.9) Spinal stenosis of lumbar region with radiculopathy (~12/2017) Surgical History Colonoscopy - MAC (12/06/16) EGD - MAC (12/06/16) History of esophagogastroduodenoscopy (EGD) (01/29/18) Dr Peguero Repair of umbilical hernia (12/20/16) Family History Other Diabetes Heart disease Myocardial infarction Neoplasm Stroke Social History Smoking/Tobacco Use Status: Former Tobacco Use Smoking risk assessment performed?: Yes Alcohol Intake: former Drug use: Never Substance use type: does not use Do you feel safe at home: Yes Do you feel safe in your relationship?: Yes Additional Social history: 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 He quit alcohol at age 19. Exam Narrative Exam Narrative: [id number] male, alert and oriented x4, no visible sign of head injury, no midline neck pain, pupils equal round reactive to light and accommodation, no visible signs of chest wall trauma, lungs clear to auscultation, cardiac rate rhythm regular, no evidence of thoracic trauma, no abdominal tenderness, no visible signs of abdominal trauma, no skin lesions, GCS 15, alert and oriented x4, tenderness to palpation to right ankle and foot, neurovascularly intact distally, no visible signs of trauma Course Vital Signs Vital signs: Vital Signs Temperature 36.9 C 10/09/22 16:33 Pulse 62 10/09/22 16:33 Respiratory Rate 18 10/09/22 16:33 Blood Pressure 88/67 L 10/09/22 16:33 Pulse Oximetry 97 10/09/22 16:33 Temperature 36.9 C 10/09/22 16:33 Pulse 66 10/09/22 17:15 Respiratory Rate 18 10/09/22 16:33 Respiratory Effort Normal 10/09/22 16:36 Blood Pressure 137/79 10/09/22 17:15 Blood Pressure Position Sitting 10/09/22 16:33 Pulse Oximetry 96 10/09/22 17:15 Oxygen Delivery Method Room Air 10/09/22 17:15 Oxygen Flow Rate 0 10/09/22 17:15 Pain Level 10 10/09/22 16:33
== END 2022-10-09 19:47 | disposition home or self-care (01) ==
PROVIDERS: Emergency Provider Physician Assistant; PCP Family Medicine
DX: S96.911A Strain of unspecified muscle and tendon at ankle and foot level, right foot, initial encounter (principal); S09.90XA Unspecified injury of head, initial encounter; W17.89XA Other fall from one level to another, initial encounter
CPT/HCPCS: 99284; 70450; 71046; 72170; 73610; 73630; 99283

== ENCOUNTER 2022-11-01 08:18 | Emergency (ER) | payer OTHER, SELFPAY ==
[2022-11-01 08:21] VITALS: BP 136/78; PULSE 59; RESP 20; TEMP 36.8; O2SAT 100
--- NOTE | 2022-11-01 08:25 | ED.GENADUL_ITS ---
Discharge Plan Disposition Patient Disposition: Home Condition: Good Discharge Details Clinical Impression: Abdominal pain Primary Care Provider: Katharina Hernandez V ED Provider: Loretta Hemphill Home Meds and New Rx's Prescriptions: Continued losartan 25 mg tablet 25 mg PO DAILY clopidogrel 75 mg tablet 75 mg PO DAILY nitroglycerin 0.4 mg tablet, sublingual 0.4 mg sublingual Q5-15M PRN Rx Instructions: do not exceed 3 doses per episode famotidine 20 mg tablet 20 mg PO DAILY PRN rosuvastatin 40 mg tablet 40 mg PO DAILY bupropion HCl 150 mg tablet extended release 24 hr 150 mg PO DIRECTED Patient Comments: 10/09/22 Pt states he takes 300 mg Qam and 150 mg PM aspirin [Aspir-81] 81 MG tablet,delayed release (DR/EC) 81 mg PO DAILY carvedilol 12.5 mg Tablet 12.5 mg PO DAILY Patient Comments: pt states does not take citalopram 20 mg tablet 20 mg PO DAILY Patient Comments: TAKE ONE TABLET BY MOUTH EVERY DAY ferrous gluconate 324 mg (37.5 mg iron) Tablet 324 mg PO DAILY Patient Comments: pt states does not take acidophilus-pectin, citrus 25 million cell -100 mg Tablet 1 cap PO TID Qty: 90 0RF Patient Comments: pt states does not take sucralfate 1 gram Tablet 1 g PO BID Centrum Men 50 Plus Minis 131-50-172-150 mcg Tablet 1 tab PO DAILY albuterol sulfate [ProAir HFA] 90 mcg/actuation HFA aerosol inhaler 2 puff inhalation Q6H PRNQty: 6.7 0RF Discharge Instructions Instructions: Abdominal Pain (ED) Additional Instructions: Call your primary care doctor today to schedule an appointment within the next two weeks to follow up on your visit here. Your chest x-ray showed some areas which your primary care doctor should follow up on - these may be your known bone sclerosis. Return to the emergency department for new or worsening symptoms, including new/different/worse pain, feeling like you are going to pass out, or if you have any other concerns. Referrals: Katharina Hernandez MD [Primary Care Provider] - Medical Decision Making 57yo M wtih hx of CAD, prior SD, HTN, HLD, GERD, discitis, presenting with concern for malignancy, recent diagnoses of renal and pancreatic cancer in his immediate family. Various symptoms ongoing for the past months to year i ncluding intermittent low back pain (no s/s cauda equina), post-prandial abdominal pain, and right sided pleuritic chest pain as well as 44lbs of weight loss in 6 months (heart attack 6 months ago after which he changed his diet). Vital signs and physical exam reassuring, abdomen non-tender. Not concerned for acute/surgical intraabdominal process given reassuring abdominal exam and lack of pain currently. Low concern for acute coronary syndrome or pulmonary embolism; will evaluate further with labs. Given post-prandial pain, ultrasound ordered and independently reviewed, no bilieary ductal dilation, agree with radiology read below. EKG sinus bradycardia, no ST segment or T wave abnormalities to suggest occlusive SD. CXR independently reviewed, no pneumonia or pneumothorax, agree with radiology read below. Labs as below, CBC & CMP with no actionable abnormalities, normal d-dimer, normal lipase. Troponin negative x 2. On reassessment he remains well appearing, pain free, with reassuring vital signs. With reassuring workup, appropriate for outpatient followup with PCP for various chronic complaints. Advised of incidental chest xray densities (possible/likely known sclerosis) and advised to followup with primary care doctor. Discharged home; discharge instructions including return precautions were reviewed with patient who verbalized understanding. All questions were answered and they are in full agreement with the plan. Imaging Data Radiologic Study: Imaging: Ultrasound Radiologist's impression: IMPRESSION: 1.? No evidence of cholelithiasis nor dilatation of the biliary tree.? 2.? No other significant ultrasound findings in the right upper quadrant. 3.? There is no ascites. Radiologic Study #2: Imaging: X-Ray Radiologist's impression: IMPRESSION: Posteriorly located densities which may correspond to sclerotic intraosseous density seen on recent CT scan of 09/15/2022.? There are no ominous pulmonary nodules evident on that CT scan of 09/15/2022 Lab Data Labs: Laboratory Tests Range/Units 11/01/22 11/01/22 11/01/22 09:15 09:15 09:15 WBC (4.4-10.8) 10^3/uL 6.44 RBC (4.36-5.78) 10^6/uL 4.67 Hgb (13.5-17.5) g/dL 14.3 Hct (40.0-50.0) % 42.5 MCV (80-95) fL 91 MCH (27.0-33.0) pg 30.6 MCHC (32.0-36.0) % 33.6 RDW (11.8-14.1) % 12.4 Plt Count (130-400) 10^3/uL 190 MPV (8.0-11.0) fL 10.6 Immature Gran % 0.2 Neutrophils % 60.0 Lymphocytes % 27.2 Monocytes % 8.9 Eosinophils % 3.1 Basophils % 0.6 Nucleated RBC % (0.0-0.3) % 0.0 Absolute Neutrophils (1.2-6.7) 10^3/uL 3.87 Absolute Lymphocytes (1.2-3.4) 10^3/uL 1.75 Absolute Monocytes (0.1-0.8) 10^3/uL 0.57 Absolute Eosinophils (0.0-0.7) 10^3/uL 0.20 Absolute Basophils (0.0-0.2) 10^3/uL 0.04 D-Dimer (<500) ng/mlFEU 326 Sodium (136-145) mmol/L 139 Potassium (3.5-5.1) mmol/L 4.5 Chloride (98-107) mmol/L 103 Carbon Dioxide (21.0-32.0) mmol/L 31.3 Anion Gap (3-11) mmol/L 4.7 BUN (7-18) mg/dL 18 Creatinine (0.70-1.30) mg/dL 1.0 Est GFR (CKD-EPI 2020) (mL/min/1.73m2) 87.78 Glucose (74-106) mg/dL 101 Calcium (8.5-10.1) mg/dL 9.0 Magnesium (1.8-2.4) mg/dL 1.7 L Total Bilirubin (0.2-1.0) mg/dL 0.3 AST (15-37) U/L 24 ALT (16-63) U/L 41 Alkaline Phosphatase (46-116) U/L 85 Troponin I (<or=60) ng/L < 50 NT-Pro-B Natriuret Pep (<300) pg/mL 65 Total Protein (6.4-8.2) g/dL 7.2 Albumin (3.4-5.0) g/dL 3.6 Lipase (16-77) U/L 51 HPI General Mode of arrival: ambulatory . Date/Time Provider Initiated Documentation: 11/01/22 08:22 . Limitations to Documentation: no limitations . Information obtained by: patient . HPI Narrative: 57yo M wtih hx of CAD, prior SD, HTN, HLD, GERD, discitis, presenting with concern for malignancy. Reports various symptoms including post-prandial abdominal pain which resolves after a bowel movement, chronic intermittent low back pain which is worsening in frequency, and right sided chest pain which is sharp, intermittent, and worse with inspiration. He has had 44lbs of weight loss in the past 6 months. Reports multiple cancer diagnosis in his family including renal and pancreatic. This morning he reports that he could not stop worrying about this and this prompted presentation to the ED. His discussed some of this with his primary care doctor; next appointment scheduled in December. He is otherwise in his usual state of health with no fevers, chills, rash, nausea, vomiting, dysuria, hematuria, LE edema, dyspnea on exertion, or other concerns. Related Data Home Medications Medication Instructions Recorded Confirmed aspirin 81 mg tablet,delayed 81 mg PO DAILY 01/15/16 11/01/22 release (Aspir-) carvedilol 12.5 mg tablet 12.5 mg PO DAILY 01/17/18 11/01/22 acidophilus 25 million 1 cap PO TID #90 tabs 02/01/18 11/01/22 cell-pectin, citrus 100 mg tablet citalopram 20 mg tablet 20 mg PO DAILY 06/12/21 11/01/22 ferrous gluconate 324 mg (37.5 mg 324 mg PO DAILY 06/12/21 10/09/22 iron) tablet famotidine 20 mg tablet 20 mg PO DAILY PRN 06/09/22 11/01/22 nitroglycerin 0.4 mg sublingual 0.4 mg sublingual Q5-15M PRN 06/09/22 11/01/22 tablet rosuvastatin 40 mg tablet 40 mg PO DAILY 06/09/22 11/01/22 bupropion HCl 150 mg 24 hr tablet, 150 mg PO DIRECTED 06/22/22 11/01/22 extended release clopidogrel 75 mg tablet 75 mg PO DAILY 06/22/22 11/01/22 losartan 25 mg tablet 25 mg PO DAILY 06/22/22 11/01/22 albuterol sulfate 90 mcg/actuation 2 puff inhalation Q6H PRN #6.7 09/15/22 11/01/22 aerosol inhaler (ProAir HFA) grams [id number] 150 mcg-vit K1 1 tab PO DAILY 09/15/22 11/01/22 30 mcg-lycop 300 mcg-lutein tablet (Centrum Men 50 Plus Minis) sucralfate 1 gram tablet 1 g PO BID 09/15/22 11/01/22 Previous Rx's Medication Instructions Recorded acidophilus 25 million 1 cap PO TID #90 tabs 02/01/18 cell-pectin, citrus 100 mg tablet albuterol sulfate 90 mcg/actuation 2 puff inhalation Q6H PRN #6.7 09/15/22 aerosol inhaler (ProAir HFA) grams Allergies Allergy/AdvReac Type Severity Reaction Status Date / Time lisinopril AdvReac Mild Verified 11/01/22 08:27 General Stated Complaint: GenMedical ELFEGO: 3 Review of Systems Narrative: see HPI PFSH All Active Problems (Updated 11/01/22 @ 12:28 by Loretta Hemphill MD) Ankle strain (Acute) Fall (Acute) Head injury (Acute) Abdominal pain (Acute) Coronary artery disease (Chronic) History of atrial fibrillation (Acute) 06/09/22 per PCP problem list RH Prediabetes (Acute) Dilated aortic root (Acute) 06/09/[address] once stable HTN, 4 cm [facility] RH Family history of early CAD (Acute) NSTEMI (non-ST elevated myocardial infarction) (Acute) 05/22/22 was managed hospital in [place] had stent to mid LAD w REBECA RH DVT prophylaxis (Acute) Osteomyelitis (Acute) Pneumonia (Acute) Febrile illness, acute (Acute) Antral gastritis (Chronic ~12/2016) Discitis of multiple sites of spine (Acute ~12/31/17) Anemia (Acute) Hypomagnesemia (Acute) Hypokalemia (Acute) Elevated LFTs (Acute) Abnormal gall bladder diagnostic imaging (Acute) Umbilical hernia (Chronic) repaired 12/20/16, Marielena GERD (gastroesophageal reflux disease) (Chronic) Depression (Chronic) HLD (hyperlipidemia) (Chronic) HTN (hypertension) (Chronic) Medical History (Updated 11/01/22 @ 12:28 by Loretta Hemphill MD) Acute kidney injury (~12/29/17) ATN secondary to MRSA bacteremia, spinal osteomyelitis; required hemodialysis 01/02-01/12/2018 at [facility] [place] Bacteremia due to methicillin resistant Staphylococcus aureus (~12/29/17) Depression Essential hypertension GERD (gastroesophageal reflux disease) Hyperlipidemia Hyponatremia Obesity (BMI 30-39.9) Spinal stenosis of lumbar region with radiculopathy (~12/2017) Surgical History Colonoscopy - MAC (12/06/16) EGD - MAC (12/06/16) History of esophagogastroduodenoscopy (EGD) (01/29/18) Dr Peguero Repair of umbilical hernia (12/20/16) Family History Other Diabetes Heart disease Myocardial infarction Neoplasm Stroke Social History Smoking/Tobacco Use Status: Former Tobacco Use Smoking risk assessment performed?: Yes Alcohol Intake: former Drug use: Never Substance use type: does not use Do you feel safe at home: Yes Do you feel safe in your relationship?: Yes Additional Social history: 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 He quit alcohol at age 19. Exam Narrative Exam Narrative: General: Alert, well appearing, well nourished, in no acute distress. Head: Normocephalic, atraumatic Neck: Trachea midline, Neck supple. ENT: MMM. No oropharygeal lesions or exudate. Cardiac: RRR, no murmurs appreciated Resp: No respiratory distress. CTAB. Abd: Soft, non-distended, nontender : No suprapubic tenderness. No CVA tenderness. Back: No midline tenderness. Extremities: No deformities. No peripheral edema. Neurologic: GCS 15. Moves all extremities freely against gravity. Sensation intact and symmetric bilaterally. No saddle anesthesia.
--- NOTE | 2022-11-01 08:45 | RT.EKG_ITS ---
APPROVED REPORT Exam: Resting ECG Reason for Exam: chest pain Patient Location: E HR:55 bpm ECG Measurements Heart Rate 55 AXIS OR 162 P 46 QRSd 98 QRS 28 QT 428 T 70 QTc 411 Conclusion Sinus bradycardia...rate< [address] segment or T wave abnormalities to suggest occlusive NH
--- NOTE | 2022-11-01 08:45 | DI.RAD_ITS ---
Exam(s) XR CHEST 2V PA LATERAL EXAM: XR CHEST 2V PA LATERAL CLINICAL HISTORY: right sided chest pain. TECHNIQUE: 2D digital imaging was performed. COMPARISON: CT CT CHEST PE CTA from 09/15/2022 CR,XR XR CHEST 2V PA LATERAL from 10/09/2022 FINDINGS: 2 views: Heart size is normal. The mediastinum is not widened. No infiltrates evident on the frontal view. On the lateral view there are density seen posteriorly. More superior appears to be related to overl tracy rib and degenerative disc space. The more inferior of the 2 densities measures approximately 2 x 2 cm. May also correspond to sclerotic densities on either side of a disc space, as seen on CT sca n of 09/15/2022. There are no pleural effusions. No pneumothorax. No pulmonary edema.. IMPRESSION: Posteriorly located densities which may correspond to sclerotic intraosseous density seen on recent C T scan of 09/15/2022. There are no ominous pulmonary nodules evident on that CT scan of 09/15/2022 DATA REPOSITORY: RADIATION DOSE DELIVERED:
--- NOTE | 2022-11-01 08:50 | DI.US_ITS ---
Exam(s) US ABDOMEN LIMITED EXAM: US ABDOMEN LIMITED CLINICAL HISTORY: eval gallbladder/pancreas RUQ postprandial pain TECHNIQUE: Ultrasound abdomen performed using standard protocol. COMPARISON: US US ABDOMEN from 12/24/[address] CHEST PE CTA from 09/15/2022 FINDINGS: There is no ascites evident. LIVER: There are no hepatic lesions evident nor dilatation of intrahepatic ducts. GALLBLADDER/BILIARY: There are no gallstones. No gallbladder wall edema nor pericholecystic fluid. The common hepatic duct isnot dilated, measuring 3-4mm at the level of cassie hepatis. PANCREAS: There is no evidence of pancreatic mass nor dilatation of the pancreatic duct. RIGHT KIDNEY:No evidence of solid mass, calculus, nor hydronephrosis. No cortical cysts evident. IMPRESSION: 1. No evidence of cholelithiasis nor dilatation of the biliary tree. 2. No other significant ultrasound findings in the right upper quadrant. 3. There is no ascites. DATA REPOSITORY:
[2022-11-01 09:22] LABS: Abs Immature Grans 0.01 10^3/uL (0.0-0.06); Absolute Basophil Count 0.04 10^3/uL (0.0-0.2); Absolute Lymphocyte Count 1.75 10^3/uL (1.2-3.4); Absolute Monocyte Count 0.57 10^3/uL (0.1-0.8); Absolute Neutrophil Count 3.87 10^3/uL (1.2-6.7); Basophils % 0.6; Eosinophils % 3.1; HCT 42.5 % (40.0-50.0); HGB 14.3 g/dL (13.5-17.5); Immature Grans % 0.2; Lymphocytes % 27.2; MCH 30.6 pg (27.0-33.0); MCHC 33.6 % (32.0-36.0); MCV 91 fL (80-95); MPV 10.6 fL (8.0-11.0); Monocytes % 8.9; Platelet Count 190 10^3/uL (130-400); RBC 4.67 10^6/uL (4.36-5.78); RDW 12.4 % (11.8-14.1); RDW-SD 41.1 fL; WBC 6.44 10^3/uL (4.4-10.8)
[2022-11-01 09:49] LABS: ALT 41 U/L (16-63); AST 24 U/L (15-37); Albumin 3.6 g/dL (3.4-5.0); Alkaline Phosphatase 85 U/L (46-116); Anion Gap 4.7 mmol/L (3-11); BUN 18 mg/dL (7-18); Bilirubin, Total 0.3 mg/dL (0.2-1.0); CO2 31.3 mmol/L (21.0-32.0); Chloride 103 mmol/L (98-107); Estimated GFR 87.78 (mL/min/1.73m2); Glucose 101 mg/dL (74-106); Lipase 51 U/L (16-77); Magnesium 1.7 mg/dL (1.8-2.4); NT-proBNP 65 pg/mL (<300); Potassium 4.5 mmol/L (3.5-5.1); Sodium 139 mmol/L (136-145); Total Protein 7.2 g/dL (6.4-8.2); Troponin I < 50 ng/L (<or=60)
[2022-11-01 09:58] VITALS: RESP 18
[2022-11-01 10:15] LABS: D-Dimer 326 ng/mlFEU (<500)
[2022-11-01 12:37] LABS: Troponin I < 50 ng/L (<or=60)
== END 2022-11-01 13:11 | disposition home or self-care (01) ==
PROVIDERS: Emergency Provider Student in an Organized Health Care Education/Training Program; PCP Family Medicine
DX: R10.31 Right lower quadrant pain (principal); M54.9 Dorsalgia, unspecified; R63.4 Abnormal weight loss
CPT/HCPCS: 80053; 83690; 93005; 99285; 71046; 76705; 83735; 83880; 84484; 85025; 85379; 93010; 99283

== ENCOUNTER 2022-12-03 07:07 | Emergency (ER) | payer OTHER, SELFPAY ==
[2022-12-03 07:15] VITALS: BP 134/78; PULSE 66; RESP 16; TEMP 37.1; O2SAT 96
--- NOTE | 2022-12-03 07:30 | DI.RAD_ITS ---
Exam(s) XR CHEST 2V PA LATERAL EXAM: XR CHEST 2V PA LATERAL CLINICAL HISTORY: cough TECHNIQUE: 2D digital imaging was performed of the chest. Two images were obtained. PA and lateral views were obtained. COMPARISON: CR XR CHEST 2V PA LATERAL from 11/01/2022 FINDINGS: MEDIASTINUM: Normal. HEART: Normal. PULMONARY VASCULATURE: Normal. LUNGS: Increased opacity in the right lung base. PLEURAL SPACE: No pleural effusion or pneumothorax. BONE:Within normal limits for the patient's age. OTHER FINDINGS:Normal. IMPRESSION: Increased opacity in the right lung base which may represent atelectasis or pneumonia. DATA REPOSITORY: RADIATION DOSE DELIVERED:
[2022-12-03 07:31] VITALS: BP 127/85; PULSE 62; O2SAT 98
--- NOTE | 2022-12-03 07:45 | ED.GENADUL_ITS ---
Discharge Plan Disposition Patient Disposition: Home Condition: Stable Discharge Details Clinical Impression: Cough Primary Care Provider: Katharina Hernandez V ED Provider: Niranjan James Home Meds and New Rx's Prescriptions: New amoxicillin-pot clavulanate 875-125 mg tablet 1 tab PO BID 7 Days Qty: 14 0RF azithromycin 250 mg tablet See Rx Instructions .ROUTE .COMPLEX Qty: 6 0RF Rx Instructions: For 250 mg dose pack: take 500 mg today (day 1), then 250 mg for 4 days (days 2-5) albuterol sulfate 90 mcg/actuation HFA aerosol inhaler 2 puff inhalation Q6H PRNQty: 6.7 0RF No Action losartan 25 mg tablet 25 mg PO DAILY clopidogrel 75 mg tablet 75 mg PO DAILY nitroglycerin 0.4 mg tablet, sublingual 0.4 mg sublingual Q5-15M PRN Rx Instructions: do not exceed 3 doses per episode famotidine 20 mg tablet 20 mg PO DAILY PRN rosuvastatin 40 mg tablet 40 mg PO DAILY bupropion HCl 150 mg tablet extended release 24 hr 150 mg PO DIRECTED Patient Comments: 10/09/22 Pt states he takes 300 mg Qam and 150 mg PM aspirin [Aspir-81] 81 MG tablet,delayed release (DR/EC) 81 mg PO DAILY carvedilol 12.5 mg Tablet 12.5 mg PO DAILY Patient Comments: pt states does not take citalopram 20 mg tablet 20 mg PO DAILY Patient Comments: TAKE ONE TABLET BY MOUTH EVERY DAY acidophilus-pectin, citrus 25 million cell -100 mg Tablet 1 cap PO TID Qty: 90 0RF Patient Comments: pt states does not take sucralfate 1 gram Tablet 1 g PO BID Centrum Men 50 Plus Minis [id number] mcg Tablet 1 tab PO DAILY Discharge Instructions Instructions: Acute Cough (ED) Additional Instructions: Please follow-up with your primary care physician. Please return to the emergency department for any worsening symptoms. Hold antibiotic prescription only to be filled if your symptoms are getting worse. Otherwise tear a prescription and do not take as to avoid unnecessary antibiotic use Medical Decision Making 57-year-old male presents with 2 weeks of nasal congestion and cough. Afebrile nontoxic not hypoxic lungs clear bilaterally. Symptoms consistent with viral URI versus must consider pneumonia. Rapid flu and COVID-negative. Will order chest x-ray, will dose dexamethasone. Likely home with close follow 8: 18 x-ray clear resting for no acute distress. Patient be prescribed albuterol inhaler. Will also be given a prescription for azithromycin and Augmentin to be filled only if symptoms are worsening. HPI General Date/Time Provider Initiated Documentation: 12/03/22 07:37 . HPI Narrative: 57-year-old male presents with 2 weeks of sinus pressure cough congestion Related Data Home Medications Medication Instructions Recorded Confirmed aspirin 81 mg tablet,delayed 81 mg PO DAILY 01/15/16 12/03/22 release (Aspir-) carvedilol 12.5 mg tablet 12.5 mg PO DAILY 01/17/18 12/03/22 acidophilus 25 million 1 cap PO TID #90 tabs 02/01/18 12/03/22 cell-pectin, citrus 100 mg tablet citalopram 20 mg tablet 20 mg PO DAILY 06/12/21 12/03/22 famotidine 20 mg tablet 20 mg PO DAILY PRN 06/09/22 12/03/22 nitroglycerin 0.4 mg sublingual 0.4 mg sublingual Q5-15M PRN 06/09/22 12/03/22 tablet rosuvastatin 40 mg tablet 40 mg PO DAILY 06/09/22 12/03/22 bupropion HCl 150 mg 24 hr tablet, 150 mg PO DIRECTED 06/22/22 12/03/22 extended release clopidogrel 75 mg tablet 75 mg PO DAILY 06/22/22 12/03/22 losartan 25 mg tablet 25 mg PO DAILY 06/22/22 12/03/22 [id number] 150 mcg-vit K1 1 tab PO DAILY 09/15/22 12/03/22 30 mcg-lycop 300 mcg-lutein tablet (Centrum Men 50 Plus Minis) sucralfate 1 gram tablet 1 g PO BID 09/15/22 12/03/22 albuterol sulfate 90 mcg/actuation 2 puff inhalation Q6H PRN #6.7 12/03/22 aerosol inhaler grams amoxicillin 875 mg-potassium 1 tab PO BID 7 days #14 tabs 12/03/22 clavulanate 125 mg tablet azithromycin 250 mg tablet See Rx Instructions PO .COMPLEX #6 12/03/22 tabs Previous Rx's Medication Instructions Recorded acidophilus 25 million 1 cap PO TID #90 tabs 02/01/18 cell-pectin, citrus 100 mg tablet albuterol sulfate 90 mcg/actuation 2 puff inhalation Q6H PRN #6.7 12/03/22 aerosol inhaler grams amoxicillin 875 mg-potassium 1 tab PO BID 7 days #14 tabs 12/03/22 clavulanate 125 mg tablet azithromycin 250 mg tablet See Rx Instructions PO .COMPLEX #6 12/03/22 tabs Allergies Allergy/AdvReac Type Severity Reaction Status Date / Time lisinopril AdvReac Mild Verified 11/01/22 08:27 General Stated Complaint: RespSymp ELFEGO: 3 Review of Systems Narrative: Review of Systems Constitutional: negative Eyes: negative ENT: negative Cardiovascular: negative Respiratory: Cough, congestion Gastrointestinal: negative : negative Musculoskeletal: negative Skin: negative Neurologic: negative Psych: negative PFSH All Active Problems (Updated 12/03/22 @ 08:19 by Niranjan James MD) Cough (Acute) Coronary artery disease (Chronic) History of atrial fibrillation (Acute) 06/09/22 per PCP problem list RH Prediabetes (Acute) Dilated aortic root (Acute) 06/09/[address] once stable HTN, 4 cm per [facility] RH Family history of early CAD (Acute) NSTEMI (non-ST elevated myocardial infarction) (Acute) 05/22/22 was managed hospital in [place] had stent to mid LAD w REBECA RH DVT prophylaxis (Acute) Osteomyelitis (Acute) Pneumonia (Acute) Febrile illness, acute (Acute) Antral gastritis (Chronic ~12/2016) Discitis of multiple sites of spine (Acute ~12/31/17) Anemia (Acute) Hypomagnesemia (Acute) Hypokalemia (Acute) Elevated LFTs (Acute) Abnormal gall bladder diagnostic imaging (Acute) Umbilical hernia (Chronic) repaired 12/20/16, Peguero GERD (gastroesophageal reflux disease) (Chronic) Depression (Chronic) HLD (hyperlipidemia) (Chronic) HTN (hypertension) (Chronic) Medical History (Updated 12/03/22 @ 08:19 by Niranjan James MD) Acute kidney injury (~12/29/17) ATN secondary to MRSA bacteremia, spinal osteomyelitis; [place] hemod[place]/02-01[place]12[place] [facility] [place]acteremia due to methicillin resistant Staphylococcus aureus (~12/29/17) Depression Essential hypertension GERD (gastroesophageal reflux disease) Hyperlipidemia Hyponatremia Obesity (BMI 30-39.9) Spinal stenosis of lumbar region with radiculopathy (~12/2017) Surgical History Colonoscopy - MAC (12/06/16) EGD - MAC (12/06/16) History of esophagogastroduodenoscopy (EGD) (01/29/18) Dr Peguero Repair of umbilical hernia (12/20/16) Family History Other Diabetes Heart disease Myocardial infarction Neoplasm Stroke Social History Smoking/Tobacco Use Status: Former Tobacco Use Smoking risk assessment performed?: Yes Alcohol Intake: former Drug use: Never Substance use type: does not use Do you feel safe at home: Yes Do you feel safe in your relationship?: Yes Additional Social history: 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 He quit alcohol at age 19. Exam Narrative Exam Narrative: Physical Examination General: alert, awake, cooperative, resting comfortably, no acute distress HEENT: normocephalic, atraumatic; PERRL, EOM intact, conjunctiva normal; no nasal discharge; moist mucous membranes, oral and pharyngeal mucosa normal, tolerating secretions Neck: supple, trachea midline; full ROM Chest: normal to inspection Respiratory: normal respiratory effort, speaking in full sentences, clear to auscultation, no wheezing, rales or rhonchi Cardiac: regular rate, regular rhythm, S1S2 intact, no murmurs rubs or gallops GI: abdomen soft, non-tender, non-distended; no palpable mass or hepatosplenomegaly Skin: no lesions, rashes or trauma appreciated Neuro: AAOx3, normal speech, moving all extremities Psych: Appropriate mood and affect Course Vital Signs Vital signs: Vital Signs Temperature 37.1 C 12/03/22 07:15 Pulse 66 12/03/22 07:15 Respiratory Rate 16 12/03/22 07:15 Blood Pressure 134/78 12/03/22 07:15 Pulse Oximetry 96 12/03/22 07:15 Temperature 37.1 C 12/03/22 07:15 Temperature Source Oral 12/03/22 07:15 Pulse 62 12/03/22 07:31 Respiratory Rate 16 12/03/22 07:15 Respiratory Effort Normal 12/03/22 07:33 Respiratory Depth Normal 12/03/22 07:32 Blood Pressure 127/85 12/03/22 07:31 Blood Pressure Mean 95 12/03/22 07:31 Blood Pressure Position Sitting 12/03/22 07:15 Pulse Oximetry 98 12/03/22 07:31 Oxygen Delivery Method Room Air 12/03/22 07:15 Oxygen Flow Rate 0 12/03/22 07:15 Pain Level 3 12/03/22 07:15
[2022-12-03] MEDS: Dexamethasone 10 MG/ML VIAL PO (07:53)
--- NOTE | 2022-12-03 08:25 | DI.VRAD_ITS ---
PROCEDURE INFORMATION: Exam: XR Chest Exam date and time: 12/03/2022 7:58 AM Age: 57 years old Clinical indication: Shortness of breath TECHNIQUE: Imaging protocol: Radiologic exam of the chest. Views: 2 views. COMPARISON: CR XR CHEST 2V PA LATERAL 11/01/2022 11:28 AM FINDINGS: Lungs: Mild opacity in the right base may represent atelectasis or pneumonia.. Pleural spaces: Unremarkable. No pleural effusion. No pneumothorax. Heart/Mediastinum: Unremarkable. No cardiomegaly. Bones/joints: Unremarkable. IMPRESSION: Mild opacity in the right base may represent atelectasis or pneumonia.. Dictated and Authenticated by: Carly De Leon MD. Ordering:LORE Ureña MD
[2022-12-03 08:33] VITALS: BP 133/90; PULSE 61; RESP 16; O2SAT 97
== END 2022-12-03 08:33 | disposition home or self-care (01) ==
PROVIDERS: Emergency Provider Emergency Medicine; PCP Family Medicine
DX: R05.9 Cough, unspecified (principal); R06.02 Shortness of breath
CPT/HCPCS: 87426; 99284; 71046; 99283; J1100

== ENCOUNTER 2022-12-08 16:23 | Emergency (ER) | payer OTHER, SELFPAY ==
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
[2022-12-08 16:24] VITALS: BP 161/93; PULSE 80; RESP 20; TEMP 36.7; O2SAT 96
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
[2022-12-08 17:08] LABS: Abs Immature Grans 0.03 10^3/uL (0.0-0.06); Absolute Basophil Count 0.04 10^3/uL (0.0-0.2); Absolute Eosinophil Count 0.45 10^3/uL (0.0-0.7); Absolute Lymphocyte Count 2.09 10^3/uL (1.2-3.4); Absolute Monocyte Count 0.84 10^3/uL (0.1-0.8); Absolute Neutrophil Count 4.09 10^3/uL (1.2-6.7); Basophils % 0.5; HCT 42.3 % (40.0-50.0); HGB 14.4 g/dL (13.5-17.5); Immature Grans % 0.4; Lymphocytes % 27.7; MCH 30.4 pg (27.0-33.0); MCV 89 fL (80-95); MPV 10.2 fL (8.0-11.0); Monocytes % 11.1; Neutrophils % 54.3; Platelet Count 292 10^3/uL (130-400); RBC 4.74 10^6/uL (4.36-5.78); RDW-SD 39.5 fL; WBC 7.54 10^3/uL (4.4-10.8)
[2022-12-08 17:20] LABS: INR 1.1 (0.9-1.1); PTT Activated 25.9 sec (21.5-31.9); Prothrombin Time 10.8 sec (9.3-11.0)
[2022-12-08 17:30] LABS: ALT 27 U/L (16-63); AST 15 U/L (15-37); Albumin 3.7 g/dL (3.4-5.0); Alkaline Phosphatase 87 U/L (46-116); Anion Gap 8.7 mmol/L (3-11); BUN 18 mg/dL (7-18); Bilirubin, Total 0.4 mg/dL (0.2-1.0); CO2 28.3 mmol/L (21.0-32.0); CREATININE 1.1 mg/dL (0.70-1.30); Calcium 9.7 mg/dL (8.5-10.1); Chloride 103 mmol/L (98-107); Glucose 80 mg/dL (74-106); Potassium 4.1 mmol/L (3.5-5.1); Sodium 140 mmol/L (136-145); Total Protein 7.9 g/dL (6.4-8.2)
[2022-12-08 18:05] VITALS: BP 136/86; PULSE 85; RESP 18; TEMP 36.8; O2SAT 99
== END 2022-12-08 18:06 | disposition home or self-care (01) ==
PROVIDERS: Emergency Provider Emergency Medicine; PCP Family Medicine
DX: S06.0XAA Concussion with loss of consciousness status unknown, initial encounter; R41.82 Altered mental status, unspecified; S09.22XA Traumatic rupture of left ear drum, initial encounter; Y04.0XXA Assault by unarmed brawl or fight, initial encounter
CPT/HCPCS: 80053; 82962; 99285; 70450; 71046; 72125; 85025; 85610; 85730; 99284

== ENCOUNTER 2023-06-03 07:06 | Emergency (ER) | payer OTHER, SELFPAY ==
[2023-06-03 07:09] VITALS: BP 169/90; PULSE 56; RESP 16; TEMP 36.5; O2SAT 98
--- NOTE | 2023-06-03 07:15 | DI.CT_ITS ---
Exam(s) CT ABDOMEN PELVIS W EXAM: CT ABDOMEN PELVIS W CLINICAL HISTORY: abd pain, black stool. TECHNIQUE: Imaging Protocol: Axial computed tomography images with coronal and sagittal reformatted images were created and reviewed CONTRAST MATERIAL: Intravenous: Omnipaque 350 Contrast volume:100 ml Oral: no COMPARISON: CT DI.CTAPWO from 12/29/[address] CHEST PE CTA from 06/12/[address] CHEST PE CTA from 09/15/2022 FINDINGS: ABDOMEN and PELVIS: Lung Bases: No acute findings. Liver: Normal density. No measurable mass. Gallbladder and biliary tract: No radiodense calculus or dilation. Pancreas: Normal density. No abnormal calcifications or inflammatory process. No evidence of mass. Spleen: Normal. Kidneys: Normal size, contour and axis. No radiodense stones. No obstructive uropathy. No suspicious masses seen. Adrenal glands: No masses seen. Vasculature: Abdominal aorta non-dilated. Soft tissues: Prior umbilical hernia repair. Bladder: No gross wall thickening. No calculi.No focal mass. Bowel: No obstruction. No bowel wall thickening. Appendix normal. Moderate quantity of stool. Peritoneal cavity: No ascites. No focal collection or mesenteric inflammatory response. Bones: Degenerative changes. Mild scoliosis. Reproductive organs: Within normal limits. Lymph nodes: Unremarkable. IMPRESSION:: No acute abnormality in the abdomen and pelvis. RADIATION DOSE DELIVERED: Total DLP DATA REPOSITORY: All CT scans at this facility are submitted to the National Radiology Data Registry (NRDR) Dose Index Registry (DIR) with the [employer] (ACR). RADIATION OPTIMIZATION: All CT scans at this facility use at least one of these dose optimization te chniques: automated exposure control; mA and/or kV adjustment per patient size (includes targeted exa ms where dose is matched to clinical indication); or iterative reconstruction.
--- NOTE | 2023-06-03 07:22 | ED.GENADUL_ITS ---
Discharge Plan Disposition Patient Disposition: Home Condition: Improving Discharge Details Clinical Impression: Dark stools Primary Care Provider: Katharina Hernandez V ED Provider: Niranjan James Home Meds and New Rx's Prescriptions: New pantoprazole 40 mg tablet,delayed release (DR/EC) 40 mg PO DAILY Qty: 30 0RF No Action losartan 25 mg tablet 25 mg PO DAILY nitroglycerin 0.4 mg tablet, sublingual 0.4 mg sublingual Q5-15M PRN (Reason: chest pain) Qty: 30 6RF Rx Instructions: do not exceed 3 doses per episode famotidine 20 mg tablet 20 mg PO DAILY PRN rosuvastatin 40 mg tablet 40 mg PO DAILY aspirin [Aspir-81] 81 MG tablet,delayed release (DR/EC) 81 mg PO DAILY citalopram 20 mg tablet 20 mg PO DAILY Patient Comments: TAKE ONE TABLET BY MOUTH EVERY DAY bupropion HCl 100 mg tablet See Rx Instructions PO BID Rx Instructions: 300mg in am and take 150mg in the evening acidophilus-pectin, citrus 25 million cell -100 mg Tablet 1 cap PO TID Qty: 90 0RF sucralfate 1 gram Tablet 1 g PO BID Centrum Minis Men 50 Plus [phone] mcg Tablet 1 tab PO DAILY albuterol sulfate 90 mcg/actuation HFA aerosol inhaler 2 puff inhalation Q6H PRNQty: 6.7 0RF Discharge Instructions Instructions: Peptic Ulcer (ED), Gastritis (ED) Additional Instructions: Please follow-up with GI specialist and primary care. Please return to the Emergency Department for any worsening symptoms HPI General Date/Time Provider Initiated Documentation: 06/03/23 07:13 . HPI Narrative: 58-year-old male history of gastritis, presents with abdominal pain nausea belching and dark stool over the last 4 days. Abdominal pain is generalized in nature. Denies blood thinner use. Denies drinking. Related Data Home Medications Medication Instructions Recorded Confirmed aspirin 81 mg tablet,delayed 81 mg PO DAILY 01/15/16 06/03/23 release (Aspir-) acidophilus 25 million 1 cap PO TID #90 tabs 02/01/18 06/03/23 cell-pectin, citrus 100 mg tablet citalopram 20 mg tablet 20 mg PO DAILY 06/12/21 06/03/23 famotidine 20 mg tablet 20 mg PO DAILY PRN 06/09/22 06/03/23 rosuvastatin 40 mg tablet 40 mg PO DAILY 06/09/22 06/03/23 losartan 25 mg tablet 25 mg PO DAILY 06/22/22 06/03/23 lkhclvto-bgv-ayrfs 150 mcg-vit K1 1 tab PO DAILY 09/15/22 06/03/23 30 mcg-lycop 300 mcg-lutein tablet (Centrum Minis Men 50 Plus) sucralfate 1 gram tablet 1 g PO BID 09/15/22 06/03/23 albuterol sulfate 90 mcg/actuation 2 puff inhalation Q6H PRN #6.7 12/03/22 06/03/23 aerosol inhaler grams nitroglycerin 0.4 mg sublingual 0.4 mg sublingual Q5-15M PRN chest 06/01/23 06/03/23 tablet pain #30 tabs bupropion HCl 100 mg tablet See Rx Instructions PO BID 06/03/23 06/03/23 pantoprazole 40 mg tablet,delayed 40 mg PO DAILY #30 tabs 06/03/23 release Previous Rx's Medication Instructions Recorded acidophilus 25 million 1 cap PO TID #90 tabs 02/01/18 cell-pectin, citrus 100 mg tablet albuterol sulfate 90 mcg/actuation 2 puff inhalation Q6H PRN #6.7 12/03/22 aerosol inhaler grams nitroglycerin 0.4 mg sublingual 0.4 mg sublingual Q5-15M PRN chest 06/01/23 tablet pain #30 tabs pantoprazole 40 mg tablet,delayed 40 mg PO DAILY #30 tabs 06/03/23 release Allergies Allergy/AdvReac Type Severity Reaction Status Date / Time lisinopril AdvReac Mild unknown Verified 06/03/23 07:12 General Stated Complaint: GI Bleed ELFEGO: 3 Review of Systems Narrative: Review of Systems Constitutional: negative Eyes: negative ENT: negative Cardiovascular: negative Respiratory: negative Gastrointestinal: Abdominal pain, nausea, belching, dark stool : negative Musculoskeletal: negative Skin: negative Neurologic: negative Psych: negative Exam Narrative Exam Narrative: Physical Examination General: alert, awake, cooperative, resting comfortably, no acute distress HEENT: normocephalic, atraumatic; PERRL, EOM intact, conjunctiva normal; no nasal discharge; moist mucous membranes, oral and pharyngeal mucosa normal, tolerating secretions Neck: supple, trachea midline; full ROM Chest: normal to inspection Respiratory: normal respiratory effort, speaking in full sentences, clear to auscultation, no wheezing, rales or rhonchi Cardiac: regular rate, regular rhythm, S1S2 intact, no murmurs rubs or gallops GI: abdomen soft, non-tender, non-distended; no palpable mass or hepatos plenomegaly Skin: no lesions, rashes or trauma appreciated Neuro: AAOx3, normal speech, moving all extremities Psych: Appropriate mood and affect Course Vital Signs Vital signs: Vital Signs Temperature 36.5 C 06/03/23 07:09 Pulse 56 L 06/03/23 07:09 Respiratory Rate 16 06/03/23 07:09 Blood Pressure 169/90 H 06/03/23 07:09 Pulse Oximetry 98 06/03/23 07:09 Temperature 36.5 C 06/03/23 07:09 Temperature Source Temporal Artery Scan 06/03/23 07:09 Pulse 56 L 06/03/23 07:09 Respiratory Rate 16 06/03/23 07:09 Blood Pressure 169/90 H 06/03/23 07:09 Pulse Oximetry 98 06/03/23 07:09 Medical Decision Making 58-year-old male presents with abdominal pain belching nausea and dark stool over the last 4 to 5 days. Denies blood thinner use or heavy drinking. Abdomen soft nontender nondistended. Hemodynamically stable afebrile nontoxic. High clinical suspicion for upper GI bleed related to chronic gastritis versus peptic ulcer disease must also consider malignancy low suspicion for colitis enteritis appendicitis or cholecystitis. Low suspicion for aortic pathology or ACS. Screening labs type and screen coags, pantoprazole 80 mg IV, Mylanta viscous lidocaine, CT abdomen pelvis. Likely home with close GI follow-up. 9: 20 patient feeling better after meds. CT unremarkable. No evidence of anemia. Likely peptic ulcer disease. Will refer for GI follow-up. Pantoprazole Quality:SDOH Health Related Social Needs: No Data to Display PFSH All Active Problems (Updated 06/03/23 @ 09:22 by Niranjan James MD) Dark stools (Acute) Coronary artery disease (Chronic) History of atrial fibrillation (Acute) 06/09/22 per PCP problem list RH Prediabetes (Acute) Dilated aortic root (Acute) 06/09/[address] once stable HTN, 4 cm [facility] Family history of early CAD (Acute) NSTEMI (non-ST elevated myocardial infarction) (Acute) 05/22/22 was managed hospital in [place] had stent to mid LAD w REBECA RH DVT prophylaxis (Acute) Osteomyelitis (Acute) Pneumonia (Acute) Febrile illness, acute (Acute) Antral gastritis (Chronic ~12/2016) Discitis of multiple sites of spine (Acute ~12/31/17) Anemia (Acute) Hypomagnesemia (Acute) Hypokalemia (Acute) Elevated LFTs (Acute) Abnormal gall bladder diagnostic imaging (Acute) Umbilical hernia (Chronic) repaired 12/20/16, Marielena GERD (gastroesophageal reflux disease) (Chronic) Depression (Chronic) HLD (hyperlipidemia) (Chronic) HTN (hypertension) (Chronic) Medical History (Updated 06/03/23 @ 09:22 by Niranjan James MD) Spinal stenosis of lumbar region with radiculopathy (~12/2017) Bacteremia due to methicillin resistant Staphylococcus aureus (~12/29/17) Acute kidney injury (~12/29/17) ATN secondary to MRSA bacteremia, spinal osteomyelitis; required hemodialysis 01/02-01/12/2018 [place] [facility] [place]onatremia Obesity (BMI 30-39.9) GERD (gastroesophageal reflux disease) Hyperlipidemia Depression Essential hypertension Surgical History History of esophagogastroduodenoscopy (EGD) (01/29/18) Dr Peguero Repair of umbilical hernia (12/20/16) EGD - MAC (12/06/16) Colonoscopy - MAC (12/06/16) Family History Other Diabetes Heart disease Myocardial infarction Neoplasm Stroke Social History Smoking/Tobacco Use Status: Former Tobacco Use Smoking risk assessment performed?: Yes Alcohol Intake: former Drug use: Never Substance use type: does not use Do you feel safe at home: Yes Do you feel safe in your relationship?: Yes Additional Social history: 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 He quit alcohol at age 19.
[2023-06-03] MEDS: Normal Saline 1,000 ML 1000 ML IV (07:30)
[2023-06-03 07:35] LABS: Abs Immature Grans 0.02 10^3/uL (0.0-0.06); Absolute Basophil Count 0.04 10^3/uL (0.0-0.2); Absolute Eosinophil Count 0.16 10^3/uL (0.0-0.7); Absolute Lymphocyte Count 1.69 10^3/uL (1.2-3.4); Absolute Monocyte Count 0.51 10^3/uL (0.1-0.8); Absolute Neutrophil Count 3.68 10^3/uL (1.2-6.7); Basophils % 0.7; Eosinophils % 2.6; HCT 42.4 % (40.0-50.0); HGB 14.6 g/dL (13.5-17.5); Immature Grans % 0.3; Lymphocytes % 27.7; MCH 30.8 pg (27.0-33.0); MCHC 34.4 % (32.0-36.0); MCV 90 fL (80-95); MPV 10.7 fL (8.0-11.0); Monocytes % 8.4; Neutrophils % 60.3; Platelet Count 196 10^3/uL (130-400); RBC 4.74 10^6/uL (4.36-5.78); RDW 12.1 % (11.8-14.1); RDW-SD 39.7 fL
[2023-06-03 07:48] LABS: INR 1.2 (0.9-1.1); PTT Activated 25.5 sec (23.6-32.8); Prothrombin Time 11.6 sec (9.1-11.1)
[2023-06-03 07:51] LABS: ALT 30 U/L (16-63); AST 18 U/L (15-37); Albumin 3.8 g/dL (3.4-5.0); Alkaline Phosphatase 79 U/L (46-116); Anion Gap 9.8 mmol/L (3-11); BUN 18 mg/dL (7-18); Bilirubin, Total 0.4 mg/dL (0.2-1.0); CO2 28.2 mmol/L (21.0-32.0); Calcium 9.1 mg/dL (8.5-10.1); Chloride 103 mmol/L (98-107); Estimated GFR 87.24 (mL/min/1.73m2); Glucose 107 mg/dL (74-106); Lipase 55 U/L (16-77); Potassium 4.3 mmol/L (3.5-5.1); Sodium 141 mmol/L (136-145); Total Protein 7.5 g/dL (6.4-8.2)
[2023-06-03] MEDS: Ondansetron 4 MG/2 ML VIAL IVP (07:54)
[2023-06-03] MEDS: Pantoprazole 40 MG VIAL 80 MG IVP (07:55)
[2023-06-03] MEDS: Omnipaque 350 MG/ML 100 ML BTL IJ (08:06)
[2023-06-03] MEDS: Normal Saline - Diluent 50 ML VIAL IJ (08:06)
[2023-06-03] MEDS: Normal Saline Flush 10 ML SYR IVP (08:09)
--- NOTE | 2023-06-03 09:16 | DI.VRAD_ITS ---
PROCEDURE INFORMATION: Exam: CT Abdomen And Pelvis With Contrast Exam date and time: 06/03/2023 8:09 AM Age: 58 years old Clinical indication: Other: Abd pain, black stool; Prior surgery; Surgery date: 6+ months; Surgery type: Umbilical repair TECHNIQUE: Imaging protocol: Computed tomography of the abdomen and pelvis with contrast. Contrast material: OMNIPAQUE 350; Contrast volume: 100 ml; Contrast route: INTRAVENOUS (IV); COMPARISON: CT Private^ROUTINE ABDOMEN PELVIS WITH CONTRAST (Adult) 12/23/2017 1:33 PM FINDINGS: Lungs: Atelectatic changes in the right lung base. Coronary arteries: Moderate coronary calcifications of the LAD. Liver: Normal. No mass. Gallbladder and bile ducts: Normal. No calcified stones. No ductal dilation. Pancreas: Normal. No ductal dilation. Spleen: Normal. No splenomegaly. Adrenal glands: Normal. No mass. Kidneys and ureters: Chronic fibrotic changes in the left renal cortex. Stomach and bowel: There is above average fecal loading in the colon. Appendix: No evidence of appendicitis. Intraperitoneal space: Unremarkable. No free air. No significant fluid collection. Vasculature: Vascular calcification. Pelvic phleboliths. Lymph nodes: Unremarkable. No enlarged lymph nodes. Urinary bladder: Unremarkable as visualized. Reproductive: Faint prostate calcifications. Bones/joints: Mild degenerative disease of bilateral sacroiliac joints. There is mild curvature of the lumbar spine convex to the left. Mild degenerative disease of bilateral hip joints. Multilevel moderate to severe degenerative disease of the lumbar spine, most pronounced at L4-L5 with severe disc space narrowing, anterior and posterior osteophytes causing moderate thecal sac compression. Soft tissues: Surgical changes of umbilical repair. IMPRESSION: 1. No acute intra-abdominal process. 2. Findings suggestive of constipation. Dictated and Authenticated by: Clifton Cedillo MD. Ordering:LORE Ureña MD
[2023-06-03 09:54] VITALS: BP 146/92; PULSE 57; RESP 16; TEMP 36.5; O2SAT 98
--- NOTE | 2023-06-03 10:57 | NUR.NOTE ---
Referral given to Care Management to MARIO Gaviria for peptic ulcer disease, dark stool; in 1 week. Nursing Note:
== END 2023-06-03 09:59 | disposition home or self-care (01) ==
PROVIDERS: Emergency Provider Emergency Medicine; PCP Family Medicine
DX: K92.1 Melena (principal); R61 Generalized hyperhidrosis; I10 Essential (primary) hypertension; E78.5 Hyperlipidemia, unspecified; I25.10 Atherosclerotic heart disease of native coronary artery without angina pectoris; I25.2 Old myocardial infarction; I48.91 Unspecified atrial fibrillation; Z79.82 Long term (current) use of aspirin; Z87.891 Personal history of nicotine dependence; Z79.899 Other long term (current) drug therapy
CPT/HCPCS: 80053; 83690; 86850; 86900; 86901; 96361; 96374; 96375; 99285; 74177; 85025; 85610; 85730; 99284; J2405; J2470; J3490

== ENCOUNTER 2023-06-04 10:00 | Emergency (ER) | payer OTHER, SELFPAY ==
[2023-06-04 10:05] VITALS: BP 156/87; PULSE 60; RESP 18; TEMP 36.6; O2SAT 98
[2023-06-04 11:08] LABS: Abs Immature Grans 0.02 10^3/uL (0.0-0.06); Absolute Basophil Count 0.04 10^3/uL (0.0-0.2); Absolute Lymphocyte Count 2.32 10^3/uL (1.2-3.4); Basophils % 0.5; Eosinophils % 2.7; HCT 42.9 % (40.0-50.0); HGB 14.8 g/dL (13.5-17.5); Immature Grans % 0.3; Lymphocytes % 31.9; MCH 30.9 pg (27.0-33.0); MCHC 34.5 % (32.0-36.0); MCV 90 fL (80-95); MPV 10.3 fL (8.0-11.0); Monocytes % 6.9; Neutrophils % 57.7; Platelet Count 208 10^3/uL (130-400); RBC 4.79 10^6/uL (4.36-5.78); RDW 11.9 % (11.8-14.1); RDW-SD 39.4 fL; WBC 7.28 10^3/uL (4.4-10.8)
[2023-06-04 11:26] LABS: ALT 36 U/L (16-63); AST 24 U/L (15-37); Alkaline Phosphatase 83 U/L (46-116); Anion Gap 8.7 mmol/L (3-11); BUN 19 mg/dL (7-18); Bilirubin, Total 0.3 mg/dL (0.2-1.0); CO2 29.3 mmol/L (21.0-32.0); Calcium 9.5 mg/dL (8.5-10.1); Chloride 102 mmol/L (98-107); Estimated GFR 87.24 (mL/min/1.73m2); Glucose 94 mg/dL (74-106); Lipase 76 U/L (16-77); Magnesium 2.1 mg/dL (1.8-2.4); Potassium 4.2 mmol/L (3.5-5.1); Sodium 140 mmol/L (136-145); Total Protein 7.7 g/dL (6.4-8.2); Troponin I < 50 ng/L (< or =60)
[2023-06-04] MEDS: Dicyclomine 20 MG TAB PO (11:27)
--- NOTE | 2023-06-04 11:27 | W.ED.GENAD ---
Discharge Plan Disposition Patient Disposition: Home Condition: Stable Discharge Details Clinical Impression: Abdominal cramping Primary Care Provider: Katharina Hernandez V ED Provider: Dalia Sierra Home Meds and New Rx's Prescriptions: No Action losartan 25 mg tablet 25 mg PO DAILY nitroglycerin 0.4 mg tablet, sublingual 0.4 mg sublingual Q5-15M PRN (Reason: chest pain) Qty: 30 6RF Rx Instructions: do not exceed 3 doses per episode famotidine 20 mg tablet 20 mg PO DAILY PRN rosuvastatin 40 mg tablet 40 mg PO DAILY aspirin [Aspir-81] 81 MG tablet,delayed release (DR/EC) 81 mg PO DAILY citalopram 20 mg tablet 20 mg PO DAILY Patient Comments: TAKE ONE TABLET BY MOUTH EVERY DAY bupropion HCl 100 mg tablet See Rx Instructions PO BID Rx Instructions: 300mg in am and take 150mg in the evening pantoprazole 40 mg tablet,delayed release (DR/EC) 40 mg PO DAILY Qty: 30 0RF acidophilus-pectin, citrus 25 million cell -100 mg Tablet 1 cap PO TID Qty: 90 0RF sucralfate 1 gram Tablet 1 g PO BID Centrum Minis Men 50 Plus [phone] mcg Tablet 1 tab PO DAILY albuterol sulfate 90 mcg/actuation HFA aerosol inhaler 2 puff inhalation Q6H PRNQty: 6.7 0RF Discharge Instructions Instructions: Gas and Bloating (ED), Abdominal Pain (ED) Additional Instructions: Recommend taking [id number]-tof-[id number] medication to help with gas and cramping such as simethicone. Keep follow-up as planned. Return if symptoms may worsen, migration of pain to right lower abdomen, high fevers, or intractable vomiting. Referrals: Katharina Hernandez MD [Primary Care Provider] - 3 days Discharge Data Discharge Physician: Dalia Sierra [facility] General Date/Time Provider Initiated Documentation: 06/04/23 10:05. [facility] Narrative: 58-year-old male with history of reflux and gastritis presents for evaluation of abdominal discomfort. Patient states that he had pain in his lower abdomen today and had 3 soft bowel movements. They were dark brown. He was seen here yesterday for black stool. At that time he had laboratory studies and a CT performed which were unremarkable. He was started on Protonix and referred to surgery for follow-up to discuss possible endoscopy and colonoscopy. Patient last had endoscopy/colonoscopy in 2018. He denies any fevers or chills. No cough or cold. No vomiting. He is not on any blood thinners. No increased urinary frequency, dysuria, gross hematuria. He did take some Pepto-Bismol at home today. Related Data Home Medications Medication Instructions Recorded Confirmed aspirin 81 mg tablet,delayed 81 mg PO DAILY 01/15/16 06/04/23 release (Aspir-) acidophilus 25 million 1 cap PO TID #90 tabs 02/01/18 06/04/23 cell-pectin, citrus 100 mg tablet citalopram 20 mg tablet 20 mg PO DAILY 06/12/21 06/04/23 famotidine 20 mg tablet 20 mg PO DAILY PRN 06/09/22 06/04/23 rosuvastatin 40 mg tablet 40 mg PO DAILY 06/09/22 06/04/23 losartan 25 mg tablet 25 mg PO DAILY 06/22/22 06/04/23 hfsrvcvv-lno-igqga 150 mcg-vit K1 1 tab PO DAILY 09/15/22 06/04/23 30 mcg-lycop 300 mcg-lutein tablet (Centrum Minis Men 50 Plus) sucralfate 1 gram tablet 1 g PO BID 09/15/22 06/04/23 albuterol sulfate 90 mcg/actuation 2 puff inhalation Q6H PRN #6.7 12/03/22 06/04/23 aerosol inhaler grams nitroglycerin 0.4 mg sublingual 0.4 mg sublingual Q5-15M PRN chest 06/01/23 06/04/23 tablet pain #30 tabs bupropion HCl 100 mg tablet See Rx Instructions PO BID 06/03/23 06/04/23 pantoprazole 40 mg tablet,delayed 40 mg PO DAILY #30 tabs 06/03/23 06/04/23 release Previous Rx's Medication Instructions Recorded acidophilus 25 million 1 cap PO TID #90 tabs 02/01/18 cell-pectin, citrus 100 mg tablet albuterol sulfate 90 mcg/actuation 2 puff inhalation Q6H PRN #6.7 12/03/22 aerosol inhaler grams nitroglycerin 0.4 mg sublingual 0.4 mg sublingual Q5-15M PRN chest 06/01/23 tablet pain #30 tabs pantoprazole 40 mg tablet,delayed 40 mg PO DAILY #30 tabs 06/03/23 release Allergies Allergy/AdvReac Type Severity Reaction Status Date / Time lisinopril AdvReac Mild unknown Verified 06/04/23 10:07 General Stated Complaint: Abd Prob ELFEGO: 3 Review of Systems Narrative: Remainder of review of systems otherwise negative except for as in the HPI x 10. Exam Narrative Exam Narrative: General: non-toxic, no respiratory distress, comfortable HEENT: normocephalic, atraumatic, lids and lashes normal, PERRL, EOMI, anicteric sclera, no conjunctival injection, moist oral mucosa Card: regular rate and rhythm, S1S2, no murmurs, rubs, or gallops Lungs: good air entry, clear to auscultation bilaterally. no wheezes, rales, rhonchi, or retractions Abd: soft, non-tender, non-distended, normal bowel sounds, no rebound or guarding, no peritoneal signs, no CVAT Musculoskeletal: full range of motion of arms and legs, no tenderness to palpation. no clubbing, cyanosis, or edema Neurologic: appropriate for age, strength normal Psych: alert and oriented Skin: no petechiae, no lesions, warm and dry Course Vital Signs Vital signs: Vital Signs Temperature 36.6 C 06/04/23 10:05 Pulse 60 06/04/23 10:05 Respiratory Rate 18 06/04/23 10:05 Blood Pressure 156/87 H 06/04/23 10:05 Pulse Oximetry 98 06/04/23 10:05 Temperature 36.6 C 06/04/23 10:05 Temperature Source Skin 06/04/23 10:05 Pulse 60 06/04/23 10:05 Respiratory Rate 18 06/04/23 10:05 Respiratory Effort Normal, Non-Labored 06/04/23 10:08 Blood Pressure 156/87 H 06/04/23 10:05 Blood Pressure Position Sitting 06/04/23 10:05 Pulse Oximetry 98 06/04/23 10:05 Oxygen Delivery Method Room Air 06/04/23 10:05 Oxygen Flow Rate 0 06/04/23 10:05 Pain Level 10 06/04/23 10:05 Lab/Test Results Lab/Test Results: Laboratory Tests Range/Units 06/04/23 11:01 WBC (4.4-10.8) 10^3/uL 7.28 RBC (4.36-5.78) 10^6/uL 4.79 Hgb (13.5-17.5) g/dL 14.8 Hct (40.0-50.0) % 42.9 MCV (80-95) fL 90 MCH (27.0-33.0) pg 30.9 MCHC (32.0-36.0) % 34.5 RDW (11.8-14.1) % 11.9 Plt Count (130-400) 10^3/uL 208 MPV (8.0-11.0) fL 10.3 Immature Gran % 0.3 Neutrophils % 57.7 Lymphocytes % 31.9 Monocytes % 6.9 Eosinophils % 2.7 Basophils % 0.5 Nucleated RBC % (0.0-0.3) % 0.0 Absolute Neutrophils (1.2-6.7) 10^3/uL 4.20 Absolute Lymphocytes (1.2-3.4) 10^3/uL 2.32 Absolute Monocytes (0.1-0.8) 10^3/uL 0.50 Absolute Eosinophils (0.0-0.7) 10^3/uL 0.20 Absolute Basophils (0.0-0.2) 10^3/uL 0.04 Medical Decision Making 58-year-old male with recent visit for abdominal pain and dark stool presents for evaluation of lower abdominal pain and 3 episodes of soft stool today. At time my evaluation abdominal exam is benign. CBC shows stable hemoglobin and hematocrit. No elevated white count. He appears to be having some spasmodic abdominal discomfort. Bentyl was given. Patient feels completely improved on reassessment. I have encouraged him to continue taking his Protonix. He can take [id number] medications such as simethicone for gas, bloating, and abdominal cramping. He will keep his follow-up as planned. He understands indications to return. Quality:SDOH Health Related Social Needs: No Data to Display PFSH All Active Problems (Updated 06/04/23 @ 12:09 by Dalia Sierra MD) Abdominal cramping (Acute) Dark stools (Acute) Coronary artery disease (Chronic) History of atrial fibrillation (Acute) 06/09/22 per PCP problem list RH Prediabetes (Acute) Dilated aortic root (Acute) 06/09/[address] once stable HTN, 4 [facility] Family history of early CAD (Acute) NSTEMI (non-ST elevated myocardial infarction) (Acute) 05/22/22 was managed hospital in [place] had stent to mid LAD w REBECA RH DVT prophylaxis (Acute) Osteomyelitis (Acute) Pneumonia (Acute) Febrile illness, acute (Acute) Antral gastritis (Chronic ~12/2016) Discitis of multiple sites of spine (Acute ~12/31/17) Anemia (Acute) Hypomagnesemia (Acute) Hypokalemia (Acute) Elevated LFTs (Acute) Abnormal gall bladder diagnostic imaging (Acute) Umbilical hernia (Chronic) repaired 12/20/16, Marielena GERD (gastroesophageal reflux disease) (Chronic) Depression (Chronic) HLD (hyperlipidemia) (Chronic) HTN (hypertension) (Chronic) Medical History (Updated 06/04/23 @ 12:09 by Dalia Sierra MD) Spinal stenosis of lumbar region with radiculopathy (~12/2017) Bacteremia due to methicillin resistant Staphylococcus aureus (~12/29/17) Acute kidney injury (~12/29/17) ATN secondary to MRSA bacteremia, spinal osteomyelitis; [place] [facility] [place] Obesity (BMI 30-39.9) GERD (gastroesophageal reflux disease) Hyperlipidemia Depression Essential hypertension Surgical History History of esophagogastroduodenoscopy (EGD) (01/29/18) Dr Peguero Repair of umbilical hernia (12/20/16) EGD - MAC (12/06/16) Colonoscopy - MAC (12/06/16) Family History Other Diabetes Heart disease Myocardial infarction Neoplasm Stroke Social History Smoking/Tobacco Use Status: Former Tobacco Use Smoking risk assessment performed?: Yes Alcohol Intake: former Drug use: Never Substance use type: does not use Do you feel safe at home: Yes Do you feel safe in your relationship?: Yes Additional Social history: 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 He quit alcohol at age 19.
[2023-06-04 12:10] VITALS: PULSE 70; RESP 16; TEMP 36.4
== END 2023-06-04 12:23 | disposition home or self-care (01) ==
PROVIDERS: Emergency Provider Emergency Medicine Emergency Medical Services; PCP Family Medicine
DX: R10.9 Unspecified abdominal pain (principal); R14.0 Abdominal distension (gaseous); I10 Essential (primary) hypertension; E78.5 Hyperlipidemia, unspecified; Z79.82 Long term (current) use of aspirin
CPT/HCPCS: 36415; 80053; 83690; 99283; 83735; 84484; 85025

== ENCOUNTER → 2023-06-11 00:21 | Outpatient (CLI) | payer OTHER, SELFPAY ==
--- NOTE | 2023-06-11 06:30 | ETT_ITS ---
APPROVED REPORT Exam: Pharmacologic Patient Location: Out-Patient Room/Bed: Stress Nurse: Vicki Baca RN Ordering Provider:BARBARA OLIVERA, Contact Number: BMI: 35.14 Baseline Rhythm: Sinus Rhythm Indications: CAD Medical History Medical History: STARR, depression, GERD, HLD, HTN, HLD, Afib, CAD, preDM, dilated aortic root, NSTEMI, osteomyelitis, penumonia, anemia, hypomagnesemia, hypokalemia Cardiac Medications: Albuterol sulfate, asiprin, bupropion, citalopram, famotidine, losartan, nitro, pantoprazole, rosuvastatin Allergies: lisinopril Cardiac Risk Factors: Family Hx, HTN, HLD, CVD, preDM, former smoker, obesity Previous Cardiac Procedures: STENT 05/2022 Pretest Chest Pain Characteristics: None Exercise History: Indeterminate Physical Disabilities: Hips Lung Sounds: Clear to auscultation Heart Sounds: Regular Stress Test Details Test: Exercise stress testing was performed using a Mike protocol. Rest Stress HR Resting HR Supine: 65 bpm Max Heart Rate (APMHR): 162 bpm Resting HR Standin bpm Target HR (85% APMHR): 138 bpm Max HR Achieved: 120 bpm % of APMHR: 74 Recovery HR: 77 bpm HR response to stress: Normal HR response to stress BP Resting BP Supine: 132/74 mmHg Resting BP Standin/82 mmHg Max BP: 148/70 mmHg Recovery BP: 142/72 mmHg BP response to stress: Normal blood pressure response to stress. ECG Resting ECG: Sinus Rhythm Ectopy: none Stress ECG: Sinus Rhythm ST Change: Nondiagnostic low heart rate, No significant ST segment changes noted Arrhythmia: None Recovery ECG: Sinus Rhythm Recovery ST Change: Nondiagnostic low heart rate, No significant ST segment changes noted Recovery Arrhythmia: None Clinical Reason for Termination: Fatigue Stress Symptoms: none Exercise duration: 7 min14 sec Highest Stage Reached: Stage 3: 3.4 mph at 14% grade. Exercise capacity: 8.94 METs Angina Score: None Rate Pressure Product: 10631 Stress ECG Conclusion 1. Resting EKG was normal 2. Patient exercised on the Mike protocol and completed a workload of 9 METS 3. Normal heart rate and blood pressure response to exercise. Patient achieved 74% of predicted hear t rate for age 4. At this level workload and heart rate achieved there was no electrocardiographic evidence of myoca rdial ischemia 5. There were no dysrhythmias Waldrop Treadmill Score is which is Low risk. Stress Test Summary STAGE Time (mins) Speed (mph) Grade (%) HR BP SpO2 SYMPTOMS METS Supine 65 132/74 97 Standing 73 126/82 97 1 3 1.7 10 94 132/72 96 4.5 2 6 2.5 12 108 142/72 95 7 1 min recovery 99 148/70 98 3 min recovery 77 148/68 97 6 min recovery 77 142/72 97
== END ==
PROVIDERS: PCP Family Medicine; Visit Provider Internal Medicine Cardiovascular Disease
DX: I25.10 Atherosclerotic heart disease of native coronary artery without angina pectoris (principal)
CPT/HCPCS: 93017

== ENCOUNTER 2023-07-07 11:37 | Emergency (ER) | payer OTHER, SELFPAY ==
[2023-07-07 11:39] VITALS: PULSE 70; RESP 18; TEMP 36.2; O2SAT 99
--- NOTE | 2023-07-07 11:45 | DI.RAD_ITS ---
Exam(s) XR CHEST 2V PA LATERAL EXAM: XR CHEST 2V PA LATERAL CLINICAL HISTORY: Cough. TECHNIQUE: 2D digital imaging was performed. COMPARISON: CR CHEST 2 VIEWS PA,LAT from 06/02/2010 CR XR CHEST 2V PA LATERAL from 01/17/2018 CR XR PORTABLE CHEST AP from 01/28/[address] CHEST WO from 01/29/2018 CR,XR XR CHEST 2V PA LATERAL from 10/09/2022 CR XR CHEST 2V PA LATERAL from 12/08/2022 FINDINGS: 2 views: Heart size is normal. The mediastinum is not widened. Lungs are clear. No infiltrates nor pleural effusions. IMPRESSION: No acute pulmonary findings.No significant change from previous. DATA REPOSITORY: RADIATION DOSE DELIVERED:
[2023-07-07 11:47] VITALS: PULSE 70; RESP 18; TEMP 36.2; O2SAT 99
--- NOTE | 2023-07-07 11:51 | W.ED.GENAD ---
Discharge Plan Disposition Patient Disposition: Home Condition: Stable Discharge Details Clinical Impression: Cough, Flank pain Primary Care Provider: Katharina Hernandez V ED Provider: Jocelyn Wesley Home Meds and New Rx's Prescriptions: New benzonatate 100 mg capsule 100 mg PO BID-TID PRN (Reason: cough) Qty: 14 0RF Rx Instructions: Take one capsule 2-3 times a day as needed for cough. No Action simethicone 125 mg capsule 125 mg PO QPCHS Qty: 120 0RF losartan 25 mg tablet 25 mg PO DAILY nitroglycerin 0.4 mg tablet, sublingual 0.4 mg sublingual Q5-15M PRN (Reason: chest pain) Qty: 30 6RF Rx Instructions: do not exceed 3 doses per episode famotidine 20 mg tablet 20 mg PO DAILY PRN rosuvastatin 40 mg tablet 40 mg PO DAILY clopidogrel 75 mg tablet 75 mg PO DAILY Hold Instructions: Prescription Finished aspirin [Aspir-81] 81 MG tablet,delayed release (DR/EC) 81 mg PO DAILY citalopram 20 mg tablet 20 mg PO DAILY Patient Comments: TAKE ONE TABLET BY MOUTH EVERY DAY bupropion HCl 100 mg tablet See Rx Instructions PO BID Rx Instructions: 300mg in am and take 150mg in the evening pantoprazole 40 mg tablet,delayed release (DR/EC) 40 mg PO DAILY Qty: 30 0RF carvedilol 12.5 mg tablet 12.5 mg PO BID Patient Comments: TAKE ONE TABLET BY MOUTH TWICE A DAY IN ADDITION TO 25MG TABLET acidophilus-pectin, citrus 25 million cell -100 mg Tablet 1 cap PO TID Qty: 90 0RF sucralfate 1 gram Tablet 1 g PO BID Centrum Minis Men 50 Plus [id number] mcg Tablet 1 tab PO DAILY albuterol sulfate 90 mcg/actuation HFA aerosol inhaler 2 puff inhalation Q6H PRNQty: 6.7 0RF Discharge Instructions Instructions: Flank Pain (ED), Acute Cough (ED) Additional Instructions: Take the cough medicine as directed. It appears you have a common cold. For most people, common colds will go away by themselves and treatment is targeted at relieving symptoms. You should feel better in 1-2 weeks. Usually with mild symptoms you may not need to take anything. For more severe symptoms you may take Tylenol or Ibuprofen every 4-6 hours as needed for body aches, and headache or ear pain. Intranasal Cromolyn Sodium spray may help and is available over the counter. Take this as directed on package. Honey may help soothe a sore throat. You may also take a multivitamin daily and practice handwashing techniques and face covering or wearing a mask. Please follow up with your PCP if no better, or worsening in 2-3 weeks. Return to the ED if fever greater than 100.8, productive cough with green or yellow sputum, chest pain, shortness of breath, confusion, or severe weakness. No evidence of blood in your urine no evidence for pneumonia. Your labs are largely within normal limits. Referrals: Katharina Hernandez MD [Primary Care Provider] - 5 days HPI General Mode of arrival: ambulatory. Date/Time Provider Initiated Documentation: 07/07/23 11:38. Limitations to Documentation: no limitations. Information obtained by: patient, RN notes reviewed and old records reviewed. HPI Narrative: 58-year-old male presents to the ER with a chief complaint of cough and right flank pain which has been ongoing for the last week and a half. He also has associated nausea. Denies any vomiting. Intermittent constipation. Denies any chest pain denies any productive cough. Denies any known heavy lifting or injuries. Related Data Home Medications Medication Instructions Recorded Confirmed aspirin 81 mg tablet,delayed 81 mg PO DAILY 01/15/16 07/07/23 release (Aspir-) acidophilus 25 million 1 cap PO TID #90 tabs 02/01/18 07/07/23 cell-pectin, citrus 100 mg tablet citalopram 20 mg tablet 20 mg PO DAILY 06/12/21 07/07/23 famotidine 20 mg tablet 20 mg PO DAILY PRN 06/09/22 07/07/23 rosuvastatin 40 mg tablet 40 mg PO DAILY 06/09/22 07/07/23 losartan 25 mg tablet 25 mg PO DAILY 06/22/22 07/07/23 [id number] 150 mcg-vit K1 1 tab PO DAILY 09/15/22 07/07/23 30 mcg-lycop 300 mcg-lutein tablet (Centrum Minis Men 50 Plus) sucralfate 1 gram tablet 1 g PO BID 09/15/22 07/07/23 albuterol sulfate 90 mcg/actuation 2 puff inhalation Q6H PRN #6.7 09/03/23 04/06/24 aerosol inhaler grams nitroglycerin 0.4 mg sublingual 0.4 mg sublingual Q5-15M PRN chest 06/01/23 07/07/23 tablet pain #30 tabs bupropion HCl 100 mg tablet See Rx Instructions PO BID 06/03/23 07/07/23 pantoprazole 40 mg tablet,delayed 40 mg PO DAILY #30 tabs 06/03/23 07/07/23 release simethicone 125 mg capsule 125 mg PO QPCHS #120 caps 06/06/23 07/07/23 clopidogrel 75 mg tablet 75 mg PO DAILY 06/08/23 07/07/23 benzonatate 100 mg capsule 100 mg PO BID-TID PRN cough #14 07/07/23 caps carvedilol 12.5 mg tablet 12.5 mg PO BID 07/07/23 07/07/23 Previous Rx's Medication Instructions Recorded acidophilus 25 million 1 cap PO TID #90 tabs 02/01/18 cell-pectin, citrus 100 mg tablet albuterol sulfate 90 mcg/actuation 2 puff inhalation Q6H PRN #6.7 12/03/22 aerosol inhaler grams nitroglycerin 0.4 mg sublingual 0.4 mg sublingual Q5-15M PRN chest 06/01/23 tablet pain #30 tabs pantoprazole 40 mg tablet,delayed 40 mg PO DAILY #30 tabs 06/03/23 release simethicone 125 mg capsule 125 mg PO QPCHS #120 caps 06/06/23 benzonatate 100 mg capsule 100 mg PO BID-TID PRN cough #14 07/07/23 caps Allergies Allergy/AdvReac Type Severity Reaction Status Date / Time lisinopril AdvReac Mild unknown Verified 07/07/23 11:44 General Stated Complaint: GenMedical ELFEGO: 3 Review of Systems All systems reviewed & are unremarkable except as noted in HPI and below Respiratory Respiratory: Reports chest congestion and Reports cough Gastrointestinal Gastrointestinal: Reports constipation and Reports nausea Genitourinary Genitourinary: Reports flank pain Exam Narrative Exam Narrative: Constitutional: Alert and oriented x3. Appears stated age. Normal body habitus. Head: Normocephalic, no trauma. Eyes: Pupils PERRL, Red reflex noted, EOM's intact. Eyelids symmetrical without lesions, discharge, or swelling. ENT: Bilateral TM's WNL, External ear normal to inspection, no mastoid TTP, swelling, or erythema, Nasal turbinates WNL, no nasal discharge. Normal dentition, Posterior pharynx WNL, no exudate. Chest: RRR, Normal S1, S2, distal pulses intact. Resp: Lungs clear to auscultation bilaterally, no wheezes, rales, or rhonchi. Abdomen: Soft, non-distended, Normoactive bowel sounds all 4 quads. Musculoskeletal: Normal gait, Skin: No suspicious rashes or lesions. Capillary refill less than 2 sec. Neurologic: Cranial nerves II-XII intact. Alert and oriented x 3. Motor: No deficits noted. Sensory: Intact bilaterally all 4 extremities. Hematologic/Lymphatic: No ecchymosis, no lymphadenopathy. Course Vital Signs Vital signs: Vital Signs Temperature 36.2 C L 07/07/23 11:39 Pulse 70 07/07/23 11:39 Respiratory Rate 18 07/07/23 11:39 Pulse Oximetry 99 07/07/23 11:39 Temperature 36.2 C L 07/07/23 11:47 Temperature Source Skin 07/07/23 11:47 Pulse 70 07/07/23 11:47 Respiratory Rate 18 07/07/23 11:47 Respiratory Effort Normal, Non-Labored 07/07/23 11:47 Blood Pressure Position Sitting 07/07/23 11:47 Pulse Oximetry 99 07/07/23 11:47 Oxygen Delivery Method Room Air 07/07/23 11:47 Oxygen Flow Rate 0 07/07/23 11:47 Pain Level 2 07/07/23 11:47 Medical Decision Making 58-year-old male presents to the ER with a chief complaint of cough and right flank pain which has been ongoing for the last week and a half. He also has associated nausea. Denies any vomiting. Intermittent constipation. Denies any chest pain denies any productive cough. Denies any known heavy lifting or injuries. Labs ordered including CBC CMP urinalysis, chest x-ray Fluvid swab. Labs are largely WNL, negative Covid, Flu, RSV, CXR WNL. Patient given Toradol and Tessalon perrles and Discharged to follow up with PCP. No evidence of hematuria to warrant imaging at this time. This text was generated using [employer] dictation system, please disregard any oddities of phrase or misspellings. Imaging Data Radiologic Study: Imaging: X-Ray Radiologist's impression: Imaging protocol: Radiologic exam of the chest. Views: 2 views. COMPARISON: CR XR CHEST 2V PA LATERAL 12/08/2022 4:44 PM FINDINGS: Lungs: Unremarkable. No consolidation. Pleural spaces: Unremarkable. No pleural effusion. No pneumothorax. Heart/Mediastinum: Unremarkable. No cardiomegaly. Bones/joints: Unremarkable. IMPRESSION: No acute findings. Thank you for allowing us to participate in the care of your patient. Dictated and Authenticated by: Camron Ontiveros MD Lab Data Lab results reviewed: Yes I reviewed the patient's lab results. Labs: Laboratory Tests Range/Units 07/07/23 07/07/23 11:57 12:04 WBC (4.4-10.8) 10^3/uL 6.69 RBC (4.36-5.78) 10^6/uL 4.48 Hgb (13.5-17.5) g/dL 13.9 Hct (40.0-50.0) % 40.6 MCV (80-95) fL 91 MCH (27.0-33.0) pg 31.0 MCHC (32.0-36.0) % 34.2 RDW (11.8-14.1) % 12.0 Plt Count (130-400) 10^3/uL 217 MPV (8.0-11.0) fL 10.4 Immature Gran % 0.3 Neutrophils % 50.2 Lymphocytes % 36.5 Monocytes % 9.0 Eosinophils % 3.4 Basophils % 0.6 Nucleated RBC % (0.0-0.3) % 0.0 Absolute Neutrophils (1.2-6.7) 10^3/uL 3.36 Absolute Lymphocytes (1.2-3.4) 10^3/uL 2.44 Absolute Monocytes (0.1-0.8) 10^3/uL 0.60 Absolute Eosinophils (0.0-0.7) 10^3/uL 0.23 Absolute Basophils (0.0-0.2) 10^3/uL 0.04 Sodium (136-145) mmol/L 141 Potassium (3.5-5.1) mmol/L 3.8 Chloride (98-107) mmol/L 105 Carbon Dioxide (21.0-32.0) mmol/L 27.3 Anion Gap (3-11) mmol/L 8.7 BUN (7-18) mg/dL 18 Creatinine (0.70-1.30) mg/dL 0.9 Est GFR (CKD-EPI 2020) (mL/min/1.73m2) 99.00 Glucose (74-106) mg/dL 96 Calcium (8.5-10.1) mg/dL 8.7 Magnesium (1.8-2.4) mg/dL 1.9 Total Bilirubin (0.2-1.0) mg/dL 0.5 AST (15-37) U/L 19 ALT (16-63) U/L 33 Alkaline Phosphatase (46-116) U/L 75 Total Protein (6.4-8.2) g/dL 7.3 Albumin (3.4-5.0) g/dL 3.5 Lipase (16-77) U/L 58 Urine Color (Yellow) Yellow Urine Clarity (Clear) Clear Urine pH (5-8) 6.5 Ur Specific [place] (1.005-1.025) 1.020 Urine Protein (Neg-Trace) mg/dL Negative Urine Ketones (Negative) mg/dL Negative Urine Blood (Negative) Negative Urine Nitrite (Negative) Negative Urine Bilirubin (Negative) Negative Urine Urobilinogen (Up to 0.2) mg/dL 1.0 H Ur Leukocyte Esterase (Negative) Negative Urine Glucose (Negative) mg/dL Negative Quality:SDOH Health Related Social Needs: No Data to Display PFSH All Active Problems (Updated 07/07/23 @ 13:40 by Jocelyn Wesley NP) Flank pain (Acute) Cough (Acute) Coronary artery disease (Chronic) History of atrial fibrillation (Acute) 06/09/22 per PCP problem list RH Prediabetes (Acute) Dilated aortic root (Acute) 06/09/[address] once stable HTN, 4 cm per [facility] CT RH Family history of early CAD (Acute) NSTEMI (non-ST elevated myocardial infarction) (Acute) 05/22/22 was managed hospital in [place] had stent to mid LAD w REBECA RH DVT prophylaxis (Acute) Osteomyelitis (Acute) Pneumonia (Acute) Febrile illness, acute (Acute) Antral gastritis (Chronic ~12/2016) Discitis of multiple sites of spine (Acute ~12/31/17) Anemia (Acute) Hypomagnesemia (Acute) Hypokalemia (Acute) Elevated LFTs (Acute) Abnormal gall bladder diagnostic imaging (Acute) Umbilical hernia (Chronic) repaired 12/20/16Marielena GERD (gastroesophageal reflux disease) (Chronic) Depression (Chronic) HLD (hyperlipidemia) (Chronic) HTN (hypertension) (Chronic) Medical History (Updated 07/07/23 @ 13:40 by Jocelyn Wesley NP) Spinal stenosis of lumbar region with radiculopathy (~12/2017) Bacteremia due to methicillin resistant Staphylococcus aureus (~12/29/17) Acute kidney injury (~12/29/17) ATN secondary to MRSA bacteremia, spinal osteomyelitis; required hemodialysis 01/02-01/12/2018 at [facility] [place] Hyponatremia Obesity (BMI 30-39.9) GERD (gastroesophageal reflux disease) Hyperlipidemia Depression Essential hypertension Surgical History History of esophagogastroduodenoscopy (EGD) (01/29/18) Dr Peguero Repair of umbilical hernia (12/20/16) EGD - MAC (12/06/16) Colonoscopy - MAC (12/06/16) Family History Other Diabetes Heart disease Myocardial infarction Neoplasm Stroke Social History Smoking/Tobacco Use Status: Former Tobacco Use Smoking risk assessment performed?: Yes Alcohol Intake: former Drug use: Never Substance use type: does not use Do you feel safe at home: Yes Do you feel safe in your relationship?: Yes Additional Social history: 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 He quit alcohol at age 19.
[2023-07-07 11:52] VITALS: RESP 16
[2023-07-07 12:20] LABS: Abs Immature Grans 0.02 10^3/uL (0.0-0.06); Absolute Basophil Count 0.04 10^3/uL (0.0-0.2); Absolute Eosinophil Count 0.23 10^3/uL (0.0-0.7); Absolute Lymphocyte Count 2.44 10^3/uL (1.2-3.4); Absolute Neutrophil Count 3.36 10^3/uL (1.2-6.7); Basophils % 0.6; Eosinophils % 3.4; HCT 40.6 % (40.0-50.0); HGB 13.9 g/dL (13.5-17.5); Immature Grans % 0.3; Lymphocytes % 36.5; MCHC 34.2 % (32.0-36.0); MCV 91 fL (80-95); MPV 10.4 fL (8.0-11.0); Neutrophils % 50.2; Platelet Count 217 10^3/uL (130-400); RBC 4.48 10^6/uL (4.36-5.78); RDW-SD 39.8 fL; WBC 6.69 10^3/uL (4.4-10.8)
[2023-07-07 12:25] LABS: Lipase 58 U/L (16-77)
[2023-07-07 12:31] LABS: ALT 33 U/L (16-63); AST 19 U/L (15-37); Albumin 3.5 g/dL (3.4-5.0); Alkaline Phosphatase 75 U/L (46-116); Anion Gap 8.7 mmol/L (3-11); BUN 18 mg/dL (7-18); Bilirubin, Total 0.5 mg/dL (0.2-1.0); CO2 27.3 mmol/L (21.0-32.0); CREATININE 0.9 mg/dL (0.70-1.30); Calcium 8.7 mg/dL (8.5-10.1); Chloride 105 mmol/L (98-107); Glucose 96 mg/dL (74-106); Magnesium 1.9 mg/dL (1.8-2.4); Potassium 3.8 mmol/L (3.5-5.1); Sodium 141 mmol/L (136-145); Total Protein 7.3 g/dL (6.4-8.2)
[2023-07-07] MEDS: Ketorolac 15 MG/ML VIAL IVP (12:32)
[2023-07-07] MEDS: Benzonatate 100 MG CAP PO (12:32)
[2023-07-07 12:33] LABS: Bilirubin Negative (Negative); Blood Negative (Negative); Clarity Clear (Clear); Glucose Negative (Negative); Ketones Negative (Negative); Leukocyte Esterase Negative (Negative); Nitrite Negative (Negative); pH 6.5 (5-8)
[2023-07-07] MEDS: Normal Saline 1,000 ML 1000 ML IV (12:33)
--- NOTE | 2023-07-07 12:36 | DI.VRAD_ITS ---
PROCEDURE INFORMATION: Exam: XR Chest Exam date and time: 07/07/2023 12:16 PM Age: 58 years old Clinical indication: Cough TECHNIQUE: Imaging protocol: Radiologic exam of the chest. Views: 2 views. COMPARISON: CR XR CHEST 2V PA LATERAL 12/08/2022 4:44 PM FINDINGS: Lungs: Unremarkable. No consolidation. Pleural spaces: Unremarkable. No pleural effusion. No pneumothorax. Heart/Mediastinum: Unremarkable. No cardiomegaly. Bones/joints: Unremarkable. IMPRESSION: No acute findings. Dictated and Authenticated by: Camron Ontiveros MD. Ordering:DREW Banks MD
[2023-07-07 12:57] LABS: COVID-19 PCR Negative (Negative); Influenza A PCR Negative (Negative); Influenza B PCR Negative (Negative); RSV PCR Negative (Negative)
[2023-07-07 13:36] LABS: Source Nasopharynx
[2023-07-07 13:43] VITALS: BP 118/74; PULSE 61; RESP 16; O2SAT 98
[2023-07-07 13:49] VITALS: BP 118/74; PULSE 61; RESP 16; O2SAT 98
== END 2023-07-07 13:51 | disposition home or self-care (01) ==
PROVIDERS: Emergency Provider Registered Nurse Emergency; PCP Family Medicine
DX: R05.1 Acute cough (principal); R10.31 Right lower quadrant pain
CPT/HCPCS: 36415; 80053; 83690; 87637; 96361; 96374; 99284; 71046; 81003; 83735; 85025; 99283; J1885

== ENCOUNTER 2023-07-17 07:44 | Emergency (ER) | payer OTHER, SELFPAY ==
[2023-07-17 07:46] VITALS: BP 140/76; PULSE 63; RESP 15; TEMP 36.6; O2SAT 98
[2023-07-17 07:50] VITALS: BP 140/76; PULSE 63; RESP 15; TEMP 36.6; O2SAT 98
[2023-07-17 07:53] VITALS: RESP 15
--- NOTE | 2023-07-17 08:00 | DI.CT_ITS ---
Exam(s) CT ABDOMEN PELVIS WO EXAM: CT ABDOMEN PELVIS WO CLINICAL HISTORY: right flank pain. TECHNIQUE: Imaging Protocol: Axial computed tomography images with coronal and sagittal reformatted images were created and reviewed. Oral: no COMPARISON: CT CT ABDOMEN PELVIS W from 06/03/2023 FINDINGS: Lung Bases: No acute findings. Liver: Normal density. No suspicious mass. Gallbladder and biliary tract: No radiodense calculus or biliary dilation. Pancreas: Normal density, no abnormal calcifications or inflammatory process. Spleen: Normal. Kidneys: Normal size, contour and axis. No radiodense stones or obstructive uropathy. No suspicious m asses seen. Adrenal glands: No masses seen. Lymph nodes: Within normal limits. Vasculature: Abdominal aorta non-dilated. Soft tissues: Unremarkable. Bladder: Nearly empty. No visible mass or calculi. Bowel: No obstruction or bowel wall thickening. Peritoneal cavity: No ascites, collection or mesenteric inflammatory response. Reproductive organs: Unremarkable. Bones: Degenerative changes in the lumbar spine. IMPRESSION: No acute abnormality in the abdomen or pelvis. RADIATION DOSE DELIVERED: 1,196.54mGy.cm Total DLP DATA REPOSITORY: All CT scans at this facility are submitted to the National Radiology Data Registry (NRDR) Dose Index Registry (DIR) with the [employer] (ACR). RADIATION OPTIMIZATION: All CT scans at this facility use at least one of these dose optimization te chniques: automated exposure control; mA and/or kV adjustment per patient size (includes targeted exa ms where dose is matched to clinical indication); or iterative reconstruction.
--- NOTE | 2023-07-17 08:00 | DI.RAD_ITS ---
Exam(s) XR RIBS ONLY RT EXAM: XR RIBS ONLY RT CLINICAL HISTORY: flank pain. COMPARISON: CR,XR XR CHEST 2V PA LATERAL from 07/07/2023 TECHNIQUE: Four views of the ribs were performed. FINDINGS: LUNGS: Clear. No pneumothorax is seen. No infiltrate or effusion. Pleural scarring at the right cos tophrenic angle. HEART: Normal in size. BONES: No displaced rib fracture is seen. No bony destructive lesion is seen. Degenerative changes p resent in the spine. IMPRESSION: Unremarkable left ribs.
[2023-07-17 08:18] LABS: Bilirubin Negative (Negative); Blood Negative (Negative); Clarity Sl Cloudy (Clear); Glucose Negative (Negative); Ketones Negative (Negative); Leukocyte Esterase Negative (Negative); Nitrite Negative (Negative); Specific Gravity >= 1.030 (1.005-1.025)
[2023-07-17 09:02] VITALS: BP 138/76; PULSE 63; RESP 16; TEMP 36.2; O2SAT 98
--- NOTE | 2023-07-17 11:02 | ED.GENADUL_ITS ---
Discharge Plan Disposition Patient Disposition: Home Condition: Stable Discharge Details Clinical Impression: Acute flank pain Primary Care Provider: Katharina Hernandez V ED Provider: Doroteo Mcrae Home Meds and New Rx's Prescriptions: No Action simethicone 125 mg capsule 125 mg PO QPCHS Qty: 120 0RF losartan 25 mg tablet 25 mg PO DAILY nitroglycerin 0.4 mg tablet, sublingual 0.4 mg sublingual Q5-15M PRN (Reason: chest pain) Qty: 30 6RF Rx Instructions: do not exceed 3 doses per episode famotidine 20 mg tablet 20 mg PO DAILY PRN rosuvastatin 40 mg tablet 40 mg PO DAILY aspirin [Aspir-81] 81 MG tablet,delayed release (DR/EC) 81 mg PO DAILY citalopram 20 mg tablet 20 mg PO DAILY Patient Comments: TAKE ONE TABLET BY MOUTH EVERY DAY bupropion HCl 100 mg tablet See Rx Instructions PO BID Rx Instructions: 300mg in am and take 150mg in the evening pantoprazole 40 mg tablet,delayed release (DR/EC) 40 mg PO DAILY Qty: 30 0RF carvedilol 12.5 mg tablet 12.5 mg PO BID Patient Comments: TAKE ONE TABLET BY MOUTH TWICE A DAY IN ADDITION TO 25MG TABLET acidophilus-pectin, citrus 25 million cell -100 mg Tablet 1 cap PO TID Qty: 90 0RF sucralfate 1 gram Tablet 1 g PO BID Centrum Minis Men 50 Plus [id number] mcg Tablet 1 tab PO DAILY albuterol sulfate 90 mcg/actuation HFA aerosol inhaler 2 puff inhalation Q6H PRNQty: 6.7 0RF Discharge Instructions Additional Instructions: try taking 1 cap miralax daily mixed into 8 oz of water take tylenol for discomfort follow up with your PCP Discharge Data Discharge Date/Time-TO BE ENTERED AT DEPARTURE: 07/17/23 09:03 HPI General Date/Time Provider Initiated Documentation: 07/17/23 07:48 . Limitations to Documentation: no limitations . Information obtained by: patient . HPI Narrative: 58-year-old gentleman with past medical history of CAD, A-fib, NSTEMI, hypertension presents for evaluation of right flank pain. He localizes the pain to the right side of his abdomen. Pain is only when he lifts his arms or twists. Denies any constant pain. No radiation. Denies any shortness of breath. Was recently treated for a cough. He denies any persistent cough or shortness of breath. Denies any tenderness over his ribs. He has tried Tylenol for relief of pain, but has not had significant resolution. Related Data Home Medications Medication Instructions Recorded Confirmed aspirin 81 mg tablet,delayed 81 mg PO DAILY 01/15/16 07/17/23 release (Aspir-) acidophilus 25 million 1 cap PO TID #90 tabs 02/01/18 07/17/23 cell-pectin, citrus 100 mg tablet citalopram 20 mg tablet 20 mg PO DAILY 06/12/21 07/17/23 famotidine 20 mg tablet 20 mg PO DAILY PRN 06/09/22 07/17/23 rosuvastatin 40 mg tablet 40 mg PO DAILY 06/09/22 07/17/23 losartan 25 mg tablet 25 mg PO DAILY 06/22/22 07/17/23 [id number] 150 mcg-vit K1 1 tab PO DAILY 09/15/22 07/17/23 30 mcg-lycop 300 mcg-lutein tablet (Centrum Minis Men 50 Plus) sucralfate 1 gram tablet 1 g PO BID 09/15/22 07/17/23 albuterol sulfate 90 mcg/actuation 2 puff inhalation Q6H PRN #6.7 12/03/22 07/17/23 aerosol inhaler grams nitroglycerin 0.4 mg sublingual 0.4 mg sublingual Q5-15M PRN chest 06/01/23 07/17/23 tablet pain #30 tabs bupropion HCl 100 mg tablet See Rx Instructions PO BID 06/03/23 07/17/23 pantoprazole 40 mg tablet,delayed 40 mg PO DAILY #30 tabs 06/03/23 07/17/23 release simethicone 125 mg capsule 125 mg PO QPCHS #120 caps 06/06/23 07/17/23 carvedilol 12.5 mg tablet 12.5 mg PO BID 07/07/23 07/17/23 Previous Rx's Medication Instructions Recorded acidophilus 25 million 1 cap PO TID #90 tabs 02/01/18 cell-pectin, citrus 100 mg tablet albuterol sulfate 90 mcg/actuation 2 puff inhalation Q6H PRN #6.7 12/03/22 aerosol inhaler grams nitroglycerin 0.4 mg sublingual 0.4 mg sublingual Q5-15M PRN chest 06/01/23 tablet pain #30 tabs pantoprazole 40 mg tablet,delayed 40 mg PO DAILY #30 tabs 06/03/23 release simethicone 125 mg capsule 125 mg PO QPCHS #120 caps 06/06/23 Allergies Allergy/AdvReac Type Severity Reaction Status Date / Time lisinopril AdvReac Mild unknown Verified 07/17/23 07:50 General Stated Complaint: GenMedical ELFEGO: 3 Exam Narrative Exam Narrative: Review of Systems: All systems reviewed & are unremarkable except as noted in HPI and below Well-developed, no acute distress NCAT PERRL, normal conjunctiva RRR Unlabored respiratory effort Clear to auscultation bilaterally, no rib tenderness no skin changes overlying the ribs or the right flank Nondistended abdomen , soft nontender No CVA tenderness Extremities w/o deformity, no cyanosis, no edema No rashes or lesions. no focal neurologic deficits Appropriate mood and affect Course Vital Signs Vital signs: Vital Signs Temperature 36.6 C 07/17/23 07:46 Pulse 63 07/17/23 07:46 Respiratory Rate 15 07/17/23 07:46 Blood Pressure 140/76 07/17/23 07:46 Pulse Oximetry 98 07/17/23 07:46 Temperature 36.2 C L 07/17/23 09:02 Temperature Source Temporal Artery Scan 07/17/23 07:50 Pulse 63 07/17/23 09:02 Respiratory Rate 16 07/17/23 09:02 Respiratory Effort Normal 07/17/23 07:53 Respiratory Depth Normal 07/17/23 07:53 Respiratory Pattern Normal 07/17/23 07:53 Blood Pressure 138/76 07/17/23 09:02 Blood Pressure Position Sitting 07/17/23 07:50 Pulse Oximetry 98 07/17/23 09:02 Oxygen Delivery Method Room Air 07/17/23 07:50 Oxygen Flow Rate 0 07/17/23 07:50 Pain Level 2 07/17/23 09:02 Lab/Test Results Lab/Test Results: Laboratory Tests Range/Units 07/17/23 07:53 Urine Color (Yellow) Yellow Urine Clarity (Clear) Sl Cloudy Urine pH (5-8) 6.0 Ur Specific [place] (1.005-1.025) >= 1.030 H Urine Protein (Neg-Trace) mg/dL Negative Urine Ketones (Negative) mg/dL Negative Urine Blood (Negative) Negative Urine Nitrite (Negative) Negative Urine Bilirubin (Negative) Negative Urine Urobilinogen (Up to 0.2) mg/dL 1.0 H Ur Leukocyte Esterase (Negative) Negative Urine Glucose (Negative) mg/dL Negative Medical Decision Making Urgent evaluation of right flank pain. Initial differential includes rib contusion, pulled muscle, rib fracture, kidney stone. Patient has a benign exam, no appreciable tenderness or exacerbation of the patient's symptoms on my evaluation. A urinalysis was obtained, there are no signs of infection or significant blood. A CT scan was obtained, he has no evidence of a renal stone. He does have significant constipation which may be contributory to his symptoms. X-ray of his right ribs obtained. No evidence of fracture consolidation there. No skin changes consistent with cellulitis or shingles. Symptoms likely either muscular or constipation related. Advised to start MiraLAX daily. Has follow-up scheduled already with his PCP. Medical Records Medical records reviewed: Yes I reviewed the patient's medical records. Quality:SDOH Health Related Social Needs: No Data to Display PFSH All Active Problems Acute flank pain (Acute) Flank pain (Acute) Cough (Acute) Coronary artery disease (Chronic) History of atrial fibrillation (Acute) 06/09/22 per PCP problem list RH Prediabetes (Acute) Dilated aortic root (Acute) 06/09/[address] once stable HTN, 4 cm per [facility] CT RH Family history of early CAD (Acute) NSTEMI (non-ST elevated myocardial infarction) (Acute) 05/22/22 was managed hospital in [place] had stent to mid LAD w REBECA RH DVT prophylaxis (Acute) Osteomyelitis (Acute) Pneumonia (Acute) Febrile illness, acute (Acute) Antral gastritis (Chronic ~12/2016) Discitis of multiple sites of spine (Acute ~12/31/17) Anemia (Acute) Hypomagnesemia (Acute) Hypokalemia (Acute) Elevated LFTs (Acute) Abnormal gall bladder diagnostic imaging (Acute) Umbilical hernia (Chronic) repaired 12/20/16, Marielena GERD (gastroesophageal reflux disease) (Chronic) Depression (Chronic) HLD (hyperlipidemia) (Chronic) HTN (hypertension) (Chronic) Medical History Spinal stenosis of lumbar region with radiculopathy (~12/2017) Bacteremia due to methicillin resistant Staphylococcus aureus (~12/29/17) Acute kidney injury (~12/29/17) ATN secondary to MRSA bacteremia, spinal osteomyelitis; [place] hemod[place]02[place]01[place] [facility] [place]onatremia Obesity (BMI 30-39.9) GERD (gastroesophageal reflux disease) Hyperlipidemia Depression Essential hypertension Surgical History History of esophagogastroduodenoscopy (EGD) (01/29/18) Dr Peguero Repair of umbilical hernia (12/20/16) EGD - MAC (12/06/16) Colonoscopy - MAC (12/06/16) Family History Other Diabetes Heart disease Myocardial infarction Neoplasm Stroke Social History Smoking/Tobacco Use Status: Former Tobacco Use Smoking risk assessment performed?: Yes Alcohol Intake: former Drug use: Never Substance use type: does not use Do you feel safe at home: Yes Do you feel safe in your relationship?: Yes Additional Social history: 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 He quit alcohol at age 19.
== END 2023-07-17 09:03 | disposition home or self-care (01) ==
PROVIDERS: Emergency Provider Emergency Medicine; PCP Family Medicine
DX: R10.9 Unspecified abdominal pain (principal); I10 Essential (primary) hypertension; E78.5 Hyperlipidemia, unspecified; I25.10 Atherosclerotic heart disease of native coronary artery without angina pectoris; I25.2 Old myocardial infarction; I48.91 Unspecified atrial fibrillation; Z79.82 Long term (current) use of aspirin; Z87.891 Personal history of nicotine dependence
CPT/HCPCS: 99284; 71100; 74176; 81003

== ENCOUNTER 2023-07-19 15:23 | Outpatient (CLI) | payer SELFPAY ==
--- NOTE | 2023-07-19 09:15 | DI.RAD_ITS ---
Exam(s) XR THUMB LT XR WRIST LT COMPLETE EXAM: XR THUMB LT and XR wrist LT complete CLINICAL HISTORY: thumb pain. TECHNIQUE: 2D digital imaging was performed of the left thumb and wrist. Six images were obtained. PA, oblique and lateral views were obtained. COMPARISON: No priors for comparison. FINDINGS: BONES: No acute fracture is present. No bony destructive lesion is seen. JOINTS: The carpal bones are normally aligned. Mild spurring is seen at the interphalangeal joints. There also mild degenerative changes seen at the 1st CMC joint with osteophytes present. SOFT TISSUE: Normal. IMPRESSION: Degenerative changes seen in the thumb and the 1st CMC joint. DATA REPOSITORY: RADIATION DOSE DELIVERED:
== END 2023-07-19 15:24 | disposition home or self-care (01) ==
LOC: DIORS 15:23
PROVIDERS: PCP Family Medicine; Visit Provider Physician Assistant
DX: M79.645 Pain in left finger(s) (principal)
CPT/HCPCS: 73110; 73140

== ENCOUNTER 2024-06-01 07:02 | Emergency (ER) | payer OTHER, SELFPAY ==
[2024-06-01 07:04] VITALS: BP 153/89; PULSE 70; RESP 20; TEMP 36.8; O2SAT 98
[2024-06-01 07:11] VITALS: BP 153/89; PULSE 70; RESP 20; TEMP 36.8; O2SAT 98
--- NOTE | 2024-06-01 07:15 | DI.RAD_ITS ---
Exam(s) XR CHEST 2V PA LATERAL EXAM: XR CHEST 2V PA LATERAL CLINICAL HISTORY: Cough TECHNIQUE: 2D digital imaging was performed. Two views. COMPARISON: CR,XR XR CHEST 2V PA LATERAL from 07/07/2023 CR XR RIBS ONLY RT from 07/17/2023 FINDINGS: HEART: Normal size. Aorta: Not dilated. PULMONARY VASCULATURE: Normal. MEDIASTINUM: Unremarkable. LUNGS: Mild basilar scarring. No visible infiltrate. PLEURAL SPACE: No pleural effusion or pneumothorax. BONE:Unremarkable for age. SOFT TISSUES: Unremarkable. IMPRESSION: No acute abnormality. DATA REPOSITORY: RADIATION DOSE DELIVERED:
--- NOTE | 2024-06-01 07:17 | W.ED.GENAD ---
Discharge Plan Disposition Patient Disposition: Home Discharge Details Clinical Impression: Community acquired pneumonia of right lower lobe of lung Primary Care Provider: Katharina Hernandez V ED Provider: Nilesh Avendano Home Meds and New Rx's Prescriptions: New promethazine-DM 6.25-15 mg/5 mL syrup 5 ml PO Q6H PRNQty: 118 0RF cetirizine 10 mg tablet 10 mg PO DAILY PRNQty: 7 0RF benzonatate 100 mg capsule 100 mg PO BID PRNQty: 7 0RF amoxicillin 500 mg capsule 500 mg PO Q12H Qty: 14 0RF doxycycline hyclate 100 mg capsule 100 mg PO BID 7 Days Qty: 14 0RF Continued simethicone 125 mg capsule 125 mg PO QPCHS Qty: 120 0RF losartan 25 mg tablet 25 mg PO DAILY nitroglycerin 0.4 mg tablet, sublingual 0.4 mg sublingual Q5-15M PRN (Reason: chest pain) Qty: 30 6RF Rx Instructions: do not exceed 3 doses per episode famotidine 20 mg tablet 20 mg PO DAILY PRN rosuvastatin 40 mg tablet 40 mg PO DAILY aspirin [Aspir-81] 81 MG tablet,delayed release (DR/EC) 81 mg PO DAILY citalopram 20 mg tablet 20 mg PO DAILY Patient Comments: TAKE ONE TABLET BY MOUTH EVERY DAY bupropion HCl 100 mg tablet See Rx Instructions PO BID Rx Instructions: 300mg in am and take 150mg in the evening pantoprazole 40 mg tablet,delayed release (DR/EC) 40 mg PO DAILY Qty: 30 0RF carvedilol 12.5 mg tablet 12.5 mg PO BID Patient Comments: TAKE ONE TABLET BY MOUTH TWICE A DAY IN ADDITION TO 25MG TABLET acidophilus-pectin, citrus 25 million cell -100 mg Tablet 1 cap PO TID Qty: 90 0RF sucralfate 1 gram Tablet 1 g PO BID Centrum Minis Men 50 Plus [id number] mcg Tablet 1 tab PO DAILY albuterol sulfate 90 mcg/actuation HFA aerosol inhaler 2 puff inhalation Q6H PRNQty: 6.7 0RF Discharge Instructions Instructions: Pneumonia, Adult (DC) Additional Instructions: You are seen in the emergency department for your cough. You are found on x-ray to have a pneumonia. Please take his antibiotics as directed. Please follow-up with your primary care provider as we discussed next week. If you cannot take your antibiotics as result of nausea or vomiting or if you feel more short of breath please return to the emergency department. You may also use this inhaler as needed and this medication for cough. For your pain please take medications as follows: 1. Take acetaminophen (Tylenol), 1,000 mg (two 500 mg tabs) every 6 hours [2. Take ibuprofen (Advil), 400 mg every 6 hours.] Discharge Data Discharge Date/Time-TO BE ENTERED AT DEPARTURE: 06/01/24 08:45 HPI General Date/Time Provider Initiated Documentation: 06/01/24 07:15. HPI Narrative: MDM This is an overall very well-appearing normothermic and not tachycardic 59-year-old male with most likely viral URI for which we will obtain viral swab and chest x-ray given duration of time since symptoms began 2 suspect pneumonia. Patient has using inhaler in the past that he does not sound significantly wheezy will provide him with a long-acting beta agonist and corticosteroid inhaler using budesonide and formoterol. Given no wheezes we will defer oral steroids. No sore throat to suggest retropharyngeal abscess. Not altered to suggest encephalitis. No nuchal rigidity making my suspicion low for meningitis. No chest pain to suggest aortic dissection. Soft nontender abdomen so my suspicion is low for appendicitis. In the absence of sore throat my suspicion for peritonsillar abscess is low. No black nor bloody stools to suggest GI bleed. Handling secretions so doubt epiglottitis. On x-ray patient had signs of infiltrates bilaterally. Given the duration of time since his symptoms we will treat for community-acquired pneumonia with amoxicillin and doxycycline. Patient and I discussed return indications including inability tolerate p.o. or worsening cough or difficulty breathing. He was discharged with empiric trial of expectant outpatient management. HPI This is a 59-year-old male arrived to the emergency department via private vehicle in setting of a cough. Patient reports that he has had a cough for the past approximately 1 week. He reports that his symptoms worsened last night and he is having some difficulty breathing. He has no history of tobacco use asthma or COPD but does have an inhaler that he reports is running out. He has felt intermittently warm and cold. He denies abdominal pain chest pain dysuria or frequency. He denies routine tobacco ethanol. Exam General: Well-appearing in no acute distress speaking in complete sentences. Head: Normocephalic, atraumatic. Eye: Extraocular eye movements intact. No conjunctival injection. No scleral icterus. Ear, nose, mouth, throat: Grossly normal inspection. Normal voice, handling secretions normally. Neck: Trachea midline. Cardiovascular: Well-perfused distal extremities. Regular rate and rhythm Respiratory: Nonlabored respiration. Decreased breath sounds bilateral bases. Gastrointestinal: Nondistended abdomen. Musculoskeletal: No edema. Moving all 4 extremities spontaneously. Skin: Normal for age and race, grossly normal temperature and turgor. No acute rash. Neurologic: Alert and appropriate, no apparent acute deficits. Related Data Home Medications ?Medication ?Instructions ?Recorded ?Confirmed aspirin 81 mg tablet,delayed 81 mg PO DAILY 01/15/16 06/01/24 release (Aspir-) acidophilus 25 million 1 cap PO TID #90 tabs 02/01/18 06/01/24 cell-pectin, citrus 100 mg tablet citalopram 20 mg tablet 20 mg PO DAILY 06/12/21 06/01/24 famotidine 20 mg tablet 20 mg PO DAILY PRN 06/09/22 06/01/24 rosuvastatin 40 mg tablet 40 mg PO DAILY 06/09/22 06/01/24 losartan 25 mg tablet 25 mg PO DAILY 06/22/22 06/01/24 [id number] 150 mcg-vit K1 1 tab PO DAILY 09/15/22 06/01/24 30 mcg-lycop 300 mcg-lutein tablet (Centrum Minis Men 50 Plus) sucralfate 1 gram tablet 1 g PO BID 09/15/22 06/01/24 albuterol sulfate 90 mcg/actuation 2 puff inhalation Q6H PRN #6.7 12/03/22 06/01/24 aerosol inhaler grams nitroglycerin 0.4 mg sublingual 0.4 mg sublingual Q5-15M PRN chest 06/01/23 06/01/24 tablet pain #30 tabs bupropion HCl 100 mg tablet See Rx Instructions PO BID 06/03/23 06/01/24 pantoprazole 40 mg tablet,delayed 40 mg PO DAILY #30 tabs 06/03/23 06/01/24 release simethicone 125 mg capsule 125 mg PO QPCHS #120 caps 06/06/23 06/01/24 carvedilol 12.5 mg tablet 12.5 mg PO BID 07/07/23 06/01/24 amoxicillin 500 mg capsule 500 mg PO Q12H #14 caps 06/01/24 benzonatate 100 mg capsule 100 mg PO BID PRN #7 caps 06/01/24 cetirizine 10 mg tablet 10 mg PO DAILY PRN #7 tabs 06/01/24 doxycycline hyclate 100 mg capsule 100 mg PO BID 7 days #14 caps 06/01/24 promethazine-DM 6.25 mg-15 mg/5 mL 5 ml PO Q6H PRN #118 mL 06/01/24 oral syrup Previous Rx's ?Medication ?Instructions ?Recorded acidophilus 25 million 1 cap PO TID #90 tabs 02/01/18 cell-pectin, citrus 100 mg tablet albuterol sulfate 90 mcg/actuation 2 puff inhalation Q6H PRN #6.7 12/03/22 aerosol inhaler grams nitroglycerin 0.4 mg sublingual 0.4 mg sublingual Q5-15M PRN chest 06/01/23 tablet pain #30 tabs pantoprazole 40 mg tablet,delayed 40 mg PO DAILY #30 tabs 06/03/23 release simethicone 125 mg capsule 125 mg PO QPCHS #120 caps 06/06/23 amoxicillin 500 mg capsule 500 mg PO Q12H #14 caps 06/01/24 benzonatate 100 mg capsule 100 mg PO BID PRN #7 caps 06/01/24 cetirizine 10 mg tablet 10 mg PO DAILY PRN #7 tabs 06/01/24 doxycycline hyclate 100 mg capsule 100 mg PO BID 7 days #14 caps 06/01/24 promethazine-DM 6.25 mg-15 mg/5 mL 5 ml PO Q6H PRN #118 mL 06/01/24 oral syrup Allergies Allergy/AdvReac Type Severity Reaction Status Date / Time lisinopril AdvReac Mild unknown Verified 06/01/24 07:08 General Stated Complaint: RespSymp ELFEGO: 3 Course Vital Signs Vital signs: Vital Signs Temperature 36.8 C 06/01/24 07:04 Pulse 70 06/01/24 07:04 Respiratory Rate 20 06/01/24 07:04 Blood Pressure 153/89 H 06/01/24 07:04 Pulse Oximetry 98 06/01/24 07:04 Temperature 36.8 C 06/01/24 07:11 Temperature Source Oral 06/01/24 07:11 Pulse 70 06/01/24 07:11 Respiratory Rate 20 06/01/24 07:11 Respiratory Effort Short of Breath 06/01/24 07:12 Respiratory Depth Normal 06/01/24 07:12 Blood Pressure 153/89 H 06/01/24 07:11 Blood Pressure Position Sitting 06/01/24 07:11 Pulse Oximetry 98 06/01/24 07:11 Oxygen Delivery Method Room Air 06/01/24 07:11 Oxygen Flow Rate 0 06/01/24 07:11 Medical Decision Making Quality:SDOH Health Related Social Needs: No Data to Display PFSH All Active Problems (Updated 06/01/24 @ 08:30 by Nilesh Avendano MD) Community acquired pneumonia of right lower lobe of lung (Acute) Arthritis of carpometacarpal (CMC) joint of left thumb (Acute) Coronary artery disease (Chronic) History of atrial fibrillation (Acute) 06/09/22 per PCP problem list RH Prediabetes (Acute) Dilated aortic root (Acute) 06/09/[address] once stable HTN, 4 cm per [facility] Family history of early CAD (Acute) NSTEMI (non-ST elevated myocardial infarction) (Acute) 05/22/22 was managed [facility] in [place] had stent to mid LAD w REBECA [facility] DVT prophylaxis (Acute) Osteomyelitis (Acute) Pneumonia (Acute) Febrile illness, acute (Acute) Antral gastritis (Chronic ~12/2016) Discitis of multiple sites of spine (Acute ~12/31/17) Anemia (Acute) Hypomagnesemia (Acute) Hypokalemia (Acute) Elevated LFTs (Acute) Abnormal gall bladder diagnostic imaging (Acute) Umbilical hernia (Chronic) repaired 12/20/16, Marielena GERD (gastroesophageal reflux disease) (Chronic) Depression (Chronic) HLD (hyperlipidemia) (Chronic) HTN (hypertension) (Chronic) Medical History (Updated 06/01/24 @ 08:30 by Nilesh Avendano MD) Spinal stenosis of lumbar region with radiculopathy (~12/2017) Bacteremia due to methicillin resistant Staphylococcus aureus (~12/29/17) Acute kidney injury (~12/29/17) ATN secondary to MRSA bacteremia, spinal osteomyelitis; [place] [facility] [place]onat[place] Obesity (BMI 30-39.9) GERD (gastroesophageal reflux disease) Hyperlipidemia Depression Essential hypertension Surgical History History of esophagogastroduodenoscopy (EGD) (01/29/18) Dr Peguero Repair of umbilical hernia (12/20/16) EGD - MAC (12/06/16) Colonoscopy - MAC (12/06/16) Family History Other Diabetes Heart disease Myocardial infarction Neoplasm Stroke Social History Smoking/Tobacco Use Status: Former Tobacco Use Smoking risk assessment performed?: Yes Alcohol Intake: former Drug use: Never Substance use type: does not use Do you feel safe at home: Yes Do you feel safe in your relationship?: Yes Additional Social history: 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 He quit alcohol at age 19.
[2024-06-01] MEDS: Budesonide/Formoterol 160/4.5 6 GM 60 PUFF INH IH (08:36)
[2024-06-01] MEDS: Amoxicillin 500 MG CAP PO (08:37)
[2024-06-01] MEDS: Doxycycline Hyclate 100 MG CAP PO (08:37)
[2024-06-01] MEDS: Benzonatate 100 MG CAP PO (08:37)
[2024-06-01 08:55] LABS: COVID-19 PCR Negative (Negative); Influenza A PCR Negative (Negative); Influenza B PCR Negative (Negative); RSV PCR Negative (Negative)
[2024-06-01 08:56] LABS: Source Nasopharynx
--- NOTE | 2024-06-01 09:39 | DI.VRAD_ITS ---
PROCEDURE INFORMATION: Exam: XR Chest Exam date and time: 06/01/2024 7:54 AM Age: 59 years old Clinical indication: Cough TECHNIQUE: Imaging protocol: Radiologic exam of the chest. Views: 2 views. COMPARISON: CR XR CHEST 2V PA LATERAL 07/07/2023 12:16 PM FINDINGS: Lungs: There are ill-defined developing streaky opacities in both lung bases. Upper lung zones are clear. Pleural spaces: Unremarkable. No pleural effusion. No pneumothorax. Heart/Mediastinum: Cardiomediastinal silhouette is normal. Bones/joints: Unremarkable. IMPRESSION: Mild bibasilar infiltrates suspicious for early pneumonia. Dictated and Authenticated by: Harshil Alfonso MD. Orderin Romana Galloway MD
== END 2024-06-01 08:45 | disposition home or self-care (01) ==
PROVIDERS: Emergency Provider Emergency Medicine; PCP Family Medicine
DX: J18.9 Pneumonia, unspecified organism (principal)
CPT/HCPCS: 87637; 99284; 71046; 99283

== ENCOUNTER 2024-06-05 00:51 | Outpatient (CLI) | payer SELFPAY ==
--- NOTE | 2024-06-05 | ETT_ITS ---
APPROVED REPORT Exam: Exercise Treadmill Patient Location: Out-Patient Room/Bed: Stress Nurse: Kenia Saldaña RN Ordering Provider:EVELINA MANUEL, Contact Number: [phone] BMI: 36.17 Baseline Rhythm: Sinus Rhythm Indications: Old myocardial infarction, Medical History Medical History: CAD, NSTEMI (2022), obesity, STARR, MRSA bacteremia, GERD, HLD, depression, HTN, predi abetes, hx afib, dilated aortic root Cardiac Medications: Albuterol, aspirin, bupropion, carvedilol, citalopram, famotidine, losartan, nit ro, pantoprazole, rosuvastatin Allergies: Lisinopril Cardiac Risk Factors: Family hx, HTN, HLD, CVD, pradiabetes, former smoker Previous Cardiac Procedures: Stent placement (2022) Pretest Chest Pain Characteristics: None Exercise History: Indeterminate Physical Disabilities: None Lung Sounds: Clear to auscultation Heart Sounds: Regular Stress Test Details Test: Exercise stress testing was performed using a Mike protocol. Rest Stress HR Resting HR Supine: 71 bpm Max Heart Rate (APMHR): 161 bpm Resting HR Standin bpm Target HR (85% APMHR): 137 bpm Max HR Achieved: 140 bpm % of APMHR: 87 Recovery HR: 83 bpm HR response to stress: Normal HR response to stress BP Resting BP Supine: 142/92 mmHg Resting BP Standin/88 mmHg Max BP: 184/80 mmHg Recovery BP: 144/88 mmHg BP response to stress: Normal blood pressure response to stress. ECG Resting ECG: Sinus Rhythm Ectopy: Rare PVC's Stress ECG: Sinus Tachycardia ST Change: No significant ST segment changes noted Arrhythmia: Rare PVC's Recovery ECG: Sinus Rhythm Recovery ST Change: No significant ST segment changes noted Recovery Arrhythmia: Rare PAC Clinical Reason for Termination: Target HR Achieved, Mod SOB Stress Symptoms: Mod SOB Exercise duration: 07 min02 sec Highest Stage Reached: Stage 3: 3.4 mph at 14% grade. Exercise capacity: 8.65 METs Angina Score: None Rate Pressure Product: [id number] Stress ECG Conclusion 1. Resting electrocardiogram is normal 2. Patient exercised on the Mike protocol and completed a workload of 8.65 METS 3. Normal heart rate and blood pressure response to exercise. The patient achieved 87% of maximal pr edicted heart rate for age 4. There was no electrocardiographic evidence of myocardial ischemia 5. There were no significant dysrhythmias Stress Test Summary STAGE Time (mins) Speed (mph) Grade (%) HR BP SpO2 SYMPTOMS METS Supine 71 142/92 Standing 81 150/88 1 3 1.7 10 98 158/80 4.5 2 6 2.5 12 121 170/70 7 3 9 3.4 14 138 10 1 min recovery 130 124/64 3 min recovery 93 184/80 6 min recovery 85 170/88 9 min recovery 83 144/88
== END 2024-06-05 01:11 ==
LOC: DI 01:04
PROVIDERS: PCP Family Medicine; Visit Provider Internal Medicine Cardiovascular Disease
DX: I25.2 Old myocardial infarction (principal)
CPT/HCPCS: 93017

== ENCOUNTER 2024-10-10 12:43 | Emergency (ER) | payer OTHER, SELFPAY ==
--- NOTE | 2024-10-10 12:45 | RT.EKG_ITS ---
APPROVED REPORT Exam: Resting ECG Reason for Exam: SOB Patient Location: E HR:68 bpm ECG Measurements Heart Rate 68 AXIS IL 161 P 40 QRSd 100 QRS 23 QT 416 T 67 QTc 441 Conclusion Sinus rhythm...normal P axis, V-rate 60- 99 No Occlusion PR
[2024-10-10 12:55] VITALS: BP 130/78; PULSE 67; RESP 20; TEMP 36.9; O2SAT 95
--- NOTE | 2024-10-10 14:00 | DI.RAD_ITS ---
Exam(s) XR CHEST 2V PA LATERAL EXAM: XR CHEST 2V PA LATERAL CLINICAL HISTORY: cough, SOB, r/o pneumonia TECHNIQUE: 2D digital imaging was performed. Two views. COMPARISON: CR,XR XR CHEST 2V PA LATERAL from 06/01/2024 FINDINGS: HEART: Normal size. Aorta: Not dilated. PULMONARY VASCULATURE: Normal. MEDIASTINUM: Unremarkable. LUNGS: Clear. PLEURAL SPACE: No pleural effusion or pneumothorax. BONE:Unremarkable for age. SOFT TISSUES: Unremarkable. IMPRESSION: No acute abnormality. DATA REPOSITORY: RADIATION DOSE DELIVERED:
[2024-10-10 14:11] VITALS: BP 135/72; PULSE 68; RESP 18; TEMP 36.9; O2SAT 94
--- NOTE | 2024-10-10 14:29 | W.ED.GENAD ---
Discharge Plan Disposition Patient Disposition: Home Condition: Good Discharge Details Clinical Impression: Rib pain on left side Primary Care Provider: Katharina Hernandez V ED Provider: Vikram Munoz Home Meds and New Rx's Prescriptions: New lidocaine [Lidoderm] 5 % adhesive patch,medicated 1 patch Topical Q24H Qty: 15 0RF No Action losartan 25 mg tablet 25 mg PO DAILY nitroglycerin 0.4 mg tablet, sublingual 0.4 mg sublingual Q5-15M PRN (Reason: chest pain) Qty: 30 6RF Rx Instructions: do not exceed 3 doses per episode famotidine 20 mg tablet 20 mg PO DAILY PRN rosuvastatin 40 mg tablet 40 mg PO DAILY aspirin [Aspir-81] 81 MG tablet,delayed release (DR/EC) 81 mg PO DAILY citalopram 20 mg tablet 20 mg PO DAILY Patient Comments: TAKE ONE TABLET BY MOUTH EVERY DAY bupropion HCl 100 mg tablet See Rx Instructions PO BID Rx Instructions: 300mg in am and take 150mg in the evening pantoprazole 40 mg tablet,delayed release (DR/EC) 40 mg PO DAILY Qty: 30 0RF carvedilol 12.5 mg tablet 12.5 mg PO BID Patient Comments: TAKE ONE TABLET BY MOUTH TWICE A DAY IN ADDITION TO 25MG TABLET Centrum Minis Men 50 Plus 095-91-200-150 mcg Tablet 1 tab PO DAILY albuterol sulfate 90 mcg/actuation HFA aerosol inhaler 2 puff inhalation Q6H PRNQty: 6.7 0RF cetirizine 10 mg tablet 10 mg PO DAILY PRNQty: 7 0RF Discharge Instructions Instructions: Bruised Rib Additional Instructions: At this time your chest x-ray shows no evidence of fracture, popped lung, or pneumonia. I suspect your rib is bruised and contused. Please apply the Lidoderm patches as directed. It will likely take 4 to 8 weeks for the symptoms to significantly improve. Take Tylenol and Motrin as needed for pain. If you notice any worsening of your symptoms, or any new symptoms such as vomiting, diarrhea, fever, chills, shortness of breath, chest pain, numbness, weakness, or fainting , please return immediately to the emergency department for reevaluation. Please follow up with your primary care provider as soon as possible for reassessment and reevaluation. As always, it was a pleasure participating in your medical care today. Referrals: Katharina Hernandez MD [Primary Care Provider, Medicine] Discharge Data Discharge Date/Time-TO BE ENTERED AT DEPARTURE: 10/10/24 16:00 HPI General Date/Time Provider Initiated Documentation: 10/10/24 14:10. HPI Narrative: 59-year-old male with a past medical history of coronary artery disease and stent, GERD, hypertension, high cholesterol, presents today for evaluation of left rib pain. Patient states that the pain began last night. It is not made worse with cough or breathing. It is not made worse with exertion or activity. It is only made worse when touching the left rib area. He denies any trauma to that area. He denies any fever or chills. He does admit to a chronic cough over the last few weeks, but denies any significant hemoptysis, or productivity to the cough. He does not smoke but he does have family members who do. He does have an old history of tobacco use in the past. No other complaints at this time. No other modifying factors. He denies trauma to the area. Related Data Home Medications ?Medication ?Instructions ?Recorded ?Confirmed aspirin 81 mg tablet,delayed 81 mg PO DAILY 01/15/16 10/10/24 release (Aspir-) citalopram 20 mg tablet 20 mg PO DAILY 06/12/21 10/10/24 famotidine 20 mg tablet 20 mg PO DAILY PRN 06/09/22 10/10/24 rosuvastatin 40 mg tablet 40 mg PO DAILY 06/09/22 10/10/24 losartan 25 mg tablet 25 mg PO DAILY 06/22/22 10/10/24 [id number] 150 mcg-vit K1 1 tab PO DAILY 09/15/22 10/10/24 30 mcg-lycop 300 mcg-lutein tablet (Centrum Minis Men 50 Plus) albuterol sulfate 90 mcg/actuation 2 puff inhalation Q6H PRN #6.7 12/03/22 10/10/24 aerosol inhaler grams nitroglycerin 0.4 mg sublingual 0.4 mg sublingual Q5-15M PRN chest 06/01/23 10/10/24 tablet pain #30 tabs bupropion HCl 100 mg tablet See Rx Instructions PO BID 06/03/23 10/10/24 pantoprazole 40 mg tablet,delayed 40 mg PO DAILY #30 tabs 06/03/23 10/10/24 release carvedilol 12.5 mg tablet 12.5 mg PO BID 07/07/23 10/10/24 cetirizine 10 mg tablet 10 mg PO DAILY PRN #7 tabs 06/01/24 10/10/24 lidocaine 5 % topical patch 1 patch topical Q24H #15 ea 10/10/24 (Lidoderm) Previous Rx's ?Medication ?Instructions ?Recorded albuterol sulfate 90 mcg/actuation 2 puff inhalation Q6H PRN #6.7 12/03/22 aerosol inhaler grams nitroglycerin 0.4 mg sublingual 0.4 mg sublingual Q5-15M PRN chest 06/01/23 tablet pain #30 tabs pantoprazole 40 mg tablet,delayed 40 mg PO DAILY #30 tabs 06/03/23 release cetirizine 10 mg tablet 10 mg PO DAILY PRN #7 tabs 06/01/24 lidocaine 5 % topical patch 1 patch topical Q24H #15 ea 10/10/24 (Lidoderm) Allergies Allergy/AdvReac Type Severity Reaction Status Date / Time lisinopril AdvReac Mild unknown Verified 10/10/24 13:00 General Stated Complaint: SOB ELFEGO: 3 Exam Narrative Exam Narrative: 1.Const: Well-nourished, Well-developed, appearing stated age 2.Eyes: PERRL, no conjunctival injection, and symmetrical lids. 3.ENT: Atraumatic external nose and ears. Moist MM. Neck: Symmetric, trachea midline, No thyromegaly. 4.CVS: +S1/S2, Peripheral pulses 2+ and equal in all extremities. Brisk capillary refill in all extremities. 5.RESP: Unlabored respiratory effort. Clear to auscultation bilaterally. No wheezes rales or rhonchi. Reproducible chest wall tenderness over the left posterior lateral ribs. No crepitus. 6.GI: Soft, Nontender/Nondistended, No hepatosplenomegaly. No guarding or rebound. 7.MSK: Normocephalic/Atraumatic, Extremities w/o deformity or ttp No cyanosis or clubbing, Normal movement of all extremities 8.Skin: Warm, Dry. No rashes or lesions. 9.Neuro: park interpreter II-XII grossly intact. Sensation grossly intact, no focal neurologic deficits. 10.Psych: (AAO) x3. Appropriate mood and affect Course Vital Signs Vital signs: Vital Signs Temperature 36.9 C 10/10/24 12:55 Pulse 67 10/10/24 12:55 Respiratory Rate 20 10/10/24 12:55 Blood Pressure 130/78 10/10/24 12:55 Pulse Oximetry 95 10/10/24 12:55 Temperature 36.9 C 10/10/24 14:11 Temperature Source Oral 10/10/24 14:11 Pulse 68 10/10/24 14:11 Respiratory Rate 18 10/10/24 14:11 Respiratory Effort Normal 10/10/24 14:09 Respiratory Depth Normal 10/10/24 14:09 Respiratory Pattern Normal 10/10/24 14:09 Blood Pressure 135/72 10/10/24 14:11 Blood Pressure Position Sitting 10/10/24 12:55 Pulse Oximetry 94 10/10/24 14:11 Oxygen Delivery Method Room Air 10/10/24 12:55 Oxygen Flow Rate 0 10/10/24 12:55 Pain Level 0 10/10/24 12:55 Medical Decision Making 59-year-old male with a past medical history of coronary artery disease and stent, GERD, hypertension, high cholesterol, presents today for evaluation of left rib pain. Patient states that the pain began last night. It is not made worse with cough or breathing. It is not made worse with exertion or activity. It is only made worse when touching the left rib area. He denies any trauma to that area. He denies any fever or chills. He does admit to a chronic cough over the last few weeks, but denies any significant hemoptysis, or productivity to the cough. He does not smoke but he does have family members who do. He does have an old history of tobacco use in the past. No other complaints at this time. No other modifying factors. He denies trauma to the area. Exam demonstrates reproducible tenderness over the left lateral posterior ribs. No bruising or rash to suggest shingles. No evidence of pneumothorax or consolidation. No pleuritic chest pain or shortness of breath or tachycardia to suggest PE. Patient is PERC and Wells negative. Chest x-ray was ordered and demonstrates no acute process or fracture. Lidoderm patch was applied and the patient had near complete resolution of symptoms. Suggest musculoskeletal component, most likely contused the rib or intercostal sprain. Will recommend continued Lidoderm patches. No evidence of other acute abnormality. Vital signs notably stable. Discussed red flags for which to return. I have extensively reviewed the treatment plan and discharge instructions with the patient and their family. I have addressed all patient concerns at this time. The patient and family was made aware of what symptoms to monitor for that would warrant a return to the emergency department. Discussed the plan with the patient and family, they demonstrate verbal understanding and agreement with our assessment and plan at this time. The documentation in this chart was dictated using [email or web address] dictation software. Please excuse any dictation errors. FINDINGS: HEART: Normal size. Aorta: Not dilated. PULMONARY VASCULATURE: Normal. MEDIASTINUM: Unremarkable. LUNGS: Clear. PLEURAL SPACE: No pleural effusion or pneumothorax. BONE:Unremarkable for age. SOFT TISSUES: Unremarkable. IMPRESSION: No acute abnormality. PFSH All Active Problems (Updated 10/10/24 @ 15:48 by Vikram Munoz DO) Rib pain on left side (Acute) Arthritis of carpometacarpal (CMC) joint of left thumb (Acute) Coronary artery disease (Chronic) History of atrial fibrillation (Acute) 06/09/22 per PCP problem list [facility] Prediabetes (Acute) Dilated aortic root (Acute) 06/09/[address] once stable HTN, 4 cm per [facility] Family history of early CAD (Acute) NSTEMI (non-ST elevated myocardial infarction) (Acute) 05/22/22 was managed hospital in [place] had stent to mid LAD w [facility] DVT prophylaxis (Acute) Osteomyelitis (Acute) Pneumonia (Acute) Febrile illness, acute (Acute) Antral gastritis (Chronic ~12/2016) Discitis of multiple sites of spine (Acute ~12/31/17) Anemia (Acute) Hypomagnesemia (Acute) Hypokalemia (Acute) Elevated LFTs (Acute) Abnormal gall bladder diagnostic imaging (Acute) Umbilical hernia (Chronic) repaired 12/20/16, Marielena GERD (gastroesophageal reflux disease) (Chronic) Depression (Chronic) HLD (hyperlipidemia) (Chronic) HTN (hypertension) (Chronic) Medical History (Updated 10/10/24 @ 15:48 by Vikram Munoz DO) Spinal stenosis of lumbar region with radiculopathy (~12/2017) Bacteremia due to methicillin resistant Staphylococcus aureus (~12/29/17) Acute kidney injury (~12/29/17) ATN secondary to MRSA bacteremia, spinal osteomyelitis; required hemodialysis 01/02-01/12/2018 at [facility] [place] Hyponatremia Obesity (BMI 30-39.9) GERD (gastroesophageal reflux disease) Hyperlipidemia Depression Essential hypertension Surgical History History of esophagogastroduodenoscopy (EGD) (01/29/18) Dr Peguero Repair of umbilical hernia (12/20/16) EGD - MAC (12/06/16) Colonoscopy - MAC (12/06/16) Family History Other Diabetes Heart disease Myocardial infarction Neoplasm Stroke Social History Smoking/Tobacco Use Status: Former Tobacco Use Smoking risk assessment performed?: Yes Alcohol Intake: former Drug use: Never Substance use type: does not use Do you feel safe at home: Yes Do you feel safe in your relationship?: Yes Additional Social history: 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 He quit alcohol at age 19.
[2024-10-10] MEDS: Lidocaine 5% Patch 1 PATCH TP (14:42)
[2024-10-10] MEDS: Acetaminophen 500 MG TAB 1000 MG PO (14:42)
[2024-10-10 15:13] VITALS: BP 148/85; PULSE 62; RESP 20; O2SAT 96
[2024-10-10 15:59] VITALS: BP 127/79; PULSE 68; RESP 18; O2SAT 95
== END 2024-10-10 16:00 | disposition home or self-care (01) ==
PROVIDERS: Emergency Provider Student in an Organized Health Care Education/Training Program; PCP Family Medicine
DX: R07.81 Pleurodynia (principal); R05.3 Chronic cough; Z87.891 Personal history of nicotine dependence
CPT/HCPCS: 99283; 99284; 93005; 71046; 93010